=== PATIENT | female | born 1955 | race Caucasian/White ===

== ENCOUNTER → 2016-12-03 | Outpatient (CLI) | payer OTHER ==
[2016-12-03 13:21] LABS: MEAN CORPUSCULAR HEMOGLOBIN 30.4 pg (27.0-33.0); MEAN CORPUSCULAR HGB CONC 33.7 g/dl (32.0-36.5); MEAN CORPUSCULAR VOLUME 90.1 fl (80.0-96.0); RED CELL DISTRIBUTION WIDTH 13.1 % (11.5-14.5); WHITE BLOOD COUNT 5.4 K/mm3 (4.0-10.0)
[2016-12-03 13:33] LABS: ALBUMIN 3.7 GM/DL (3.2-5.2); ALBUMIN/GLOBULIN RATIO 1.19 (1.00-1.93); ALKALINE PHOSPHATASE 82 U/L (45-117); ALT/SGPT 41 U/L (12-78); ANION GAP 8 MEQ/L (8-16); AST/SGOT 26 U/L (15-37); BILIRUBIN,TOTAL 0.6 MG/DL (0.2-1.0); BLOOD UREA NITROGEN 14 MG/DL (7-18); CALCIUM LEVEL 8.4 MG/DL (8.8-10.2); CARBON DIOXIDE LEVEL 26 MEQ/L (21-32); CHLORIDE LEVEL 109 MEQ/L (98-107); CHOLESTEROL LEVEL 220 MG/DL (<200); CREATININE FOR GFR 0.73 MG/DL (0.55-1.02); FREE T4 0.91 NG/DL (0.76-1.46); GLOMERULAR FILTRATION RATE > 60.0 (>45); GLUCOSE, FASTING 95 MG/DL (80-110); POTASSIUM SERUM 4.5 MEQ/L (3.5-5.1); SODIUM LEVEL 143 MEQ/L (136-145); TOTAL PROTEIN 6.8 GM/DL (6.4-8.2); TRIGLYCERIDES LEVEL 113 MG/DL (<150)
== END ==
LOC: M WUC 08:38
PROVIDERS: ATTEND Family Medicine
DX: M85.80 Other specified disorders of bone density and structure, unspecified site (principal); E07.9 Disorder of thyroid, unspecified; E78.5 Hyperlipidemia, unspecified

== ENCOUNTER → 2017-04-23 | Outpatient (REF) | payer OTHER ==
[2017-04-23 13:08] LABS: BASO # 0.1 10^3/uL (0.0-0.2); BASO % 0.7 % (0.0-1.0); EOS # 0.2 10^3/uL (0.0-0.50); EOS % 2.2 % (0.0-3.0); HEMATOCRIT 42.6 % (36.0-47.0); IMMATURE GRANULOCYTE % 0.3 % (0-0); LYMPH # 2.8 10^3/uL (1.5-4.5); LYMPH % 39.2 % (24.0-44.0); MEAN CORPUSCULAR HEMOGLOBIN 29.3 pg (27.0-33.0); MEAN CORPUSCULAR HGB CONC 32.9 g/dl (32.0-36.5); MEAN CORPUSCULAR VOLUME 89.1 fl (80.0-96.0); MONO # 0.5 10^3/uL (0.0-0.8); MONO % 6.5 % (0.0-5.0); NEUTROPHILS # 3.7 10^3/uL (1.8-7.7); NEUTROPHILS % 51.1 % (36.0-66.0); PLATELET COUNT, AUTOMATED 313 10^3/uL (150-450); RED BLOOD COUNT 4.78 10^6/uL (4.00-5.40); RED CELL DISTRIBUTION WIDTH 13.1 % (11.5-14.5); WHITE BLOOD COUNT 7.2 10^3/uL (4.0-10.0)
[2017-04-23 13:24] LABS: VITAMIN B12 LEVEL 559 PG/ML
[2017-04-23 13:25] LABS: FOLATE 10.2 NG/ML
[2017-04-23 13:29] LABS: ALBUMIN 3.8 GM/DL (3.2-5.2); ALBUMIN/GLOBULIN RATIO 1.27 (1.00-1.93); ALKALINE PHOSPHATASE 89 U/L (45-117); ALT/SGPT 40 U/L (12-78); ANION GAP 6 MEQ/L (8-16); AST/SGOT 28 U/L (7-37); BILIRUBIN,TOTAL 0.4 MG/DL (0.2-1.0); BLOOD UREA NITROGEN 15 MG/DL (7-18); CALCIUM LEVEL 8.5 MG/DL (8.8-10.2); CARBON DIOXIDE LEVEL 26 MEQ/L (21-32); CHLORIDE LEVEL 110 MEQ/L (98-107); CREATININE FOR GFR 0.73 MG/DL (0.55-1.02); GLOMERULAR FILTRATION RATE > 60.0 (>45); GLUCOSE, FASTING 90 MG/DL (80-110); POTASSIUM SERUM 4.3 MEQ/L (3.5-5.1); RHEUMATOID FACTOR QUANT < 10.0 IU/ML (0-15.0); SODIUM LEVEL 142 MEQ/L (136-145); THYROID STIMULATING HORMONE 0.737 uIU/ML (0.358-3.740); TOTAL PROTEIN 6.8 GM/DL (6.4-8.2)
[2017-04-23 14:21] LABS: ERYTHROCYTE SEDIMENTATION RATE 6 mm/hr (0-30)
[2017-04-25 00:07] LABS: ANTI DOUBLE STRAND-DNA AB <1 IU/mL (0-9); ANTINUCLEAR ANTIBODIES DIRECT Negative (Negative); RNP ANTIBODIES <0.2 AI (0.0-0.9); SJOGREN'S ANTI SS-A <0.2 AI (0.0-0.9); SJOGREN'S ANTI SS-B <0.2 AI (0.0-0.9); SMITH ANTIBODIES <0.2 AI (0.0-0.9)
== END ==
LOC: M LABNEURO 11:28
DX: M32.9 Systemic lupus erythematosus, unspecified (principal); D35.2 Benign neoplasm of pituitary gland
CPT/HCPCS: 82746

== ENCOUNTER → 2017-04-30 | Outpatient (CLI) | payer OTHER ==
[2017-04-30 13:38] LABS: BASO # 0.1 10^3/uL (0.0-0.2); BASO % 0.4 % (0.0-1.0); EOS # 0.1 10^3/uL (0.0-0.50); EOS % 0.8 % (0.0-3.0); HEMATOCRIT 43.3 % (36.0-47.0); HEMOGLOBIN 14.3 g/dl (12.0-16.0); IMMATURE GRANULOCYTE # 0.1 10^3/uL (0-0); IMMATURE GRANULOCYTE % 0.4 % (0-0); LYMPH # 1.4 10^3/uL (1.5-4.5); LYMPH % 10.4 % (24.0-44.0); MEAN CORPUSCULAR HEMOGLOBIN 29.7 pg (27.0-33.0); MONO # 1.1 10^3/uL (0.0-0.8); MONO % 7.8 % (0.0-5.0); NEUTROPHILS # 10.8 10^3/uL (1.8-7.7); NEUTROPHILS % 80.2 % (36.0-66.0); PLATELET COUNT, AUTOMATED 319 10^3/uL (150-450); RED BLOOD COUNT 4.81 10^6/uL (4.00-5.40); RED CELL DISTRIBUTION WIDTH 13.1 % (11.5-14.5); WHITE BLOOD COUNT 13.5 10^3/uL (4.0-10.0)
[2017-04-30 14:52] LABS: ALBUMIN 3.7 GM/DL (3.2-5.2); ALBUMIN/GLOBULIN RATIO 1.12 (1.00-1.93); ALKALINE PHOSPHATASE 91 U/L (45-117); ALT/SGPT 39 U/L (12-78); ANION GAP 5 MEQ/L (8-16); AST/SGOT 19 U/L (7-37); BILIRUBIN,TOTAL 0.4 MG/DL (0.2-1.0); BLOOD UREA NITROGEN 16 MG/DL (7-18); CALCIUM LEVEL 8.8 MG/DL (8.8-10.2); CARBON DIOXIDE LEVEL 29 MEQ/L (21-32); CHLORIDE LEVEL 109 MEQ/L (98-107); CREATININE FOR GFR 0.73 MG/DL (0.55-1.02); GLOMERULAR FILTRATION RATE > 60.0 (>45); GLUCOSE, FASTING 94 MG/DL (70-100); POTASSIUM SERUM 4.3 MEQ/L (3.5-5.1); SODIUM LEVEL 143 MEQ/L (136-145)
== END ==
LOC: M WUC 10:46
DX: R19.7 Diarrhea, unspecified (principal)
CPT/HCPCS: 80053

== ENCOUNTER → 2017-05-01 | Outpatient (REF) | payer OTHER | LOC: M LAB REF 12:35 | DX: R19.7 Diarrhea, unspecified (principal) ==

== ENCOUNTER 2017-06-05 12:13 | Day surgery (SDC) | payer OTHER ==
[2017-06-05] MEDS: NS 1,000 ML IV (12:30)
[2017-06-05] MEDS ORDERED: fentaNYL 100 MCG/2 ML INJECTION (J3010) As Ordered (13:23)
[2017-06-05] MEDS ORDERED: LIDOCAINE 2% INJ 100 MG/5 ML SDV (FOR ANES.) As Ordered (13:55)
[2017-06-05] MEDS ORDERED: PROPOFOL 200 MG/20 ML VIAL As Ordered (13:55)
== END 2017-06-05 14:29 | disposition home or self-care (01) ==
LOC: M SDC 12:13
DX: R10.13 Epigastric pain (principal); R11.0 Nausea; G47.30 Sleep apnea, unspecified; F41.9 Anxiety disorder, unspecified; M79.7 Fibromyalgia; Z79.899 Other long term (current) drug therapy; K21.9 Gastro-esophageal reflux disease without esophagitis
CPT/HCPCS: 43239

== ENCOUNTER → 2017-08-21 | Outpatient (CLI) | payer OTHER ==
[2017-08-21 13:27] LABS: BASO % 0.6 % (0.0-1.0); EOS # 0.2 10^3/uL (0.0-0.50); EOS % 2.4 % (0.0-3.0); HEMATOCRIT 43.5 % (36.0-47.0); HEMOGLOBIN 14.4 g/dl (12.0-15.5); IMMATURE GRANULOCYTE % 0.2 % (0-3.0); LYMPH # 3.4 10^3/uL (1.5-4.5); LYMPH % 51.2 % (24.0-44.0); MEAN CORPUSCULAR HEMOGLOBIN 29.6 pg (27.0-33.0); MEAN CORPUSCULAR HGB CONC 33.1 g/dl (32.0-36.5); MEAN CORPUSCULAR VOLUME 89.5 fl (80.0-96.0); MONO # 0.5 10^3/uL (0.0-0.8); MONO % 6.9 % (0.0-5.0); NEUTROPHILS # 2.5 10^3/uL (1.8-7.7); NEUTROPHILS % 38.7 % (36.0-66.0); PLATELET COUNT, AUTOMATED 314 10^3/uL (150-450); RED BLOOD COUNT 4.86 10^6/uL (4.00-5.40); RED CELL DISTRIBUTION WIDTH 12.8 % (11.5-14.5); WHITE BLOOD COUNT 6.5 10^3/uL (4.0-10.0)
[2017-08-21 13:49] LABS: ALBUMIN 3.6 GM/DL (3.2-5.2); ALBUMIN/GLOBULIN RATIO 1.06 (1.00-1.93); ALKALINE PHOSPHATASE 87 U/L (45-117); ALT/SGPT 39 U/L (12-78); ANION GAP 6 MEQ/L (8-16); AST/SGOT 22 U/L (7-37); BILIRUBIN,TOTAL 0.5 MG/DL (0.2-1.0); BLOOD UREA NITROGEN 12 MG/DL (7-18); CALCIUM LEVEL 9.1 MG/DL (8.8-10.2); CARBON DIOXIDE LEVEL 27 MEQ/L (21-32); CHLORIDE LEVEL 110 MEQ/L (98-107); CREATININE FOR GFR 0.76 MG/DL (0.55-1.30); GLOMERULAR FILTRATION RATE > 60.0 (>45); GLUCOSE, FASTING 92 MG/DL (70-100); POTASSIUM SERUM 4.2 MEQ/L (3.5-5.1); SODIUM LEVEL 143 MEQ/L (136-145)
[2017-08-23 00:06] LABS: Lyme Disease IgG/IgM Antibodie <0.91 ISR (0.00-0.90); Lyme Disease IgM Ab Quantitati <0.80 index (0.00-0.79)
== END ==
LOC: M LAB 12:47
DX: R51 Headache (principal)
CPT/HCPCS: 80053

== ENCOUNTER 2017-09-21 08:06 | Day surgery (SDC) | payer OTHER ==
[2017-09-21] MEDS: NS 1,000 ML IV (08:58)
[2017-09-21] MEDS ORDERED: LIDOCAINE 2% INJ 100 MG/5 ML SDV (FOR ANES.) As Ordered (09:33)
[2017-09-21] MEDS ORDERED: PROPOFOL 200 MG/20 ML VIAL As Ordered ×2 (09:33→09:52)
== END 2017-09-21 10:41 | disposition home or self-care (01) ==
LOC: M OPP 08:06
DX: Z12.11 Encounter for screening for malignant neoplasm of colon (principal); D12.2 Benign neoplasm of ascending colon; D12.0 Benign neoplasm of cecum; Z86.010 Personal history of colon polyps; E78.00 Pure hypercholesterolemia, unspecified; K21.9 Gastro-esophageal reflux disease without esophagitis; M54.2 Cervicalgia; M79.7 Fibromyalgia; M35.9 Systemic involvement of connective tissue, unspecified; F32.9 Major depressive disorder, single episode, unspecified; F41.9 Anxiety disorder, unspecified; M16.9 Osteoarthritis of hip, unspecified; Z79.899 Other long term (current) drug therapy; Z88.8 Allergy status to other drugs, medicaments and biological substances; Z91.89 Other specified personal risk factors, not elsewhere classified; Z90.710 Acquired absence of both cervix and uterus; Z80.3 Family history of malignant neoplasm of breast; Z80.0 Family history of malignant neoplasm of digestive organs; Z80.7 Family history of other malignant neoplasms of lymphoid, hematopoietic and related tissues
CPT/HCPCS: 45385

== ENCOUNTER → 2017-11-02 | Outpatient (CLI) | payer OTHER ==
[2017-11-02 09:47] LABS: BASO # 0.1 10^3/uL (0.0-0.2); BASO % 0.8 % (0.0-1.0); EOS # 0.2 10^3/uL (0.0-0.50); EOS % 3.3 % (0.0-3.0); HEMATOCRIT 43.9 % (36.0-47.0); HEMOGLOBIN 14.4 g/dl (12.0-15.5); IMMATURE GRANULOCYTE % 0.3 % (0-3.0); LYMPH # 2.7 10^3/uL (1.5-4.5); LYMPH % 44.2 % (24.0-44.0); MEAN CORPUSCULAR HEMOGLOBIN 30.1 pg (27.0-33.0); MEAN CORPUSCULAR HGB CONC 32.8 g/dl (32.0-36.5); MEAN CORPUSCULAR VOLUME 91.6 fl (80.0-96.0); MONO # 0.4 10^3/uL (0.0-0.8); MONO % 6.8 % (0.0-5.0); NEUTROPHILS # 2.7 10^3/uL (1.8-7.7); NEUTROPHILS % 44.6 % (36.0-66.0); PLATELET COUNT, AUTOMATED 288 10^3/uL (150-450); RED BLOOD COUNT 4.79 10^6/uL (4.00-5.40); RED CELL DISTRIBUTION WIDTH 12.8 % (11.5-14.5); WHITE BLOOD COUNT 6.2 10^3/uL (4.0-10.0)
[2017-11-02 10:21] LABS: ALBUMIN 3.6 GM/DL (3.2-5.2); ALBUMIN/GLOBULIN RATIO 1.13 (1.00-1.93); ALKALINE PHOSPHATASE 83 U/L (45-117); ALT/SGPT 31 U/L (12-78); ANION GAP 7 MEQ/L (8-16); AST/SGOT 18 U/L (7-37); BILIRUBIN,TOTAL 0.4 MG/DL (0.2-1.0); BLOOD UREA NITROGEN 17 MG/DL (7-18); CALCIUM LEVEL 8.5 MG/DL (8.8-10.2); CARBON DIOXIDE LEVEL 26 MEQ/L (21-32); CHLORIDE LEVEL 112 MEQ/L (98-107); CHOLESTEROL LEVEL 258 MG/DL (<200); CHOLESTEROL RISK RATIO 4.095 (<5); CREATININE FOR GFR 0.82 MG/DL (0.55-1.30); GLOMERULAR FILTRATION RATE > 60.0 (>45); GLUCOSE, FASTING 96 MG/DL (70-100); HDL CHOLESTEROL 63 MG/DL (>40); LDL CHOLESTEROL 154.6 MG/DL (<100); NON-HDL-C 195 MG/DL; POTASSIUM SERUM 4.4 MEQ/L (3.5-5.1); SODIUM LEVEL 145 MEQ/L (136-145); TOTAL PROTEIN 6.8 GM/DL (6.4-8.2); TRIGLYCERIDES LEVEL 202 MG/DL (<150)
== END ==
LOC: M LAB 09:19
DX: E78.5 Hyperlipidemia, unspecified (principal)
CPT/HCPCS: 84443

== ENCOUNTER → 2018-08-03 | Outpatient (RCR) | payer OTHER ==
[~2018-08-03] MED LIST: ALIG4CAP PO; FLUO40CA PO; LYRI75CA PO; RANI150T PO; REST0.05 OU; SING10TA32 PO; TOPI50TA9 PO; allergy shots
== END ==
LOC: M PT 11:55
PROVIDERS: ATTEND Otolaryngology
DX: M26.69 Other specified disorders of temporomandibular joint (principal)

== ENCOUNTER → 2018-08-07 | Outpatient (CLI) | payer OTHER ==
--- NOTE | 2018-08-09 12:14 | REP ---
MRI TEMPOROMANDIBULAR JOINTS, BILATERAL STUDY: HISTORY: Disorder of the TMJs. No comparison imaging. TECHNIQUE: Axial, coronal, and sagittal imaging planes are utilized. T1- and T2-weighted sequences are included. The study includes simulated cine imaging bilaterally in the sagittal projection. 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 There is a small quantity of joint fluid. There is marrow edema and subcortical cyst formation on both sides of the left temporomandibular joint. There is limited opening translation. Meniscus is not identified suggesting degeneration. On the right, there is some associated limitation of opening translation, a small subcortical cyst is seen on the temporal side of the joint. Mandibular condyles intact. The meniscus is intact and normal in position. No significant spurring is seen. IMPRESSION: Advanced osteoarthritis left TMJ with flattening and remodelling; and degeneration of the meniscus. Limited range of motion. Minimal degenerative changes are noted on the right. The right meniscus appears intact. Electronically Signed by Carlos Grant MD 08/09/2018 02:31 P
== END ==
LOC: M RAD 12:06
PROVIDERS: ATTEND Otolaryngology
DX: M26.69 Other specified disorders of temporomandibular joint (principal)

== ENCOUNTER → 2018-09-03 | Outpatient (RCR) | payer OTHER | LOC: M PT 08-10 11:59 | PROVIDERS: ATTEND Otolaryngology | DX: M26.69 Other specified disorders of temporomandibular joint (principal) ==

== ENCOUNTER → 2018-12-27 | Outpatient (CLI) | payer OTHER ==
[2018-12-27 09:21] LABS: BASO # 0.1 10^3/uL (0.0-0.2); BASO % 0.8 % (0.0-1.0); EOS # 0.3 10^3/uL (0.0-0.5); EOS % 4.5 % (0.0-3.0); HEMATOCRIT 42.8 % (36.0-47.0); HEMOGLOBIN 13.7 g/dl (12.0-15.5); LYMPH % 47.7 % (24.0-44.0); MEAN CORPUSCULAR HEMOGLOBIN 29.7 pg (27.0-33.0); MEAN CORPUSCULAR VOLUME 92.8 fl (80.0-96.0); MONO # 0.5 10^3/uL (0.0-0.8); MONO % 7.5 % (0.0-5.0); NEUTROPHILS # 2.4 10^3/uL (1.5-8.5); NEUTROPHILS % 39.2 % (36.0-66.0); PLATELET COUNT, AUTOMATED 290 10^3/uL (150-450); RED BLOOD COUNT 4.61 10^6/uL (4.00-5.40); WHITE BLOOD COUNT 6.2 10^3/uL (4.0-10.0)
[2018-12-27 09:56] LABS: ALBUMIN 3.5 GM/DL (3.2-5.2); ALT/SGPT 33 U/L (12-78); BILIRUBIN,TOTAL 0.3 MG/DL (0.2-1.0); BLOOD UREA NITROGEN 7 MG/DL (7-18); CALCIUM LEVEL 8.8 MG/DL (8.8-10.2); CARBON DIOXIDE LEVEL 29 MEQ/L (21-32); CHLORIDE LEVEL 111 MEQ/L (98-107); CHOLESTEROL LEVEL 232 MG/DL (<200); CHOLESTEROL RISK RATIO 3.803 (<5); CREATININE FOR GFR 0.79 MG/DL (0.55-1.30); FREE T3 2.6 PG/ML (2.2-4.0); FREE T4 0.84 NG/DL (0.76-1.46); GLOMERULAR FILTRATION RATE > 60.0 (>45); GLUCOSE, FASTING 93 MG/DL (70-100); HDL CHOLESTEROL 61 MG/DL (>40); LDL CHOLESTEROL 138 MG/DL (<100); NON-HDL-C 171 MG/DL; POTASSIUM SERUM 4.6 MEQ/L (3.5-5.1); SODIUM LEVEL 145 MEQ/L (136-145); TOTAL PROTEIN 6.5 GM/DL (6.4-8.2); TRIGLYCERIDES LEVEL 163 MG/DL (<150)
== END ==
LOC: M LAB 08:31
PROVIDERS: ATTEND Family Medicine
DX: E07.9 Disorder of thyroid, unspecified (principal); E78.5 Hyperlipidemia, unspecified

== ENCOUNTER → 2019-05-11 | Outpatient (CLI) | payer OTHER ==
[2019-05-11 12:37] LABS: BASO % 0.6 % (0.0-1.0); EOS # 0.2 10^3/uL (0.0-0.5); EOS % 2.8 % (0.0-3.0); HEMATOCRIT 42.8 % (36.0-47.0); LYMPH # 3.5 10^3/uL (1.5-5.0); LYMPH % 51.9 % (24.0-44.0); MEAN CORPUSCULAR HEMOGLOBIN 29.7 pg (27.0-33.0); MEAN CORPUSCULAR HGB CONC 32.7 g/dl (32.0-36.5); MEAN CORPUSCULAR VOLUME 90.7 fl (80.0-96.0); MONO # 0.5 10^3/uL (0.0-0.8); MONO % 7.7 % (0.0-5.0); NEUTROPHILS # 2.5 10^3/uL (1.5-8.5); NEUTROPHILS % 36.9 % (36.0-66.0); PLATELET COUNT, AUTOMATED 300 10^3/uL (150-450); RED BLOOD COUNT 4.72 10^6/uL (4.00-5.40); WHITE BLOOD COUNT 6.7 10^3/uL (4.0-10.0)
[2019-05-11 13:07] LABS: ALBUMIN 3.9 GM/DL (3.2-5.2); ALT/SGPT 29 U/L (12-78); BILIRUBIN,TOTAL 0.3 MG/DL (0.2-1.0); BLOOD UREA NITROGEN 23 MG/DL (7-18); CALCIUM LEVEL 8.6 MG/DL (8.8-10.2); CARBON DIOXIDE LEVEL 27 MEQ/L (21-32); CHLORIDE LEVEL 112 MEQ/L (98-107); CREATININE FOR GFR 0.77 MG/DL (0.55-1.30); GLOMERULAR FILTRATION RATE > 60.0 (>45); GLUCOSE, FASTING 77 MG/DL (70-100); POTASSIUM SERUM 4.3 MEQ/L (3.5-5.1); RHEUMATOID FACTOR QUANT < 10.0 IU/ML (<15.0); SODIUM LEVEL 142 MEQ/L (136-145)
[2019-05-11 13:15] LABS: TOTAL 25(OH) VITAMIN D 36.4 NG/ML (30.0-100.0); VITAMIN B12 LEVEL > 2000 PG/ML
[2019-05-11 13:17] LABS: FOLATE 9.9 NG/ML
[2019-05-11 14:15] LABS: ERYTHROCYTE SEDIMENTATION RATE 6 mm/hr (0-30)
[2019-05-13 00:06] LABS: ANTINUCLEAR ANTIBODIES DIRECT Negative (Negative); CYCLIC CITRULLINATED PEPTIDE 16 units (0-19)
== END ==
LOC: M LAB 11:40
PROVIDERS: ATTEND Psychiatry & Neurology Neurology
DX: M19.90 Unspecified osteoarthritis, unspecified site (principal); R51 Headache

== ENCOUNTER → 2019-05-27 | Outpatient (CLI) | payer OTHER ==
[2019-05-27 10:52] LABS: BLOOD UREA NITROGEN 24 MG/DL (7-18); CREATININE FOR GFR 0.94 MG/DL (0.55-1.30); GLOMERULAR FILTRATION RATE > 60.0 (>45)
== END ==
LOC: M LAB 08:32
PROVIDERS: ATTEND Neurological Surgery
DX: Z13.89 Encounter for screening for other disorder (principal); D32.9 Benign neoplasm of meninges, unspecified

== ENCOUNTER → 2019-10-24 | Outpatient (CLI) | payer SELFPAY ==
[~2019-10-24] MED LIST changes: +CITA20TA6 PO; +CVS1CAP2 PO; +OXYB5TAB10 PO; +PANT40TA29 PO
== END ==
LOC: M LABSMTC 12:56
PROVIDERS: ATTEND Pediatrics
DX: Z20.828 Contact with and (suspected) exposure to other viral communicable diseases (principal); Z11.59 Encounter for screening for other viral diseases

== ENCOUNTER → 2020-01-12 | Outpatient (CLI) | payer OTHER, SELFPAY | LOC: M LABSMTC 12:07 | PROVIDERS: ATTEND Anesthesiology | DX: Z01.812 Encounter for preprocedural laboratory examination (principal); Z20.828 Contact with and (suspected) exposure to other viral communicable diseases | CPT/HCPCS: C9803; U0003 ==

== ENCOUNTER 2020-01-17 13:55 | Day surgery (SDC) | payer OTHER ==
[~2020-01-17] VITALS: Ht 154.9 cm; Wt 73.5 kg
[~2020-01-17 13:55] MED LIST changes: +LIDOCAINE 2% 100MG/5ML SDV (FOR ANES.) As Ordered ONE; +NS 1,000 ML IV ONE; +fentaNYL 100 MCG/2 ML INJECTION (J3010) As Ordered ONE; +propofoL 200 MG/20 ML VIAL As Ordered ONE
--- NOTE | 2020-01-17 15:55 | ROOR ---
Patient Name: Anjana Sher Procedure Date: 01/17/2020 3:43 PM Date of : 1955 Age: 64 Room: [facility] Gender: Female Note Status: Finalized Procedure: Upper GI endoscopy Indications: Globus sensation, Heartburn, Suspected esophageal reflux (globus resolved on PPI) Providers: Harvey GARNER MD Referring MD: Jarrod Milan MD Requesting Provider: Medicines: Monitored Anesthesia Care Complications: No immediate complications. Procedure: Pre-Anesthesia Assessment: - The heart rate, respiratory rate, oxygen saturations, blood pressure, adequacy of pulmonary ventilation, and response to care were monitored throughout the procedure. The Endoscope was introduced through the mouth, and advanced to the second part of duodenum. The upper GI endoscopy was accomplished without difficulty. The patient tolerated the procedure well. Findings: The esophagus was normal. The stomach was normal. The examined duodenum was normal. Impression: - Normal esophagus. - Normal stomach. - Normal examined duodenum. - No specimens collected. Recommendation: - Continue present medications. Harvey Garner MD Harvey GARNER MD 01/17/2020 3:54:15 PM Electronically signed by Harvey GARNER MD Number of Addenda: 0 Note Initiated On: 01/17/2020 3:43 PM Estimated Blood Loss: Estimated blood loss: none.
[2020-01-17 16:23] VITALS: BP 155/84
== END 2020-01-17 16:30 | disposition home or self-care (01) ==
LOC: M OPP 13:55
PROVIDERS: ATTEND Internal Medicine Gastroenterology
DX: R13.12 Dysphagia, oropharyngeal phase (principal); R09.89 Other specified symptoms and signs involving the circulatory and respiratory systems; R12 Heartburn; G47.30 Sleep apnea, unspecified; Z79.899 Other long term (current) drug therapy; Z88.1 Allergy status to other antibiotic agents; Z88.5 Allergy status to narcotic agent; Z88.8 Allergy status to other drugs, medicaments and biological substances
CPT/HCPCS: 43235; J3010

== ENCOUNTER 2020-05-09 14:03 | Emergency (ER) | payer OTHER ==
[~2020-05-09] VITALS: Ht 154.9 cm; Wt 75.3 kg
[~2020-05-09 14:03] MED LIST changes: -TIZA4TAB4 PO
[2020-05-09] MEDS ORDERED: SING10TA32 PO (14:25)
[2020-05-09] MEDS ORDERED: TIZA4TAB4 PO (14:25)
--- OUTSIDE RECORDS SUMMARY | 2020-05-09 14:55 | CCD ---
Author Organization Unknown Address [address] [place] [address] Phone [phone] Care Team Providers Care Mobile Battery Technician Name Role Phone VALERIA SOLORZANO MD 3 [phone] Allergies Code Code System Name Reaction Severity Status Onset 450454 RxNorm Augmentin Diarrhea Mild to Moderate Active 2230 RxNorm Codeine Nausea Mild to Moderate Active Dristan Hives Moderate to Severe Active Medications Name Status Start Date Stop Date citalopram 20 mg tablet TAKE ONE TABLET BY MOUTH ONCE A DAY REPLACES FLUOXETINE Active Not available citalopram 40 mg tablet TAKE ONE TABLET BY MOUTH ONCE A DAY Active Not available estradiol 0.01% (0.1 mg/gram) vaginal cr eam USE ONE GM VAGINALLY THREE DAYS PER WEEK Active Not available fluoxetine 10 mg capsule Take 1 capsule every day by oral route. Completed 03/06/2020 fluoxetine 20 mg capsule TAKE ONE CAPSULE BY MOUTH ONCE A DAY REPLACES ESCITALOPRAM Completed 03/06/2020 ibuprofen 600 mg tablet Take 1 tablet every day by oral route. Active Not available Lyrica 25 mg capsule Take 1 capsule every day by oral route at bedtime. Completed 03/06/2020 montelukast 10 mg tablet TAKE ONE TABLET BY MOUTH EVERY DAY Active Not available naproxen 500 mg tablet TAKE ONE TABLET BY MOUTH TWICE A DAY NEEDED Completed 03/06/2020 oxybutynin chloride 5 mg tablet TAKE ONE TABLET BY MOUTH TWICE A DAY Active No t available pantoprazole 40 mg tablet,delayed releas e TAKE ONE TABLET BY MOUTH EVERY DAY Active Not available pregabalin 50 mg capsule TAKE ONE CAPSULE BY MOUTH TWICE A DAY MAXIMUM DAILY DOSE TWO CAPSULES Completed 03/06/2020 Prozac 40 mg capsule Take 1 capsule every day by oral route. Completed 02/11/2019 Restasis 0.05 % eye drops in a dropperet te INSTILL 1 DROP INTO AFFECTED EYE(S) BY OPHTHALMIC ROUTE EVERY 12 HOURS Active Not available rosuvastatin 10 mg tablet TAKE ONE TABLET BY MOUTH ONCE A DAY Active Not available tizanidine 4 mg tablet TAKE ONE TABLET BY MOUTH AT BEDTIME NEEDED Active Not available topiramate 50 mg tablet TAKE ONE TABLET BY MOUTH AT BEDTIME MAXIMUM DAILY DOSE 1 TABLET Active Not available Ventolin HFA 90 mcg/actuation aerosol in haler INHALE TWO PUFFS BY MOUTH EVERY 4 HOURS NEEDED Active Not available Vitamin D3 one by mouth once daily Active Not available Xiidra 5 % eye drops in a dropperette INSTILL 1 DROP INTO BOTH EYES BY OPHTHALMIC ROUTE 2 TIMES PER DAY APPROXIMATELY 12 HOURS APART Active Not available Zantac 150 mg tablet Take 1 tablet twice a day by oral route. Completed 06/28/2018 Zyrtec 10 mg tablet Take 1 tablet every day by oral route. Active Not available Problems None recorded. Procedures Date Name Performed by Throat Surgery Procedure Information not available Hernia Repair Notes: umbilical hernioa repair Information not available Bilateral Tubal Ligation Information not available Hysterectomy Information not avai lable 03/22/2019 MRI, Knee, W/o Contrast [facility] [address] [address] ( (Work Place) Notes: polyps Results Lab Results Date Name Specimen Result Interpretation Description Value Range Status Address 04/30/2020 [facility] Pdf Report NOS No observation recorded. [facility] Cov[facility]: [address] [facility], [place] 04/30/2020 COVID-19 RNA (SARS-CoV-2), QL, director of government sales-PCR, Respirat ory Specimen NOS Normal Sars-cov-2 negative negative Final [facility]: [address] [facility] [place] 2020 [facility] Pdf Report NOS No observation recorded. [facility]: [address] [facility], [place] 2020 COVID-19 RNA (SARS-CoV-2), QL, director of government sales-PCR, Respirat ory Specimen NOS Normal Sars-cov-2 negative negative Final [facility]: [address] [facility], [place] 03/12/2020 [facility] Pdf Report NOS No observation recorded. [facility]: [address] [facility], [place] 03/12/2020 COVID-19 RNA (SARS-CoV-2), QL, director of government sales-PCR, Respirat ory Specimen NOS Normal Sars-cov-2 negative negative Final [facility]: [address] [facility], [place] Past Encounters 05/04/2020 Cervical Radiculopathy; Displacement of Cervical Intervertebral Disc without Myelopathy; Degeneration of Cervical Intervertebral Disc; Cervical Spondylosis without Myelopathy; Myofascial Pain; Osteoarthritis of Knee; Chondromalacia of Patella Bharat Yee MD: [id number] [address], [place] [address], Ph. 04/30/2020 Pre-surgery Testing; Viral Screening Bharat Yee MD: [id number] [address], [place] [address], Ph. [phone] 04/12/2020 Cervical Radiculopathy; Displacement of Cervical Intervertebral Disc without Myelopathy; Degeneration of Cervical Intervertebral Disc; Cervical Spondylosis without Myelopathy; Myofascial Pain; Osteoarthritis of Knee; Chondromalacia of Patella Bharat Yee MD: [id number] [address], [place] [address], Ph. 2020 Pre-surgery Testing; Viral Screening Bharat Yee MD: [id number] [address], [place] [address], Ph. [phone] 03/16/2020 Cervical Radiculopathy; Displacement of Cervical Intervertebral Disc without Myelopathy; Degeneration of Cervical Intervertebral Disc; Cervical Spondylosis without Myelopathy; Myofascial Pain; Osteoarthritis of Knee; Chondromalacia of Patella Bharat Yee MD: [id number] [address], [place] [address], Ph. 03/12/2020 Pre-surgery Testing; Viral Screening Bharat Yee MD: [id number] [address], [place] [address], Ph. [phone] 03/06/2020 Cervical Radiculopathy; Displacement of Cervical Intervertebral Disc without Myelopathy; Degeneration of Cervical Intervertebral Disc; Cervical Spondylosis without Myelopathy; Myofascial Pain; Osteoarthritis of Knee; Chondromalacia of Patella Luz Rico NP: [id number] [facility] [address], [place] [address], Ph. 06/22/2019 Cervical Radiculopathy; Displacement of Cervical Intervertebral Disc without Myelopathy; Degeneration of Cervical Intervertebral Disc; Cervical Spondylosis without Myelopathy; Myofascial Pain; Osteoarthritis of Knee; Chondromalacia of Patella Luz Rico, CLINICAL CARE LEADER: [id number] [address], Ph. 06/08/2019 Osteoarthritis of Knee; Chondromalacia of Patella; Cervical Radiculopathy; Displacement of Cervical Intervertebral Disc without Myelopathy; Degeneration of Cervical Intervertebral Disc; Cervical Spondylosis without Myelopathy; Myofascial Pain Bharat Yee MD: [id number] [address], Ph. 05/25/2019 Osteoarthritis of Knee; Chondromalacia of Patella; Cervical Radiculopathy; Displacement of Cervical Intervertebral Disc without Myelopathy; Degeneration of Cervical Intervertebral Disc; Cervical Spondylosis without Myelopathy; Myofascial Pain Bharat Yee MD: [id number] [address], Ph. 05/02/2019 Cervical Radiculopathy; Displacement of Cervical Intervertebral Disc without Myelopathy; Degeneration of Cervical Intervertebral Disc; Cervical Spondylosis without Myelopathy; Myofascial Pain; Osteoarthritis of Knee; Chondromalacia of Patella Luz Rico, CLINICAL CARE LEADER: [id number] [address], Ph. 04/11/2019 Myofascial Pain; Cervical Radiculopathy; Displacement of Cervical Intervertebral Disc without Myelopathy; Degeneration of Cervical Intervertebral Disc; Cervical Spondylosis without Myelopathy; Osteoarthritis of Knee Bharat Yee MD: [id number] [address], Ph. 03/22/2019 Cervical Radiculopathy; Displacement of Cervical Intervertebral Disc without Myelopathy; Degeneration of Cervical Intervertebral Disc; Cervical Spondylosis without Myelopathy; Myofascial Pain; Osteoarthritis of Knee Luz Blackman Jacky, CLINICAL CARE LEADER: [id number] [address], Ph. 02/11/2019 Cervical Radiculopathy; Displacement of Cervical Intervertebral Disc without Myelopathy; Degeneration of Cervical Intervertebral Disc; Cervical Spondylosis without Myelopathy; Myofascial Pain Luz Albaezequielbright Roquepaululysses, CLINICAL CARE LEADER: [address] [address], [place] [address], Ph. 12/28/2018 Cervical Radiculopathy; Displacement of Cervical Intervertebral Disc without Myelopathy; Degeneration of Cervical Intervertebral Disc; Cervical Spondylosis without Myelopathy; Myofascial Pain Bharat Yee MD: [id number] [address], [place] [address], Ph. 12/14/2018 Cervical Radiculopathy; Displacement of Cervical Intervertebral Disc without Myelopathy; Degeneration of Cervical Intervertebral Disc; Cervical Spondylosis without Myelopathy; Myofascial Pain Luz Rico, CLINICAL CARE LEADER: [id number] [address], [place] [address], Ph. 10/12/2018 Cervical Radiculopathy; Displacement of Cervical Intervertebral Disc without Myelopathy; Degeneration of Cervical Intervertebral Disc; Cervical Spondylosis without Myelopathy Luz Rico, CLINICAL CARE LEADER: [id number] [address], [place] [address], Ph. 09/15/2018 Cervical Radiculopathy; Displacement of Cervical Intervertebral Disc without Myelopathy; Degeneration of Cervical Intervertebral Disc; Cervical Spondylosis without Myelopathy Bharat Yee MD: [id number] [facility] [address], [place] [address], Ph. 09/01/2018 Cervical Radiculopathy; Displacement of Cervical Intervertebral Disc without Myelopathy; Degeneration of Cervical Intervertebral Disc; Cervical Spondylosis without Myelopathy Bharat Yee MD: [id number] [facility] [address], [place] [address], Ph. 08/04/2018 Cervical Radiculopathy; Displacement of Cervical Intervertebral Disc without Myelopathy; Degeneration of Cervical Intervertebral Disc; Cervical Spondylosis without Myelopathy Bharat Yee MD: [id number] [facility], [place] [address], Ph. 06/28/2018 Cervical Radiculopathy; Displacement of Cervical Intervertebral Disc without Myelopathy; Degeneration of Cervical Intervertebral Disc; Cervical Spondylosis without Myelopathy Bharat Yee MD: [id number] [facility] [address], [place] [address], Ph. Social History Tobacco Smoking Status Never Smoker Vaccine List None recorded. Plan of Care Reminders Provider Appointments None recorded. Lab None recorded. Referral None recorded. Procedures None recorded. Surgeries None recorded. Imaging None recorded. Vitals 03/06/2020 10:15AM FOLLOW-UP Height Blood Pressure 5 ft 1 in 128/86 mm[Hg] 06/22/2019 09:15AM FOLLOW-UP Height Weight BMI Blood Pressure 5 ft 1 in 161 lbs 30.4 kg/m2 121/83 mm[Hg] 05/02/2019 03:00PM FOLLOW-UP Height Blood Pressure 5 ft 1 in 138/85 mm[Hg] 03/22/2019 10:30AM FOLLOW-UP Height Weight BMI Blood Pressure 5 ft 1 in 161 lbs 30.4 kg/m2 139/84 mm[Hg] 02/11/2019 09:30AM FOLLOW-UP Height Weight BMI Blood Pressure 5 ft 1 in 161 lbs 30.4 kg/m2 119/70 mm[Hg] 12/14/2018 09:00AM FOLLOW-UP Height Weight BMI Blood Pressure 5 ft 1 in 161 lbs 30.4 kg/m2 113/72 mm[Hg] 10/12/2018 11:30AM FOLLOW-UP Height Blood Pressure 5 ft 1 in 114/76 mm[Hg] 06/28/2018 03:00PM NEW PATIENT Height Weight BMI Blood Pressure 5 ft 1 in 161 lbs 30.4 kg/m2 129/84 mm[Hg]
--- OUTSIDE RECORDS SUMMARY | 2020-05-09 14:55 | CCD | Continuity of Care Document ---
Author Author Anjana LOTT PA-C Organization Unknown Address [address] [place] [address] Phone [phone] Care Team Providers Care Contracting Analyst Name Role Phone Clarita Yen AUTM [phone] Jarrod Milan MD AUTM [phone] Problems Active Problems Provider Date Allergic rhinitis due to pollen Lino Dick, Onset: 12/02/2010 Allergic rhinitis Lino Dick, DO Onset: 12/02/2010 Chronic sinusitis Lino Dick, DO Onset: 12/02/2010 Cough Lino Dick, DO Onset: 12/02/2010 Gastroesophageal reflux disease Lino Dick, DO Onset: 12/02/2010 Difficulty breathing Lino Dick, DO Onset: 12/16/2010 Allergic rhinitis Lino Dick, DO Onset: 12/16/2010 Allergic asthma without status asthmaticus Lino Dick , DO Onset: 01/07/2011 Conjunctival xerosis Kathie Mirza, P.A. Onset: 04/20/19 13 Chronic allergic conjunctivitis Stefania Wynn M.S., PA -C Onset: 08/16/2013 Malaise and fatigue Stefania Wynn M.S., PA-C Onset: Exacerbation of asthma Stefania Wynn M.S., PA-C Onset: 06/06/2014 Allergic rhinitis due to animals Lino Dick, Onset : 10/29/2016 Mild intermittent asthma Lino Dick, Onset: 2016 Social History Type Date Description Comments Sex Unknown Tobacco Use Reviewed: 05/03/20 Patient has never smoked Smoking Status Reviewed: 05/03/20 Patient has never smoked Allergies, Adverse Reactions, Alerts Active Allergies Reaction Severity Comments Date Augmentin Nausea and Vomiting Moderate 12/03/19 11 Codeine Nausea and Vomiting Moderate 12/03/19 11 Paula 12/05/2010 Cefuroxime Nausea and Vomiting 06/07/19 15 Medications Active Medications SIG Qnty Indications Ordering Provide r Date Mometasone Furoate 50mcg/Act Suspe nsion 2 sprays each nostril daily 17gm J30.1 Lino Dick, DO 05/03/2020 Saline Mist [place] 0.65% Solution use 2 sprays in each nostril 3-4 times a day 1bottle J30.1 Lino Dick, DO 12/23/2018 Ventolin HFA 108(90Base) mcg/Act A erosol inhale 2 puffs by mouth every 4 hours as needed 1units J45.20 Lino Dick, DO 02/07/2016 J45.901 Albuterol Sulfate (2 .5mg/3ML) 0.083% Nebulizer 1 unit via nebulizer every 4 hours as needed 150ml J45 .20 Lino Dick, DO 06/06/2014 J45.901 Cetirizine HCL 10mg Tablets 1qd - take one tablet by mouth every day 90tabs J30.1 Lino Dick, DO 09/27/2013 J30.89 Singulair 10mg Tablets 1 by mouth every day 90tabs J30.1 Lino Dick, DO 09/27/2013 J30.89 Restasis 0.05% Emulsion 1 drop in each eye bid 1units 372.53 Lino Dick, DO 04/20/2012 Crestor 10mg Tablets 1 po qhs Unknown Multivitamins Tablets 1 po q d Unknown Topiramate 50mg Tablets 2 shivani ly Unknown Oxybutynin Chloride 5mg Tablets Take One Tablet By Mouth Twice A Day Unknown 00 Pantoprazole Sodium 40mg Tablets D R Take One Tablet By Mouth Every Day Unknown Estradiol 0.1mg/GM Cream Use One GM Vaginally Three Days Per Week Unknown Citalopram Hydrobromide 40mg Table ts Take One Tablet By Mouth Once A Day Unknown 0 Immunizations CPT Code Status Date Vaccine Lot # U-Flu Given 01/16/2020 Influenza,Unspecified Vital Signs Date Vital Result Comment 05/03/2020 8:28am Respiratory Rate 15 /min Heart Rate 68 /min BP Systolic 122 mmHg left arm BP Diastolic 84 mmHg left arm Height 61 inches 5'1" Weight 168.00 lb Body Temperature 96.7 F O2 % BldC Oximetry 97 % BMI (Body Mass Index) 31.7 kg/m2 01/26/2020 10:25am Respiratory Rate 16 /min Heart Rate 70 /min BP Systolic 112 mmHg BP Diastolic 78 mmHg Height 61 inches 5'1" Weight 167.00 lb O2 % BldC Oximetry 98 % BMI (Body Mass Index) 31.6 kg/m2 Results Description No Information Available Procedures Date Code Description Status 05/03/2020 89369 Prick Testing Completed 05/03/2020 38060 Intradermals Completed 04/26/2020 15427 Multiple Injections-Admin. Compl eted 04/04/2020 09100 Multiple Injections-Admin. Compl eted 03/15/2020 49599 Multiple Injections-Admin. Compl eted Medical Devices Description No Information Available Encounters Description No Information Available Assessments Date Code Description Provider 05/03/2020 J30.1 Allergic rhinitis due to pollen Purnima Lott PA-C 05/03/2020 J30.1 Allergic rhinitis due to pollen Nurses [place] 05/03/2020 J30.89 Other allergic rhinitis Purnima Lott PA-C 05/03/2020 J30.1 Allergic rhinitis due to pollen Purnima Lott PA-C 05/03/2020 J30.81 Allergic rhinitis due to animal (cat) (dog) hair and dander Purnima Lott PA-C 05/03/2020 J30.89 Other allergic rhinitis [facility]es [place] 05/03/2020 J30.89 Other allergic rhinitis Purnima Lott PA-C 05/03/2020 J30.81 Allergic rhinitis due to animal (cat) (dog) hair and dander Nurses [place] 05/03/2020 J30.81 Allergic rhinitis due to animal (cat) (dog) hair and dander Purnima Lott PA-C 05/03/2020 H10.45 Other chronic allergic conjuncti vitis Purnima Lott PA-C 05/03/2020 J45.20 Mild intermittent asthma, uncomp licated Purnima Lott PA-C 04/26/2020 J30.1 Allergic rhinitis due to pollen Allergy Injections 04/26/2020 J30.1 Allergic rhinitis due to pollen Allergy Injections [place] 04/26/2020 J30.89 Other allergic rhinitis Allergy Injections 04/26/2020 J30.89 Other allergic rhinitis Allergy Injections [place] 04/26/2020 J30.81 Allergic rhinitis due to animal (cat) (dog) hair and dander Allergy Injections 04/26/2020 J30.81 Allergic rhinitis due to animal (cat) (dog) hair and dander Allergy Injections [place] 04/04/2020 J30.1 Allergic rhinitis due to pollen Allergy Injections 04/04/2020 J30.1 Allergic rhinitis due to pollen Allergy Injections [place] 04/04/2020 J30.89 Other allergic rhinitis Allergy Injections 04/04/2020 J30.89 Other allergic rhinitis Allergy Injections [place] 04/04/2020 J30.81 Allergic rhinitis due to animal (cat) (dog) hair and dander Allergy Injections 04/04/2020 J30.81 Allergic rhinitis due to animal (cat) (dog) hair and dander Allergy Injections [place] 03/15/2020 J30.1 Allergic rhinitis due to pollen Allergy Injections 03/15/2020 J30.1 Allergic rhinitis due to pollen Allergy Injections [place] 03/15/2020 J30.89 Other allergic rhinitis Allergy Injections 03/15/2020 J30.89 Other allergic rhinitis Allergy Injections [place] 03/15/2020 J30.81 Allergic rhinitis due to animal (cat) (dog) hair and dander Allergy Injections 03/15/2020 J30.81 Allergic rhinitis due to animal (cat) (dog) hair and dander Allergy Injections [place] 01/26/2020 J30.1 Allergic rhinitis due to pollen Purnima Lott PA-C 01/26/2020 J30.89 Other allergic rhinitis Kaylie, Purnima, PA-C 01/26/2020 J30.81 Allergic rhinitis due to animal (cat) (dog) hair and dander Purnima Lott PA-C 01/26/2020 H10.45 Other chronic allergic conjuncti vitis Purnima Lott PA-C 01/26/2020 J45.20 Mild intermittent asthma, uncomp licated Purnima Lott PA-C Plan of Treatment Future Appointment(s):* 05/09/2020 9:15 am - [facility] [place] [facility] [place] * 11/01/2020 9:15 am - Purnima Lott PA-C at [place] [facility] 05/03/2020 - Purnima Lott PA-C* J30.1 Allergic rhinitis due to pollen* New Medication:* Mometasone Furoate 50 mcg/Act - 2 sprays each nostril daily * Comments:* Continue meds as discussed. Use Zyrtec as needed. Continue allergy immunotherapy with extracts for the next full year. Continue on q3 week interval. To implement allergen avoidance as discussed. Advised increased use of saline. Discussed humidity precautions. Use Flonase for short bursts of time. Discussed proper technique of administration of corticosteroid nasal spray. * Follow up:* 6 mo. * J30.89 Other allergic rhinitis* Comments:* See above. * J30.81 Allergic rhinitis due to animal (cat) (dog) hair and dander* Comments: * To implement allergen avoidance measures within the home. * H10.45 Other chronic allergic conjunctivitis * J45.20 Mild intermittent asthma, uncomplicated* Comments:* Rescue inhaler is to be used as needed for shortness of breath coughing or wheezing, 2 inhalations every 4 hours as needed. Functional Status Description No Information Available Mental Status Description No Information Available Referrals Description No Information Available
--- OUTSIDE RECORDS SUMMARY | 2020-05-09 14:55 | CCD | Continuity of Care Document ---
Author Author Allergy Injections Anjana Vazquez Organization Unknown Address [address] [place] [address] Phone [phone] Care Team Providers Care Adventure Therapist Name Role Phone Clarita Yen AUTM [phone] Jarrod Milan MD AUTM [phone] Problems Active Problems Provider Date Allergic rhinitis due to pollen Lino Dick DO Onset: 12/02/2010 Allergic rhinitis Lino Dick, Onset: 12/02/2010 Chronic sinusitis Lino Dick, DO Onset: 12/02/2010 Cough Lino Dick, DO Onset: 12/02/2010 Gastroesophageal reflux disease Lino Dick, Onset: 12/02/2010 Difficulty breathing Lino Dick DO Onset: 12/16/2010 Allergic rhinitis Lino Dick, DO Onset: 12/16/2010 Allergic asthma without status asthmaticus Lino Dick , DO Onset: 01/07/2011 Conjunctival xerosis Kathie Mirza, P.A. Onset: 04/20/19 13 Chronic allergic conjunctivitis Stefania Wynn M.S., PA -C Onset: 08/16/2013 Malaise and fatigue Stefania Wynn M.S., PA-C Onset: Exacerbation of asthma Stefania Wynn M.S., PA-C Onset: 06/06/2014 Allergic rhinitis due to animals Lino Dick DO Onset : 10/29/2016 Mild intermittent asthma Lino Dick DO Onset: 2016 Social History Type Date Description Comments Sex Unknown Tobacco Use Reviewed: 01/26/20 Patient has never smoked Smoking Status Reviewed: 01/26/20 Patient has never smoked Allergies, Adverse Reactions, Alerts Active Allergies Reaction Severity Comments Date Augmentin Nausea and Vomiting Moderate 12/03/19 11 Codeine Nausea and Vomiting Moderate 12/03/19 11 Paula 12/05/2010 Cefuroxime Nausea and Vomiting 06/07/19 15 Medications Active Medications SIG Qnty Indications Ordering Provide r Date Saline Mist [place] 0.65% Solution use 2 sprays in each nostril 3-4 times a day 1bottle J30.1 Lino Dick, DO 12/23/2018 Fluticasone Propionate 50mcg/Act Suspension 2 sprays ea. nostril once daily 16gm J30.1 Lino Dick, DO 02/18/2018 Ventolin HFA 108(90Base) mcg/Act A erosol inhale [...] Tablet By Mouth Twice A Day Unknown 000 Citalopram Hydrobromide 20mg Table ts Take One Tablet By Mouth Every Day Unknown Pantoprazole Sodium 40mg Tablets D R Take One Tablet By Mouth Every Day Unknown Naproxen 500mg Tablets Take One Tablet By Mouth Twice A Day as Needed Unknown 000 Immunizations Description No Information Available Vital Signs Date Vital Result Comment 01/26/2020 10:25am Respiratory Rate 16 /min Heart Rate 70 /min BP Systolic 112 mmHg BP Diastolic 78 mmHg Height 61 inches 5'1" Weight 167.00 lb O2 % BldC Oximetry 98 % BMI (Body Mass Index) 31.6 kg/m2 06/23/2019 9:25am Respiratory Rate 15 /min Heart Rate 70 /min BP Systolic 124 mmHg BP Diastolic 78 mmHg Height 61 inches 5'1" Weight 165.12 lb O2 % BldC Oximetry 98 % BMI (Body Mass Index) 31.2 kg/m2 Results Description No Information Available Procedures Date Code Description Status 04/04/2020 91726 Multiple Injections-Admin. Compl eted 03/15/2020 91166 Multiple Injections-Admin. Compl eted Medical Devices Description No Information Available Encounters Description No Information Available Assessments Date Code Description Provider 04/04/2020 J30.1 Allergic rhinitis due to pollen Allergy Injections 04/04/2020 J30.1 Allergic rhinitis due to pollen Allergy Injections [place] 04/04/2020 J30.89 Other allergic rhinitis Allergy Injections 04/04/2020 J30.89 Other allergic rhinitis Allergy Injections [place] 04/04/2020 J30.81 Allergic rhinitis due to animal (cat) (dog) hair and dander Allergy Injections 04/04/2020 J30.81 Allergic rhinitis due to animal (cat) (dog) hair and dander Allergy Injections [place] 03/15/2020 J30.1 Allergic rhinitis due to pollen Allergy Injections 03/15/2020 J30.1 Allergic rhinitis due to pollen Allergy Injections [place] 03/15/2020 J30.89 Other allergic rhinitis Allergy Injections 03/15/2020 J30.89 Other allergic rhinitis Allergy Injections [place] 03/15/2020 J30.81 Allergic rhinitis due to animal (cat) (dog) hair and dander Allergy Injections 03/15/2020 J30.81 Allergic rhinitis due to animal (cat) (dog) hair and dander Allergy Injections [place] 01/26/2020 J30.1 Allergic rhinitis due to pollen Kaylie, Purnima, PA-C 01/26/2020 J30.89 Other allergic rhinitis Purnima Lott PA-C 01/26/2020 J30.81 Allergic rhinitis due to animal (cat) (dog) hair and dander Purnima Lott PA-C 01/26/2020 H10.45 Other chronic allergic conjuncti vitis Purnima Lott PA-C 01/26/2020 J45.20 Mild intermittent asthma, uncomp licated Purnima Lott PA-C Plan of Treatment Future Appointment(s):* 04/26/2020 10:00 am - [facility] [place] [facility] * 05/03/2020 9:30 am - Purnima Lott PA-C at [place] [facility] * 05/03/2020 8:15 am - [facility] [place] [facility] * 07/19/2020 2:00 pm - Purnima Lott PA-C at [place] [facility] 01/26/2020 - Purnima Lott PA-C* J30.1 Allergic rhinitis due to pollen* Comments:* Continue meds as discussed. Use Zyrtec [...]
--- OUTSIDE RECORDS SUMMARY | 2020-05-09 14:55 | CCD | Continuity of Care Document ---
Author Author Allergy Injections Anjana Vazquez Organization Unknown Address [address] [place] [address] Phone [phone] Care Team Providers Care Urinalysis Technician Name Role Phone Clarita Yen AUTM [phone] Jarrod Milan MD AUTM [phone] Problems Active Problems Provider Date Allergic rhinitis due to pollen Lino Dick, Onset: 12/02/2010 Allergic rhinitis Lino Dick, DO Onset: 12/02/2010 Chronic sinusitis Lino Dick, DO Onset: 12/02/2010 Cough Lino Dick, DO Onset: 12/02/2010 Gastroesophageal reflux disease Lino Dick, Onset: 12/02/2010 Difficulty breathing Lino Dick, Onset: 12/16/2010 Allergic rhinitis Lino Dick, DO [...] Indications Ordering Provide r Date Saline Mist [place] 0.65% Solution use 2 sprays in each [...] Information Available Procedures Date Code Description Status 04/26/2020 94853 Multiple Injections-Admin. Compl eted 04/04/2020 12909 Multiple Injections-Admin. Compl eted 03/15/2020 93135 Multiple Injections-Admin. Compl eted Medical Devices Description No Information Available Encounters Description No Information Available Assessments Date Code Description Provider 04/26/2020 J30.1 Allergic rhinitis due to pollen Allergy Injections 04/26/2020 J30.1 Allergic rhinitis due to pollen Allergy Injections [place] 04/26/2020 J30.89 Other allergic rhinitis Allergy Injections 04/26/2020 J30.89 Other allergic rhinitis Allergy Injections [place] 04/26/2020 J30.81 Allergic rhinitis due to animal (cat) (dog) hair and dander Allergy Injections 04/26/2020 J30.81 Allergic rhinitis due to animal (cat) (dog) hair and dander Allergy Injections [place] 04/04/2020 J30.1 Allergic rhinitis due to pollen Allergy Injections 04/04/2020 J30.1 Allergic rhinitis due to pollen Allergy Injections [place] 04/04/2020 J30.89 Other allergic rhinitis Allergy Injections 04/04/2020 J30.89 Other allergic rhinitis Allergy Injections [place] 04/04/2020 J30.81 Allergic rhinitis due to animal (cat) (dog) hair and dander Allergy Injections 04/04/2020 J30.81 Allergic rhinitis due to animal (cat) (dog) hair and dander Allergy Injections [place] 03/15/2020 J30.1 Allergic rhinitis due to pollen Allergy Injections 03/15/2020 J30.1 Allergic rhinitis due to pollen Allergy Injections [place] 03/15/2020 J30.89 Other allergic rhinitis Allergy Injections 03/15/2020 J30.89 Other allergic rhinitis Allergy Injections [place] 03/15/2020 J30.81 Allergic rhinitis due to animal (cat) (dog) hair and dander Allergy Injections 03/15/2020 J30.81 Allergic rhinitis due to animal (cat) (dog) hair and dander Allergy Injections [place] 01/26/2020 J30.1 Allergic rhinitis due to pollen Purnima Lott PA-C 01/26/2020 J30.89 Other allergic rhinitis Purnima Lott PA-C 01/26/2020 J30.81 Allergic rhinitis due to animal (cat) (dog) hair and dander Purnima Lott PA-C 01/26/2020 H10.45 Other chronic allergic conjuncti vitis Purnima Lott PA-C 01/26/2020 J45.20 Mild intermittent asthma, uncomp licated Purnima Lott PA-C Plan of Treatment Future Appointment(s):* 05/03/2020 9:30 am - Purnima Lott PA-C at [facility] * 05/03/2020 8:15 am - Nurses [place] at [facility] * 07/19/2020 2:00 pm - Purnima Lott PA-C at [place] [facility] 01/26/2020 - Purnima Lott PA-C* J30.1 [...]
--- OUTSIDE RECORDS SUMMARY | 2020-05-09 14:55 | CCD ---
Author Organization Unknown Address [address] [place] [address] Phone [phone] Care Team Providers Care Factory Worker Name Role Phone VALERIA SOLORZANO MD 3 [phone] Allergies Code Code System Name Reaction Severity Status Onset 273982 RxNorm Augmentin Diarrhea Mild to Moderate Active 4680 RxNorm Codeine Nausea Mild to Moderate Active Dristan Hives Moderate to Severe Active Medications Name Status Start Date Stop Date citalopram 20 mg tablet TAKE ONE TABLET BY MOUTH ONCE A DAY REPLACES FLUOXETINE Active Not available citalopram 40 mg tablet TAKE ONE TABLET BY MOUTH EVERY DAY Active Not available estradiol 0.01% (0.1 [...] avai lable 03/22/2019 MRI, Knee, W/o Contrast [facility] [address] [id number] (Work Place) Notes: polyps Results Lab Results Date Name Specimen Result Interpretation Description Value Range Status Address 03/12/2020 [facility] Pdf Report NOS No observation recorded. [facility]: [address] [facility] 03/12/2020 COVID-19 RNA (SARS-CoV-2), QL, flying teacher-PCR, Respirat ory Specimen NOS Normal Sars-cov-2 negative negative Final [facility]: [address] [facility] [place] Past Encounters 2020 Pre-surgery Testing; Viral Screening Bharat Yee MD: [id number] [address], Ph. [phone] 03/16/2020 Cervical Radiculopathy; Displacement of Cervical Intervertebral Disc without Myelopathy; Degeneration of Cervical Intervertebral Disc; Cervical Spondylosis without Myelopathy; Myofascial Pain; Osteoarthritis of Knee; Chondromalacia of Patella Bharat Yee MD: [id number] [address], Ph. 03/12/2020 Pre-surgery Testing; Viral Screening Bharat Yee MD: [id number] [address], Ph. [phone] 03/06/2020 Cervical Radiculopathy; Displacement of Cervical Intervertebral Disc without Myelopathy; Degeneration of Cervical Intervertebral Disc; Cervical Spondylosis without Myelopathy; Myofascial Pain; Osteoarthritis of Knee; Chondromalacia of Patella Luz Rico, CRACKER AND COOKIE MACHINE OPERATOR: [id number] [address], Ph. 06/22/2019 Cervical Radiculopathy; Displacement of Cervical Intervertebral Disc without Myelopathy; Degeneration of Cervical Intervertebral Disc; Cervical Spondylosis without Myelopathy; Myofascial Pain; Osteoarthritis of Knee; Chondromalacia of Patella Luz Rico, CRACKER AND COOKIE MACHINE OPERATOR: [id number] [address], Ph. 06/08/2019 Osteoarthritis of Knee; Chondromalacia of Patella; Cervical Radiculopathy; Displacement of Cervical Intervertebral Disc without Myelopathy; Degeneration of Cervical Intervertebral Disc; Cervical Spondylosis without Myelopathy; Myofascial Pain Bharat Yee MD: [id number] [address], Ph. 05/25/2019 Osteoarthritis of Knee; Chondromalacia of Patella; Cervical Radiculopathy; Displacement of Cervical Intervertebral Disc without Myelopathy; Degeneration of Cervical Intervertebral Disc; Cervical Spondylosis without Myelopathy; Myofascial Pain Bharat Yee MD: [id number] [address], Ph. 05/02/2019 Cervical Radiculopathy; Displacement of Cervical Intervertebral Disc without Myelopathy; Degeneration of Cervical Intervertebral Disc; Cervical Spondylosis without Myelopathy; Myofascial Pain; Osteoarthritis of Knee; Chondromalacia of Patella Luz Rico, CRACKER AND COOKIE MACHINE OPERATOR: [id number] [address], [place] [address], Ph. 04/11/2019 Myofascial Pain; Cervical Radiculopathy; Displacement of Cervical Intervertebral Disc without Myelopathy; Degeneration of Cervical Intervertebral Disc; Cervical Spondylosis without Myelopathy; Osteoarthritis of Knee Bharat Yee MD: [id number] [address], [facility] [place] [address], Ph. 03/22/2019 Cervical Radiculopathy; Displacement of Cervical Intervertebral Disc without Myelopathy; Degeneration of Cervical Intervertebral Disc; Cervical Spondylosis without Myelopathy; Myofascial Pain; Osteoarthritis of Knee Luz Rico, CR[employer]ER AND COOKIE MACHINE OPERATOR: [id number] [address], [facility] [place] [address], Ph. 02/11/2019 Cervical Radiculopathy; Displacement of Cervical Intervertebral Disc without Myelopathy; Degeneration of Cervical Intervertebral Disc; Cervical Spondylosis without Myelopathy; Myofascial Pain Luz Rico CRACKER AND COOKIE MACHINE OPERATOR: [id number] [address], [facility] [place] [address], Ph. 12/28/2018 Cervical Radiculopathy; Displacement of Cervical Intervertebral Disc without Myelopathy; Degeneration of Cervical Intervertebral Disc; Cervical Spondylosis without Myelopathy; Myofascial Pain Bharat Yee MD: [id number] [address], [facility] [place] [address], Ph. 12/14/2018 Cervical Radiculopathy; Displacement of Cervical Intervertebral Disc without Myelopathy; Degeneration of Cervical Intervertebral Disc; Cervical Spondylosis without Myelopathy; Myofascial Pain Luz Rico CRACKER AND COOKIE MACHINE OPERATOR: [id number] [place] [address], Ph. 10/12/2018 Cervical Radiculopathy; Displacement of Cervical Intervertebral Disc without Myelopathy; Degeneration of Cervical Intervertebral Disc; Cervical Spondylosis without Myelopathy Luz Rico CRACKER AND COOKIE MACHINE OPERATOR: [address] [address], [facility] [place] [address], Ph. 09/15/2018 Cervical Radiculopathy; Displacement of Cervical Intervertebral Disc without Myelopathy; Degeneration of Cervical Intervertebral Disc; Cervical Spondylosis without Myelopathy Bharat Yee MD: [id number] [address], [place] [address], Ph. 09/01/2018 Cervical Radiculopathy; Displacement of Cervical Intervertebral Disc without Myelopathy; Degeneration of Cervical Intervertebral Disc; Cervical Spondylosis without Myelopathy Bharat Yee MD: [id number] [address], [place] [address], Ph. 08/04/2018 Cervical Radiculopathy; Displacement of Cervical Intervertebral Disc without Myelopathy; Degeneration of Cervical Intervertebral Disc; Cervical Spondylosis without Myelopathy Bharat Yee MD: [id number] [address], [place] [address], Ph. 06/28/2018 Cervical Radiculopathy; Displacement of Cervical Intervertebral Disc without Myelopathy; Degeneration of Cervical Intervertebral Disc; Cervical Spondylosis without Myelopathy Bharat Yee MD: [id number] [address], Ph. Social History Tobacco Smoking Status Never [...]
--- OUTSIDE RECORDS SUMMARY | 2020-05-09 14:55 | CCD | Continuity of Care Document ---
Author Author Anjana Clancy Organization Unknown Address [address] [place] [address] Phone Unavailable Care Team Providers Care Second Time Worker Name Role Phone Clarita Yen AUTM [phone] Jarrod Milan MD AUTM [phone] Problems Active Problems Provider Date Allergic rhinitis due to pollen Lino Dick, Onset: 12/02/2010 Allergic rhinitis Lino Dick, DO Onset: 12/02/2010 Chronic sinusitis Lino Dick, DO Onset: 12/02/2010 Cough Lino Dick, Onset: 12/02/2010 Gastroesophageal reflux disease Lino Dick, DO Onset: 12/02/2010 Difficulty breathing Lino Dick DO Onset: 12/16/2010 Allergic rhinitis Lino Dick, DO Onset: 12/16/2010 Allergic asthma without status asthmaticus Lino Dick , DO Onset: 01/07/2011 Conjunctival xerosis Kathie Mirza, P.A. Onset: 04/20/19 13 Chronic allergic conjunctivitis Stefania Wynn M.S., PA -C Onset: 08/16/2013 Malaise and fatigue Stefania Wynn M.S., PA-C Onset: Exacerbation of asthma Stefania Wynn M.S., ANKIT Onset: 06/06/2014 Allergic rhinitis due to animals [...] J30.1 Lino Dick, DO 05/03/2020 Saline Mist [place] 0.65% Solution use 2 sprays in each [...] Tablet By Mouth Twice A Day Unknown Pantoprazole Sodium 40mg Tablets D [...] Available Procedures Date Code Description Status 05/03/2020 14589 Prick Testing Completed 05/03/2020 63059 Intradermals Completed 04/26/2020 98657 Multiple Injections-Admin. Compl eted 04/04/2020 46345 Multiple Injections-Admin. Compl eted 03/15/2020 39661 Multiple Injections-Admin. Compl eted Medical Devices Description No Information Available Encounters Description No Information Available Assessments Date Code Description Provider 05/03/2020 J30.1 Allergic rhinitis due to pollen Purnima Lott PA-C 05/03/2020 J30.1 Allergic rhinitis due to pollen Nurs[facility] [place] 05/03/2020 J30.89 Other allergic rhinitis Purnima Lott PA-C 05/03/2020 J30.1 Allergic rhinitis due to pollen Purnima Lott PA-C 05/03/2020 J30.81 Allergic rhinitis due to animal (cat) (dog) hair and dander Purnima Lott PA-C 05/03/2020 J30.89 Other allergic rhinitis Nurses [place] 05/03/2020 J30.89 Other allergic rhinitis Purnima Lott PA-C 05/03/2020 J30.81 Allergic rhinitis due to animal (cat) (dog) hair and dander Nurses [place] 05/03/2020 J30.81 Allergic rhinitis due to animal (cat) (dog) hair and dander Purnima Lott PA-C 05/03/2020 H10.45 Other chronic allergic conjuncti vitis Purnima Lott PA-C 05/03/2020 J45.20 Mild intermittent asthma, uncomp licated Purnmia Lott PA-C 04/26/2020 J30.1 Allergic rhinitis due to pollen Allergy Injections 04/26/2020 J30.1 Allergic rhinitis due to pollen Allergy Injections [place] 04/26/2020 J30.89 Other allergic rhinitis Allergy Injections 04/26/2020 J30.89 Other allergic rhinitis Allergy Injections [place] 04/26/2020 J30.81 Allergic rhinitis due to animal (cat) (dog) hair and dander Allergy Injections 04/26/2020 J30.81 Allergic rhinitis due to animal (cat) (dog) hair and dander Allergy Injections [place] 04/04/2020 J30.1 Allergic rhinitis due to pollen Allergy Injections 04/04/2020 J30.1 Allergic rhinitis due to pollen Allergy Injections [place] 04/04/2020 J30.89 Other allergic rhinitis Allergy Injections 04/04/2020 J30.89 Other allergic rhinitis Allergy Injections [place] 04/04/2020 J30.81 Allergic rhinitis due to animal (cat) (dog) hair and dander Allergy Injections 04/04/2020 J30.81 Allergic rhinitis due to animal (cat) (dog) hair and dander Allergy Injections [place] 03/15/2020 J30.1 Allergic rhinitis due to pollen Allergy Injections 03/15/2020 J30.1 Allergic rhinitis due to pollen Allergy Injections [place] 03/15/2020 J30.89 Other allergic rhinitis Allergy Injections 03/15/2020 J30.89 Other allergic rhinitis Allergy Injections [place] 03/15/2020 J30.81 Allergic rhinitis due to animal (cat) (dog) hair and dander Allergy Injections 03/15/2020 J30.81 Allergic rhinitis due to animal (cat) (dog) hair and dander Allergy Injections [place] 01/26/2020 J30.1 Allergic rhinitis due to pollen Purnima Lott PA-C 01/26/2020 J30.89 Other allergic rhinitis Purnima Lott PA-C 01/26/2020 J30.81 Allergic rhinitis due to animal (cat) (dog) hair and dander Purnima Lott PA-C 01/26/2020 H10.45 Other chronic allergic conjuncti vitis Purnima Lott PA-C 01/26/2020 J45.20 Mild intermittent asthma, uncomp licated Purnima Lott PA-C Plan of Treatment Future Appointment(s):* 11/01/2020 9:15 am - Purnima Lott PA-C at [facility] 05/03/2020 - Purnima Lott PA-C* J30.1 Allergic [...]
--- OUTSIDE RECORDS SUMMARY | 2020-05-09 14:55 | CCD ---
Author Organization Unknown Address [address] [place] [address] Phone [phone] Care Team Providers Care Director Of Workforce Development Name Role Phone VALERIA SOLORZANO MD 3 [phone] Allergies Code Code System Name Reaction Severity Status Onset 905366 RxNorm Augmentin Diarrhea Mild to Moderate Active 4010 RxNorm Codeine Nausea Mild to Moderate Active [...] avai lable 03/22/2019 MRI, Knee, W/o Contrast [facility] [address] [place] [phone] (Work Place) Notes: polyps Results Lab Results Date Name Specimen Result Interpretation Description Value Range Status Address 2020 [facility] Pdf Report NOS No observation recorded. 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 2020 Pre-surgery Testing; Viral Screening Bharat Yee MD: [address] [address], [place] [address], Ph. [phone] 03/16/2020 Cervical Radiculopathy; Displacement of Cervical Intervertebral Disc without Myelopathy; Degeneration of Cervical Intervertebral Disc; Cervical Spondylosis without Myelopathy; Myofascial Pain; Osteoarthritis of Knee; Chondromalacia of Patella Bharat Yee MD: [address] [address], [place] [address], Ph. 03/12/2020 Pre-surgery Testing; Viral Screening Bharat Yee MD: [address] [address], [place] [address], Ph. [phone] 03/06/2020 Cervical Radiculopathy; Displacement of Cervical Intervertebral Disc without Myelopathy; Degeneration of Cervical Intervertebral Disc; Cervical Spondylosis without Myelopathy; Myofascial Pain; Osteoarthritis of Knee; Chondromalacia of Patella Luz Rico, SLOT MACHINE MECHANIC: [address] [address], [facility] [address], Ph. 06/22/2019 Cervical Radiculopathy; Displacement of Cervical Intervertebral Disc without Myelopathy; Degeneration of Cervical Intervertebral Disc; Cervical Spondylosis without Myelopathy; Myofascial Pain; Osteoarthritis of Knee; Chondromalacia of Patella Luz Rico, SLOT MACHINE MECHANIC: [address] [address], [facility] [address], Ph. 06/08/2019 Osteoarthritis of Knee; Chondromalacia of Patella; Cervical Radiculopathy; Displacement of Cervical Intervertebral Disc without Myelopathy; Degeneration of Cervical Intervertebral Disc; Cervical Spondylosis without Myelopathy; Myofascial Pain Bharat Yee MD: [address] [address], [place] [address], Ph. 05/25/2019 Osteoarthritis of Knee; Chondromalacia of Patella; Cervical Radiculopathy; Displacement of Cervical Intervertebral Disc without Myelopathy; Degeneration of Cervical Intervertebral Disc; Cervical Spondylosis without Myelopathy; Myofascial Pain Bharat Yee MD: [address] [address], [place] [address], Ph. 05/02/2019 Cervical Radiculopathy; Displacement of Cervical Intervertebral Disc without Myelopathy; Degeneration of Cervical Intervertebral Disc; Cervical Spondylosis without Myelopathy; Myofascial Pain; Osteoarthritis of Knee; Chondromalacia of Patella Luz Rico, SLOT MACHINE MECHANIC: [address] [address], [place] [address], Ph. 04/11/2019 Myofascial Pain; Cervical Radiculopathy; Displacement of Cervical Intervertebral Disc without Myelopathy; Degeneration of Cervical Intervertebral Disc; Cervical Spondylosis without Myelopathy; Osteoarthritis of Knee Bharat Yee MD: [address] [address], [place] [address], Ph. 03/22/2019 Cervical Radiculopathy; Displacement of Cervical Intervertebral Disc without Myelopathy; Degeneration of Cervical Intervertebral Disc; Cervical Spondylosis without Myelopathy; Myofascial Pain; Osteoarthritis of Knee Luz Rico, SLOT MACHINE MECHANIC: [address] [address], Ph. 02/11/2019 Cervical Radiculopathy; Displacement of Cervical Intervertebral Disc without Myelopathy; Degeneration of Cervical Intervertebral Disc; Cervical Spondylosis without Myelopathy; Myofascial Pain Luz Hiral Rico, SLOT MACHINE MECHANIC: [address] [address], [facility] [address], Ph. 12/28/2018 Cervical Radiculopathy; Displacement of Cervical Intervertebral Disc without Myelopathy; Degeneration of Cervical Intervertebral Disc; Cervical Spondylosis without Myelopathy; Myofascial Pain Bharat Yee MD: [address] [address], [place] [address], Ph. 12/14/2018 Cervical Radiculopathy; Displacement of Cervical Intervertebral Disc without Myelopathy; Degeneration of Cervical Intervertebral Disc; Cervical Spondylosis without Myelopathy; Myofascial Pain Luz Manongsong Jumalon, SLOT MACHINE MECHANIC: [address] [address], Ph. 10/12/2018 Cervical Radiculopathy; Displacement of Cervical Intervertebral Disc without Myelopathy; Degeneration of Cervical Intervertebral Disc; Cervical Spondylosis without Myelopathy Luz Rico, SLOT MACHINE MECHANIC: [address] [address], Ph. 09/15/2018 Cervical Radiculopathy; Displacement of Cervical Intervertebral Disc without Myelopathy; Degeneration of Cervical Intervertebral Disc; Cervical Spondylosis without Myelopathy Bharat Yee MD: [address] [address], Ph. 09/01/2018 Cervical Radiculopathy; Displacement of Cervical Intervertebral Disc without Myelopathy; Degeneration of Cervical Intervertebral Disc; Cervical Spondylosis without Myelopathy Bharat Yee MD: [address] [address], Ph. 08/04/2018 Cervical Radiculopathy; Displacement of Cervical Intervertebral Disc without Myelopathy; Degeneration of Cervical Intervertebral Disc; Cervical Spondylosis without Myelopathy Bharat Yee MD: [address] [address], Ph. 06/28/2018 Cervical Radiculopathy; Displacement of Cervical Intervertebral Disc without Myelopathy; Degeneration of Cervical Intervertebral Disc; Cervical Spondylosis without Myelopathy Bharat Yee MD: [address] [address], Ph. Social History Tobacco Smoking Status Never [...]
--- OUTSIDE RECORDS SUMMARY | 2020-05-09 14:55 | CCD ---
Author Organization Unknown Address [address] [place] [address] Phone [phone] Care Team Providers Care Director Medical Economics Name Role Phone VALERIA SOLORZANO MD 3 [phone] Allergies Code Code System Name Reaction Severity Status Onset 112774 RxNorm Augmentin Diarrhea Mild to Moderate Active 4770 RxNorm Codeine Nausea Mild to Moderate Active [...] avai lable 03/22/2019 MRI, Knee, W/o Contrast [facility] [address] [address] (Work Place) Notes: polyps Results Lab Results Date Name Specimen Result Interpretation Description Value Range Status Address 2020 [facility] Pdf Report NOS No observation recorded. 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 [facility]: [address] [facility] [place] 03/12/2020 COVID-19 RNA (SARS-CoV-2), QL, intermediate school teacher-PCR, Respirat ory Specimen NOS Normal Sars-cov-2 negative negative Final [facility] Cov[facility]: [address] [facility] [place] Past Encounters 04/30/2020 Pre-surgery Testing; Viral Screening Bharat Yee MD: [address] [facility], [address], [place] [address], Ph. [phone] 04/12/2020 Cervical Radiculopathy; Displacement of Cervical Intervertebral Disc without Myelopathy; Degeneration of Cervical Intervertebral Disc; Cervical Spondylosis without Myelopathy; Myofascial Pain; Osteoarthritis of Knee; Chondromalacia of Patella Bharat Yee MD: [address] [facility], [place] [address], Ph. 2020 Pre-surgery Testing; Viral Screening Bharat Yee MD: [address] [address], [facility] [place] [address], Ph. [phone] 03/16/2020 Cervical Radiculopathy; Displacement of Cervical Intervertebral Disc without Myelopathy; Degeneration of Cervical Intervertebral Disc; Cervical Spondylosis without Myelopathy; Myofascial Pain; Osteoarthritis of Knee; Chondromalacia of Patella Bharat Yee MD: [address] [address], [facility] [place] [address], Ph. 03/12/2020 Pre-surgery Testing; Viral Screening Bharat Yee MD: [address] [address], [facility] [place] [address], Ph. [phone] 03/06/2020 Cervical Radiculopathy; Displacement of Cervical Intervertebral Disc without Myelopathy; Degeneration of Cervical Intervertebral Disc; Cervical Spondylosis without Myelopathy; Myofascial Pain; Osteoarthritis of Knee; Chondromalacia of Patella Luz Rico, PROFESSOR OF PHILOSOPHY: [address] [address], [facility] [place] [address], Ph. 06/22/2019 Cervical Radiculopathy; Displacement of Cervical Intervertebral Disc without Myelopathy; Degeneration of Cervical Intervertebral Disc; Cervical Spondylosis without Myelopathy; Myofascial Pain; Osteoarthritis of Knee; Chondromalacia of Patella Luz Blackman Luxulysses, PROFESSOR OF PHILOSOPHY: [address] [address], [facility] [place] [address], Ph. 06/08/2019 Osteoarthritis of Knee; Chondromalacia of Patella; Cervical Radiculopathy; Displacement of Cervical Intervertebral Disc without Myelopathy; Degeneration of Cervical Intervertebral Disc; Cervical Spondylosis without Myelopathy; Myofascial Pain Bharat Yee MD: [address] [address], [facility] [place] [address], Ph. 05/25/2019 Osteoarthritis of Knee; Chondromalacia of Patella; Cervical Radiculopathy; Displacement of Cervical Intervertebral Disc without Myelopathy; Degeneration of Cervical Intervertebral Disc; Cervical Spondylosis without Myelopathy; Myofascial Pain Bharat Yee MD: [address] [address], [place] [address], Ph. 05/02/2019 Cervical Radiculopathy; Displacement of Cervical Intervertebral Disc without Myelopathy; Degeneration of Cervical Intervertebral Disc; Cervical Spondylosis without Myelopathy; Myofascial Pain; Osteoarthritis of Knee; Chondromalacia of Patella Luz Rico, PROFESSOR OF PHILOSOPHY: [address] [address], Ph. 04/11/2019 Myofascial Pain; Cervical Radiculopathy; Displacement of Cervical Intervertebral Disc without Myelopathy; Degeneration of Cervical Intervertebral Disc; Cervical Spondylosis without Myelopathy; Osteoarthritis of Knee Bharat Yee MD: [address] [address], [facility] [place] [address], Ph. 03/22/2019 Cervical Radiculopathy; Displacement of Cervical Intervertebral Disc without Myelopathy; Degeneration of Cervical Intervertebral Disc; Cervical Spondylosis without Myelopathy; Myofascial Pain; Osteoarthritis of Knee Luz Rico, PROFESSOR OF PHILOSOPHY: [address] [address], Ph. 02/11/2019 Cervical Radiculopathy; Displacement of Cervical Intervertebral Disc without Myelopathy; Degeneration of Cervical Intervertebral Disc; Cervical Spondylosis without Myelopathy; Myofascial Pain Luz Rico, PROFESSOR OF PHILOSOPHY: [address] [address], Ph. 12/28/2018 Cervical Radiculopathy; Displacement of Cervical Intervertebral Disc without Myelopathy; Degeneration of Cervical Intervertebral Disc; Cervical Spondylosis without Myelopathy; Myofascial Pain Bharat Yee MD: [address] [address], [place] [address], Ph. 12/14/2018 Cervical Radiculopathy; Displacement of Cervical Intervertebral Disc without Myelopathy; Degeneration of Cervical Intervertebral Disc; Cervical Spondylosis without Myelopathy; Myofascial Pain Luz Rico, PROFESSOR OF PHILOSOPHY: [address] [address], Ph. 10/12/2018 Cervical Radiculopathy; Displacement of Cervical Intervertebral Disc without Myelopathy; Degeneration of Cervical Intervertebral Disc; Cervical Spondylosis without Myelopathy Luz Rico, PROFESSOR OF PHILOSOPHY: [address] [address], Ph. 09/15/2018 Cervical Radiculopathy; Displacement of Cervical Intervertebral Disc without Myelopathy; Degeneration of Cervical Intervertebral Disc; Cervical Spondylosis without Myelopathy Bharat Yee MD: [address] [address], Ph. 09/01/2018 Cervical Radiculopathy; Displacement of Cervical Intervertebral Disc without Myelopathy; Degeneration of Cervical Intervertebral Disc; Cervical Spondylosis without Myelopathy Bharat Yee MD: [address] [address], Ph. 08/04/2018 Cervical Radiculopathy; Displacement of Cervical Intervertebral Disc without Myelopathy; Degeneration of Cervical Intervertebral Disc; Cervical Spondylosis without Myelopathy Bharat Yee MD: [address] [address], Ph. 06/28/2018 Cervical Radiculopathy; Displacement of Cervical Intervertebral Disc without Myelopathy; Degeneration of Cervical Intervertebral Disc; Cervical Spondylosis without Myelopathy Bharat Yee MD: [address] [address], Ph. Social History Tobacco Smoking Status Never [...]
--- OUTSIDE RECORDS SUMMARY | 2020-05-09 14:55 | CCD ---
Author Organization Unknown Address [address] [place] [address] Phone [phone] Care Team Providers Care Barrel Lapper Name Role Phone VALERIA SOLORZANO MD 3 [phone] Allergies Code Code System Name Reaction Severity Status Onset 219351 RxNorm Augmentin Diarrhea Mild to Moderate Active 0130 RxNorm Codeine Nausea Mild to Moderate Active Dristan Hives Moderate to Severe Active Medications Name Status Start Date Stop Date citalopram 20 mg tablet TAKE ONE TABLET BY MOUTH ONCE A DAY REPLACES FLUOXETINE Active Not available estradiol 0.01% (0.1 mg/gram) [...] avai lable 03/22/2019 MRI, Knee, W/o Contrast [facility] [address] [address] (Work Place) Notes: polyps Results Lab Results Date Name Specimen Result Interpretation Description Value Range Status Address 03/12/2020 [facility] Pdf Report NOS No observation recorded. [facility] Covid: [address] [facility] 03/12/2020 COVID-19 RNA (SARS-CoV-2), QL, machine candle molder-PCR, Respirat ory Specimen NOS Normal Sars-cov-2 negative negative Final [facility] Covid: [address] [facility] Past Encounters 03/16/2020 Cervical Radiculopathy; Displacement of Cervical Intervertebral Disc without Myelopathy; Degeneration of Cervical Intervertebral Disc; Cervical Spondylosis without Myelopathy; Myofascial Pain; Osteoarthritis of Knee; Chondromalacia of Patella Bharat Yee MD: [address] [address], [facility] [place] [address], Ph. 03/12/2020 Pre-surgery Testing; Viral Screening Bharat Yee MD: [address] [address], [facility] [place] [address], Ph. [phone] 03/06/2020 Cervical Radiculopathy; Displacement of Cervical Intervertebral Disc without Myelopathy; Degeneration of Cervical Intervertebral Disc; Cervical Spondylosis without Myelopathy; Myofascial Pain; Osteoarthritis of Knee; Chondromalacia of Patella Luz Rico MATHEMATICS TEACHER: [address] [address], Ph. 06/22/2019 Cervical Radiculopathy; Displacement of Cervical Intervertebral Disc without Myelopathy; Degeneration of Cervical Intervertebral Disc; Cervical Spondylosis without Myelopathy; Myofascial Pain; Osteoarthritis of Knee; Chondromalacia of Patella Luz Rico, MATHEMATICS TEACHER: [address] [address], Ph. 06/08/2019 Osteoarthritis of Knee; Chondromalacia of Patella; Cervical Radiculopathy; Displacement of Cervical Intervertebral Disc without Myelopathy; Degeneration of Cervical Intervertebral Disc; Cervical Spondylosis without Myelopathy; Myofascial Pain Bharat Yee MD: [address] [address], Ph. 05/25/2019 Osteoarthritis of Knee; Chondromalacia of Patella; Cervical Radiculopathy; Displacement of Cervical Intervertebral Disc without Myelopathy; Degeneration of Cervical Intervertebral Disc; Cervical Spondylosis without Myelopathy; Myofascial Pain Bharat Yee MD: [address] [address], Ph. 05/02/2019 Cervical Radiculopathy; Displacement of Cervical Intervertebral Disc without Myelopathy; Degeneration of Cervical Intervertebral Disc; Cervical Spondylosis without Myelopathy; Myofascial Pain; Osteoarthritis of Knee; Chondromalacia of Patella Luz Blackman Myadorothy, MATHEMATICS TEACHER: [address] [address], Ph. 04/11/2019 Myofascial Pain; Cervical Radiculopathy; Displacement of Cervical Intervertebral Disc without Myelopathy; Degeneration of Cervical Intervertebral Disc; Cervical Spondylosis without Myelopathy; Osteoarthritis of Knee Bharat Yee MD: [address] [address], [place] [address], Ph. 03/22/2019 Cervical Radiculopathy; Displacement of Cervical Intervertebral Disc without Myelopathy; Degeneration of Cervical Intervertebral Disc; Cervical Spondylosis without Myelopathy; Myofascial Pain; Osteoarthritis of Knee Luz Rico, MATHEMATICS TEACHER: [address] [address], Ph. 02/11/2019 Cervical Radiculopathy; Displacement of Cervical Intervertebral Disc without Myelopathy; Degeneration of Cervical Intervertebral Disc; Cervical Spondylosis without Myelopathy; Myofascial Pain Luz Rico, MATHEMATICS TEACHER: [address] [address], Ph. 12/28/2018 Cervical Radiculopathy; Displacement of Cervical Intervertebral Disc without Myelopathy; Degeneration of Cervical Intervertebral Disc; Cervical Spondylosis without Myelopathy; Myofascial Pain Bharat Yee MD: [address] [address], Ph. 12/14/2018 Cervical Radiculopathy; Displacement of Cervical Intervertebral Disc without Myelopathy; Degeneration of Cervical Intervertebral Disc; Cervical Spondylosis without Myelopathy; Myofascial Pain Luz Rico, MATHEMATICS TEACHER: [address] [address], Ph. 10/12/2018 Cervical Radiculopathy; Displacement of Cervical Intervertebral Disc without Myelopathy; Degeneration of Cervical Intervertebral Disc; Cervical Spondylosis without Myelopathy Luz Rico, MATHEMATICS TEACHER: [address] [address], Ph. 09/15/2018 Cervical Radiculopathy; Displacement of Cervical Intervertebral Disc without Myelopathy; Degeneration of Cervical Intervertebral Disc; Cervical Spondylosis without Myelopathy Bharat Yee MD: [address] [address], Ph. 09/01/2018 Cervical Radiculopathy; Displacement of Cervical Intervertebral Disc without Myelopathy; Degeneration of Cervical Intervertebral Disc; Cervical Spondylosis without Myelopathy Bharat Yee MD: [address] [facility] [address], [place] [address], Ph. 08/04/2018 Cervical Radiculopathy; Displacement of Cervical Intervertebral Disc without Myelopathy; Degeneration of Cervical Intervertebral Disc; Cervical Spondylosis without Myelopathy Bharat Yee MD: [address] [facility] [address], [facility] [place] [address], Ph. 06/28/2018 Cervical Radiculopathy; Displacement of Cervical Intervertebral Disc without Myelopathy; Degeneration of Cervical Intervertebral Disc; Cervical Spondylosis without Myelopathy Bharat Yee MD: 50640 [facility] [address], [facility] [place] [address], Ph. Social History Tobacco Smoking Status Never [...]
--- OUTSIDE RECORDS SUMMARY | 2020-05-09 14:56 | CCD ---
Author Organization Unknown Address [address] [place] [address] Phone [phone] Care Team Providers Care Retirement Actuary Name Role Phone VALERIA SOLORZANO MD 3 [phone] Allergies Code Code System Name Reaction Severity Status Onset 989345 RxNorm Augmentin Diarrhea Mild to Moderate Active 9240 RxNorm Codeine Nausea Mild to Moderate Active [...] Active Not available tizanidine 4 mg tablet Take 1 tablet as needed by oral route at bedtime. Active Not available topiramate 50 mg tablet [...] avai lable 03/22/2019 MRI, Knee, W/o Contrast [facility] [address] [address] (Work Place) Notes: polyps Results Lab Results None recorded. Past Encounters 03/12/2020 Pre-surgery Testing; Viral Screening Bharat Yee MD: [id number] [address], [facility] [place] [address], Ph. [phone] 03/06/2020 Cervical Radiculopathy; Displacement of Cervical Intervertebral Disc without Myelopathy; Degeneration of Cervical Intervertebral Disc; Cervical Spondylosis without Myelopathy; Myofascial Pain; Osteoarthritis of Knee; Chondromalacia of Patella Luz Rico DIRECTOR OF HOME CARE HOSPICE: [id number] [address], Ph. 06/22/2019 Cervical Radiculopathy; Displacement of Cervical Intervertebral Disc without Myelopathy; Degeneration of Cervical Intervertebral Disc; Cervical Spondylosis without Myelopathy; Myofascial Pain; Osteoarthritis of Knee; Chondromalacia of Patella Luz Rico DIRECTOR OF HOME CARE HOSPICE: [id number] [address], [facility] [place] [address], Ph. 06/08/2019 Osteoarthritis of Knee; Chondromalacia of Patella; Cervical Radiculopathy; Displacement of Cervical Intervertebral Disc without Myelopathy; Degeneration of Cervical Intervertebral Disc; Cervical Spondylosis without Myelopathy; Myofascial Pain Bharat Yee MD: [id number] [address], [place] [address], Ph. 05/25/2019 Osteoarthritis of Knee; Chondromalacia of Patella; Cervical Radiculopathy; Displacement of Cervical Intervertebral Disc without Myelopathy; Degeneration of Cervical Intervertebral Disc; Cervical Spondylosis without Myelopathy; Myofascial Pain Bharat Yee MD: [id number] [address], [facility] [place] [address], Ph. 05/02/2019 Cervical Radiculopathy; Displacement of Cervical Intervertebral Disc without Myelopathy; Degeneration of Cervical Intervertebral Disc; Cervical Spondylosis without Myelopathy; Myofascial Pain; Osteoarthritis of Knee; Chondromalacia of Patella Luz Rico, DIRECTOR OF HOME CARE HOSPICE: [address] [address], Ph. 04/11/2019 Myofascial Pain; Cervical Radiculopathy; Displacement of Cervical Intervertebral Disc without Myelopathy; Degeneration of Cervical Intervertebral Disc; Cervical Spondylosis without Myelopathy; Osteoarthritis of Knee Bharat Yee MD: [id number] [address], Ph. 03/22/2019 Cervical Radiculopathy; Displacement of Cervical Intervertebral Disc without Myelopathy; Degeneration of Cervical Intervertebral Disc; Cervical Spondylosis without Myelopathy; Myofascial Pain; Osteoarthritis of Knee Luz Rico, DIRECTOR OF HOME CARE HOSPICE: [id number] [address], [facility] [place] [address], Ph. 02/11/2019 Cervical Radiculopathy; Displacement of Cervical Intervertebral Disc without Myelopathy; Degeneration of Cervical Intervertebral Disc; Cervical Spondylosis without Myelopathy; Myofascial Pain Luz Rico DIRECTOR OF HOME CARE HOSPICE: [address] [address], [facility] [place] [address], Ph. 12/28/2018 Cervical Radiculopathy; Displacement of Cervical Intervertebral Disc without Myelopathy; Degeneration of Cervical Intervertebral Disc; Cervical Spondylosis without Myelopathy; Myofascial Pain Bharat Yee MD: [id number] [facility], [place] [address], Ph. 12/14/2018 Cervical Radiculopathy; Displacement of Cervical Intervertebral Disc without Myelopathy; Degeneration of Cervical Intervertebral Disc; Cervical Spondylosis without Myelopathy; Myofascial Pain Luz Rico, DIRECTOR OF HOME CARE HOSPICE: [address] [facility] [address], [place] [address], Ph. 10/12/2018 Cervical Radiculopathy; Displacement of Cervical Intervertebral Disc without Myelopathy; Degeneration of Cervical Intervertebral Disc; Cervical Spondylosis without Myelopathy Luz Rico, DIRECTOR OF HOME CARE HOSPICE: [address] [facility] [address], [facility] [place] [address], Ph. 09/15/2018 Cervical Radiculopathy; Displacement of Cervical Intervertebral Disc without Myelopathy; Degeneration of Cervical Intervertebral Disc; Cervical Spondylosis without Myelopathy Bharat Yee MD: [id number] [facility] [address], [facility] [place] [address], Ph. 09/01/2018 Cervical Radiculopathy; Displacement of Cervical Intervertebral Disc without Myelopathy; Degeneration of Cervical Intervertebral Disc; Cervical Spondylosis without Myelopathy Bharat Yee MD: [id number] [facility] [address], [facility] [place] [address], Ph. 08/04/2018 Cervical Radiculopathy; Displacement of Cervical Intervertebral Disc without Myelopathy; Degeneration of Cervical Intervertebral Disc; Cervical Spondylosis without Myelopathy Bharat Yee MD: [id number] [facility] [address], [facility] [place] [address], Ph. 06/28/2018 Cervical Radiculopathy; Displacement of Cervical Intervertebral Disc without Myelopathy; Degeneration of Cervical Intervertebral Disc; Cervical Spondylosis without Myelopathy Bharat Yee MD: [id number] [facility] [address], [facility] [place] [address], Ph. Social History Tobacco Smoking Status Never [...]
--- OUTSIDE RECORDS SUMMARY | 2020-05-09 14:56 | CCD ---
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 Past Encounters 03/06/2020 Cervical Radiculopathy; Displacement of Cervical Intervertebral Disc without Myelopathy; Degeneration of Cervical Intervertebral Disc; Cervical Spondylosis without Myelopathy; Myofascial Pain; Osteoarthritis of Knee; Chondromalacia of Patella Luz Rico STAMPING MACHINE OPERATOR: [address] [address], Ph. 06/22/2019 Cervical Radiculopathy; Displacement of Cervical Intervertebral Disc without Myelopathy; Degeneration of Cervical Intervertebral Disc; Cervical Spondylosis without Myelopathy; Myofascial Pain; Osteoarthritis of Knee; Chondromalacia of Patella Luz Rico STAMPING MACHINE OPERATOR: [address] [address], [facility] [place] [address], Ph. 06/08/2019 Osteoarthritis of Knee; Chondromalacia of Patella; Cervical Radiculopathy; Displacement of Cervical Intervertebral Disc without Myelopathy; Degeneration of Cervical Intervertebral Disc; Cervical Spondylosis without Myelopathy; Myofascial Pain Bharat Yee MD: [address] [address], [facility] [place] [address], Ph. 05/25/2019 Osteoarthritis of Knee; Chondromalacia of Patella; Cervical Radiculopathy; Displacement of Cervical Intervertebral Disc without Myelopathy; Degeneration of Cervical Intervertebral Disc; Cervical Spondylosis without Myelopathy; Myofascial Pain Bharat Yee MD: [address] [address], [place] [address], Ph. 05/02/2019 Cervical Radiculopathy; Displacement of Cervical Intervertebral Disc without Myelopathy; Degeneration of Cervical Intervertebral Disc; Cervical Spondylosis without Myelopathy; Myofascial Pain; Osteoarthritis of Knee; Chondromalacia of Patella Luz Daocameron Jacky, STAMPING MACHINE OPERATOR: [address] [address], [facility] [place] [address], Ph. 04/11/2019 Myofascial Pain; Cervical Radiculopathy; Displacement of Cervical Intervertebral Disc without Myelopathy; Degeneration of Cervical Intervertebral Disc; Cervical Spondylosis without Myelopathy; Osteoarthritis of Knee Bharat Yee MD: [address] [address], [facility] [place] [address], Ph. 03/22/2019 Cervical Radiculopathy; Displacement of Cervical Intervertebral Disc without Myelopathy; Degeneration of Cervical Intervertebral Disc; Cervical Spondylosis without Myelopathy; Myofascial Pain; Osteoarthritis of Knee Luz Rico, STAMPING MACHINE OPERATOR: [address] [address], [facility] [place] [address], Ph. 02/11/2019 Cervical Radiculopathy; Displacement of Cervical Intervertebral Disc without Myelopathy; Degeneration of Cervical Intervertebral Disc; Cervical Spondylosis without Myelopathy; Myofascial Pain Luz Manezequielzoeycameron Jacky, STAMPING MACHINE OPERATOR: [address] [address], [facility] [place] [address], Ph. 12/28/2018 Cervical Radiculopathy; Displacement of Cervical Intervertebral Disc without Myelopathy; Degeneration of Cervical Intervertebral Disc; Cervical Spondylosis without Myelopathy; Myofascial Pain Bharat Yee MD: [address] [address], [place] [address], Ph. 12/14/2018 Cervical Radiculopathy; Displacement of Cervical Intervertebral Disc without Myelopathy; Degeneration of Cervical Intervertebral Disc; Cervical Spondylosis without Myelopathy; Myofascial Pain Luz Rico, STAMPING MACHINE OPERATOR: [address] [address], Ph. 10/12/2018 Cervical Radiculopathy; Displacement of Cervical Intervertebral Disc without Myelopathy; Degeneration of Cervical Intervertebral Disc; Cervical Spondylosis without Myelopathy Luz Rico, STAMPING MACHINE OPERATOR: [address] [address], Ph. 09/15/2018 Cervical Radiculopathy; Displacement of Cervical Intervertebral Disc without Myelopathy; Degeneration of Cervical Intervertebral Disc; Cervical Spondylosis without Myelopathy Bharat Yee MD: [address] [address], Ph. 09/01/2018 Cervical Radiculopathy; Displacement of Cervical Intervertebral Disc without Myelopathy; Degeneration of Cervical Intervertebral Disc; Cervical Spondylosis without Myelopathy Bharat Yee MD: [address] [address], Ph. 08/04/2018 Cervical Radiculopathy; Displacement of Cervical Intervertebral Disc without Myelopathy; Degeneration of Cervical Intervertebral Disc; Cervical Spondylosis without Myelopathy Bharat Yee MD: [address] [address], Ph. 06/28/2018 Cervical Radiculopathy; Displacement of Cervical Intervertebral Disc without Myelopathy; Degeneration of Cervical Intervertebral Disc; Cervical Spondylosis without Myelopathy Bharat Yee MD: [address] [address], Ph. Social History Tobacco Smoking Status Never [...]
--- OUTSIDE RECORDS SUMMARY | 2020-05-09 14:57 | CCD ---
Author Author [facility] Organization [facility] Address Unknown Phone Unavailable Care Team Providers Care Subsurface Augmentee Elint Operator Name Role Phone Jumalon, M Luz ENGLISH DRAWER Unavailable Unavailable Jumalon, M Luz ENGLISH DRAWER Unavailable Unavailable Jumalon, M Luz ENGLISH DRAWER Unavailable Unavailable Jumalon, M Luz ENGLISH DRAWER Unavailable Unavailable Jumalon, M Luz ENGLISH DRAWER Unavailable Unavailable Jumalon, M Luz ENGLISH DRAWER Unavailable Unavailable Jumalon, M Luz ENGLISH DRAWER Unavailable Unavailable Jumalon, M Luz ENGLISH DRAWER Unavailable Unavailable Jumalon, M Luz ENGLISH DRAWER Unavailable Unavailable Jumalon, M Luz ENGLISH DRAWER Unavailable Unavailable Jumalon, M Luz ENGLISH DRAWER Unavailable Unavailable Jumalon, M Luz ENGLISH DRAWER Unavailable Unavailable Jumalon, M Luz ENGLISH DRAWER Unavailable Unavailable Jumalon, M Luz ENGLISH DRAWER Unavailable Unavailable Jumalon, M Luz ENGLISH DRAWER Unavailable Unavailable Jumalon, M Luz ENGLISH DRAWER Unavailable Unavailable Jumalon, M Luz ENGLISH DRAWER Unavailable Unavailable Jumalon, M Luz ENGLISH DRAWER Unavailable Unavailable Jumalon, M Luz ENGLISH DRAWER Unavailable Unavailable Jumalon, M Luz ENGLISH DRAWER Unavailable Unavailable Jumalon, M Luz ENGLISH DRAWER Unavailable Unavailable Jumalon, M Luz ENGLISH DRAWER Unavailable Unavailable Jumalon, M Luz ENGLISH DRAWER Unavailable Unavailable Jumalon, M Luz ENGLISH DRAWER Unavailable Unavailable Jumalon, M Luz ENGLISH DRAWER Unavailable Unavailable Jumalon, M Luz ENGLISH DRAWER Unavailable Unavailable Jumalon, M Luz ENGLISH DRAWER Unavailable Unavailable Jumalon, M Luz ENGLISH DRAWER Unavailable Unavailable PAWEL MAURER MD Unavailable Unavailable PAWEL MAURER MD Unavailable Unavailable PAWEL MAURER MD Unavailable Unavailable PAWEL MAURER MD Unavailable Unavailable PAWEL MAURER MD Unavailable Unavailable PAWEL MAURER MD Unavailable Unavailable PAWEL MAURER MD Unavailable Unavailable PAWEL MAURER MD Unavailable Unavailable PAWEL MAURER MD Unavailable Unavailable Yen, L Clarita RPA Unavailable Unavailable Yen, L Clarita RPA Unavailable Unavailable Yen, L Clarita RPA Unavailable Unavailable Yen, L Clarita RPA Unavailable Unavailable Yen, L Clarita RPA Unavailable Unavailable Yen, L Clarita RPA Unavailable Unavailable Yen, L Clarita RPA Unavailable Unavailable Yen, L Clarita RPA Unavailable Unavailable Yen, L Clarita RPA Unavailable Unavailable Yen, L Clarita RPA Unavailable Unavailable Yen, L Clarita RPA Unavailable Unavailable Yen, L Clarita RPA Unavailable Unavailable Yen, L Clarita RPA Unavailable Unavailable Yen, L Clarita RPA Unavailable Unavailable Yen, L Clarita RPA Unavailable Unavailable Yen, L Clarita RPA Unavailable Unavailable Yen, L Clarita RPA Unavailable Unavailable Yen, L Clarita RPA Unavailable Unavailable Yen, L Clarita RPA Unavailable Unavailable Yen, L Clarita RPA Unavailable Unavailable Yen, L Clarita RPA Unavailable Unavailable Yen, L Clarita RPA Unavailable Unavailable Yen, L Clarita RPA Unavailable Unavailable Yen, L Clarita RPA Unavailable Unavailable Yen, L Clarita RPA Unavailable Unavailable Yen, L Clarita RPA Unavailable Unavailable Yen, L Clarita RPA Unavailable Unavailable Yen, L Clarita RPA Unavailable Unavailable Yen, L Clarita RPA Unavailable Unavailable Yen, L Clarita RPA Unavailable Unavailable Yen, L Clarita RPA Unavailable Unavailable Yen, L Clarita RPA Unavailable Unavailable TOSHIA ARREDONDO MD Unavailable Unavailable TOSHIA ARREDONDO MD Unavailable Unavailable TOSHIA ARREDONDO MD Unavailable Unavailable TOSHIA ARREDONDO MD Unavailable Unavailable TOSHIA ARREDONDO MD Unavailable Unavailable TOSHIA ARREDONDO MD Unavailable Unavailable TOSHIA ARREDONDO MD Unavailable Unavailable ARREDONDO, POPE AGUSTIN MD Unavailable Unavailable ARREDONDO, POPE AGUSTIN MD Unavailable Unavailable ARREDONDO, POPE AGUSTIN MD Unavailable Unavailable ARREDONDO, POPE AGUSTIN MD Unavailable Unavailable ARREDONDO, POPE AGUSTIN MD Unavailable Unavailable ARREDONDO, POPE AGUSTIN MD Unavailable Unavailable ARREDONDO, POPE AGUSTIN MD Unavailable Unavailable ARREDONDO, POPE AGUSTIN MD Unavailable Unavailable ARREDONDO, POPE AGUSTIN MD Unavailable Unavailable ARREDONDO, POPE AGUSTIN MD Unavailable Unavailable ARREDONDO, POPE AGUSTIN MD Unavailable Unavailable ARREDONDO, POPE AGUSTIN MD Unavailable Unavailable ARREDONDO, POPE AGUSTIN MD Unavailable Unavailable ARREDONDO, POPE AGUSTIN MD Unavailable Unavailable ARREDONDO, POPE AGUSTIN MD Unavailable Unavailable ARREDONDO, POPE AGUSTIN MD Unavailable Unavailable ARREDONDO, POPE AGUSTIN MD Unavailable Unavailable ARREDONDO, POPE AGUSTIN MD Unavailable Unavailable ARREDONDO, POPE AGUSTIN MD Unavailable Unavailable ARREDONDO, POPE AGUSTIN MD Unavailable Unavailable ARREDONDO, POPE AGUSTIN MD Unavailable Unavailable ARREDONDO, POPE AGUSTIN MD Unavailable Unavailable ARREDONDO, POPE AGUSTIN MD Unavailable Unavailable ARREDONDO, POPE AGUSTIN MD Unavailable Unavailable ARREDONDO, POPE AGUSTIN MD Unavailable Unavailable ARREDONDO, POPE AGUSTIN MD Unavailable Unavailable ARREDONDO, POPE AGUSTIN MD Unavailable Unavailable ARREDONDO, POPE AGUSTIN MD Unavailable Unavailable ARREDONDO, POPE AGUSTIN MD Unavailable Unavailable ARREDONDO, POPE AGUSTIN MD Unavailable Unavailable ARREDONDO, POPE AGUSTIN MD Unavailable Unavailable ARREDONDO, POPE AGUSTIN MD Unavailable Unavailable ARREDONDO, POPE AGUSTIN MD Unavailable Unavailable ARREDONDO, POPE AGUSTIN MD Unavailable Unavailable ARREDONDO, POPE AGUSTIN MD Unavailable Unavailable ARREDONDO, POPE AGUSTIN MD Unavailable Unavailable ARREDONDO, POPE AGUSTIN MD Unavailable Unavailable ARREDONDO, POPE AGUSTIN MD Unavailable Unavailable Jumalon, M Luz ENGLISH DRAWER Unavailable Unavailable Jumalon, M Luz ENGLISH DRAWER Unavailable Unavailable Jumalon, M Luz ENGLISH DRAWER Unavailable Unavailable Jumalon, M Luz ENGLISH DRAWER Unavailable Unavailable Jumalon, M Luz ENGLISH DRAWER Unavailable Unavailable Jumalon, M Luz ENGLISH DRAWER Unavailable Unavailable Jumalon, M Luz ENGLISH DRAWER Unavailable Unavailable Jumalon, M Luz ENGLISH DRAWER Unavailable Unavailable Jumalon, M Luz ENGLISH DRAWER Unavailable Unavailable Jumalon, M Luz ENGLISH DRAWER Unavailable Unavailable Jumalon, M Luz ENGLISH DRAWER Unavailable Unavailable Jumalon, M Luz ENGLISH DRAWER Unavailable Unavailable Jumalon, M Luz ENGLISH DRAWER Unavailable Unavailable Jumalon, M Luz ENGLISH DRAWER Unavailable Unavailable Jumalon, M Luz ENGLISH DRAWER Unavailable Unavailable Jumalon, M Luz ENGLISH DRAWER Unavailable Unavailable Jumalon, M Luz ENGLISH DRAWER Unavailable Unavailable Jumalon, M Luz ENGLISH DRAWER Unavailable Unavailable Jumalon, M Luz ENGLISH DRAWER Unavailable Unavailable Jumalon, M Luz ENGLISH DRAWER Unavailable Unavailable Jumalon, M Luz ENGLISH DRAWER Unavailable Unavailable Jumalon, M Luz ENGLISH DRAWER Unavailable Unavailable Jumalon, M Luz ENGLISH DRAWER Unavailable Unavailable Jumalon, M Luz ENGLISH DRAWER Unavailable Unavailable Jumalon, M Luz ENGLISH DRAWER Unavailable Unavailable Jumalon, M Luz ENGLISH DRAWER Unavailable Unavailable Jumalon, M Luz ENGLISH DRAWER Unavailable Unavailable Tracey SCHMID MD Unavailable Unavailable Tracey SCHMID MD Unavailable Unavailable Tracey SCHMID MD Unavailable Unavailable Tracey SCHMID MD Unavailable Unavailable Tracey SCHMID MD Unavailable Unavailable Tracey SCHMID MD Unavailable Unavailable Tracey SCHMID MD Unavailable Unavailable Tracey SCHMID MD Unavailable Unavailable Tracey SCHMID MD Unavailable Unavailable Tracey SCHMID MD Unavailable Unavailable Tracey SCHMID MD Unavailable Unavailable Tracey SCHMID MD Unavailable Unavailable Tracey SCHMID MD Unavailable Unavailable Tracey SCHMID MD Unavailable Unavailable Tracey SCHMID MD Unavailable Unavailable Tracey SCHMID MD Unavailable Unavailable Tracey SCHMID MD Unavailable Unavailable Tracey SCHMID MD Unavailable Unavailable Tracey SCHMID MD Unavailable Unavailable Tracey SCHMID MD Unavailable Unavailable Tracey SCHMID MD Unavailable Unavailable Tracey SCHMID MD Unavailable Unavailable Tracey SCHMID MD Unavailable Unavailable Tracey SCHMID MD Unavailable Unavailable Tracey SCHMID MD Unavailable Unavailable Tracey SCHMID MD Unavailable Unavailable Tracey SCHMID MD Unavailable Unavailable Tracey SCHMID MD Unavailable Unavailable Tracey SCHMID MD Unavailable Unavailable Tracey SCHMID MD Unavailable Unavailable Tracey SCHMID MD Unavailable Unavailable Tracey SCHMID MD Unavailable Unavailable Tracey SCHMID MD Unavailable Unavailable Tracey SCHMID MD Unavailable Unavailable Tracey SCHMID MD Unavailable Unavailable Tracey SCHMID MD Unavailable Unavailable Tracey SCHMID MD Unavailable Unavailable Tracey SCHMID MD Unavailable Unavailable Tracey SCHMID MD Unavailable Unavailable Tracey SCHMID MD Unavailable Unavailable Tracey SCHMID MD Unavailable Unavailable Tracey SCHMID MD Unavailable Unavailable Tracey SCHMID MD Unavailable Unavailable Tracey SCHMID MD Unavailable Unavailable Tracey SCHMID MD Unavailable Unavailable Tracey SCHMID MD Unavailable Unavailable Tracey SCHMID MD Unavailable Unavailable Tracey SCHMID MD Unavailable Unavailable Tracey SCHMID MD Unavailable Unavailable Tracey SCHMID MD Unavailable Unavailable Tracey SCHMID MD Unavailable Unavailable Tracey SCHMID MD Unavailable Unavailable Tracey SCHMID MD Unavailable Unavailable Tracey SCHMID MD Unavailable Unavailable Tracey SCHMID MD Unavailable Unavailable Tracey SCHMID MD Unavailable Unavailable Tracey SCHMID MD Unavailable Unavailable Tracey SCHMID MD Unavailable Unavailable Tracey SCHMID MD Unavailable Unavailable Tracey SCHMID MD Unavailable Unavailable Tracey SCHMID MD Unavailable Unavailable Tracey SCHMID MD Unavailable Unavailable Tracey SCHMID MD Unavailable Unavailable Tracey SCHMID MD Unavailable Unavailable BINU S JOHANNY SANCHEZ Unavailable Unavailable BINU S JOHANNY SANCHEZ Unavailable Unavailable BINU S JOHANNY SANCHEZ Unavailable Unavailable Tracey SCHMID MD Unavailable Unavailable Tracey SCHMID MD Unavailable Unavailable Tracey SCHMID MD Unavailable Unavailable Tracey SCHMID MD Unavailable Unavailable Tracey SCHMID MD Unavailable Unavailable Tracey SCHMID MD Unavailable Unavailable Tracey SCHMID MD Unavailable Unavailable Tracey SCHMID MD Unavailable Unavailable Tracey SCHMID MD Unavailable Unavailable Tracey SCHMID MD Unavailable Unavailable Tracey SCHMID MD Unavailable Unavailable Tracey SCHMID MD Unavailable Unavailable Tracey SCHMID MD Unavailable Unavailable Tracey SCHMID MD Unavailable Unavailable Tracey SCHMID MD Unavailable Unavailable Tracey SCHMID MD Unavailable Unavailable MEI, DAI MD Unavailable Unavailable MEI, DAI MD Unavailable Unavailable MEI, DAI MD Unavailable Unavailable MEI, DAI MD Unavailable Unavailable MEI, DAI MD Unavailable Unavailable MEI, DAI MD Unavailable Unavailable MEI, DAI MD Unavailable Unavailable MEI, DAI MD Unavailable Unavailable MEI, DAI MD Unavailable Unavailable MEI, DAI MD Unavailable Unavailable MEI, DAI MD Unavailable Unavailable MEI, DAI MD Unavailable Unavailable MEI, DAI MD Unavailable Unavailable MEI, DAI MD Unavailable Unavailable MEI, DAI MD Unavailable Unavailable MEI, DAI MD Unavailable Unavailable MEI, DAI MD Unavailable Unavailable MEI, DAI MD Unavailable Unavailable MEI, DAI MD Unavailable Unavailable MEI, DAI MD Unavailable Unavailable MEI, DAI MD Unavailable Unavailable MEI, DAI MD Unavailable Unavailable MEI, DAI MD Unavailable Unavailable MEI, DAI MD Unavailable Unavailable MEI, DAI MD Unavailable Unavailable MEI, DAI MD Unavailable Unavailable MEI, DAI MD Unavailable Unavailable MEI, DAI MD Unavailable Unavailable MEI, DAI MD Unavailable Unavailable MEI, DAI MD Unavailable Unavailable MEI, DAI MD Unavailable Unavailable MEI, DAI MD Unavailable Unavailable MEI, DAI MD Unavailable Unavailable MEI, DAI MD Unavailable Unavailable MEI, DAI MD Unavailable Unavailable MEI, DAI MD Unavailable Unavailable MEI, DAI MD Unavailable Unavailable MEI, DAI MD Unavailable Unavailable MEI, DAI MD Unavailable Unavailable MEI, DAI MD Unavailable Unavailable MEI, DAI MD Unavailable Unavailable MEI, DAI MD Unavailable Unavailable BROWN, HANDY LISA COLLEGE INSTRUCTOR Unavailable Unavailable BROWN, HANDY LISA COLLEGE INSTRUCTOR Unavailable Unavailable BROWN, HANDY LISA COLLEGE INSTRUCTOR Unavailable Unavailable BROWN, HANDY LISA COLLEGE INSTRUCTOR Unavailable Unavailable BROWN, HANDY LISA COLLEGE INSTRUCTOR Unavailable Unavailable BROWN, HANDY LISA COLLEGE INSTRUCTOR Unavailable Unavailable BROWN, HANDY LISA COLLEGE INSTRUCTOR Unavailable Unavailable BROWN, HANDY LISA COLLEGE INSTRUCTOR Unavailable Unavailable BROWN, HANDY LISA COLLEGE INSTRUCTOR Unavailable Unavailable BROWN, HANDY LISA COLLEGE INSTRUCTOR Unavailable Unavailable BROWN, HANDY LISA COLLEGE INSTRUCTOR Unavailable Unavailable BROWN, HANDY LISA COLLEGE INSTRUCTOR Unavailable Unavailable BROWN, HANDY LISA COLLEGE INSTRUCTOR Unavailable Unavailable BROWN, HANDY LISA COLLEGE INSTRUCTOR Unavailable Unavailable BROWN, HANDY LISA COLLEGE INSTRUCTOR Unavailable Unavailable BROWN, HANDY LISA COLLEGE INSTRUCTOR Unavailable Unavailable BROWN, HANDY LISA COLLEGE INSTRUCTOR Unavailable Unavailable BROWN, HANDY LISA COLLEGE INSTRUCTOR Unavailable Unavailable BROWN, HANDY LISA COLLEGE INSTRUCTOR Unavailable Unavailable BROWN, HANDY LISA COLLEGE INSTRUCTOR Unavailable Unavailable BROWN, HANDY LISA COLLEGE INSTRUCTOR Unavailable Unavailable BROWN, HANDY LISA COLLEGE INSTRUCTOR Unavailable Unavailable BROWN, HANDY LISA COLLEGE INSTRUCTOR Unavailable Unavailable BROWN, HANDY LISA COLLEGE INSTRUCTOR Unavailable Unavailable BROWN, HANDY LISA COLLEGE INSTRUCTOR Unavailable Unavailable BROWN, HANDY LISA COLLEGE INSTRUCTOR Unavailable Unavailable BROWN, HANDY LISA COLLEGE INSTRUCTOR Unavailable Unavailable BROWN, HANDY LISA COLLEGE INSTRUCTOR Unavailable Unavailable BROWN, HANDY LISA COLLEGE INSTRUCTOR Unavailable Unavailable BROWN, HANDY LISA COLLEGE INSTRUCTOR Unavailable Unavailable BROWN, HANDY LISA COLLEGE INSTRUCTOR Unavailable Unavailable BROWN, HANDY LISA COLLEGE INSTRUCTOR Unavailable Unavailable BROWN, HANDY LISA COLLEGE INSTRUCTOR Unavailable Unavailable BROWN, HANDY LISA COLLEGE INSTRUCTOR Unavailable Unavailable BROWN, HANDY LISA COLLEGE INSTRUCTOR Unavailable Unavailable BROWN, HANDY LISA COLLEGE INSTRUCTOR Unavailable Unavailable BROWN, HANDY LISA COLLEGE INSTRUCTOR Unavailable Unavailable BROWN, HANDY LISA COLLEGE INSTRUCTOR Unavailable Unavailable BROWN, HANDY [place] COLLEGE INSTRUCTOR Unavailable Unavailable MULARELLA, MAVERICK DO Unavailable Unavailable MULARELLA, MAVERICK DO Unavailable Unavailable MULARELLA, MAVERICK DO Unavailable Unavailable MULARELLA, MAVERICK DO Unavailable Unavailable MULARELLA, MAVERICK DO Unavailable Unavailable MULARELLA, MAVERICK DO Unavailable Unavailable AliEmeka MD Unavailable Unavailable Ali, Emeka SANCHEZ Unavailable Unavailable Ali, Emeka SANCHEZ Unavailable Unavailable Ali, Emeka SANCHEZ Unavailable Unavailable Ali, Emeka SANCHEZ Unavailable Unavailable Ali, Emeka SANCHEZ Unavailable Unavailable Ali, Emeka SANCHEZ Unavailable Unavailable Ali, Emeka SANCHEZ Unavailable Unavailable Ali, Emeka SANCHEZ Unavailable Unavailable Ali, Emeka SANCHEZ Unavailable Unavailable Ali, Emeka SANCHEZ Unavailable Unavailable Ali, Emeka SANCHEZ Unavailable Unavailable Ali, Emeka MD Unavailable Unavailable Ali, Emeka SANCHEZ Unavailable Unavailable Ali, Emeka SANCHEZ Unavailable Unavailable Ali, Emeka SANCHEZ Unavailable Unavailable Ali, Emeka SANCHEZ Unavailable Unavailable Ali, Emeka SANCHEZ Unavailable Unavailable Ali, Emeka SANCHEZ Unavailable Unavailable Ali, Emeka SANCHEZ Unavailable Unavailable Ali, Emeka SANCHEZ Unavailable Unavailable Ali, Emeka SANCHEZ Unavailable Unavailable Ali, Emeka SANCHEZ Unavailable Unavailable Ali, Emeka SANCHEZ Unavailable Unavailable Ali, Emeka SANCHEZ Unavailable Unavailable Ali, Emeka SANCHEZ Unavailable Unavailable Ali, Emeka SANCHEZ Unavailable Unavailable Ali, Emeka SANCHEZ Unavailable Unavailable Ali, Emeka SANCHEZ Unavailable Unavailable Ali, Emeka SANCHEZ Unavailable Unavailable Ali, Emeka SANCHEZ Unavailable Unavailable Ali, Emeka SANCHEZ Unavailable Unavailable Ali, Emeka SANCHEZ Unavailable Unavailable Ali, Emeka SANCHEZ Unavailable Unavailable Ali, Emeka SANCHEZ Unavailable Unavailable Ali, Emeka SANCHEZ Unavailable Unavailable AliEmeka MD Unavailable Unavailable AliEmeka MD Unavailable Unavailable AliEmeka MD Unavailable Unavailable AliEmeka MD Unavailable Unavailable AliEmeka MD Unavailable Unavailable Ali, Emeka SANCHEZ Unavailable Unavailable Ali, Emeka SANCHEZ Unavailable Unavailable AliEmeka MD Unavailable Unavailable AliEmeka MD Unavailable Unavailable AliEmeka MD Unavailable Unavailable AliEmeka MD Unavailable Unavailable Emeka Pathak MD Unavailable Unavailable Emeka Pathak MD Unavailable Unavailable Tracey Yee MD Unavailable Unavailable Tracey Yee MD Unavailable Unavailable Tracey Yee MD Unavailable Unavailable Tracey Yee MD Unavailable Unavailable Tracey Yee MD Unavailable Unavailable Tracey Yee MD Unavailable Unavailable Tracey Yee MD Unavailable Unavailable Tracey Yee MD Unavailable Unavailable Bolla, Tracey Nicholson MD Unavailable Unavailable Bolla, Tracey Nicholson MD Unavailable Unavailable Bolla, Tracey Nicholson MD Unavailable Unavailable Bolla, Tracey Nicholson MD Unavailable Unavailable Bolla, Tracey Nicholson MD Unavailable Unavailable Bolla, Tracey Nicholson MD Unavailable Unavailable Bolla, Tracey Nicholson MD Unavailable Unavailable Bolla, Tracey Nicholson MD Unavailable Unavailable Bolla, Tracey Nicholson MD Unavailable Unavailable Bolla, Tracey Nicholson MD Unavailable Unavailable Bolla, Tracey Nicholson MD Unavailable Unavailable Bolla, Tracey Nicholson MD Unavailable Unavailable Bolla, Tracey Nicholson MD Unavailable Unavailable Bolla, Tracey Nicholson MD Unavailable Unavailable Bolla, S Bharat SANCHEZ Unavailable Unavailable Bolla, Tracey Nicholson MD Unavailable Unavailable Bolla, Tracey Nicholson MD Unavailable Unavailable Bolla, Tracey Nicholson MD Unavailable Unavailable Bolla, Tracey Nicholson MD Unavailable Unavailable Bolla, Tracey Nicholson MD Unavailable Unavailable Bolla, Tracey Nicholson MD Unavailable Unavailable Bolla, rTacey Nicholson MD Unavailable Unavailable Bolla, Tracey Nicholson MD Unavailable Unavailable Bolla, Tracey Nicholson MD Unavailable Unavailable Bolla, Tracey Nicholson MD Unavailable Unavailable Bolla, Tracey Nicholson MD Unavailable Unavailable Bolla, Tracey Nicholson MD Unavailable Unavailable Bolla, Tracey Nicholson MD Unavailable Unavailable Bolla, Tracey Nicholson MD Unavailable Unavailable Bolla, Tracey Nicholson MD Unavailable Unavailable Bolla, Tracey Nicholson MD Unavailable Unavailable Bolla, Tracey Nicholson MD Unavailable Unavailable Bolla, Tracey Nicholson MD Unavailable Unavailable Bolla, Tracey Nicholson MD Unavailable Unavailable Bolla, Tracey Nicholson MD Unavailable Unavailable Bolla, Tracey Nicholson MD Unavailable Unavailable Bolla, Tracey Nicholson MD Unavailable Unavailable Bolla, Tracey Nicholson MD Unavailable Unavailable Bolla, Tracey Nicholson MD Unavailable Unavailable Bolla, Tracey Nicholson MD Unavailable Unavailable RADHA COLEMAN MD Unavailable Unavailable RADHA COLEMAN MD Unavailable Unavailable RADHA COLEMAN MD Unavailable Unavailable RADHA COLEMAN MD Unavailable Unavailable Re-disclosure Warning The records that you are about to access may contain information from federally-assisted alcohol or drug abuse programs. If such information is present, then the following federally mandated warning applies: This information has been disclosed to you from records protected by federal confidentiality rules (42 CFR part 2). The federal rules prohibit you from making any further disclosure of this information unless further disclosure is expressly permitted by the written consent of the person to whom it pertains or as otherwise permitted by 42 CFR part 2. A general authorization for the release of medical or other information is NOT sufficient for this purpose. The Federal rules restrict any use of the information to criminally investigate or prosecute any alcohol or drug abuse patient.The records that you are about to access may contain highly sensitive health information, the redisclosure of which is protected by Article 27-F of the [facility] Public Health law. If you continue you may have access to information: Regarding HIV / AIDS; Provided by facilities licensed or operated by the [facility] Office of Mental Health; or Provided by the [facility] Office for People With Developmental Disabilities. If such information is present, then the following [facility] mandated warning applies: This information has been disclosed to you from confidential records which are protected by state law. State law prohibits you from making any further disclosure of this information without the specific written consent of the person to whom it pertains, or as otherwise permitted by law. Any unauthorized further disclosure in violation of state law may result in a fine or mcc sentence or both. A general authorization for the release of medical or other information is NOT sufficient authorization for further disc losure. Family History Family Member Name Family Member Gender Family Member Status Date o f Status Description Data Source(s) Unknown Unknown [facility] sister #1; Dx age age 38 Unknown [facility] sister Unknown Female Problem [facility] ([facility]) Unknown Male Problem [facility] ([facility] Unknown Male Problem [facility] ([facility]) Unknown Male Problem [facility] ([facility]) Encounters Encounter Providers Location Date Indications Data Source(s ) Outpatient Attender: AGUSTIN ARREDONDO MD 08/16/2020 12:00:00 AM [facility] Outpatient Attender: JOHANNY SCHMID MD 05/23/2020 12:00:[address] [facility] Outpatient Attender: JOHANNY SCHMID MD 05/16/2020 12:00:[address] [facility] Outpatient Referrer: RADHA COLEMAN MD 05/16/2020 12:0 0:[address] [facility] Bharat Yee MD: [id number], [place] [address], Ph. Attender: Bharat Yee MD [place] [facility] 05/04/2020 12:00:00 AM EST [facility]AYLE[facility] ([facility]) Bharat Yee MD: [id number], [address], [place] [address], Ph. [phone] Attender: Bharat Yee MD [place] [facility] 04/30/2020 12:00:00 AM EST [facility]AYLEEN ([facility]) Bharat Yee MD: [id number], [place] [address], Ph. [phone] Attender: Bharat Yee MD [place] [facility] 04/30/2020 12:00:00 AM EST [facility]AYLEEN ([facility]) Bharat Yee MD: [id number], [place] [address], Ph. Attender: Bharat SQUIRES - [facility] 04/12/2020 12:00:00 AM EST [facility]AYLEEN ([facility]) Bharat Yee MD: [id number], [place] [address], Ph. Attender: Bharat Yee MD [place] - [facility] 04/12/2020 12:00:00 AM EST [facility]LEEN ([facility]) Bharat Yee MD: [id number], [place] [address], Ph. Attender: Bharat Yee MD [place] - [facility] 04/12/2020 12:00:00 AM EST [facility]AYLEEN ([facility]) Bharat Yee MD: [id number], [place] [address], Ph. [phone] Attender: Bharat Yee MD [place] [facility] 2020 12:00:00 AM EST [facility]LEEN (Pain [facility]) Bharat Yee MD: [address], [address], [place] [address], Ph. [phone] Attender: Bharat Yee MD [place] - [facility] 2020 12:00:00 AM EST KAYLEEN ([facility]) Bharat Yee MD: [address], [place] [address], Ph. [phone] Attender: Bharat Yee MD [place] - [facility] 2020 12:00:00 AM EST KAYLEEN ([facility]) Bharat Yee MD: [address], [place] [address], Ph. [phone] Attender: Bharat Yee MD [place] - [facility] 2020 12:00:00 AM EST KAYLEEN ([facility]) Bharat Yee MD: [address], [place] [address], Ph. Attender: Bharat Yee MD [place] - [facility] 03/16/2020 12:00:00 AM EST KAYLEEN ([facility]) Bharat Yee MD: [address], [place] [address], Ph. Attender: Bharat Yee MD [place] - [facility] 03/16/2020 12:00:00 AM EST KAYLEEN ([facility]) Bharat Yee MD: [address], [address], [place], [place] [address], Ph. Attender: Bharat SQUIRES - [facility] 03/16/2020 12:00:00 AM EST KAYLEEN ([facility]) Bharat Yee MD: [address], [place] [address], Ph. Attender: Bharat SQUIRES - [facility] 03/16/2020 12:00:00 AM EST KAYLEEN ([facility]) Bharat Yee MD: [address], [place] [address], Ph. Attender: Bharat SQUIRES - [facility] 03/16/2020 12:00:00 AM EST KAYLEEN ([facility]) Outpatient Attender: LISA DENNISON COLLEGE INSTRUCTOR ED-IMAG 2019 01:06:00 PM EST - 03/15/2020 01:07:00 PM EST SCREENING [facility] SCREENING Patient discharged. Bharat Yee MD: [address], [place] [address], Ph. [phone] Attender: Bharat SQUIRES - [facility] 03/12/2020 12:00:00 AM EST KAYLEEN ([facility]) Bharat Yee MD: [address], [address] [place], [place] [address], Ph. [phone] Attender: Bharat SQUIRES - [facility] 03/12/2020 12:00:00 AM EST KAYLEEN ([facility]) Bharat Yee MD: [address], [place] [address], Ph. [phone] Attender: Bharat SQUIRES - [facility] 03/12/2020 12:00:00 AM EST KAYLEEN ([facility]) Bharat Yee MD: [address], [place] [address], Ph. [phone] Attender: Bharat Yee MD [place] - [facility] 03/12/2020 12:00:00 AM EST KAYLEEN ([facility]) Bharat Yee MD: [address], [place] [address], Ph. [phone] Attender: Bharat Yee MD [place] - [facility] 03/12/2020 12:00:00 AM EST KAYLEEN ([facility]) Bharat Yee MD: [address], [place] [address], Ph. [phone] Attender: Bharat Yee MD [place] - [facility] 03/12/2020 12:00:00 AM EST KAYLEEN ([facility]) Luz Rico, COLLEGE INSTRUCTOR: [address], [place] [address], Ph. Attender: Luz Rico [facility] - [facility] 03/06/2020 12:00:00 AM EST ATHE NA ([facility]) Luz Rico, COLLEGE INSTRUCTOR: [address], [place] [address], Ph. Attender: Luz Rico [facility] - [facility] 03/06/2020 12:00:00 AM EST ATHE NA ([facility]) Luz Rico, COLLEGE INSTRUCTOR: [address], [place] [address], Ph. Attender: Luz Rico [facility] - [facility] 03/06/2020 12:00:00 AM EST ATHE NA ([facility]) Luz Rico, COLLEGE INSTRUCTOR: [address], [place] [address], Ph. Attender: Luz Rico [facility] 03/06/2020 12:00:00 AM EST ATHE NA ([facility]) Luz Rico, COLLEGE INSTRUCTOR: [address], [place] [address], Ph. Attender: Luz Rico [facility] 03/06/2020 12:00:00 AM EST ATHE NA ([facility]) Luz Rico, COLLEGE INSTRUCTOR: [address], [place] [address], Ph. Attender: Lzu Rico [facility] 03/06/2020 12:00:00 AM EST ATHE NA ([facility]) Luz Rico, COLLEGE INSTRUCTOR: [address], [place] [address], Ph. Attender: Luz Rico [facility] 03/06/2020 12:00:00 AM EST ATHE NA ([facility]) Outpatient Attender: LISA DENNISON NP [facility] 02/04 11:22:00 AM EST - 02/21/2020 11:23:00 AM EST [facility] Patient discharged. Outpatient Attender: Emeka Pathak MD [facility] 12/27/2019 02:30:00 PM EDT [facility] ([facility], ) Outpatient Attender: LISA DENNISON NP [facility]ORT[facility]PSGNO[facility] 11/04 10:58:00 AM EDT - 11/22/2019 10:59:00 AM EDT [facility] Patient discharged. Outpatient Attender: AGUSTIN ARREDONDO MD 08/11/2019 12:00:00 AM EDT [facility] Outpatient Attender: AGUSTIN ARREDONDO MD [address] [place] [address] 08/09/2019 12:00:00 A M EDT [facility] Luz Rico, COLLEGE INSTRUCTOR: [address], [place] [address], Ph. Attender: Luz Rico [facility] - [facility] 06/22/2019 12:00:00 AM EDT ATHE NA ([facility]) Luz Rico, COLLEGE INSTRUCTOR: [address], [place] [address], Ph. Attender: Luz Rico [facility] - [facility] 06/22/2019 12:00:00 AM EDT ATHE NA ([facility]) Luz Rico, COLLEGE INSTRUCTOR: [address], [place] [address], Ph. Attender: Luz Rico [facility] - [facility] 06/22/2019 12:00:00 AM EDT ATHE NA ([facility]) Luz Rico, COLLEGE INSTRUCTOR: [address], [place] [address], Ph. Attender: Luz Rico [facility] - [facility] 06/22/2019 12:00:00 AM EDT ATHE NA ([facility]) Luz Rico, COLLEGE INSTRUCTOR: [address], [place] [address], Ph. Attender: Luzsonali Rico ENGLISH DRAWER [place] - [facility] 06/22/2019 12:00:00 AM EDT ATHE NA ([facility]) Luz Rico, COLLEGE INSTRUCTOR: [address], [place] [address], Ph. Attender: Luz Rico [facility] - [facility] 06/22/2019 12:00:00 AM EDT ATHE NA ([facility]) Luz Rico, COLLEGE INSTRUCTOR: [address], [address], [place] [address], Ph. Attender: Luz Rico [facility] - [facility] 06/22/2019 12:00:00 AM EDT ATHE NA ([facility]) Luz Rico, COLLEGE INSTRUCTOR: [address], [place] [address], Ph. Attender: Luz Rico [facility] - [facility] 06/22/2019 12:00:00 AM EDT ATHE NA ([facility]) Bharat Yee MD: [address], [place] [address], Ph. Attender: Bharat SQUIRES - [facility] 06/08/2019 12:00:00 AM EST KAYLEEN ([facility]) Bharat Yee MD: [address], [address], [place] [address], Ph. Attender: Bharat SQUIRES - [facility] 06/08/2019 12:00:00 AM EST KAYLEEN ([facility]) Bharat Yee MD: [address], [address], [place] [address], Ph. Attender: Bharat SQUIRES - [facility] 06/08/2019 12:00:00 AM EST KAYLEEN ([facility]) Bharat Yee MD: [address], [address], [place] [address], Ph. Attender: Bharat SQUIRES - [facility] 06/08/2019 12:00:00 AM EST KAYLEEN ([facility]) Bharat Yee MD: [address]79 [address], [address], [place] [address], Ph. Attender: Bharat SQUIRES - [facility] 06/08/2019 12:00:00 AM EST KAYLEEN ([facility]) Bharat Yee MD: [address], [place] [address], Ph. Attender: Bharat SQUIRES - [facility] 06/08/2019 12:00:00 AM EST KAYLEEN ([facility]) Bharat Yee MD: [address]98 [address], [address], [place] [address], Ph. Attender: Bharat SQUIRES - [facility] 06/08/2019 12:00:00 AM EST KAYLEEN ([facility]) Bharat Yee MD: [address], [address], [place] [address], Ph. Attender: Bharat SQUIRES - [facility] 06/08/2019 12:00:00 AM EST KAYLEEN ([facility]) Bharat Yee MD: [address], [address], [place] [address], Ph. Attender: Bharat SQUIRES - [facility] 06/08/2019 12:00:00 AM EST KAYLEEN ([facility]) Outpatient Attender: JOHANNY SCHMID MD [id number] 06/01 12:00:00 AM EST - 06/01/2019 02:44:32 PM EST Benign neoplasm of meninges, unspecified [facility] Benign neoplasm of meninges, unspecified Outpatient Referrer: RADHA COLEMAN MD 0 12:00:00 AM EST Benign neoplasm of meninges, unspecified [facility] Benign neoplasm of meninges, unspecified Bharat Yee MD: [address]45 [address], [address], [place] [address], Ph. Attender: Bharat Yee MD [place] - [facility] 05/25/2019 12:00:00 AM EST KAYLEEN ([facility]) Bharat Yee MD: [address], [address], [place] [address], Ph. Attender: Bharat SQUIRES - [facility] 05/25/2019 12:00:00 AM EST KAYLEEN ([facility]) Bharat Yee MD: [address]71 [address], [address], [place] [address], Ph. Attender: Bharat Yee MD [place] - [facility] 05/25/2019 12:00:00 AM EST KAYLEEN ([facility]) Bharat Yee MD: [address], [place] [address], Ph. Attender: Bharat Yee MD [place] - [facility] 05/25/2019 12:00:00 AM EST KAYLEEN ([facility]) Bharat Yee MD: [address]696 [address], [address], [place] [address], Ph. Attender: Bharat Yee MD [place] - [facility] 05/25/2019 12:00:00 AM EST KAYLEEN ([facility]) Bharat Yee MD: [address], [place] [address], Ph. Attender: Bharat SQUIRES - [facility] 05/25/2019 12:00:00 AM EST KAYLEEN ([facility]) Bharat Yee MD: [address]77 [address], [address], [place] [address], Ph. Attender: Bharat SQUIRES - [facility] 05/25/2019 12:00:00 AM EST KAYLEEN ([facility]) Bharat Yee MD: [address], [place] [address], Ph. Attender: Bharat SQUIRES - [facility] 05/25/2019 12:00:00 AM EST KAYLEEN ([facility]) Bharat Yee MD: [address]68 [address], [place] [address], Ph. Attender: Bharat SQUIRES - [facility] 05/25/2019 12:00:00 AM EST KAYLEEN ([facility]) Bharat Yee MD: [address], [place] [address], Ph. Attender: Bharat Yee MD [place] - [facility] 05/25/2019 12:00:00 AM EST KAYLEEN ([facility]) Preadmit Attender: [facility] 05/06/2019 12:00 :00 AM EST [facility], COLLEGE INSTRUCTOR: [address], [address], [place] [address], Ph. Attender: Luz Rico [facility] - [facility] 05/02/2019 12:00:00 AM EST ATHE NA ([facility]) Luz Rico, COLLEGE INSTRUCTOR: [address], [address], [place] [address], Ph. Attender: Luz Rico [facility] - [facility] 05/02/2019 12:00:00 AM EST ATHE NA ([facility]) Luz Rico, COLLEGE INSTRUCTOR: [address], [place] [address], Ph. Attender: Luz Rico [facility] - [facility] 05/02/2019 12:00:00 AM EST ATHE NA ([facility]) Luz Rico, COLLEGE INSTRUCTOR: [address]34 [address], [address], [place] [address], Ph. Attender: Luz Rico [facility] - [facility] 05/02/2019 12:00:00 AM EST ATHE NA ([facility]) Luz Rico, COLLEGE INSTRUCTOR: [address], [address], [place] [address], Ph. Attender: Luz Rico [facility] - [facility] 05/02/2019 12:00:00 AM EST ATHE NA ([facility]) Luz Rico, COLLEGE INSTRUCTOR: [address], [place] [address], Ph. Attender: Luz Myapaululysses [facility] - [facility] 05/02/2019 12:00:00 AM EST ATHE NA ([facility]) Luz Rico, COLLEGE INSTRUCTOR: [address], [place] [address], Ph. Attender: [facility] 05/02/2019 12:00:00 AM EST ATHE NA ([facility]) Luz Rico, COLLEGE INSTRUCTOR: [address], [place] [address], Ph. Attender: [facility] 05/02/2019 12:00:00 AM EST ATHE NA ([facility]) Luz Rico, COLLEGE INSTRUCTOR: [address], [place] [address], Ph. Attender: [facility] 05/02/2019 12:00:00 AM EST ATHE NA ([facility]) Luz Rico, COLLEGE INSTRUCTOR: [address], [place] [address], Ph. Attender: [facility] 05/02/2019 12:00:00 AM EST ATHE NA ([facility]) Luz Rico, COLLEGE INSTRUCTOR: [address]92 [address], [place] [address], Ph. Attender: Lu[facility] 05/02/2019 12:00:00 AM EST ATHE NA ([facility]) Outpatient Referrer: Luz Rico ENGLISH DRAWER 04/13/2019 08:45:0 0 AM EST [facility] Radiology Imaging Bharat Yee MD: [address]1157 [address], [place] [address], Ph. Attender: Bharat Yee MD [place] - [facility] 04/11/2019 12:00:00 AM EST KAYLEEN ([facility]) Bharat Yee MD: [address]87 [address], [address], [place] [address], Ph. Attender: Bharat Yee MD [place] - [facility] 04/11/2019 12:00:00 AM EST KAYLEEN ([facility]) Bharat Yee MD: [address]263 [address], [place] [address], Ph. Attender: Bharat Yee MD [place] - [facility] 04/11/2019 12:00:00 AM EST KAYLEEN ([facility]) Bharat Yee MD: [address]57 [address], [place] [address], Ph. Attender: Bharat Yee MD [place] - [facility] 04/11/2019 12:00:00 AM EST KAYLEEN ([facility]) Bharat Yee MD: [address]3629 [address], [place] [address], Ph. Attender: Bharat Yee MD [place] - [facility] 04/11/2019 12:00:00 AM EST KAYLEEN ([facility]) Bharat Yee MD: [address]90 [address], [place] [address], Ph. Attender: Bharat Yee MD [place] - [facility] 04/11/2019 12:00:00 AM EST KAYLEEN ([facility]) Bharat Yee MD: 48309 [address], [place] [address], Ph. Attender: Bharat Yee MD [place] - [facility] 04/11/2019 12:00:00 AM EST KAYLEEN ([facility]) Bharat Yee MD: [address], [address], [place] [address], Ph. Attender: Bharat Yee MD [place] - [facility] 04/11/2019 12:00:00 AM EST KAYLEEN ([facility]) Bharat Yee MD: [address]2688 [address], [place] [address], Ph. Attender: Bharat Yee MD [place] - [facility] 04/11/2019 12:00:00 AM EST KAYLEEN ([facility]) Bharat Yee MD: [address]60 [address], [address], [place] [address], Ph. Attender: Bharat Yee MD [place] - [facility] 04/11/2019 12:00:00 AM EST KAYLEEN ([facility]) Bharat Yee MD: 25906 [address], [place] [address], Ph. Attender: Bharat Yee MD [place] - [facility] 04/11/2019 12:00:00 AM EST KAYLEEN ([facility]) Bharat Yee MD: 37292 [address], [place] [address], Ph. Attender: Bharat Yee MD [place] - [facility] 04/11/2019 12:00:00 AM EST KAYLEEN ([facility]) Outpatient Attender: LISA DENNISON NPReferrer: Clarita bernardo RPA 04/04/2019 01:00:00 PM EST - 04/04/2019 01:00:00 PM EST [facility] Outpatient Referrer: Luz Rico ENGLISH DRAWER 04/01/2019 12:20:0 0 PM EST [facility] Radiology Imaging Outpatient Referrer: Luz Rico ENGLISH DRAWER 03/31/2019 04:10:0 0 PM EST [facility]iology Imaging Luz Rico, COLLEGE INSTRUCTOR: [address], [place] [address], Ph. Attender: Luz Rico [facility] 03/22/2019 12:00:00 AM EST ATHE NA ([facility]) Luz Rico, COLLEGE INSTRUCTOR: [address]87 [address], [place] [address], Ph. Attender: Luz Rico [facility] 03/22/2019 12:00:00 AM EST ATHE NA ([facility]) Luz Rico, COLLEGE INSTRUCTOR: [address], [place] [address], Ph. Attender: Luz Rico [facility] 03/22/2019 12:00:00 AM EST ATHE NA ([facility]) Luz Rico, COLLEGE INSTRUCTOR: [address], [address], [place] [address], Ph. Attender: Luz Rico [facility] 03/22/2019 12:00:00 AM EST ATHE NA ([facility]) Luz Rico, COLLEGE INSTRUCTOR: [address]607 [address], [place] [address], Ph. Attender: Luz Rico [facility] 03/22/2019 12:00:00 AM EST ATHE NA ([facility]) Luz Rico, COLLEGE INSTRUCTOR: [address]271 [address], [place] [address], Ph. Attender: uLz Rico [facility] 03/22/2019 12:00:00 AM EST ATHE NA ([facility]) Luz Rico, COLLEGE INSTRUCTOR: [address]80 [address], [place] [address], Ph. Attender: Luz Rico [facility] - [facility] 03/22/2019 12:00:00 AM EST ATHE NA ([facility]) Luz Rico, COLLEGE INSTRUCTOR: [address]295 [address], [place] [address], Ph. Attender: Luz Rico [facility] - [facility] 03/22/2019 12:00:00 AM EST ATHE NA ([facility]) Luz Rico, COLLEGE INSTRUCTOR: [address], [place] [address], Ph. Attender: Luz Rico [facility] - [facility] 03/22/2019 12:00:00 AM EST ATHE NA ([facility]) Luz Rico, COLLEGE INSTRUCTOR: [address]49 [address], [place] [address], Ph. Attender: Luz Rico [facility] - [facility] 03/22/2019 12:00:00 AM EST ATHE NA ([facility]) Luz Rico, COLLEGE INSTRUCTOR: [address]64 [address], [place] [address], Ph. Attender: Luz Rico [facility] 03/22/2019 12:00:00 AM EST ATHE NA ([facility]) Luz Rico, COLLEGE INSTRUCTOR: [address]15 [address], [place] [address], Ph. Attender: Luz Rico [facility] 03/22/2019 12:00:00 AM EST ATHE NA ([facility]) Luz Rico, COLLEGE INSTRUCTOR: 74339 [address], [facility] [place] [address], Ph. Attender: Luz Rcio [facility] 03/22/2019 12:00:00 AM EST ATHE NA ([facility]) Emergency Attender: MAVERICK Montoya: Joanna Yen [facility]ER 12/18/2013 10:42:00 AM EDT - 12/18/2013 01:41:00 PM [facility] Emergency Attender: BENNY Goff: Clarita Yen [facility] 09/05/2013 09:51:00 AM EDT - 09/05/2013 11:35:00 AM [facility] Immunizations Vaccine Date Status Description Data Source(s) This CVX code allows reporting of a vacc ination when formulation is unknown (for example, when recording a Influenza vaccination when noted on a vaccination card) 01/16/2020 08:30:00 AM EDT completed MEDEN T ([facility]) Medications Medication Brand Name Start Date Product Form Dose Route Admi nistrative Instructions Pharmacy Instructions Status Indications Reaction Description Data Source(s) Mometasone Furoate Mometasone Furoate 05/03/2020 12:00:00 AM EST active MEDENT ([facility]) 50 mcg/actuation 05/03/2020 12:00:00 AM EST spray,non-aeroso l 17 SPRAY TWO SPRAYS IN EACH NOSTRIL EVERY DAY SPRAY TWO SPRAYS IN EACH NOSTRIL EVERY DAY SOLD: 05/06/2020 [facility] Citalopram 40 MG Oral Tablet CITALOPRAM HYDROBROMIDE 03/28/2020 12:00:00 AM EST tablet 30 TAKE ONE TABLET BY MOUTH EVERY D AY TAKE ONE TABLET BY MOUTH EVERY DAY SOLD: 03/31/2020 [facility] tizanidine 4 MG Oral Tablet TIZANIDINE HCL 03/06/2020 12:00:00 AM EST tablet 30 TAKE ONE TABLET BY MOUTH AT BEDTIME NEEDED TAKE ONE TABLET BY MOUTH AT BEDTIME NEEDED SOLD: 03/09/2020 [facility] Oxybutynin chloride 5 MG Oral Tablet OXYBUTYNIN CHLORIDE 12:00:00 AM EDT tablet 60 TAKE ONE TABLET BY MOUTH TWI CE A DAY TAKE ONE TABLET BY MOUTH TWICE A DAY SOLD: 03/26/2020 [facility] Oxybutynin chloride 5 MG Oral Tablet OXYBUTYNIN CHLORIDE 12:00:00 AM EDT tablet 60 TAKE ONE TABLET BY MOUTH TWI CE A DAY TAKE ONE TABLET BY MOUTH TWICE A DAY SOLD: 11/23/2019 [facility] 0.01 % (0.1 mg/gram) 11/22/2019 12:00:00 AM EDT cream 42 USE ONE GM VAGINALLY THREE DAYS PER WEEK USE ONE GM VAGINALLY THREE DAYS PER WEEK SOLD: 11/23/2019 [facility] 20 mg 11/22/2019 12:00:00 AM EDT tablet 30 TAKE ONE TABLET BY MOUTH EVERY DAY TAKE ONE TABLET BY MOUTH EVERY DAY SOLD: 11/23/2019 [facility] 0.01 % (0.1 mg/gram) 11/22/2019 12:00:00 AM EDT cream 42 USE ONE GM VAGINALLY THREE DAYS PER WEEK USE ONE GM VAGINALLY THREE DAYS PER WEEK SOLD: 02/26/2020 [facility] 20 mg 11/22/2019 12:00:00 AM EDT tablet 30 TAKE ONE TABLET BY MOUTH EVERY DAY TAKE ONE TABLET BY MOUTH EVERY DAY SOLD: 12/26/2019 [facility] 90 mcg/actuation 06/24/2019 12:00:00 AM EDT HFA aerosol inha ler 18 INHALE TWO PUFFS BY MOUTH EVERY 4 HOURS NEEDED INHALE TWO PUFFS BY MOUTH EVERY 4 HOURS NEEDED SOLD: 07/18/2019 Alfred [facility]riaza gadobutrol (GADAVIST) contrast injection 3.5 mL [id number] 06/01/2019 01:00:00 PM EST 0.05 mL/kg Intravenous completed 3.5 mL (rounded from 3.675 mL = 0.05 mL/kg 73.5 kg), Intravenous, 1 TIME IMAGING, Thu06/01/19 at 1300, For 1 dose
Do not mix or administer in the same IV line with other medications.
[facility] Medication administered onsite Fluoxetine 20 MG Oral Capsule fluoxetine 20 mg capsule TAKE ONE CAPSULE BY MOUTH ONCE A DAY REPLACES ESCITALOPRAM fluoxetine 20 mg capsule TAKE ONE CAPSUL E BY MOUTH ONCE A DAY REPLACES ESCITALOPRAM completed fluoxetine 20 MG Oral Capsule KAYLEEN ([facility]) Fluoxetine 20 MG Oral Capsule fluoxetine 20 mg capsule TAKE ONE CAPSULE BY MOUTH ONCE A DAY REPLACES ESCITALOPRAM fluoxetine 20 mg capsule TAKE ONE CAPSUL E BY MOUTH ONCE A DAY REPLACES ESCITALOPRAM completed fluoxetine 20 MG Oral Capsule KAYLEEN ([facility]) Naproxen 500 MG Oral Tablet naproxen 500 mg tablet TAKE ONE TABLET BY MOUTH TWICE A DAY NEEDED naproxen 500 mg tablet TAKE ONE TABLET B Y MOUTH TWICE A DAY NEEDED completed naproxen 500 MG Oral Tablet KAYLEEN ([facility]) pregabalin 25 MG Oral Capsule [Lyrica] L yrica 25 mg capsule Take 1 capsule every day by oral route at bedtime. Lyrica 25 mg capsule Take 1 capsule ever y day by oral route at bedtime. 1 capsule(s) completed pregabalin 25 MG Oral Capsule [Lyrica] KAYLEEN ([facility]) Fluoxetine 10 MG Oral Capsule fluoxetine 10 mg capsule Take 1 capsule every day by oral route. fluoxetine 10 mg capsule Take 1 capsule every day by o ral route. 1 capsule(s) completed fluoxeti ne 10 MG Oral Capsule KAYLEEN ([facility]) pregabalin 50 MG Oral Capsule pregabalin 50 mg capsule TAKE ONE CAPSULE BY MOUTH TWICE A DAY MAXIMUM DAILY DOSE TWO CAPSULES pregabalin 50 mg capsule TAKE ONE CAPSULE BY MOUTH TWICE A DAY MAXIMUM DAILY DOSE TWO CAPSULES completed pregabalin 50 MG Oral Capsule AT [facility] ([facility]) pregabalin 25 MG Oral Capsule [Lyrica] L yrica 25 mg capsule Take 1 capsule every day by oral route at bedtime. Lyrica 25 mg capsule Take 1 capsule ever y day by oral route at bedtime. 1 capsule(s) completed pregabalin 25 MG Oral Capsule [Lyrica] KAYLEEN ([facility]) pregabalin 50 MG Oral Capsule pregabalin 50 mg capsule TAKE ONE CAPSULE BY MOUTH TWICE A DAY MAXIMUM DAILY DOSE TWO CAPSULES pregabalin 50 mg capsule TAKE ONE CAPSULE BY MOUTH TWICE A DAY MAXIMUM DAILY DOSE TWO CAPSULES completed pregabalin 50 MG Oral Capsule AT [facility] ([facility]) Naproxen 500 MG Oral Tablet naproxen 500 mg tablet TAKE ONE TABLET BY MOUTH TWICE A DAY NEEDED naproxen 500 mg tablet TAKE ONE TABLET B Y MOUTH TWICE A DAY NEEDED completed naproxen 500 MG Oral Tablet KAYLEEN ([facility]) pregabalin 25 MG Oral Capsule [Lyrica] L yrica 25 mg capsule Take 1 capsule every day by oral route at bedtime. Lyrica 25 mg capsule Take 1 capsule ever y day by oral route at bedtime. 1 capsule(s) completed pregabalin 25 MG Oral Capsule [Lyrica] KAYLEEN ([facility]) Naproxen 500 MG Oral Tablet naproxen 500 mg tablet TAKE ONE TABLET BY MOUTH TWICE A DAY NEEDED naproxen 500 mg tablet TAKE ONE TABLET B Y MOUTH TWICE A DAY NEEDED completed naproxen 500 MG Oral Tablet KAYLEEN ([facility]) pregabalin 50 MG Oral Capsule pregabalin 50 mg capsule TAKE ONE CAPSULE BY MOUTH TWICE A DAY MAXIMUM DAILY DOSE TWO CAPSULES pregabalin 50 mg capsule TAKE ONE CAPSULE BY MOUTH TWICE A DAY MAXIMUM DAILY DOSE TWO CAPSULES completed pregabalin 50 MG Oral Capsule AT [facility] ([facility]) Naproxen 500 MG Oral Tablet naproxen 500 mg tablet TAKE ONE TABLET BY MOUTH TWICE A DAY NEEDED naproxen 500 mg tablet TAKE ONE TABLET B Y MOUTH TWICE A DAY NEEDED completed naproxen 500 MG Oral Tablet KAYLEEN ([facility]) Fluoxetine 10 MG Oral Capsule fluoxetine 10 mg capsule Take 1 capsule every day by oral route. fluoxetine 10 mg capsule Take 1 capsule every day by o ral route. 1 capsule(s) completed fluoxeti ne 10 MG Oral Capsule KAYLEEN ([facility]) Fluoxetine 20 MG Oral Capsule fluoxetine 20 mg capsule TAKE ONE CAPSULE BY MOUTH ONCE A DAY REPLACES ESCITALOPRAM fluoxetine 20 mg capsule TAKE ONE CAPSUL E BY MOUTH ONCE A DAY REPLACES ESCITALOPRAM completed fluoxetine 20 MG Oral Capsule KAYLEEN ([facility]) Naproxen 500 MG Oral Tablet naproxen 500 mg tablet TAKE ONE TABLET BY MOUTH TWICE A DAY NEEDED naproxen 500 mg tablet TAKE ONE TABLET B Y MOUTH TWICE A DAY NEEDED completed naproxen 500 MG Oral Tablet [place] ([facility]) pregabalin 50 MG Oral Capsule pregabalin 50 mg capsule TAKE ONE CAPSULE BY MOUTH TWICE A DAY MAXIMUM DAILY DOSE TWO CAPSULES pregabalin 50 mg capsule TAKE ONE CAPSULE BY MOUTH TWICE A DAY MAXIMUM DAILY DOSE TWO CAPSULES completed pregabalin 50 MG Oral Capsule AT [facility] ([facility]) pregabalin 50 MG Oral Capsule pregabalin 50 mg capsule TAKE ONE CAPSULE BY MOUTH TWICE A DAY MAXIMUM DAILY DOSE TWO CAPSULES pregabalin 50 mg capsule TAKE ONE CAPSULE BY MOUTH TWICE A DAY MAXIMUM DAILY DOSE TWO CAPSULES completed pregabalin 50 MG Oral Capsule AT [facility] ([facility]) pregabalin 25 MG Oral Capsule [Lyrica] L yrica 25 mg capsule Take 1 capsule every day by oral route at bedtime. Lyrica 25 mg capsule Take 1 capsule ever y day by oral route at bedtime. 1 capsule(s) completed pregabalin 25 MG Oral Capsule [Lyrica] KAYLEEN ([facility]) Fluoxetine 10 MG Oral Capsule fluoxetine 10 mg capsule Take 1 capsule every day by oral route. fluoxetine 10 mg capsule Take 1 capsule every day by o ral route. 1 capsule(s) completed fluoxeti ne 10 MG Oral Capsule KAYLEEN ([facility]) Fluoxetine 20 MG Oral Capsule fluoxetine 20 mg capsule TAKE ONE CAPSULE BY MOUTH ONCE A DAY REPLACES ESCITALOPRAM fluoxetine 20 mg capsule TAKE ONE CAPSUL E BY MOUTH ONCE A DAY REPLACES ESCITALOPRAM completed fluoxetine 20 MG Oral Capsule KAYLEEN ([facility]) Fluoxetine 20 MG Oral Capsule fluoxetine 20 mg capsule TAKE ONE CAPSULE BY MOUTH ONCE A DAY REPLACES ESCITALOPRAM fluoxetine 20 mg capsule TAKE ONE CAPSUL E BY MOUTH ONCE A DAY REPLACES ESCITALOPRAM completed fluoxetine 20 MG Oral Capsule KAYLEEN ([facility]) pregabalin 25 MG Oral Capsule [Lyrica] L yrica 25 mg capsule Take 1 capsule every day by oral route at bedtime. Lyrica 25 mg capsule Take 1 capsule ever y day by oral route at bedtime. 1 capsule(s) completed pregabalin 25 MG Oral Capsule [Lyrica] KAYLEEN ([facility]) Naproxen 500 MG Oral Tablet naproxen 500 mg tablet TAKE ONE TABLET BY MOUTH TWICE A DAY NEEDED naproxen 500 mg tablet TAKE ONE TABLET B Y MOUTH TWICE A DAY NEEDED completed naproxen 500 MG Oral Tablet KAYLEEN ([facility]) Fluoxetine 20 MG Oral Capsule fluoxetine 20 mg capsule TAKE ONE CAPSULE BY MOUTH ONCE A DAY REPLACES ESCITALOPRAM fluoxetine 20 mg capsule TAKE ONE CAPSUL E BY MOUTH ONCE A DAY REPLACES ESCITALOPRAM completed fluoxetine 20 MG Oral Capsule KAYLEEN ([facility]) Naproxen 500 MG Oral Tablet naproxen 500 mg tablet TAKE ONE TABLET BY MOUTH TWICE A DAY NEEDED naproxen 500 mg tablet TAKE ONE TABLET B Y MOUTH TWICE A DAY NEEDED completed naproxen 500 MG Oral Tablet KAYLEEN ([facility]) Fluoxetine 10 MG Oral Capsule fluoxetine 10 mg capsule Take 1 capsule every day by oral route. fluoxetine 10 mg capsule Take 1 capsule every day by o ral route. 1 capsule(s) completed fluoxeti ne 10 MG Oral Capsule KAYLEEN ([facility]) Fluoxetine 20 MG Oral Capsule fluoxetine 20 mg capsule TAKE ONE CAPSULE BY MOUTH ONCE A DAY REPLACES ESCITALOPRAM fluoxetine 20 mg capsule TAKE ONE CAPSUL E BY MOUTH ONCE A DAY REPLACES ESCITALOPRAM completed fluoxetine 20 MG Oral Capsule KAYLEEN ([facility]) Fluoxetine 10 MG Oral Capsule fluoxetine 10 mg capsule Take 1 capsule every day by oral route. fluoxetine 10 mg capsule Take 1 capsule every day by o ral route. 1 capsule(s) completed fluoxeti ne 10 MG Oral Capsule KAYLEEN ([facility]) Fluoxetine 10 MG Oral Capsule fluoxetine 10 mg capsule Take 1 capsule every day by oral route. fluoxetine 10 mg capsule Take 1 capsule every day by o ral route. 1 capsule(s) completed fluoxeti ne 10 MG Oral Capsule KAYLEEN ([facility]) pregabalin 50 MG Oral Capsule pregabalin 50 mg capsule TAKE ONE CAPSULE BY MOUTH TWICE A DAY MAXIMUM DAILY DOSE TWO CAPSULES pregabalin 50 mg capsule TAKE ONE CAPSULE BY MOUTH TWICE A DAY MAXIMUM DAILY DOSE TWO CAPSULES completed pregabalin 50 MG Oral Capsule AT [facility] ([facility]) pregabalin 25 MG Oral Capsule [Lyrica] L yrica 25 mg capsule Take 1 capsule every day by oral route at bedtime. Lyrica 25 mg capsule Take 1 capsule ever y day by oral route at bedtime. 1 capsule(s) completed pregabalin 25 MG Oral Capsule [Lyrica] KAYLEEN ([facility]) pregabalin 25 MG Oral Capsule [Lyrica] L yrica 25 mg capsule Take 1 capsule every day by oral route at bedtime. Lyrica 25 mg capsule Take 1 capsule ever y day by oral route at bedtime. 1 capsule(s) completed pregabalin 25 MG Oral Capsule [Lyrica] KAYLEEN ([facility]) Fluoxetine 10 MG Oral Capsule fluoxetine 10 mg capsule Take 1 capsule every day by oral route. fluoxetine 10 mg capsule Take 1 capsule every day by o ral route. 1 capsule(s) completed fluoxeti ne 10 MG Oral Capsule KAYLEEN ([facility]) pregabalin 50 MG Oral Capsule pregabalin 50 mg capsule TAKE ONE CAPSULE BY MOUTH TWICE A DAY MAXIMUM DAILY DOSE TWO CAPSULES pregabalin 50 mg capsule TAKE ONE CAPSULE BY MOUTH TWICE A DAY MAXIMUM DAILY DOSE TWO CAPSULES completed pregabalin 50 MG Oral Capsule AT [facility] ([facility]) Insurance Providers Payer name Policy type / Coverage type Policy ID Covered green party ID Covered green party's relationship to roberts Policy Roberts Plan Information UMR [facility] [id number] SP [id number] UMR U [id number] Self [id number] 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 Commercial [id number] Self [id number] R [facility] [id number] SP [id number] Umr Commercial [id number] Self [id number] Umr Commercial [id number] Self [id number] UMR [facility] [id number] SP [id number] POM[facility] [id number] SP [id number] POMCO [id number] SP [id number] [employer] (HMO) [id number] Se lf [id number] [employer] [id number] Self [id number] [employer] [facility] Commercial [id number] Self [id number] Excell[employer] BC//BS Medigap Part B [id number] Family Dependent [id number] G[employer] Commercial [id number] Self [id number] [employer] Commercial [id number] Self [id number] [employer] BC//BS Medigap Part B [id number] Family Dependent [id number] [employer] Commercial [id number] Self [id number] [employer] Commercial [id number] Self [id number] [employer] BC//BS Medigap Part B [id number] Family Dependent [id number] Ghi Commercial [id number] Self [id number] POMCO U [id number] Self [id number] [employer] PPO O [id number] S [id number] [employer] - [employer] Commercial [id number] Self [id number] [employer] BC//BS Medigap Part B [id number] Family Dependent [id number] Ghi Commercial [id number] Self [id number] [employer] Ppo Commercial Self Excell[employer] BC//BS Medigap Part B Family Dependent Ghi Commercial Self POMCO O [id number] S [id number] Ghi/[employer] Commercial Self BC/BS Of [place] Medigap Part B Family Dep endent [employer] Medigap Part B Self POMCO [id number] 18 [id number] POMCO -O/P [id number] 18 [id number] POM[facility] -CLINIC [id number] 18 [id number] GHI COMM CONTR [id number] S [id number] POMCO [id number] SP [id number] POMCO O [id number] S [id number] [employer] [id number] SP [id number] Problems, Conditions, and Diagnoses Code Display Name Description Problem Type Effective Dates Data Source(s) N94.10 Unspecified dyspareunia UNSPECIFIED DYSPAREUNIA Diagno sis 02/21/2020 11:22:00 AM [facility] N32.81 Overactive bladder OVERACTIVE BLADDER Diagnosis 11:22:00 AM [facility] Z12.39 Encounter for other screening for malign ant neoplasm of breast ENCOUNTER FOR OTH SCREENING FOR MALIGNANT NEOPLASM OF BREAST Diagnosis 11:22:00 AM [facility] Z01.419 Encounter for gynecological examination (general) (routine) without abnormal findings ENCNTR FOR FOOD TESTER EXAM (GENERAL) (ROUTINE) W/O ABN FINDIN GS Diagnosis 02/21/2020 11:22:00 AM [facility] Z80.0 Family history of malignant neoplasm of digestive organs FAMILY HISTORY OF MALIGNANT NEOPLASM OF Diagnosis 05/06/2019 01:40:00 PM EST [facility] Z80.3 Family history of malignant neoplasm of breast FAMILY HISTORY OF MALIGNANT NEOPLASM OF Diagnosis 05/06/2019 01:40:00 PM EST [facility] Z12.31 Encounter for screening mammogram for ma lignant neoplasm of breast ENCNTR SCREEN MAMMOGRAM FOR MALIGNANT NEOPLASM OF BREAST Diagnosis 01:00:00 PM [facility] Surgeries/Procedures Procedure Description Date Indications Data Source(s) Intradermals 05/03/2020 12:00:00 AM EST M [facility] ([facility]) Prick Testing 05/03/2020 12:00:00 AM EST MED[facility] ([facility]) Multiple Injections-Admin. 04/26/2020 12:00:00 AM EST [facility] ([facility]) Multiple Injections-Admin. 04/04/2020 12:00:00 AM EST [facility] ([facility]) Multiple Injections-Admin. 03/15/2020 12:00:00 AM EST [facility] ([facility]) PERIODIC PREVENTIVE MED EST PATIENT 40-64YRS PREV VISIT EST AGE 40-64 02/21/2020 12:00:00 AM [facility] OFFICE OUTPATIENT VISIT 10 MINUTES OFFICE/OUTPATIENT VISIT E ST 11/22/2019 12:00:[address] [facility] Allergy Mixed Antigens 07/07/2019 12:00:00 AM EDT MEDENT ([facility]) MRI BRAIN BRAIN STEM W/O &W/CONTRAST MATERIAL MR BRAI N WITH AND WITHOUT CONTRAST [id number] Routine 06/01/2019 1:43 PM EST Meningioma Pituitary tumor 06/01/2019 06:43:00 PM EST Pituitary tumorMening [facility] Pituitary tumor Meningioma MRI, knee, w/o contrast 03/22/2019 12:00:00 AM EST KAYLEEN ([facility]) Results ID Date Data Source [id number] 04/30/2020 12:00:00 AM EST KAYLEEN ([facility]) Name Value Range Interpretation Code Description Data Meghna rce(s) Supporting Document(s) SARS-CoV-2 (COVID-19) RNA [Presence] in Respiratory specimen by MILLY with probe detection negative negative normal Sars-cov-2 KAYLEEN ([facility]) ID Date Data Source [id number] 04/30/2020 12:00:00 AM EST [facility] ([facility]) Name Value Range Interpretation Code Description Data Meghan rce(s) Supporting Document(s) ID Date Data Source [id number] 04/30/2020 12:00:00 AM EST [facility] Name Value Range Interpretation Code Description Data Meghan rce(s) Supporting Document(s) SARS-CoV-2 NEGATIVE [facility] This lab was ordered by [facility]-C[facility] and reported by [employer]. ID Date Data Source [id number] 2020 12:00:00 AM EST KAYLEEN ([facility]) Name Value Range Interpretation Code Description Data Meghan rce(s) Supporting Document(s) SARS-CoV-2 (COVID-19) RNA [Presence] in Respiratory specimen by MILLY with probe detection negative negative normal Sars-cov-2 KAYLEEN ([facility]) ID Date Data Source [id number] 2020 12:00:00 AM EST [facility]EN ([facility]) Name Value Range Interpretation Code Description Data Meghan rce(s) Supporting Document(s) ID Date Data Source [id number] 2020 12:00:00 AM EST K[facility]LEEN ([facility]) Name Value Range Interpretation Code Description Data Meghan rce(s) Supporting Document(s) SARS-CoV-2 (COVID-19) RNA [Presence] in Respiratory specimen by MILLY with probe detection negative negative normal Sars-cov-2 KAYLEEN ([facility]) ID Date Data Source [id number] 2020 12:00:00 AM EST K[facility]LEEN ([facility]) Name Value Range Interpretation Code Description Data Meghan rce(s) Supporting Document(s) ID Date Data Source [id number] 2020 12:00:00 AM EST [facility] Name Value Range Interpretation Code Description Data Meghan rce(s) Supporting Document(s) SARS-CoV-2 NEGATIVE [facility] This lab was ordered by [facility] and reported by [employer]. ID Date Data Source [id number] 2020 12:00:00 AM EST KAYLEEN ([facility]) Name Value Range Interpretation Code Description Data Meghan rce(s) Supporting Document(s) SARS-CoV-2 (COVID-19) RNA [Presence] in Respiratory specimen by MILLY with probe detection negative negative normal Sars-cov-2 KAYLEEN ([facility]) ID Date Data Source [id number] 2020 12:00:00 AM EST K[facility]LEEN ([facility]) Name Value Range Interpretation Code Description Data Meghan rce(s) Supporting Document(s) ID Date Data Source [id number] 03/17/2020 12:00:00 PM EST [facility] Imaging Services Department Imaging Report [address], [place] [address] Name: JULIET SHER : 1955 Age/Sex: 64F Ordering Provider: BYRON Amezcua [facility] Rec #: [id number] Date of Service: 03/15/20 Report Number: [id number] cc: Jarrod Milan MD; BYRON Amezcua Send Report To: [id number] MAMMOSCR/Screening Digtl Nicolas w Brant CAD Reason for Exam: SCREENING Patient States Last CBE: 03-15-20 Is this a follow up exam: Follow up to: Patient's Tess Model Lifetime risk of developing breast cancer: 11.7% Examina tion is compared to 01/06/18, 04/28/16 and 04/25/15. Tomosynthesis was performed in addition to standard mammogram views. There is a family history of breast cancer in patient's sister. There is right nipple inversion for over a year according to the history. This patient's breasts consist of scattered fibroglandular densities. Distribution of breast parenchyma is considered similar to prior studies. I seeno definite dominant mass or suspicious cluster of microcalcifications or definite area of architectural distortion or change in the skin line. There is nipple inversion on the right and the nipple line is flattened on the left and as stated above these findings have been seen on prior studies. IMPRESSION: No significant interval change in the appearance of the breasts from prior studies. Yearly follow-up recommended. This mammogram was performed digitally and interpreted with the aid of [employer], an FDA- approved, computer-aided detection system. OVERALL FINAL ASSESSMENT OF BREAST COMPOSITION: BIRADS CLASSIFICATION: B DESCRIPTION: There are scattered areas of fibroglandular density. OVERALL FINAL ASSESSMENT OF FINDINGS: BIRADS CLASSIFICATION: 2 DESCRIPTION: BENIGN. REPORT SIGNATURE ON FILE 03/20/20 1026 Reported By: Archana Leach MD <Electronically signed by Archana Leach MD>03/20/20 1026 Dictation Date/Time: 03/16/20 1804 Transcribed Date/Time: 03/17/20 1200 Proposal Review Analyst: [email or web address] Name Value Range Interpretation Code Description Data Meghan rce(s) Supporting Document(s) ID Date Data Source [id number] 03/12/2020 12:00:00 AM EST KAYLEEN ([facility]) Name Value Range Interpretation Code Description Data Meghan rce(s) Supporting Document(s) SARS-CoV-2 (COVID-19) RNA [Presence] in Respiratory specimen by MILLY with probe detection negative negative normal Sars-cov-2 KAYLEEN ([facility]) ID Date Data Source [id number] 03/12/2020 12:00:00 AM EST [facility] ([facility]) Name Value Range Interpretation Code Description Data Meghan rce(s) Supporting Document(s) ID Date Data Source [id number] 03/12/2020 12:00:00 AM EST KAYLEEN ([facility]) Name Value Range Interpretation Code Description Data Meghan rce(s) Supporting Document(s) SARS-CoV-2 (COVID-19) RNA [Presence] in Respiratory specimen by MILLY with probe detection negative negative normal Sars-cov-2 KAYLEEN ([facility]) ID Date Data Source [id number] 03/12/2020 12:00:00 AM EST [facility] ([facility] [facility]) Name Value Range Interpretation Code Description Data Meghan rce(s) Supporting Document(s) ID Date Data Source [id number] 03/12/2020 12:00:00 AM EST KAYLEEN ([facility]) Name Value Range Interpretation Code Description Data Meghan rce(s) Supporting Document(s) SARS-CoV-2 (COVID-19) RNA [Presence] in Respiratory specimen by MILLY with probe detection negative negative normal Sars-cov-2 KAYLEEN ([facility]) ID Date Data Source [id number] 03/12/2020 12:00:00 AM EST KAYLEEN ([facility]) Name Value Range Interpretation Code Description Data Meghan rce(s) Supporting Document(s) ID Date Data Source [id number] 03/12/2020 12:00:00 AM EST KAYLEEN ([facility]) Name Value Range Interpretation Code Description Data Meghan rce(s) Supporting Document(s) SARS-CoV-2 (COVID-19) RNA [Presence] in Respiratory specimen by MILLY with probe detection negative negative normal Sars-cov-2 KAYLEEN ([facility]) ID Date Data Source [id number] 03/12/2020 12:00:00 AM EST KAYLEEN ([facility]) Name Value Range Interpretation Code Description Data Meghan rce(s) Supporting Document(s) ID Date Data Source [id number] 03/12/2020 12:00:00 AM EST KAYLEEN ([facility]) Name Value Range Interpretation Code Description Data Meghan rce(s) Supporting Document(s) SARS-CoV-2 (COVID-19) RNA [Presence] in Respiratory specimen by MILLY with probe detection negative negative normal Sars-cov-2 KAYLEEN ([facility]) ID Date Data Source [id number] 03/12/2020 12:00:00 AM EST KAYLEEN ([facility]) Name Value Range Interpretation Code Description Data Meghan rce(s) Supporting Document(s) ID Date Data Source [id number] 03/12/2020 12:00:00 AM EST [facility] Name Value Range Interpretation Code Description Data Meghan rce(s) Supporting Document(s) SARS-CoV-2 [facility] This lab was ordered by [facility]-COVID19 and reported by [employer]. ID Date Data Source [id number] 01/12/2020 12:30:00 PM EDT [facility] Name Value Range Interpretation Code Description Data Meghan rce(s) Supporting Document(s) SARS coronavirus 2 RNA [facility] This lab was ordered by [facility] and reported by [facility]. ID Date Data Source [id number] 10/24/2019 12:00:00 AM EDT [facility] Name Value Range Interpretation Code Description Data Meghan rce(s) Supporting Document(s) 2019-nCoV RNA XXX MILLY+probe-Imp [facility] This lab was ordered by [facility] and reported by [employer] ID Date Data Source [id number] 08/09/2019 03:23:17 PM EDT [facility] Name Value Range Interpretation Code Description Data Meghan rce(s) Supporting Document(s) Progress Note [facility] FIGEOh5mWhRQYqUq24/EMInlFKLtc4YoXNjlIBr8EUozIIRcN9VmTUU4wM7xPWJ8HBeVQsVsHzVwCJP5 lbm [file] FHnhdgm2HKA9OxOdpZpQ8sbqpCoCONWxUH0A+O/seat nailer [file] AgICAgICAgICAgICAgICAgICAgICAgICAgICAgICAg ICAgICAgICAgICAgICAgICAgICAgICAgICAgICAgICAgICAgICAgICAgICAgICAgICAgICANCiAgICAg ICAgICAgICAgICAgICAgICAgICAgICAgICAgICAgICAgICAgICAgICAgICAgICAgICAgICAgICAgICAg ICAgICAgICAgICAgICAgICAgICAgICAgICAgICAgIC AgICANCiAgICAgICAgICAgICAgICAgICAgICAgICAgICAgICAgICAgICAgICAgICAgICAgICAgICAgIC AgICAgICAgICAgICAgICAgICAgICAgICAgICAgICAgICAgICAgICAgICAgICANCiAgICAgICAgICAgIC AgICAgICAgICAgICAgICAgICAgICAgICAgICAgICAg ICAgICAgICAgICAgICAgICAgICAgICAgICAgICAgICAgICAgICAgICAgICAgICAgICAgICAgICANCiAg ICAgICAgICAgICAgICAgICAgICAgICAgICAgICAgICAgICAgICAgICAgICAgICAgICAgICAgICAgICAg ICAgICAgICAgICAgICAgICAgICAgICAgICAgICAgIC AgICAgICANCiAgICAgICAgICAgICAgICAgICAgICAgICAgICAgICAgICAgICAgICAgICAgICAgICAgIC AgICAgICAgICAgICAgICAgICAgICAgICAgICAgICAgICAgICAgICAgICAgICAgICANCiAgICAgICAgIC AgICAgICAgICAgICAgICAgICAgICAgICAgICAgICAg ICAgICAgICAgICAgICAgICAgICAgICAgICAgICAgICAgICAgICAgICAgICAgICAgICAgICAgICAgICAN CiAgICAgICAgICAgICAgICAgICAgICAgICAgICAgICAgICAgICAgICAgICAgICAgICAgICAgICAgICAg ICAgICAgICAgICAgICAgICAgICAgICAgICAgICAgIC AgICAgICAgICANCiAgICAgICAgICAgICAgICAgICAgICAgICAgICAgICAgICAgICAgICAgICAgICAgIC AgICAgICAgICAgICAgICAgICAgICAgICAgICAgICAgICAgICAgICAgICAgICAgICAgICANCiAgICAgIC AgICAgICAgICAgICAgICAgICAgICAgICAgICAgICAg ICAgICAgICAgICAgICAgICAgICAgICAgICAgICAgICAgICAgICAgICAgICAgICAgICAgICAgICAgICAg ICANCjw/gMDmA9gblHTbscH8Y2scBk9LTu2GII0hm7NnXEUuHVrbgzMyPbjEUiIhTUDcYizVQyr8VLai QT5IcKIkI9DvU7VnJJuuNS5WKOVdGYFooXDyUPUjZV GvStW9VRKgWDhkOD4OwCUwEWywEEGbKFMhKrHrPPNgOAEwDKLmWRKnMJNVGZ9VOnEpZ7RsuC91CHJWTz 4+MYwidqJyWjyIIdC7VZHco5KfNPn2DH9GYOGxAjzzd8AqNefxLBHCCQgmII5RRCF2CHW5GPQjBs6CMW WtO085rtAfBL6TYv0MSlRgOI9jci8SLuhmWIFbIogF Pvw4XZicFW3GwTIlFTjPrt3lxsHzujDJe2QtqaNooEZBQUEeAnQQkXjpKIcneT7eCO4YFUZ2RDDaNN1k KODmJPUxSeOdCEXTSH9FXFWpHCTybRUtGIUqBGQBAT3ZDDkyRVT6PMJtqeWmmBBhOPcaMX9EWGDpdfHk MjggMCBSDQo+If0ZDA1jf6HkCOczULMsQH1rgh5SKD iHArMnO0M4wRWoC3O4EZydVk7HPFVwORVbOvVcZIELYIsmCJ7CZO2zbiV5ZI6SnDCvEKIkTBYjhLUbNX g3T55omIOfNFfoKO5VDVN+Sonny+Xp7MJCYzPFOxRXDhBrDuTGBUBrAkI2MoC2WEw5KzM8VwSF85oLbrgi EuGXfqER5XVY7wGRBsEUKQMC4OaOUcdQ1lndExWORn AOXMUxVyD60inNYpQIKpJKU0MMUoVc4BXDHzO6TfsoWdbFyykqFhWAFmDISURT4VHPhktiHbcGBhcXks TY28gRwoGC0FLs8JPcZmEG6noy1DnQNvXq9DIOCxRT1BCZZhCZIhIIUoKWD5LKRzNnOjRUkjDQTcXSLf DLY5PDNpOZAvEZ3QBcHaHNZvRxh8JuBoVUJnDFWoer 1OAXHaHAYdKOK6DjHiUBOyQYLjSNgdCEViJILaOJN3YEXfUHGdEN6FYlLcLVOmDGYvEtgnLQQcVYYwrs 9IWFJhWDYyCYO2YqEwFHLlISOwCWlnUYWvLNI0HrHxWAXkBNPpUD2FXqQiRKKsOXk7DhGvTFTxZIVhdj 1RXNEmYPTcXRNxPUObMZVmUUVtAIlkDWLrHVBhXyA4 TYGzNRGlGI7MNuJmGZCrZIWxHeYfDLVoVCGpfs4DCLMdORTuNDE4WPOwUHNpKXByUVyaDJLjRJKxZgGh EFHdOQEsOZ8TYpUuKHSsHCR3OseyLSBaNPZxve1DIJCcNWImRdpiVPPmDCPtNYClIJsxRKBlJXWqUrcz CTNiHFKzQP6WIfWwXMJtLSH2NDPuBYQsINArbj3HNE MoEMSdSDU6BGGnCCHyIRPbGUjiDJCrJGO6RAFtDUBbMYNzFV0WQfRySUVjScA8MrKoSQJcMFHvsm9DDT RwWNBzXnXeRNKiUIKfCDRzWRquUUWoTOC4Gou5VPIqLRHyUB4XHwCeZNKhXfO8KhGoDILnMPKdip8EBY UjSQOxYwE9FIOfWATuKCYnRNhpBUFrYPS9LWXeLQRa SEQkFG1KFqKoAOHkAmw7MZGvFRGoZSFard1QVINaRLLoBND1EsQoHGRiOLAcJBkeLIEyJSZ1PeX3ETDv ZBQzVZ1NRcOlAIBdDsw1KAPnJLEmNKKhpb0ZKLDpVEGbBQghHFJkTLThBLTxBXm5qwIqjJFsLTu9WP5J K0ZixjEeCaEZCp1El422MFVcYPClGl7LE6lpAy7hVR YnJCIADl5UNLy1INN4RSklXWnmKEA2RcmkLaT3XQSxIwq5JBGnKcKoSAA+YGxeJAx0ORB8V7WdNIsgFZ M8MoXhFxHgCZZfCqMgXFX7Ge2oCMBMIc1+HDiosRZhrDgqQDLHUxMhPEm6ZQvdUIFSPb6Q ID Date Data Source [id number] 06/06/2019 09:54:00 PM [facility] Name Value Range Interpretation Code Description Data Meghan rce(s) Supporting Document(s) Progress Note [facility] OTALIg9dTdEAVrSw39/JGAltXTPeq8NgFAijIEp7LDraSMRlF5UtUMY9gJ6eTSK6FUmGXbUjEeCzUmUj lbm SfHqaBZeJdDDZlYipSFkEnZLvnKrhivBTeYB7XpAQ5XHWxY13rGESnMXFhZ6ZrTYN4EEG+Jl0RCWVfeQ FcEM5WVkrU2NlTh+LCFU3VmQ/QwAIBF/WPNi5gGDGhW1dqG7FnPdpTEQAWHVHMypXOWGX+9yHFpqSqpb 7fugf0WbMTfx2990K6cspsXGist4Jer6DszyA/1Z9+ RADHA/Yg00L9ChEywQrITluKEZHF8U6BfD+Z+35nsGdo6b+SOIERvFv0oRjdRiSVThgc4tVQlW2h229agW [file] wjB0FqDBokAqlVn8FPM4GSWnbR4aX697yli8xGe+Tomás/+cTcQE2a0tvdlEuyZhNkPlF4InHH+TM48Tfb r5VvzNOwiQCYf/JSS0aLu3XMdJqq13O6cT/1MOXUUrQLh1PbTNSZ4TRtjcYVczEJaSWjkHGFfPThON2t p6EKmLfyF9jJEesNdJtFzeoASyPzOW9ICnCT81LjPV W1Ea/FpN1893GoDVL0PhhyV4McZv77CqH0Hvb0YJsBwSiIDlxLBcF/V9mHwtrhctwlyoIjjRB1Ofo7NE UtEcfn30Jq7kxpIFDsw0fXbO/FBg+a3EOsFSrxXCK7eiG/CAB9vJq/wEHym62XmKxg+bBic/JJh+AZIL uBNi67IVrXXz49WYqDIh08HFTAAwREEbEgNPLl4XXG U/VwVOrz7JNuNHfo2SHdRYay4FWmTRK5Gvsl0thltJG2aj4Gp+5QKE2zH/+NICOLAS+KohvMXAsT5RZvQVO4 GbpjU/mqPnGuABikLIJ1yRn/cFA9rA6/lgUrIpa58vkBN5NPmto1khADWEGzfX9dogcVrdPR/1bTe4uo 23PDF3gS2+MMmPOIy3/Ka4KSyfeQO/2MAM+TU/2MAM +TU/2MAM+TU/2MDU/2GJt7KDmC5Onip8BXzPRlwPqPSoqhoBaedMqJlSDgnyxRYLEe0tdusnBnxKNDd7 JBucCbBlChucCbBlChucCbBlChucOsCNXG/GaWeEvPFFs1fB2XEVyRmugTIvCP4YFcdIhGETA3weca/6 2+As1jVibwMC8E3weGGEbLQ+AZLnLftgbImNW2GPPz CnnJNjMBuhiBOFctBeRWdqNnDASJ55N6NoHb+hLOKoiGxvecQ2U/j4XzN2+FsWHdLaXDP8zoEinS5HHZ 7mu2NqIPx4GUWte7FcRScbOOn4XClmQBMcV1P4wAXmXHUwYJ3SHSKkRH4YLGSfnqVpGjYaLVRIIaOfSQ VuNiTod5UxJ6CzYHPcWVRNHPqyVXXqC96bWUjmRz12 SIudYGCvJcAfTWw4Vf5HCaByKPMcR18jjAOgwDUoRxMeABYNBwVhFLXuS8HghHExIWrjT3CaQ9TqBR1q hJRyYJ5jiYUrV5BwR3NkhlpkTAMGEiWlVQZoTOtxRWPtSjHmSLjrDYK+Yh6BDNR+Kn5KSY0wb2HuNIn4 UOLtt7FqNMbsXEa0Q8NsgOUeraOhUvoucTSIWWVfHB CgZ4uxfiz0aBBzVJR5Yf1DMnVxz6JcPUTgORtTes7krX/bOBL+dlW9U49QjADeQBOoVWPnEOh+XJK2iX yIk8JiJZhKmNKouNe7K//+BCQ3XVvnB0hmjr3w+oTiRO2PXnjkriuvKNV//cE1gmZAizS/8bwc19ZCjF /+g9x1C/zr452Vr1Iw13A+05aX+fiaR27O1tf9Y24W [file] BfU3TZM8bHEwJa9KXuE6NnKNLgEnZS4EJRl= ID Date Data Source [id number] 06/01/2019 06:06:02 PM [facility] MR BRAIN WITH AND WITHOUT CONTRAST [id number] FINAL RESULTInterpreted by:Fred Saenz [facility] WITH [facility] WITHOUT CONTRAST [id number] INDICATION: 64 years Female. meningioma & pituitary adenoma.COMPARISON: MRI brain 01/19/2019TECHNIQUE: Multiple customized pulse sequences without and with contrast performed according to standard protocol. Intravenous contrast dosage 3.5 cc Gadavist according to standard protocol was administered and documented in the Epic system. FINDINGS: Ventricles and basilar cisterns are within normal limits. There are no intra-axial masses or fluid collections.There is right subfrontal extra-axial enhancing mass measuring 6 mm AP by 4 mm transverse by 3 mm craniocaudal, which may be compatible with meningioma, approximately unchanged size from prior study.There is no midline shift. No hemorrhage is present. There is no acute infarct. There are a few nonspecific scattered small foci of FLAIR/T2 prolongation of the cerebral white matter which may be compatible with mild/moderate chronic ischemic microvascular changes. At the superior midline pituitary gland, there is redemonstration of exophytic mass measuring demonstrating low-grade T1/T2 hyperintensity, measuring 4.5 mm AP by 5 mm transverse by 3 approximately unchanged size from prior study 4 mm craniocaudal.IMPRESSION: 1. There is right subfrontal extra-axial enhancing mass measuring 6 mm AP by 4 mm transverse by 3 mm craniocaudal, which may be compatible with meningioma, approximately unchanged size from prior study.2. At the superior midline pituitary gland, there is redemonstration of exophytic mass measuring 4.5 mm AP by 5 mm transverse by 4 mm craniocaudal, approximately unchanged size from prior study. Finding may be compatible with exophytic pituitary adenoma, possibly cystic although craniopharyngioma or exophytic Rathke's cleft cyst not completely excluded.This document has been electronically signed by Fred Saenz MD on 06/01/2019 6:03 PM Name Value Range Interpretation Code Description Data Meghan rce(s) Supporting Document(s) ID Date Data Source [id number] 05/06/2019 06:44:00 PM EST [facility] DEIDRA [facility] [address] [place] [id number] NEW PATIENT CONSULTATIONNAME: JULIET SHER JPHYSICIAN: ELIZABETH CORDOBAATE OF SERVICE:DATE OF : [birth year]ACCOUNT #: [id number]: JULIET SHERDate: May 06, 2019DOB: [birth year]Physician: Claudia CordobaSRayneAge: 64Note Title: [facility] [place], [place] [address]Znwdayppsd for Referral:The patient is referred by her primary care provider Patricia Dennison forevaluation due to family history of breast, prostate and colon cancer.Pertinent History :Pt is a 63-year-old female with no personal history of cancer who is referredfor further evaluation of family history of breast, colon, prostate cancer.Her detailed family history is provided under family history.None of the affected family members have undergone germline genetic testing.Unaffected sister did undergo genetic testing and was negative for clinicallysignificant mutation.The patient had menarche at age 11. She had her first child at age 16. She hasnever had a breast biopsy. Postmenopausal at age 63. Took estrogen replacementtherapy for 5 years.Past Medical History:AnxietyAsthmaDepressionNasal allergiesPneumoniaPast Surgical History:Hernia surgeryHysterectomyTubal ligationGynecological History:Ms. SHER has had 4 pregnancies and 4 births.She is post-menopausal at age 48.Hormone use consists of post menopause hormones for 4 years. HAD TOXEMIA OFPREGNANCY.Hormone use consists of post menopause hormones for 4 years.Ms. SHER is post-menopausal at age 48.Ms. SHER has had 4 pregnancies and 4 births.HAD TOXEMIA OF .Breast Fed:Allergies:This patient has no documented allergies.Current Medications:Ibuprofen 1 Tablet (of 600 mg) Oral daily PRN (Start Date - unknown)Lexapro 1 Tablet (of 10 mg) Oral daily (Start Date - unknown)Lyrica 1 Tablet (of 50 mg) Capsule Oral b.i.d. (Start Date - unknown)Topamax 1 Tablet (of 25 mg) Oral b.i.d. (Start Date - unknown)cycloSPORINE 1 drop(s) (of 0.05 %) Emulsion Ophthalmic (Start Date - unknown)Social History:Ms. SHER is . Ms. SHER has never smoked. She is an active drinker.Ms. SHER reports the following support systems: lives with spouse, significantother, family, or friends. Her diet consists of regular meals. She indicatesher activity level as: daily activities. Drinks al occ.Family History:Ms. SHER's mother is alive: colon cancer at age 50. Ms. SHER's father is alive:prostate cancer at age 67. Sister 1 diagnosed with breast cancer at age 40, at age 42. Sister 2, alive, diagnosed with colon cancer at age 61currently being treated. Brother 1 diagnosed with prostate cancer at age 59,alive. Sister Chelo with no history of malignancy underwent testing and wasnegative for clinically significant mutation. Maternal grandmother with breastcancer at age 45 and stoma/pancreatic cancer at age 72, .Paternalgrandfather with gastric cancer at age 67. Paternal aunt with breast cancer atage 80.Vital Signs:Most recent vitals are not available for this patient.Breast Exam: deferredMy Risk Results:not doneImaging:not doneImpression:#1 family history of breast, prostate and colon cancerPlan:#1 family history of breast, prostate and colon xwxibo-24-hldd-old female withmultiple family members with early breast cancer less than age 45. Father andbrother with prostate cancer. Is concerning for the possibility of a BRCA1/2mutation.However as some of the affected family members are alive I felt that the bestoption would be to test one of the affected family members either her brotherwith prostate cancer at age 59 for BRCA1/2 or mother for colon cancer genetictesting.If these family members are unrevealing were unable to get tested then it maybe reasonable to test the patient.The patient stated that her unaffected sister had already been tested and wasnegative for any significant mutation. I did explain to her the pitfalls oftesting and unaffected family member. However patient felt that at this timeshe did not want to proceed with genetic testing. I encouraged her again totalk to her affected family members and see if they would get tested and ifthey had a positive test for a genetic mutation then she could contact me forfurther testing.Electronically signed by: Dai NevarezvaCC:Lisa Dennison Name Value Range Interpretation Code Description Data Meghan rce(s) Supporting Document(s) ID Date Data Source [id number] 04/13/2019 12:00:00 AM EST [facility] Luz Pelayo Patient Name: JULIET [id number] Date of : 1955[address] Date of Exam: 04/13/2019TAVIA Vazquez [id number]#: Fax: [phone] EXAM: MRI KNEE LEFT WITHOUT CONTRASTCLINICAL INFORMATION: Bilateral knee pain for several years with notrauma.3T multiplanar MRI imaging of the left knee was obtained using varioussequences.I do not see evidence of a meniscal tear. The cruciate and collateralligaments are intact. The extensor mechanism is intact. There is moderatechondromalacia of the patellar facet mainly inferiorly and medially withmild subchondral marrow edema in the inferior aspect of the medial patellarfacet. Medial and lateral patellar retinacula are intact. There ismoderate chondromalacia in the femoral notch with mild subchondral marrowedema at that location. There is moderate diffuse chondromalacia in themedial joint compartment with mild diffuse chondromalacia in the lateraljoint compartment. No other abnormal bone marrow signal is seen. There isrelatively a normal amount of joint fluid. There is a very small thinBaker's cyst medially. This extends for a craniocaudal length of about 2.5cm and has a maximum thickness of about 6 mm.IMPRESSION:No evidence of meniscal tear. Cruciate and collateral ligaments intact.Scattered chondromalacia most significantly of the inferior aspect of themedial patellar facet and in the femoral notch anteriorly with mildsubchondral marrow edema at those locations. Very small Reece's cyst.Accredited by the [employer] in [place].Jayesh Berry, MDDLUCRETIA/jmcTgalilea you for referring JULIET SHER to our office. Electronically Signed - JAYESH BERRY MD 04/13/19 20:15 Name Value Range Interpretation Code Description Data Meghan rce(s) Supporting Document(s) ID Date Data Source [id number] 04/13/2019 12:00:00 AM [facility] [employer] Patient Name: JULIET [id number] Date of : 1955[address] Date of Exam: 04/13/2019TAVIA Vazquez [id number]#: Fax: [phone] EXAM: MRI KNEE RIGHT WITHOUT CONTRASTCLINICAL INFORMATION: Bilateral knee pain for several years with notrauma.3T multiplanar MRI imaging of the right knee was obtained using varioussequences.There is a complex tear of the body and posterior horn of the medialmeniscus. There appears to be a small oblique tear of the anterior horn ofthe lateral meniscus. The cruciate and collateral ligaments are intact.Extensor mechanism is intact. Medial and lateral patellar retinacula areintact. There is moderate diffuse chondromalacia of the patella, mostsignificantly along the lateral patellar facet inferiorly with focal mildsubchondral marrow edema at that location. There is mild diffusechondromalacia in the medial joint compartment with a more moderate degreeof chondromalacia along the anterior aspect of the medial femoral condylewith mild subchondral marrow edema at that location. There is mild diffusechondromalacia in the lateral joint compartment. No other bone marrowsignal abnormality is seen. There is mild spurring of the femoralcondyles. There is a mild joint effusion. There is a thin Reece's cyst inthe medial popliteal fossa with a maximum craniocaudal extent of 4.5 cm andmaximum thickness of about 8 mm.IMPRESSION:Complex tear posterior body and posterior horn of the medial meniscus.There appears to be a small oblique tear of the anterior horn of thelateral meniscus. The cruciate and collateral ligam ents are intact. Thereare areas of chondromalacia as discussed in detail above, mostsignificantly in the inferior aspect of the lateral patellar facet andanterior medial femoral condyle with mild associated subchondral marrowedema. Mild joint effusion with thin Reece's cyst as discussed above.Accredited by the [employer] in .Jayesh Dykes Jamal, MDDSG/jmcThank you for referring JULIET SHER to our office. Electronically Signed - JAYESH BERRY MD 04/13/19 20:15 Name Value Range Interpretation Code Description Data Meghan rce(s) Supporting Document(s) ID Date Data Source [id number] 04/05/2019 10:47:00 AM EST [facility] DATE OF EXAMINATION: 04/04/2019 13:03 ES T MAMMO SCREEN BILAT WITH CAD HISTORY: Screening Your patient meets NCCN testing criteria and is already in her high- riskprogram. Her new risk score for this year is 20%. Comparison is made to prior study dated 01/06/2018. 2-D bilateral digital mammogram in the CC and MLO planes were performed withsupplemental 3-D tomosynthesis of both breasts. The images were analyzed through the latest version of the [employer] computer aideddiagnosis system. The patient states that her last clinical breast examination was 2017. Craniocaudal and oblique lateral views of the breasts were obtained. Thebreasts are composed of normal glandular tissue. There is no dominant mass,suspicious clustered calcification, or architectural distortion. IMPRESSION: No mammographic evidence of malignancy. BiRAD 1 - Negative, Routine Yearly Mammographic Follow-up Recommended. Furthermore, in patients with dense glandular tissue, supplemental imagingmodalities should be considered. 10-15% of cancers are not identified by mammography. This usually occurs whenthe mass is of the same radiographic density as the surrounding breast tissue,emphasizing the importance of breast self examination (BSE) and physicalexamination. A normal mammogram should not delay biopsy if a suspicious mass orabnormal findings are present upon physical examination. Electronically signed in [id number] by: Lawson Gomes M.D. 04/05/2019 10:41 EST Name Value Range Interpretation Code Description Data Meghan rce(s) Supporting Document(s) Procedure Social History Code Duration Value Status Description Data Source(s ) Smoking 05/03/2020 12:00:00 AM EST Patient has never smoked co mpleted Patient has never smoked [facility] ([facility]) Alcohol intake 06/01/2019 12:00:00 AM EST Current drinker of al cohol (finding) completed Current drinker of alcohol (finding) [facility] Smoking 06/01/2019 12:00:00 AM EST Never smoker completed Never s [facility] Vital Signs ID Date Data Source UNK Name Value Range Interpretation Code Description Data Source(s) Body mass index (BMI) [Ratio] 31.7 kg/m2 31.7 k g/m2 [facility] ([facility]) Oxygen saturation in Arterial blood by Pulse oximetry 97 % 97 % [facility] ([facility]) Body temperature 96.7 [degF] 96.7 [degF] [facility] ([facility]) Body weight 168.00 [lb_av] 168.00 [lb_av] MEDEN T ([facility]) Body height 61 [in_i] 61 [in_i] [facility] 5'1" Diastolic blood pressure 84 mm[Hg] 84 mm[Hg] [facility] ([facility]) left arm Systolic blood pressure 122 mm[Hg] 122 mm[Hg] M EDENT ([facility]) left arm Heart rate 68 /min 68 /min [facility] Respiratory rate 15 /min 15 /min [facility] ( [facility]) Systolic blood pressure 128 mm[Hg] 128 mm[Hg] A THENA ([facility]) Body height 61 [in_i] 61 [in_i] KAYLEEN ([facility]) Diastolic blood pressure 86 mm[Hg] 86 mm[Hg] KAYLEEN ([facility]) Systolic blood pressure 128 mm[Hg] 128 mm[Hg] A THENA ([facility]) Body height 61 [in_i] 61 [in_i] KAYLEEN ([facility]) Diastolic blood pressure 86 mm[Hg] 86 mm[Hg] KAYLEEN ([facility]) Systolic blood pressure 128 mm[Hg] 128 mm[Hg] A THENA ([facility]) Body height 61 [in_i] 61 [in_i] KAYLEEN ([facility]) Diastolic blood pressure 86 mm[Hg] 86 mm[Hg] [facility]LEEN ([facility]) Systolic blood pressure 128 mm[Hg] 128 mm[Hg] A THENA ([facility]) Body height 61 [in_i] 61 [in_i] KAYLEEN ([facility]) Diastolic blood pressure 86 mm[Hg] 86 mm[Hg] KAYLEEN ([facility]) Systolic blood pressure 128 mm[Hg] 128 mm[Hg] A THENA ([facility]) Body height 61 [in_i] 61 [in_i] KAYLEEN ([facility]) Diastolic blood pressure 86 mm[Hg] 86 mm[Hg] KAYLEEN ([facility]) Systolic blood pressure 128 mm[Hg] 128 mm[Hg] A THENA ([facility]) Body height 61 [in_i] 61 [in_i] KAYLEEN ([facility]) Diastolic blood pressure 86 mm[Hg] 86 mm[Hg] KAYLEEN ([facility]) Systolic blood pressure 128 mm[Hg] 128 mm[Hg] A THENA ([facility]) Body height 61 [in_i] 61 [in_i] KAYLEEN ([facility]) Diastolic blood pressure 86 mm[Hg] 86 mm[Hg] K[facility]EN ([facility]) Body mass index (BMI) [Ratio] 31.6 kg/m2 31.6 k g/m2 MEDENT ([facility]) Oxygen saturation in Arterial blood by Pulse oximetry 98 % 98 % MEDENT ([facility]) Body weight 167.00 [lb_av] 167.00 [lb_av] MEDEN T ([facility]) Body height 61 [in_i] 61 [in_i] [facility] ([facility] 5'1" Diastolic blood pressure 78 mm[Hg] 78 mm[Hg] MEDENT ([facility]) Systolic blood pressure 112 mm[Hg] 112 mm[Hg] M EDENT ([facility]) Heart rate 70 /min 70 /min MED[facility] ([facility] Respiratory rate 16 /min 16 /min MEDENT ( [facility]) Body weight 74.390 kg 74.390 kg MEDENT ([facility]) Body mass index (BMI) [Ratio] 31.0 kg/m2 31.0 k g/m2 MEDENT ([facility]) Body weight 164.00 [lb_av] 164.00 [lb_av] MEDEN T ([facility]) Body height 61 [in_i] 61 [in_i] MEDENT ([facility]) 5'1" Diastolic blood pressure 68 mm[Hg] 68 mm[Hg] MEDENT ([facility]) Systolic blood pressure 117 mm[Hg] 117 mm[Hg] M EDENT ([facility]) Body mass index (BMI) [Ratio] 31.2 kg/m2 31.2 k g/m2 MEDENT ([facility]) Oxygen saturation in Arterial blood by Pulse oximetry 98 % 98 % MEDENT ([facility]) Body weight 165.12 [lb_av] 165.12 [lb_av] MEDEN T ([facility]) Body height 61 [in_i] 61 [in_i] MEDENT ([facility] 5'1" Diastolic blood pressure 78 mm[Hg] 78 mm[Hg] MEDENT ([facility]) Systolic blood pressure 124 mm[Hg] 124 mm[Hg] M EDENT ([facility]) Heart rate 70 /min 70 /min MEDENT ([facility] Respiratory rate 15 /min 15 /min MEDENT ( [facility]) Body weight 161 [lb_av] 161 [lb_av] KAYLEEN ([facility]) Systolic blood pressure 121 mm[Hg] 121 mm[Hg] A THENA ([facility]) Body mass index (BMI) [Ratio] 30.4 kg/m2 30.4 k g/m2 KAYLEEN ([facility]) Body height 61 [in_i] 61 [in_i] KAYLEEN ([facility]) Diastolic blood pressure 83 mm[Hg] 83 mm[Hg] KAYLEEN ([facility]) Body weight 161 [lb_av] 161 [lb_av] KAYLEEN ([facility]) Systolic blood pressure 121 mm[Hg] 121 mm[Hg] A THENA ([facility]) Body mass index (BMI) [Ratio] 30.4 kg/m2 30.4 k g/m2 KAYLEEN ([facility]) Body height 61 [in_i] 61 [in_i] KAYLEEN ([facility]) Diastolic blood pressure 83 mm[Hg] 83 mm[Hg] KAYLEEN ([facility]) Body weight 161 [lb_av] 161 [lb_av] KAYLEEN ([facility]) Systolic blood pressure 121 mm[Hg] 121 mm[Hg] A THENA ([facility]) Body mass index (BMI) [Ratio] 30.4 kg/m2 30.4 k g/m2 KAYLEEN ([facility]) Body height 61 [in_i] 61 [in_i] KAYLEEN ([facility]) Diastolic blood pressure 83 mm[Hg] 83 mm[Hg] KAYLEEN ([facility]) Body weight 161 [lb_av] 161 [lb_av] KAYLEEN ([facility]) Systolic blood pressure 121 mm[Hg] 121 mm[Hg] A THENA ([facility]) Body mass index (BMI) [Ratio] 30.4 kg/m2 30.4 k g/m2 KAYLEEN ([facility]) Body height 61 [in_i] 61 [in_i] KAYLEEN ([facility]) Diastolic blood pressure 83 mm[Hg] 83 mm[Hg] KAYLEEN ([facility]) Body weight 161 [lb_av] 161 [lb_av] KAYLEEN ([facility]) Systolic blood pressure 121 mm[Hg] 121 mm[Hg] A THENA ([facility]) Body mass index (BMI) [Ratio] 30.4 kg/m2 30.4 k g/m2 KAYLEEN ([facility]) Body height 61 [in_i] 61 [in_i] KAYLEEN ([facility]) Diastolic blood pressure 83 mm[Hg] 83 mm[Hg] KAYLEEN ([facility]) Body weight 161 [lb_av] 161 [lb_av] KAYLEEN ([facility]) Systolic blood pressure 121 mm[Hg] 121 mm[Hg] A THENA ([facility]) Systolic blood pressure 121 mm[Hg] 121 mm[Hg] A THENA ([facility]) Body mass index (BMI) [Ratio] 30.4 kg/m2 30.4 k g/m2 KAYLEEN ([facility]) Body height 61 [in_i] 61 [in_i] KAYLEEN ([facility]) Diastolic blood pressure 83 mm[Hg] 83 mm[Hg] KAYLEEN ([facility]) Body weight 161 [lb_av] 161 [lb_av] KAYLEEN ([facility]) Systolic blood pressure 121 mm[Hg] 121 mm[Hg] A THENA ([facility]) Body mass index (BMI) [Ratio] 30.4 kg/m2 30.4 k g/m2 KAYLEEN ([facility]) Body height 61 [in_i] 61 [in_i] KAYLEEN ([facility]) Diastolic blood pressure 83 mm[Hg] 83 mm[Hg] KAYLEEN ([facility]) Body mass index (BMI) [Ratio] 30.4 kg/m2 30.4 k g/m2 KAYLEEN ([facility]) Body height 61 [in_i] 61 [in_i] KAYLEEN ([facility]) Diastolic blood pressure 83 mm[Hg] 83 mm[Hg] KAYLEEN ([facility]) Body weight 161 [lb_av] 161 [lb_av] KAYLEEN ([facility]) Systolic blood pressure 138 mm[Hg] 138 mm[Hg] A THENA ([facility]) Body height 61 [in_i] 61 [in_i] KAYLEEN ([facility]) Diastolic blood pressure 85 mm[Hg] 85 mm[Hg] KAYLEEN ([facility]) Systolic blood pressure 138 mm[Hg] 138 mm[Hg] A THENA ([facility]) Body height 61 [in_i] 61 [in_i] KAYLEEN ([facility]) Diastolic blood pressure 85 mm[Hg] 85 mm[Hg] KAYLEEN ([facility]) Systolic blood pressure 138 mm[Hg] 138 mm[Hg] A THENA ([facility]) Body height 61 [in_i] 61 [in_i] KAYLEEN ([facility]) Diastolic blood pressure 85 mm[Hg] 85 mm[Hg] KAYLEEN ([facility]) Systolic blood pressure 138 mm[Hg] 138 mm[Hg] A THENA ([facility]) Body height 61 [in_i] 61 [in_i] KAYLEEN ([facility]) Diastolic blood pressure 85 mm[Hg] 85 mm[Hg] KAYLEEN ([facility]) Systolic blood pressure 138 mm[Hg] 138 mm[Hg] A THENA ([facility]) Body height 61 [in_i] 61 [in_i] KAYLEEN ([facility]) Diastolic blood pressure 85 mm[Hg] 85 mm[Hg] KAYLEEN ([facility]) Systolic blood pressure 138 mm[Hg] 138 mm[Hg] A THENA ([facility]) Body height 61 [in_i] 61 [in_i] KAYLEEN ([facility]) Diastolic blood pressure 85 mm[Hg] 85 mm[Hg] KAYLEEN ([facility]) Systolic blood pressure 138 mm[Hg] 138 mm[Hg] A THENA ([facility]) Body height 61 [in_i] 61 [in_i] KAYLEEN ([facility]) Diastolic blood pressure 85 mm[Hg] 85 mm[Hg] KAYLEEN ([facility]) Systolic blood pressure 138 mm[Hg] 138 mm[Hg] A THENA ([facility]) Body height 61 [in_i] 61 [in_i] KAYLEEN ([facility]) Diastolic blood pressure 85 mm[Hg] 85 mm[Hg] KAYLEEN ([facility]) Systolic blood pressure 138 mm[Hg] 138 mm[Hg] A THENA ([facility]) Body height 61 [in_i] 61 [in_i] KAYLEEN ([facility]) Diastolic blood pressure 85 mm[Hg] 85 mm[Hg] KAYLEEN ([facility]) Systolic blood pressure 138 mm[Hg] 138 mm[Hg] A THENA ([facility]) Body height 61 [in_i] 61 [in_i] KAYLEEN ([facility]) Diastolic blood pressure 85 mm[Hg] 85 mm[Hg] KAYLEEN ([facility]) Systolic blood pressure 138 mm[Hg] 138 mm[Hg] A THENA ([facility]) Body height 61 [in_i] 61 [in_i] KAYLEEN ([facility]) Diastolic blood pressure 85 mm[Hg] 85 mm[Hg] KAYLEEN ([facility]) Body weight 161 [lb_av] 161 [lb_av] KAYLEEN ([facility]) Systolic blood pressure 139 mm[Hg] 139 mm[Hg] A THENA ([facility]) Body mass index (BMI) [Ratio] 30.4 kg/m2 30.4 k g/m2 KAYLEEN ([facility]) Body height 61 [in_i] 61 [in_i] KAYLEEN ([facility]) Diastolic blood pressure 84 mm[Hg] 84 mm[Hg] KAYLEEN ([facility]) Body weight 161 [lb_av] 161 [lb_av] KAYLEEN ([facility]) Systolic blood pressure 139 mm[Hg] 139 mm[Hg] A THENA ([facility]) Body mass index (BMI) [Ratio] 30.4 kg/m2 30.4 k g/m2 KAYLEEN ([facility]) Body height 61 [in_i] 61 [in_i] KAYLEEN ([facility]) Diastolic blood pressure 84 mm[Hg] 84 mm[Hg] KAYLEEN ([facility]) Body weight 161 [lb_av] 161 [lb_av] KAYLEEN ([facility]) Systolic blood pressure 139 mm[Hg] 139 mm[Hg] A THENA ([facility]) Body mass index (BMI) [Ratio] 30.4 kg/m2 30.4 k g/m2 KAYLEEN ([facility]) Body height 61 [in_i] 61 [in_i] KAYLEEN ([facility]) Diastolic blood pressure 84 mm[Hg] 84 mm[Hg] KAYLEEN ([facility]) Body weight 161 [lb_av] 161 [lb_av] KAYLEEN ([facility]) Systolic blood pressure 139 mm[Hg] 139 mm[Hg] A THENA ([facility]) Body mass index (BMI) [Ratio] 30.4 kg/m2 30.4 k g/m2 KAYLEEN ([facility]) Body height 61 [in_i] 61 [in_i] KAYLEEN ([facility]) Diastolic blood pressure 84 mm[Hg] 84 mm[Hg] KAYLEEN ([facility]) Body weight 161 [lb_av] 161 [lb_av] KAYLEEN ([facility]) Systolic blood pressure 139 mm[Hg] 139 mm[Hg] A THENA ([facility]) Body mass index (BMI) [Ratio] 30.4 kg/m2 30.4 k g/m2 KAYLEEN ([facility]) Body height 61 [in_i] 61 [in_i] KAYLEEN ([facility]) Diastolic blood pressure 84 mm[Hg] 84 mm[Hg] KAYLEEN ([facility]) Body weight 161 [lb_av] 161 [lb_av] KAYLEEN ([facility]) Systolic blood pressure 139 mm[Hg] 139 mm[Hg] A THENA ([facility]) Body mass index (BMI) [Ratio] 30.4 kg/m2 30.4 k g/m2 KAYLEEN ([facility]) Body height 61 [in_i] 61 [in_i] KAYLEEN ([facility]) Diastolic blood pressure 84 mm[Hg] 84 mm[Hg] KAYLEEN ([facility]) Body weight 161 [lb_av] 161 [lb_av] KAYLEEN ([facility]) Systolic blood pressure 139 mm[Hg] 139 mm[Hg] A THENA ([facility]) Body mass index (BMI) [Ratio] 30.4 kg/m2 30.4 k g/m2 KAYLEEN ([facility]) Body height 61 [in_i] 61 [in_i] KAYLEEN ([facility]) Diastolic blood pressure 84 mm[Hg] 84 mm[Hg] KAYLEEN ([facility]) Body weight 161 [lb_av] 161 [lb_av] KAYLEEN ([facility]) Systolic blood pressure 139 mm[Hg] 139 mm[Hg] A THENA ([facility]) Body mass index (BMI) [Ratio] 30.4 kg/m2 30.4 k g/m2 KAYLEEN ([facility]) Body height 61 [in_i] 61 [in_i] KAYLEEN ([facility]) Diastolic blood pressure 84 mm[Hg] 84 mm[Hg] KAYLEEN ([facility]) Body weight 161 [lb_av] 161 [lb_av] KAYLEEN ([facility]) Systolic blood pressure 139 mm[Hg] 139 mm[Hg] A THENA ([facility]) Body mass index (BMI) [Ratio] 30.4 kg/m2 30.4 k g/m2 KAYLEEN ([facility]) Body height 61 [in_i] 61 [in_i] KAYLEEN ([facility]) Diastolic blood pressure 84 mm[Hg] 84 mm[Hg] KAYLEEN ([facility]) Body weight 161 [lb_av] 161 [lb_av] KAYLEEN ([facility]) Systolic blood pressure 139 mm[Hg] 139 mm[Hg] A THENA ([facility]) Body mass index (BMI) [Ratio] 30.4 kg/m2 30.4 k g/m2 KAYLEEN ([facility]) Body height 61 [in_i] 61 [in_i] KAYLEEN ([facility]) Diastolic blood pressure 84 mm[Hg] 84 mm[Hg] KAYLEEN ([facility]) Body weight 161 [lb_av] 161 [lb_av] KAYLEEN ([facility]) Systolic blood pressure 139 mm[Hg] 139 mm[Hg] A THENA ([facility]) Body mass index (BMI) [Ratio] 30.4 kg/m2 30.4 k g/m2 KAYLEEN ([facility]) Body height 61 [in_i] 61 [in_i] KAYLEEN ([facility]) Diastolic blood pressure 84 mm[Hg] 84 mm[Hg] KAYLEEN ([facility]) Body weight 161 [lb_av] 161 [lb_av] KAYLEEN ([facility]) Systolic blood pressure 139 mm[Hg] 139 mm[Hg] A THENA ([facility]) Body mass index (BMI) [Ratio] 30.4 kg/m2 30.4 k g/m2 KAYLEEN ([facility]) Body height 61 [in_i] 61 [in_i] KAYLEEN ([facility]) Diastolic blood pressure 84 mm[Hg] 84 mm[Hg] KAYLEEN ([facility]) Body weight 161 [lb_av] 161 [lb_av] KAYLEEN ([facility]) Systolic blood pressure 139 mm[Hg] 139 mm[Hg] A THENA ([facility]) Body mass index (BMI) [Ratio] 30.4 kg/m2 30.4 k g/m2 KAYLEEN ([facility]) Body height 61 [in_i] 61 [in_i] KAYLEEN ([facility]) Diastolic blood pressure 84 mm[Hg] 84 mm[Hg] KAYLEEN ([facility]) ID Date Data Source [id number] 06/06/2019 09:54:00 PM [facility] Name Value Range Interpretation Code Description Data Source(s) WEIGHT RECORDED 162 lb 162 lb [facility] Body height Measured 65 in 65 in [facility] Patient Treatment Plan of Care Planned Activity Planned Date Details Description Data Source (s) pregabalin 50 MG Oral Capsule KAYLEEN ([facility]) Naproxen 500 MG Oral Tablet KAYLEEN ([facility]) pregabalin 25 MG Oral Capsule [Lyrica] KAYLEEN ([facility]) Fluoxetine 20 MG Oral Capsule KAYLEEN ([facility]) Fluoxetine 10 MG Oral Capsule KAYLEEN ([facility]) pregabalin 50 MG Oral Capsule KAYLEEN ([facility]) Naproxen 500 MG Oral Tablet KAYLEEN ([facility]) pregabalin 25 MG Oral Capsule [Lyrica] KAYLEEN ([facility]) Fluoxetine 20 MG Oral Capsule KAYLEEN ([facility]) Fluoxetine 10 MG Oral Capsule KAYLEEN ([facility]) pregabalin 50 MG Oral Capsule KAYLEEN ([facility]) Naproxen 500 MG Oral Tablet KAYLEEN ([facility]) pregabalin 25 MG Oral Capsule [Lyrica] KAYLEEN ([facility]) Fluoxetine 20 MG Oral Capsule KAYLEEN ([facility]) Fluoxetine 10 MG Oral Capsule KAYLEEN ([facility]) pregabalin 50 MG Oral Capsule KAYLEEN ([facility]) Naproxen 500 MG Oral Tablet KAYLEEN ([facility]) pregabalin 25 MG Oral Capsule [Lyrica] AKYLEEN ([facility]) Fluoxetine 20 MG Oral Capsule KAYLEEN ([facility]) Fluoxetine 10 MG Oral Capsule KAYLEEN ([facility]) pregabalin 50 MG Oral Capsule KAYLEEN ([facility]) Naproxen 500 MG Oral Tablet KAYLEEN ([facility]) pregabalin 25 MG Oral Capsule [Lyrica] KAYLEEN ([facility]) Fluoxetine 20 MG Oral Capsule KAYLEEN ([facility]) Fluoxetine 10 MG Oral Capsule KAYLEEN ([facility]) pregabalin 50 MG Oral Capsule KAYLEEN ([facility]) Naproxen 500 MG Oral Tablet KAYLEEN ([facility]) pregabalin 25 MG Oral Capsule [Lyrica] KAYLEEN ([facility]) Fluoxetine 20 MG Oral Capsule KAYLEEN ([facility]) Fluoxetine 10 MG Oral Capsule KAYLEEN ([facility]) pregabalin 50 MG Oral Capsule KAYLEEN ([facility]) Naproxen 500 MG Oral Tablet KAYLEEN ([facility]) pregabalin 25 MG Oral Capsule [Lyrica] KAYLEEN ([facility]) Fluoxetine 20 MG Oral Capsule KAYLEEN ([facility]) Fluoxetine 10 MG Oral Capsule KAYLEEN ([facility])
--- NOTE | 2020-05-09 15:15 | REP ---
INDICATION: Syncope/near-syncope. COMPARISON: Comparison chest x-ray June 28, 2014. TECHNIQUE: Portable upright AP chest radiograph. FINDINGS: The lungs are well inflated and free of infiltrate. Pleural angles are sharp. Heart size is normal. Pulmonary vasculature is not increased. Monitoring electrodes are seen. IMPRESSION: No active disease. <Electronically signed by Darnell Grant > 05/09/20 [id number]
[2020-05-09 15:26] LABS: BASO # 0.1 10^3/uL (0.0-0.2); BASO % 0.5 % (0.0-1.0); EOS # 0.1 10^3/uL (0.0-0.5); EOS % 1.2 % (0.0-3.0); HEMATOCRIT 43.6 % (36.0-47.0); HEMOGLOBIN 14.1 g/dl (12.0-15.5); LYMPH # 3.4 10^3/uL (1.5-5.0); LYMPH % 36.1 % (24.0-44.0); MEAN CORPUSCULAR HEMOGLOBIN 29.3 pg (27.0-33.0); MEAN CORPUSCULAR HGB CONC 32.3 g/dl (32.0-36.5); MEAN CORPUSCULAR VOLUME 90.5 fl (80.0-96.0); MONO # 0.6 10^3/uL (0.0-0.8); MONO % 6.7 % (0.0-5.0); NEUTROPHILS # 5.2 10^3/uL (1.5-8.5); NEUTROPHILS % 55.1 % (36.0-66.0); PLATELET COUNT, AUTOMATED 320 10^3/uL (150-450); RED BLOOD COUNT 4.82 10^6/uL (4.00-5.40); WHITE BLOOD COUNT 9.4 10^3/uL (4.0-10.0)
[2020-05-09 15:36] LABS: INR 0.87
[2020-05-09 15:37] LABS: PARTIAL THROMBOPLASTIN TIME 27.8 SECONDS (24.2-38.5)
--- NOTE | 2020-05-09 15:44 | REP ---
INDICATION: Syncope COMPARISON: None. TECHNIQUE: Axial noncontrast images from the skull base to the thoracic inlet with coronal reformations. This CT examination was performed using the following dose reduction techniques: Automated exposure control, adjustment of mA and/or kv according to the patient's size, and use of iterative reconstruction technique. FINDINGS: Age-related atrophy and microvascular ischemic changes are appreciated. The ventricles and sulci are symmetric. Berry-white differentiation is maintained. There is no evidence for acute intracranial hemorrhage, mass/mass effect, pathology or infarction. No extra-axial fluid collection. Calvarium is intact. Paranasal sinuses and mastoid air cells are clear. IMPRESSION: Age related atrophy and microvascular ischemic changes. No acute intracranial hemorrhage, infarction, or mass/mass effect. <Electronically signed by Charbel Kelsey > 05/09/20 [id number]
[2020-05-09 16:05] LABS: BLOOD UREA NITROGEN 19 MG/DL (7-18); CALCIUM LEVEL 9.1 MG/DL (8.8-10.2); CARBON DIOXIDE LEVEL 24 MEQ/L (21-32); CHLORIDE LEVEL 108 MEQ/L (98-107); CK-MB VALUE MASS 1.6 NG/ML (<3.6); CPK CREATINE PHOSPHOKINASE 90 U/L (26-192); CREATININE FOR GFR 0.91 MG/DL (0.55-1.30); ETHYL ALCOHOL (ETHANOL) < 0.003 % (0.000-0.010); FREE T4 0.94 NG/DL (0.76-1.46); GLOMERULAR FILTRATION RATE > 60.0 (>45); GLUCOSE, FASTING 93 MG/DL (70-100); MAGNESIUM LEVEL 2.1 MG/DL (1.8-2.4); MB/CK RELATIVE INDEX 1.78 (< OR =4); SODIUM LEVEL 141 MEQ/L (136-145); TROPONIN I < 0.02 NG/ML (< 0.10)
[2020-05-09 19:56] VITALS: BP 131/62
--- NOTE | 2020-05-10 07:39 | ECGEPIP ---
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
== END 2020-05-09 19:57 | disposition home or self-care (01) ==
LOC: M ED 14:03
DX: R55 Syncope and collapse (principal); F33.9 Major depressive disorder, recurrent, unspecified; F41.9 Anxiety disorder, unspecified; E78.5 Hyperlipidemia, unspecified; G47.33 Obstructive sleep apnea (adult) (pediatric); M79.7 Fibromyalgia; Z79.899 Other long term (current) drug therapy; Z88.0 Allergy status to penicillin; Z88.5 Allergy status to narcotic agent; Z88.8 Allergy status to other drugs, medicaments and biological substances

== ENCOUNTER → 2020-05-09 | Outpatient (CLI) | payer OTHER ==
[~2020-05-09] MED LIST changes: -LIDOCAINE 2% 100MG/5ML SDV (FOR ANES.) As Ordered ONE; -NS 1,000 ML IV ONE; +TIZA4TAB4 PO; -fentaNYL 100 MCG/2 ML INJECTION (J3010) As Ordered ONE; -propofoL 200 MG/20 ML VIAL As Ordered ONE
[2020-05-09 11:02] LABS: BLOOD UREA NITROGEN 19 MG/DL (7-18); CREATININE FOR GFR 0.88 MG/DL (0.55-1.30); GLOMERULAR FILTRATION RATE > 60.0 (>45)
== END ==
LOC: M LAB 09:45
PROVIDERS: ATTEND Neurological Surgery
DX: D32.9 Benign neoplasm of meninges, unspecified (principal); Z13.89 Encounter for screening for other disorder

== ENCOUNTER → 2020-05-15 | Outpatient (CLI) | payer OTHER ==
[~2020-05-15] MED LIST changes: +PROHANCE 279.3MG/ML 15ML VIAL As Ordered ONE; +TIZA4TAB4 PO
--- NOTE | 2020-05-15 10:22 | REPVR ---
PROCEDURE INFORMATION: Exam: MR Head Without and With Contrast Exam date and time: 05/15/2020 10:10 AM Age: 65 years old Clinical indication: Other: Meningioma TECHNIQUE: Imaging protocol: MR of the head without and with intravenous contrast. Contrast material: PROHANCE; Contrast volume: 7.5 ml; Contrast route: INTRAVENOUS (IV); COMPARISON: CT Head without contrast 05/09/2020 3:30 PM FINDINGS: Brain: There is no extra-axial collection or intra-axial mass. Mild diffuse volume loss is within the range of normal for patient age. There are scattered foci of T2/FLAIR white matter hyperintensity, nonspecific but typically small-vessel ischemia in this age group. There is no diffusion restriction. Cerebral ventricles: Normal. No ventriculomegaly. Pituitary gland and sella: There is a focal nonenhancing 4 x 5 mm nodule along the superior margin of the pituitary gland. Bones/joints: Unremarkable. Paranasal sinuses: Normal as visualized. No acute sinusitis. Mastoid air cells: Normal as visualized. No mastoid effusion. Orbital cavity: Unremarkable. Soft tissues: Unremarkable. IMPRESSION: 1. Chronic changes. 2. 4 x 5 mm nonenhancing nodule abutting the superior margin of the pituitary gland, potentially a pituitary adenoma. Electronically signed by: So Cobb On 05/15/2020 10:22:30 AM
== END ==
LOC: M RAD 08:47
PROVIDERS: ATTEND Physician Assistant
DX: E23.6 Other disorders of pituitary gland (principal); D32.9 Benign neoplasm of meninges, unspecified; D49.7 Neoplasm of unspecified behavior of endocrine glands and other parts of nervous system
CPT/HCPCS: 70553; A9576

== ENCOUNTER → 2020-05-23 | Outpatient (CLI) | payer OTHER ==
[~2020-05-23] MED LIST changes: -PROHANCE 279.3MG/ML 15ML VIAL As Ordered ONE
--- NOTE | 2020-05-24 14:36 | SLEEPCENT ---
NOCTURNAL POLYSOMNOGRAPHY DATE: 05/23/2020 ORDERED BY: GELACIO Kaufman Nocturnal polysomnography was performed for evaluation of sleep physiology in this patient with a history of nonrestorative sleep, excessive somnolence, and snoring who has a prior history of sleep apnea. 8 hours and 49 minutes of data were reviewed. There were 396 minutes of sleep identified. Sleep latency was prolonged at 52.5 minutes. REM latency was mildly prolonged at 103 minutes. Sleep architecture was fair with some minor fragmentation. There were three REM cycles noted. Overall sleep efficiency was good at 75.9% and REM time was increased. The electrocardiogram showed a sinus rhythm with an average heart rate of 60 beats per minute; rate range 48 to 88. EEG showed normal waveforms for wake and sleep stages. No focal events were identified. There were 52 respiratory events identified of 10 seconds in duration or greater for an apnea-hypopnea index of 7.9. The events were primarily obstructive and not stage related nor related to specific body postures. Arousals from respiratory events occurred seven times per hour and oxygen desaturations were seen into the mid 80s. Remaining measures of sleep physiology were reasonably normal. IMPRESSION: Obstructive sleep apnea syndrome (G47.33), apnea-hypopnea index 7.9. RECOMMENDATION: The patient should be encouraged to [facility] for [facility]. In the interim, alcohol and sedative avoidance should be practiced and caution exercised during the operation of motor vehicles.
== END ==
LOC: M SLEEP 20:00
PROVIDERS: ATTEND Nurse Practitioner Family
DX: G47.33 Obstructive sleep apnea (adult) (pediatric) (principal)

== ENCOUNTER → 2020-10-09 | Outpatient (CLI) | payer MEDICARE, OTHER ==
[2020-10-09 11:31] LABS: HEMATOCRIT 42.5 % (36.0-47.0); HEMOGLOBIN 13.7 g/dl (12.0-15.5); MEAN CORPUSCULAR HEMOGLOBIN 29.9 pg (27.0-33.0); MEAN CORPUSCULAR HGB CONC 32.2 g/dl (32.0-36.5); MEAN CORPUSCULAR VOLUME 92.8 fl (80.0-96.0); PLATELET COUNT, AUTOMATED 279 10^3/uL (150-450); RED BLOOD COUNT 4.58 10^6/uL (4.00-5.40); WHITE BLOOD COUNT 5.8 10^3/uL (4.0-10.0)
[2020-10-09 12:07] LABS: ALBUMIN 3.7 GM/DL (3.2-5.2); ALT/SGPT 38 U/L (12-78); BILIRUBIN,TOTAL 0.4 MG/DL (0.2-1.0); BLOOD UREA NITROGEN 15 MG/DL (7-18); CALCIUM LEVEL 8.5 MG/DL (8.8-10.2); CARBON DIOXIDE LEVEL 26 MEQ/L (21-32); CHLORIDE LEVEL 111 MEQ/L (98-107); CHOLESTEROL LEVEL 210 MG/DL (<200); CHOLESTEROL RISK RATIO 4.285 (<5); CREATININE FOR GFR 0.77 MG/DL (0.55-1.30); GLOMERULAR FILTRATION RATE > 60.0 (>45); GLUCOSE, FASTING 95 MG/DL (70-100); HDL CHOLESTEROL 49 MG/DL (>40); LDL CHOLESTEROL 142 MG/DL (<100); NON-HDL-C 161 MG/DL; POTASSIUM SERUM 4.1 MEQ/L (3.5-5.1); SODIUM LEVEL 141 MEQ/L (136-145); THYROID STIMULATING HORMONE 0.615 uIU/ML (0.358-3.740); TOTAL PROTEIN 6.6 GM/DL (6.4-8.2); TRIGLYCERIDES LEVEL 95 MG/DL (<150)
== END ==
LOC: M LAB 10:43
PROVIDERS: ATTEND Family Medicine
DX: Z79.899 Other long term (current) drug therapy (principal)

== ENCOUNTER → 2021-02-11 | Outpatient (CLI) | payer MEDICARE, OTHER ==
[~2021-02-11] MED LIST changes: +BUPR300T92 PO; +CETI-36 PO; +CRES10TA PO; +FLUO20CA22 PO; +IBUP1TAB6 PO; +REST0.05 OD; +ROPI0.5T3 PO
== END ==
LOC: M LABSMTC 09:17
PROVIDERS: ATTEND Anesthesiology
DX: Z01.818 Encounter for other preprocedural examination (principal); Z11.52 Encounter for screening for COVID-19

== ENCOUNTER 2021-02-15 07:32 | Day surgery (SDC) | payer MEDICARE, OTHER ==
[~2021-02-15] VITALS: Ht 154.9 cm; Wt 74.4 kg
[~2021-02-15 07:32] MED LIST changes: +NS 1,000 ML IV ONE
--- OUTSIDE RECORDS SUMMARY | 2021-02-15 07:36 | CCD | Continuity of Care Document ---
Author Author Anjana LONGORIA N.P. Organization Unknown Address [address] [place] [address] Phone [phone] Problems Active Problems Provider Date Other specified disorders of temporomandibular joint David Hollis MD Onset: 08/25/2018 Screening for malignant neoplasm of colon Harvey Wilder MD Onset: 08/25/2018 Family history of malignant neoplasm of gastrointestinal tra ct Harvey Wilder MD Onset: 08/25/2018 History of polyp of colon Harvey Wilder MD Onset: 019 Benign neoplasm of ascending colon Harvey Wilder MD Onset : 08/25/2018 Benign neoplasm of colon Harvey Wilder MD Onset: 08/26/19 19 Family history of breast cancer BERNY Max Onset: 08/25/2018 Constipation BERNY Max Onset: 08/25 Heartburn BERNY Max Onset: 08/25 Epigastric pain Harvey Wilder MD Onset: 08/25/2018 Nausea Harvey Wilder MD Onset: 08/25/2018 Indigestion Harvey Wilder MD Onset: 08/25/2018 Clostridial enteric disease Harvey Wilder MD Onset: 08/25 Hemorrhage of rectum and anus Harvey Wilder MD Onset: Gastrointestinal infection Harvey Wilder MD Onset: 2018 Other hemorrhoids Harvey Wilder MD Onset: 08/25/2018 Hemorrhage of large intestine with diverticular diseas e of large intestine Harvey Wilder MD Onset: 08/25/2018 Digestive symptom Harvey Wilder MD Onset: 08/25/2018 Benign neoplasm of colon Harvey Wilder MD Onset: 08/26/19 19 Internal hemorrhoids without complication Harvey Wilder MD Onset: 08/25/2018 Heartburn Harvey Wilder MD Onset: 08/25/2018 Nausea Harvey Wilder MD Onset: 08/25/2018 Gastroesophageal reflux disease Harvey Wilder MD Onset: 0 08/25/2018 Disorder of gastrointestinal tract Harvey Wilder MD Onset : 08/25/2018 Dysphagia Harvey Wilder MD Onset: 08/25/2018 Social History Type Date Description Comments Sex Unknown ETOH Use 3 A Month Tobacco Use Start: Unknown Non Smoker Recreational Drug Use Denies Drug Use Smoking Status Reviewed: 02/08/21 Non Smoker Allergies and adverse reactions Active Allergies Criticality Reaction | Severity Comments Date Codeine Unable to assess criticality 12/08/2012 Paula Unable to assess criticality 12/08/2012 Augmentin Unable to assess criticality 08/03/2014 Medications Active Medications SIG Qnty Indications Ordering Provide r Date Suprep Bowel Prep Kit 17.5-3.13-1.6GM/177ML Solution take per doctor's bowel prep instructions. 354ml Z12.1 1 Harvey Wilder MD 10/24/2020 Magnesium Citrate 1.745GM/30ML Yamilka ution take one 10 ounce bottle prior to procedure for additional bowel prep per instructions. 296ml Z12.11 Harvey Wilder MD 10/24/2020 CPAP Device 5cm lcw Alize Longoria, N.P. 06/28/[address] take 1 tablet by mouth every day 90tabs K21.9 Harvey Wilder MD 11/09/2019 Singulair 10mg Tablets 1 by mouth every day Unknown Azelastine HCL 0.1% Solution 2 sprays each nostril twice a day prn Unknown 00 Restasis 0.05% Emulsion Unknown Ibuprofen 600mg Tablets 1 tablet every 8 hours as needed for pain Unknown 000 Topiramate 50mg Tablets [address] Unknown Tizanidine HCL 4mg Capsules 1/2- 1 tabs three times a day prn Unknown Vitamin D Tablets 1 by mo uth every day Unknown Vitamin C 500mg Tablets 1 by mouth every day Unknown Rosuvastatin Calcium 10mg Tablets Daily Unknown Fluoxetine HCL 20mg Capsules Take One Capsule By Mouth Once A Day Unknown 00/0 Medications Administered in Office Medication SIG Qnty Indications Ordering Provider Date Covid-19 vaccine, Unspecified Inj ection Unknown 06/20/2020 Covid-19 vaccine, Unspecified Inj ection Unknown 05/20/2020 Immunizations Description No Information Available Vital Signs Date Vital Result Comment 02/08/2021 3:31pm BP Systolic 104 mmHg BP Diastolic 70 mmHg Heart Rate 65 /min O2 % BldC Oximetry 97 % Respiratory Rate 18 /min Height 61 inches 5'1" Weight 169.00 lb BMI (Body Mass Index) 31.9 kg/m2 [place] Body Weight 105 lb Weight 76.658 kg BSA (Body Surface Area) 1.76 m2 10/24/2020 3:45pm BP Systolic 122 mmHg BP Diastolic 74 mmHg Height 61 inches 5'1" Weight 167.00 lb BMI (Body Mass Index) 31.6 kg/m2 [place] Body Weight 105 lb Weight 75.751 kg BSA (Body Surface Area) 1.75 m2 Results Description No Information Available Procedures Date Code Description Status 08/24/2020 49666 Office/Outpatient Established Lo w MDM 20-29 Min Completed Medical Devices Description No Information Available Encounters Type Date Location Provider Dx Diagnosis Office Visit 08/24/2020 10:15a [facility] Jennifer Longoria, N.P. G47.33 Obstructive sleep apnea (adult) (pediatr ic) Z71.2 Person consulting for explan ation of exam or test findings Assessments Date Code Description Provider 02/08/2021 G47.33 Obstructive sleep apnea (adult) (pediatric) Alize Longoria, N.P. 10/24/2020 Z12.11 Encounter for screening for sera gnant neoplasm of colon Brittany BruceELSA padgett-C 10/24/2020 Z86.010 Personal history of colonic poly ps Brittany Calderon ELSA Bess-C 10/24/2020 Z80.0 Family history of malignant neop lasm of digestive organs Brittany BruceELSA padgett-C 08/24/2020 G47.33 Obstructive sleep apnea (adult) (pediatric) Alize Longoria, N.P. 08/24/2020 Z71.2 Person consulting fo r explanation of examination or test findings Alize Longoria NThong Plan of Treatment Future Appointment(s):* 02/10/2022 2:15 pm - Alize Longoria N.P. at [facility] * 02/15/2021 8:15 am - Harvey Wilder MD at [facility] 02/08/2021 - Alize Longoria N.P.* G47.33 Obstructive sleep apnea (adult) (pediatric) * * New Orders:* CPAP/BIPAP Supply, Ordered: 02/08/21 * Comments:* 1. No changes were made to the CPAP pressure at today's visit. 2. The patient is aware to call with any problems related to CPAP use, snoring through the mask or return of daytime sleepiness. 3. Per the patient's request, a CPAP supply order has been sent to the [facility]. * Follow up:* 1. Follow up in one year to reassess CPAP compliance or sooner should problems develop. Functional Status Description No Information Available Mental Status Description No Information Available Referrals Description No Information Available
--- OUTSIDE RECORDS SUMMARY | 2021-02-15 07:36 | CCD | Continuity of Care Document ---
Author Author Anjana RIVERA Organization Unknown Address [address] [place] [address] Phone [phone] Care Team Providers Care Audit Consultant Name Role Phone Jarrod Milan M.D. AUTM [phone] Problems Active Problems Provider Date Periodic limb movement disorder Emeka Pathak M.D. Onset: 1 Restless legs Emeka Pathak M.D. Onset: 01/14/2017 Obstructive sleep apnea syndrome Emeka Pathak M.D. Onset: 01/14/2017 Disorders of initiating and maintaining sleep Dariana Parker Onset: 01/14/2017 Migraine without aura, not refractory Emeka Pathak M.D. On set: 01/14/2017 Chronic tension-type headache Emeka Pathak M.D. Onset: 02/2017 Neck pain Emeka Pathak M.D. Onset: 01/14/2017 Spondylolysis of cervical spine Emeka Pathak M.D. Onset: 1 Low back pain Emeka Pathak M.D. Onset: 01/14/2017 Spondylolysis Emeka Pathak M.D. Onset: 01/14/2017 Benign neoplasm of cerebral meninges Emeka Pathak M.D. Ons et: 03/03/2017 Benign neoplasm of pituitary gland and craniopharyngeal duct Emeka Pathak M.D. Onset: 03/03/2017 Social History Type Date Description Comments Sex Unknown Tobacco Use Start: Unknown Patient has never smoked Allergies and adverse reactions Active Allergies Criticality Reaction | Severity Comments Date Penicillin Unable to assess criticality 01/14/2017 Codeine Unable to assess criticality 01/14/2017 Medications Active Medications SIG Qnty Indications Ordering Provide r Date Ropinirole HCL 0.5mg Tablets half a tab po qhs for 1 week, then 1 po qhs. 90tabs Emeka Ali, M.D. 12/25/2020 Topiramate 50mg Tablets take one tablet by mouth at bedtime maximum daily dose = 1 90tabs Emeka grant M.D. 03/03/2017 Immunizations Description No Information Available Vital Signs Date Vital Result Comment 01/14/2017 9:39am BP Systolic 125 mmHg BP Diastolic 80 mmHg Heart Rate 70 /min Respiratory Rate 16 /min Height 61 inches 5'1" Weight 165.00 lb BMI (Body Mass Index) 31.2 kg/m2 [place] Body Weight 105 lb Results Description No Information Available Procedures Date Code Description Status 01/04/2021 42760 MRI Spine Cervical W/O Contrast Completed 01/04/2021 65158 MRI Spine Cervical W/O Contrast Completed 12/25/2020 57768 Office/Outpatient Established Mo d MDM 30-39 Min Completed Medical Devices Description No Information Available Encounters Type Date Location Provider Dx Diagnosis Office Visit 12/25/2020 11:00a Main office - [facility] Dariana Parker D35.2 Benign neoplasm of pituitary gland D32.0 Benign neoplasm of cerebral meninges G43.009 Migraine w/o aura, not intra ctable, w/o status migrainosus G44.229 Chronic tension-type headach e, not intractable M43.02 Spondylolysis, cervical justyna on M54.2 Cervicalgia G25.81 Restless legs syndrome G47.61 Periodic limb movement disor [place] Assessments Date Code Description Provider 01/04/2021 M54.2 Cervicalgia Shon Horton 01/04/2021 M54.2 Cervicalgia MRI 01/04/2021 M43.02 Spondylolysis, cervical region A marlon Montalvo M.D. 01/04/2021 M43.02 Spondylolysis, cervical region M RI 12/25/2020 D35.2 Benign neoplasm of pituitary gla nd Emeka Pathak M.D. 12/25/2020 D32.0 Benign neoplasm of cerebral meni nges Emeka Pathak M.D. 12/25/2020 G43.009 Migraine without aura, not intra ctable, without status migra Emeka Pathak M.D. 12/25/2020 G44.229 Chronic tension-type headache, n ot intractable Emeka Pathak M.D. 12/25/2020 M43.02 Spondylolysis, cervical region M jennifer Pathak M.D. 12/25/2020 M54.2 Cervicalgia Emeka Pathak M.D. 12/25/2020 G25.81 Restless legs syndrome Emeka Huston i, M.D. 12/25/2020 G47.61 Periodic limb movement disorder Emeka Pathak M.D. Plan of Treatment Future Appointment(s):* 03/13/2021 12:30 pm - Emeka Pathak M.D. at Main office - [facility] Functional Status Description No Information Available Mental Status Description No Information Available Referrals Refer to Dr Reason for Referral Status Appt Date Emeka Pathak M.D. Created [facility] [address] [place] [address] [phone]
--- OUTSIDE RECORDS SUMMARY | 2021-02-15 07:36 | CCD | Continuity of Care Document ---
Author Author Allergy Injections Anjana Vazquez Organization Unknown Address [address] [place] [address] Phone [phone] Care Team Providers Care Home Hospice Aide Name Role Phone Clarita Yen AUTM [phone] Jarrod Milan MD AUTM [phone] Problems Active Problems Provider Date Allergic rhinitis due to pollen Lino Dikc, Onset: 12/02/2010 Allergic rhinitis Lino Dick, DO Onset: 12/02/2010 Chronic sinusitis Lino Dick, DO Onset: 12/02/2010 Cough Lino Dick, DO Onset: 12/02/2010 Gastroesophageal reflux disease Lino Dick, DO Onset: 12/02/2010 Difficulty breathing Lino Dick, Onset: 12/16/2010 Allergic rhinitis Lino Dick, DO Onset: 12/16/2010 Allergic asthma without status asthmaticus Lino Dick , DO Onset: 01/07/2011 Conjunctival xerosis Kathie Mirza, P.A. Onset: 04/20/19 13 Chronic allergic conjunctivitis Stefania Wynn M.S., PA -C Onset: 08/16/2013 Malaise and fatigue Stefania Wynn M.S., PA-C Onset: Acute asthma Stefania Wynn M.S., PA-C Onset: Allergic rhinitis due to animals Lino Dick DO Onset : 10/29/2016 Mild intermittent asthma Lino Dick DO Onset: 2016 Social History Type Date Description Comments Sex Unknown Tobacco Use Reviewed: 11/01/20 Patient has never smoked Smoking Status Reviewed: 11/01/20 Patient has never smoked Allergies and adverse reactions Active Allergies Criticality Reaction | Severity Comments Date Augmentin Unable to assess criticality Nausea and Vomiting | Mod erate 12/02/2010 Codeine Unable to assess criticality Nausea and Vomiting | Mod erate 12/02/2010 Paula Unable to assess criticality 12/05/2010 Cefuroxime Unable to assess criticality Nausea and Vomiting 06/06/2014 Medications Active Medications SIG Qnty Indications Ordering Provide r Date Montelukast Sodium 10mg Tablets Take One Tablet By Mouth Every Day 90tabs J30.1 Lino Dick, DO 02/01/2021 J30.89 Mometasone Furoate 50mcg/Act Suspe nsion 2 sprays each nostril daily 17gm J30.1 Lino Dick, DO 05/03/2020 Saline Mist [place] 0.65% Solution use 2 sprays in each [...] GM Vaginally Three Days Per Week Unknown Bupropion Hydrochloride ER (XL) 150mg Tablets ER 24HR Take One Tablet By Mouth Every Morning Un known Clindamycin Phosphate 1% Solution Apply To Right Post Auricular Area Sparingly Once Daily U nknown Tizanidine HCL 4mg Tablets Take One Tablet By Mouth AT Bedtime as Needed Unknown Medications Administered in Office Medication SIG Qnty Indications Ordering Provider Date Covid-19 vaccine, Unspecified Inj ection Unknown 06/20/2020 Covid-19 vaccine, Unspecified Inj ection Unknown 05/23/2020 Immunizations CPT Code Status Date Vaccine Lot # [id number] Given 01/16/2020 Influenza,Unspecified Vital Signs Date Vital Result Comment 11/01/2020 9:27am Respiratory Rate 15 /min Heart Rate 69 /min BP Systolic 134 mmHg left arm BP Diastolic 80 mmHg left arm Height 61 inches 5'1" Weight 167.00 lb Body Temperature 97.8 F O2 % BldC Oximetry 98 % BMI (Body Mass Index) 31.6 kg/m2 05/03/2020 8:28am Respiratory Rate 15 /min Heart Rate 68 /min BP Systolic 122 mmHg left arm BP Diastolic 84 mmHg left arm Height 61 inches 5'1" Weight 168.00 lb Body Temperature 96.7 F O2 % BldC Oximetry 97 % BMI (Body Mass Index) 31.7 kg/m2 Results Description No Information Available Procedures Date Code Description Status 02/07/2021 74517 Multiple Injections-Admin. Compl eted 01/17/2021 90610 Multiple Injections-Admin. Compl eted 01/17/2021 17590 Multiple Injections-Admin. Compl eted 12/20/2020 [id number] Multiple Injections-Admin. Compl eted 11/29/2020 98112 Multiple Injections-Admin. Compl eted 11/29/2020 [id number] Multiple Injections-Admin. Compl eted 11/08/2020 [id number] Multiple Injections-Admin. Compl eted 11/01/2020 00269 Office Visit - Level 4 Completed 09/27/2020 67761 Multiple Injections-Admin. Compl eted 09/06/2020 97621 Multiple Injections-Admin. Compl eted 08/09/2020 48929 Multiple Injections-Admin. Compl eted 08/09/2020 [id number] Multiple Injections-Admin. Compl eted Medical Devices Description No Information Available Encounters Description No Information Available Assessments Date Code Description Provider 02/07/2021 J30.1 Allergic rhinitis due to pollen All[facility] Injections 02/07/2021 J30.1 Allergic rhinitis due to pollen [facility] [place] 02/07/2021 J30.81 Allergic rhinitis due to animal (cat) (dog) hair and dander Allergy Injections 02/07/2021 J30.81 Allergic rhinitis due to animal (cat) (dog) hair and dander [facility] [place] 02/07/2021 J30.89 Other allergic rhinitis Allergy Injections 02/07/2021 J30.89 Other allergic rhinitis [facility] [place] 02/07/2021 H10.45 Other chronic allergic conjuncti vitis Allergy Injections 02/07/2021 H10.45 Other chronic allergic conjuncti vitis [facility] [place] 01/17/2021 J30.1 Allergic rhinitis due to pollen Allergy Injections 01/17/2021 J30.1 Allergic rhinitis due to pollen [facility] [place] 01/17/2021 J30.89 Other allergic rhinitis Allergy Injections 01/17/2021 J30.89 Other allergic rhinitis [facility] [place] 01/17/2021 J30.81 Allergic rhinitis due to animal (cat) (dog) hair and dander Allergy Injections 01/17/2021 J30.81 Allergic rhinitis due to animal (cat) (dog) hair and dander [facility] [place] 12/20/2020 J30.1 Allergic rhinitis due to pollen Allergy Injections 12/20/2020 J30.1 Allergic rhinitis due to pollen [facility] Injections [place] 12/20/2020 J30.89 Other allergic rhinitis Allergy Injections 12/20/2020 J30.89 Other allergic rhinitis [facility] Injections [place] 12/20/2020 J30.81 Allergic rhinitis due to animal (cat) (dog) hair and dander Allergy Injections 12/20/2020 J30.81 Allergic rhinitis due to animal (cat) (dog) hair and dander [facility] Injections [place] 11/29/2020 J30.1 Allergic rhinitis due to pollen Allergy Injections 11/29/2020 J30.1 Allergic rhinitis due to pollen [facility] Injections [place] 11/29/2020 J30.89 Other allergic rhinitis Allergy Injections 11/29/2020 J30.89 Other allergic rhinitis [facility] Injections [place] 11/29/2020 J30.81 Allergic rhinitis due to animal (cat) (dog) hair and dander Allergy Injections 11/29/2020 J30.81 Allergic rhinitis due to animal (cat) (dog) hair and dander All[facility] Injections [place] 11/08/2020 J30.1 Allergic rhinitis due to pollen Allergy Injections 11/08/2020 J30.1 Allergic rhinitis due to pollen [facility] Injections [place] 11/08/2020 J30.89 Other allergic rhinitis Allergy Injections 11/08/2020 J30.89 Other allergic rhinitis [facility] Injections [place] 11/08/2020 J30.81 Allergic rhinitis due to animal (cat) (dog) hair and dander Allergy Injections 11/08/2020 J30.81 Allergic rhinitis due to animal (cat) (dog) hair and dander [facility] [place] 11/08/2020 H10.45 Other chronic allergic conjuncti vitis Allergy Injections 11/08/2020 H10.45 Other chronic allergic conjuncti vitis [facility] [place] 11/01/2020 J30.1 Allergic rhinitis due to pollen Purnima Lott, PA-C 11/01/2020 J30.89 Other allergic rhinitis Kaylie Purnima, PA-C 11/01/2020 J30.81 Allergic rhinitis due to animal (cat) (dog) hair and dander KayliePurnima, PA-C 11/01/2020 H10.45 Other chronic allergic conjuncti vitis Kaylie Purnima, PA-C 11/01/2020 J45.20 Mild intermittent asthma, uncomp licated Purnima Lott, PA-C 09/27/2020 J30.1 Allergic rhinitis due to pollen Allergy Injections 09/27/2020 J30.1 Allergic rhinitis due to pollen [facility] Injections [place] 09/27/2020 J30.81 Allergic rhinitis due to animal (cat) (dog) hair and dander Allergy Injections 09/27/2020 J30.81 Allergic rhinitis due to animal (cat) (dog) hair and dander Allergy Injections [place] 09/27/2020 J30.89 Other allergic rhinitis Allergy Injections 09/27/2020 J30.89 Other allergic rhinitis Allergy Injections [place] 09/27/2020 H10.45 Other chronic allergic conjuncti vitis Allergy Injections 09/27/2020 H10.45 Other chronic allergic conjuncti vitis Allergy Injections [place] 09/06/2020 J30.1 Allergic rhinitis due to pollen Allergy Injections 09/06/2020 J30.1 Allergic rhinitis due to pollen Allergy Injections [place] 09/06/2020 J30.89 Other allergic rhinitis Allergy Injections 09/06/2020 J30.89 Other allergic rhinitis Allergy Injections [place] 09/06/2020 J30.81 Allergic rhinitis due to animal (cat) (dog) hair and dander Allergy Injections 09/06/2020 J30.81 Allergic rhinitis due to animal (cat) (dog) hair and dander Allergy Injections [place] 08/09/2020 J30.1 Allergic rhinitis due to pollen Allergy Injections 08/09/2020 J30.1 Allergic rhinitis due to pollen Allergy Injections [place] 08/09/2020 J30.89 Other allergic rhinitis Allergy Injections 08/09/2020 J30.89 Other allergic rhinitis Allergy Injections [place] 08/09/2020 J30.81 Allergic rhinitis due to animal (cat) (dog) hair and dander Allergy Injections 08/09/2020 J30.81 Allergic rhinitis due to animal (cat) (dog) hair and dander Allergy Injections [place] Plan of Treatment Future Appointment(s):* 03/21/2021 10:30 am - [facility] [place] [facility] * 02/26/2021 10:30 am - [facility] [place] [facility] * 04/25/2021 11:00 am - Purnima Lott PA-C at [facility] 11/01/2020 - Purnima Lott PA-C* J30.1 Allergic rhinitis due to pollen* Comments:* Continue meds as discussed. Use Zyrtec as needed. Continue allergy immunotherapy with extracts for the next full year. Continue on q3 week interval. To implement allergen avoidance as discussed. Advised increased use of saline. * Follow up:* 6 mo. * J30.89 [...]
--- OUTSIDE RECORDS SUMMARY | 2021-02-15 07:36 | CCD | Continuity of Care Document ---
Author Author Allergy Injections Anjana Vazquez Organization Unknown Address [address] [place] [address] Phone [phone] Care Team Providers Care Ultrasound Tester Name Role Phone Clarita Yen AUTM [phone] Jarrod Milan MD AUTM [phone] Problems Active Problems Provider Date Allergic rhinitis [...] : 10/29/2016 Mild intermittent asthma Lino Dick, DO Onset: 2016 Social History Type Date [...] J30.1 Lino Dick, DO 05/03/2020 Saline Mist [place] 0.65% Solution use 2 sprays in each [...] By Mouth Twice A Day Unknown 000 Pantoprazole Sodium 40mg Tablets D R Take [...] Information Available Procedures Date Code Description Status 01/17/2021 05757 Multiple Injections-Admin. Compl eted 01/17/2021 56427 Multiple Injections-Admin. Compl eted 12/20/2020 78083 Multiple Injections-Admin. Compl eted 11/29/2020 87451 Multiple Injections-Admin. Compl eted 11/29/2020 56997 Multiple Injections-Admin. Compl eted 11/08/2020 37039 Multiple Injections-Admin. Compl eted 11/01/2020 48590 Office Visit - Level 4 Completed 09/27/2020 66456 Multiple Injections-Admin. Compl eted 09/06/2020 84921 Multiple Injections-Admin. Compl eted 08/09/2020 74797 Multiple Injections-Admin. Compl eted 08/09/2020 21087 Multiple Injections-Admin. Compl eted 07/19/2020 85593 Multiple Injections-Admin. Compl eted Medical Devices Description No Information Available Encounters Description No Information Available Assessments Date Code Description Provider 01/17/2021 J30.1 Allergic rhinitis due to pollen All[facility] Injections 01/17/2021 J30.1 Allergic rhinitis due to pollen All[facility] Injections [place] 01/17/2021 J30.89 Other allergic rhinitis All[facility] Injections 01/17/2021 J30.89 Other allergic rhinitis Allergy Injections [place] 01/17/2021 J30.81 Allergic rhinitis due to animal (cat) (dog) hair and dander Allergy Injections 01/17/2021 J30.81 Allergic rhinitis due to animal (cat) (dog) hair and dander Allergy Injections [place] 12/20/2020 J30.1 Allergic rhinitis due to pollen Allergy Injections 12/20/2020 J30.1 Allergic rhinitis due to pollen Allergy Injections [place] 12/20/2020 J30.89 Other allergic rhinitis All[facility] Injections 12/20/2020 J30.89 Other allergic rhinitis Allergy Injections [place] 12/20/2020 J30.81 Allergic rhinitis due to animal (cat) (dog) hair and dander Allergy Injections 12/20/2020 J30.81 Allergic rhinitis due to animal (cat) (dog) hair and dander Allergy Injections [place] 11/29/2020 J30.1 Allergic rhinitis due to pollen Allergy Injections 11/29/2020 J30.1 Allergic rhinitis due to pollen Allergy Injections [place] 11/29/2020 J30.89 Other allergic rhinitis Allergy Injections 11/29/2020 J30.89 Other allergic rhinitis Allergy Injections [place] 11/29/2020 J30.81 Allergic rhinitis due to animal (cat) (dog) hair and dander Allergy Injections 11/29/2020 J30.81 Allergic rhinitis due to animal (cat) (dog) hair and dander Allergy Injections [place] 11/08/2020 J30.1 Allergic rhinitis due to pollen Allergy Injections 11/08/2020 J30.1 Allergic rhinitis due to pollen Allergy Injections [place] 11/08/2020 J30.89 Other allergic rhinitis All[facility] Injections 11/08/2020 J30.89 Other allergic rhinitis Allergy Injections [place] 11/08/2020 J30.81 Allergic rhinitis due to animal (cat) (dog) hair and dander Allergy Injections 11/08/2020 J30.81 Allergic rhinitis due to animal (cat) (dog) hair and dander Allergy Injections [place] 11/08/2020 H10.45 Other chronic allergic conjuncti vitis All[facility] Injections 11/08/2020 H10.45 Other chronic allergic conjuncti vitis Allergy Injections [place] 11/01/2020 J30.1 Allergic rhinitis due to pollen Purnima Lott, PA-C 11/01/2020 J30.89 Other allergic rhinitis KayliePurnima mckenzie, PA-C 11/01/2020 J30.81 Allergic rhinitis due to animal (cat) (dog) hair and dander KayliePurnima PA-C 11/01/2020 H10.45 Other chronic allergic conjuncti vitis Kaylie Purnima PA-C 11/01/2020 J45.20 Mild intermittent asthma, uncomp licated [facility] Purnima, PA-C 09/27/2020 J30.1 Allergic rhinitis due to pollen All[facility] Injections 09/27/2020 J30.1 Allergic rhinitis due to pollen Allergy Injections [place] 09/27/2020 J30.81 Allergic rhinitis due to animal (cat) (dog) hair and dander Allergy Injections 09/27/2020 J30.81 Allergic rhinitis due to animal (cat) (dog) hair and dander Allergy Injections [place] 09/27/2020 J30.89 Other allergic rhinitis Allergy Injections 09/27/2020 J30.89 Other allergic rhinitis Allergy Injections [place] 09/27/2020 H10.45 Other chronic allergic conjuncti vitis All[facility] Injections 09/27/2020 H10.45 Other chronic allergic conjuncti vitis Allergy Injections [place] 09/06/2020 J30.1 Allergic rhinitis due to pollen Allergy Injections 09/06/2020 J30.1 Allergic rhinitis due to pollen Allergy Injections [place] 09/06/2020 J30.89 Other allergic rhinitis Allergy Injections 09/06/2020 J30.89 Other allergic rhinitis Allergy Injections [place] 09/06/2020 J30.81 Allergic rhinitis due to animal (cat) (dog) hair and dander Allergy Injections 09/06/2020 J30.81 Allergic rhinitis due to animal (cat) (dog) hair and dander Allergy Injections [place] 08/09/2020 J30.1 Allergic rhinitis due to pollen Allergy Injections 08/09/2020 J30.1 Allergic rhinitis due to pollen Allergy Injections [place] 08/09/2020 J30.89 Other allergic rhinitis Allergy Injections 08/09/2020 J30.89 Other allergic rhinitis Allergy Injections [place] 08/09/2020 J30.81 Allergic rhinitis due to animal (cat) (dog) hair and dander Allergy Injections 08/09/2020 J30.81 Allergic rhinitis due to animal (cat) (dog) hair and dander Allergy Injections [place] 07/19/2020 J30.1 Allergic rhinitis due to pollen Allergy Injections [place] 07/19/2020 J30.89 Other allergic rhinitis Allergy Injections [place] 07/19/2020 J30.81 Allergic rhinitis due to animal (cat) (dog) hair and dander Allergy Injections [place] Plan of Treatment Future Appointment(s):* 03/21/2021 10:30 am - [facility] [place] at [facility] * 02/26/2021 10:30 am - [facility] [place] [facility] * 02/07/2021 10:30 am - [facility] [place] [facility] * 04/25/2021 11:00 am - Purnima Lott PA-C at [place] [facility] 11/01/2020 - Purnima Lott PA-C* J30.1 [...]
--- OUTSIDE RECORDS SUMMARY | 2021-02-15 07:36 | CCD | Continuity of Care Document ---
Author Author Anjana PATHAK M.D. Organization Unknown Address [address] [place] [id number] Phone [phone] Care Team Providers Care Lift Electrician Name Role Phone Jarrod Milan M.D. AUTM [phone] Problems Active Problems Provider Date Periodic limb [...] of cervical spine Emeka Pathak M.D. Onset: Low back pain Emeka Pathak M.D. Onset: 01/14/2017 Spondylolysis Emeka Pathak M.D. Onset: 01/14/2017 Benign neoplasm of cerebral meninges Emeka Pathak M.D. Ons et: 03/03/2017 Benign neoplasm of pituitary gland and craniopharyngeal duct Emeka Pathak M.D. Onset: 03/03/2017 Social History Type Date Description Comments Sex Unknown Tobacco Use Start: Unknown Patient has never smoked Allergies, Adverse Reactions, Alerts Active Allergies Criticality Reaction | Severity Comments Date Penicillin Unable to assess criticality 01/14/2017 Codeine Unable to assess criticality 01/14/2017 Medications Active Medications SIG Qnty Indications Ordering Provide r Date Ropinirole HCL 0.5mg Tablets half a tab po qhs for 1 week, then 1 po qhs. 90tabs Emeka Pathak M.D. 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 at Main office - [place] Functional Status Description No Information Available Mental Status Description No Information Available Referrals Description No Information Available
--- OUTSIDE RECORDS SUMMARY | 2021-02-15 07:36 | CCD | Continuity of Care Document ---
Author Author [facility] Address [address] [place] [address] Phone Care Team Providers Care Metal Fabricating Shop Helper Name Role Phone RASHADYumiko PCP Chief Complaint and Reason for Visit Reason for Visit COUGH,NAUSEA Health Concerns Health Concerns may be documented in an alternate section. Allergies, Adverse Reactions, Alerts Allergen Type Severity Reaction Last Updated Verified Status MDX - Oxymetazoline Allergy Unknown December 18, 2013 Y es Active MDX - Codeine Allergy Un known December 18, 2013 Y es Active G.AMOXIC2 Allergy Unknown December 18, 2013 No Active Social History Assigned Sex Female Problems No problem information available. Medications No medication information available. Immunizations No Immunization Information Available Medical Equipment No Medical Equipment Information available Procedures No procedure information available. Relevant Diagnostic Tests and/or Laboratory Data No known relevant diagnostic tests and/or laboratory data. Vital Signs No vital signs result information available. Insurance Providers Guarantor JULIET JORDAN Address [address] [facility] [address] Contact Info. Home Phone: Payer Policy Id Coverage Id Subscriber's Name Subscriber Id Effective Date Expiration Date MEDICARE - [place] [id number] JULIET JORDAN [employer] [id number] JULIET JORDAN [facility] [id number] JULIET JORDAN Encounters Encounter Location(s) Ar rival/Admit Date Discharge/Depart Date Provider(s) Discharged [facility] December 11, 2020 9:00am December 21, 2020 8:09am EBENEZER SÁNCHEZ Discharged [facility] December 03, 2020 9:00am December 03, 2020 10:00am EBENEZER SÁNCHEZ Departed [facility] November 22, 2020 4:44am November 22, 2020 8:43am EBENEZER SÁNCHEZ Functional Status No Functional Status information available Mental Status No Mental Status Information Available Assessments No Assessments Information Available Goals Goals may be documented in an alternate section.
--- OUTSIDE RECORDS SUMMARY | 2021-02-15 07:36 | CCD | Continuity of Care Document ---
Author Author Allergy Injections Anjana Vazquez Organization Unknown Address [address] [place] [address] Phone [phone] Care Team Providers Care Roll Cutting Operator Name Role Phone Clarita Yen AUTM [phone] Jarrod Milan MD AUTM [phone] Problems Active Problems Provider Date Allergic rhinitis [...] Status Reviewed: 11/01/20 Patient has never smoked Allergies, Adverse Reactions, [...] J30.1 Lino Dick, DO 05/03/2020 Saline Mist [place] 0.65% Solution use 2 sprays in each [...] Information Available Procedures Date Code Description Status 12/20/2020 07482 Multiple Injections-Admin. Compl eted 11/29/2020 74565 Multiple Injections-Admin. Compl eted 11/29/2020 76072 Multiple Injections-Admin. Compl eted 11/08/2020 67713 Multiple Injections-Admin. Compl eted 11/01/2020 59072 Office Visit - Level 4 Completed 09/27/2020 27550 Multiple Injections-Admin. Compl eted 09/06/2020 60970 Multiple Injections-Admin. Compl eted 08/09/2020 82096 Multiple Injections-Admin. Compl eted 08/09/2020 88363 Multiple Injections-Admin. Compl eted 07/19/2020 04427 Multiple Injections-Admin. Compl eted 06/27/2020 84001 Allergy Mixed Antigens Completed 06/21/2020 29123 Multiple Injections-Admin. Compl eted Medical Devices Description No Information Available Encounters Description No Information Available Assessments Date Code Description Provider 12/20/2020 J30.1 Allergic rhinitis due to pollen All[facility] Injections 12/20/2020 J30.1 Allergic rhinitis due to pollen Allergy Injections [place] 12/20/2020 J30.89 Other allergic rhinitis Allergy Injections 12/20/2020 J30.89 Other allergic rhinitis Allergy Injections [place] 12/20/2020 J30.81 Allergic rhinitis due to animal (cat) (dog) hair and dander Allergy Injections 12/20/2020 J30.81 Allergic rhinitis due to animal (cat) (dog) hair and dander Allergy Injections [place] 11/29/2020 J30.1 Allergic rhinitis due to pollen Allergy Injections 11/29/2020 J30.1 Allergic rhinitis due to pollen Allergy Injections [place] 11/29/2020 J30.89 Other allergic rhinitis All[facility] Injections 11/29/2020 J30.89 Other allergic rhinitis Allergy Injections [place] 11/29/2020 J30.81 Allergic rhinitis due to animal (cat) (dog) hair and dander Allergy Injections 11/29/2020 J30.81 Allergic rhinitis due to animal (cat) (dog) hair and dander Allergy Injections [place] 11/08/2020 J30.1 Allergic rhinitis due to pollen All[facility] Injections 11/08/2020 J30.1 Allergic rhinitis due to pollen Allergy Injections [place] 11/08/2020 J30.89 Other allergic rhinitis All[facility] Injections 11/08/2020 J30.89 Other allergic rhinitis Allergy Injections [place] 11/08/2020 J30.81 Allergic rhinitis due to animal (cat) (dog) hair and dander All[facility] In[facility] 11/08/2020 J30.81 Allergic rhinitis due to animal (cat) (dog) hair and dander Allergy Injections [place] 11/08/2020 H10.45 Other chronic allergic conjuncti vitis All[facility] Injections 11/08/2020 H10.45 Other chronic allergic conjuncti vitis Allergy Injections [place] 11/01/2020 J30.1 Allergic rhinitis due to pollen Kaylie PurnimaGLORYC 11/01/2020 J30.89 Other allergic rhinitis [facility] Purnima, IGLBERT-C 11/01/2020 J30.81 Allergic rhinitis due to animal (cat) (dog) hair and dander Kaylie PurnimaGILBERT-C 11/01/2020 H10.45 Other chronic [facility]itis [facility] 11/01/2020 J45.20 Mild intermittent asthma, uncomp licated Kaylie Purnima, GILBERT-C 09/27/2020 J30.1 Allergic rhinitis due to pollen All[facility] Injections 09/27/2020 J30.1 Allergic rhinitis due to pollen Allergy Injections [place] 09/27/2020 J30.81 Allergic rhinitis due to animal (cat) (dog) hair and dander Allergy Injections 09/27/2020 J30.81 Allergic rhinitis due to animal (cat) (dog) hair and dander Allergy Injections [place] 09/27/2020 J30.89 Other allergic rhinitis All[facility] Injections 09/27/2020 J30.89 Other allergic rhinitis Allergy Injections [place] 09/27/2020 H10.45 Other chronic allergic conjuncti vitis [facility] Injections 09/27/2020 H10.45 Other chronic allergic conjuncti vitis Allergy Injections [place] 09/06/2020 J30.1 Allergic rhinitis due to pollen Allergy Injections 09/06/2020 J30.1 Allergic rhinitis due to pollen Allergy Injections [place] 09/06/2020 J30.89 Other allergic rhinitis All[facility] Injections 09/06/2020 J30.89 Other allergic rhinitis Allergy Injections [place] 09/06/2020 J30.81 Allergic rhinitis due to animal (cat) (dog) hair and dander All[facility] Injections 09/06/2020 J30.81 Allergic rhinitis due to animal (cat) (dog) hair and dander Allergy Injections [place] 08/09/2020 J30.1 Allergic rhinitis due to pollen All[facility] Injections 08/09/2020 J30.1 Allergic rhinitis due to pollen Allergy Injections [place] 08/09/2020 J30.89 Other allergic rhinitis All[facility] Injections 08/09/2020 J30.89 Other allergic rhinitis Allergy Injections [place] 08/09/2020 J30.81 Allergic rhinitis due to animal (cat) (dog) hair and dander Allergy Injections 08/09/2020 J30.81 Allergic rhinitis due to animal (cat) (dog) hair and dander Allergy Injections [place] 07/19/2020 J30.1 Allergic rhinitis due to pollen Allergy Injections [place] 07/19/2020 J30.89 Other allergic rhinitis Allergy Injections [place] 07/19/2020 J30.81 Allergic rhinitis due to animal (cat) (dog) hair and dander Allergy Injections [place] 06/27/2020 J30.1 Allergic rhinitis due to pollen Allergy Injections 06/27/2020 J30.89 Other allergic rhinitis [facility] 06/27/2020 J30.81 Allergic rhinitis due to animal (cat) (dog) hair and dander Allergy Injections 06/21/2020 J30.1 Allergic rhinitis due to pollen All[facility] Injections 06/21/2020 J30.1 Allergic rhinitis due to pollen Allergy Injections [place] 06/21/2020 J30.89 Other allergic rhinitis All[facility] Injections 06/21/2020 J30.89 Other allergic rhinitis Allergy Injections [place] 06/21/2020 J30.81 Allergic rhinitis due to animal (cat) (dog) hair and dander Allergy Injections 06/21/2020 J30.81 Allergic rhinitis due to animal (cat) (dog) hair and dander Allergy Injections [place] Plan of Treatment Future Appointment(s):* 01/17/2021 10:30 am - Allergy Injections [place] at [facility] * 04/25/2021 11:00 am - Purnima Lott PA-C at [place] [facility] 11/01/2020 - Purnima Lott PA-C* J30.1 [...]
--- OUTSIDE RECORDS SUMMARY | 2021-02-15 07:36 | CCD | Continuity of Care Document ---
Author Author Allergy Injections Anjana Vazquez Organization Unknown Address [address] [place] [address] Phone [phone] Care Team Providers Care Link Trainer Operator Name Role Phone Clarita Yen AUTM [phone] Jarrod Milan MD AUTM [phone] Problems Active Problems Provider Date Allergic rhinitis due to pollen Lino Dick, Onset: 12/02/2010 Allergic rhinitis Lino Dick, DO Onset: 12/02/2010 Chronic sinusitis Lino Dick, DO Onset: 12/02/2010 Cough Lino Dick, DO Onset: 12/02/2010 Gastroesophageal reflux disease Lino Dick, DO Onset: 12/02/2010 Difficulty breathing Lino Dick, Onset: 12/16/2010 Allergic rhinitis Lino Dick, DO Onset: 12/16/2010 Allergic asthma without status asthmaticus Lino Dikc , DO Onset: 01/07/2011 Conjunctival xerosis Kathie [...] J30.1 Lino Dick, DO 05/03/2020 Saline Mist [place] 0.65% Solution use 2 sprays in each [...] Available Procedures Date Code Description Status 01/17/2021 34450 Multiple Injections-Admin. Compl eted 01/17/2021 70166 Multiple Injections-Admin. Compl eted 12/20/2020 21410 Multiple Injections-Admin. Compl eted 11/29/2020 54456 Multiple Injections-Admin. Compl eted 11/29/2020 41227 Multiple Injections-Admin. Compl eted 11/08/2020 99629 Multiple Injections-Admin. Compl eted 11/01/2020 22038 Office Visit - Level 4 Completed 09/27/2020 09382 Multiple Injections-Admin. Compl eted 09/06/2020 58599 Multiple Injections-Admin. Compl eted 08/09/2020 84051 Multiple Injections-Admin. Compl eted 08/09/2020 51695 Multiple Injections-Admin. Compl eted 07/19/2020 19219 Multiple Injections-Admin. Compl eted Medical Devices Description No Information Available Encounters Description No Information Available Assessments Date Code Description Provider 01/17/2021 J30.1 Allergic rhinitis due to pollen All[facility] In[facility] 01/17/2021 J30.1 Allergic rhinitis due to pollen Allergy Injections [place] 01/17/2021 J30.89 Other allergic rhinitis All[facility] In[facility] 01/17/2021 J30.89 Other allergic rhinitis Allergy Injections [place] 01/17/2021 J30.81 Allergic rhinitis due to animal (cat) (dog) hair and dander Allergy Injections 01/17/2021 J30.81 Allergic rhinitis due to animal (cat) (dog) hair and dander Allergy Injections [place] 12/20/2020 J30.1 Allergic rhinitis due to pollen Allergy Injections 12/20/2020 J30.1 Allergic rhinitis due to pollen Allergy Injections [place] 12/20/2020 J30.89 Other allergic rhinitis Allergy Injections 12/20/2020 J30.89 Other allergic rhinitis Allergy Injections [place] 12/20/2020 J30.81 Allergic rhinitis due to animal (cat) (dog) hair and dander Allergy Injections 12/20/2020 J30.81 Allergic rhinitis due to animal (cat) (dog) hair and dander Allergy Injections [place] 11/29/2020 J30.1 Allergic rhinitis due to pollen Allergy Injections 11/29/2020 J30.1 Allergic rhinitis due to pollen Allergy Injections [place] 11/29/2020 J30.89 Other allergic rhinitis All[facility] Injections 11/29/2020 J30.89 Other allergic rhinitis Allergy Injections [place] 11/29/2020 J30.81 Allergic rhinitis due to animal (cat) (dog) hair and dander Allergy Injections 11/29/2020 J30.81 Allergic rhinitis due to animal (cat) (dog) hair and dander Allergy Injections [place] 11/08/2020 J30.1 Allergic rhinitis due to pollen Allergy Injections 11/08/2020 J30.1 Allergic rhinitis due to pollen Allergy Injections [place] 11/08/2020 J30.89 Other allergic rhinitis All[facility] Injections 11/08/2020 J30.89 Other allergic rhinitis Allergy Injections [place] 11/08/2020 J30.81 Allergic rhinitis due to animal (cat) (dog) hair and dander Allergy Injections 11/08/2020 J30.81 Allergic rhinitis due to animal (cat) (dog) hair and dander Allergy Injections [place] 11/08/2020 H10.45 Other chronic allergic conjuncti vitis [facility] 11/08/2020 H10.45 Other chronic allergic conjuncti vitis Allergy Injections [place] 11/01/2020 J30.1 Allergic rhinitis due to pollen Purnima Lott, PA-C 11/01/2020 J30.89 Other allergic rhinitis KayliePurnima mckenzie, PA-C 11/01/2020 J30.81 Allergic rhinitis due to animal (cat) (dog) hair and dander KayliePurnima PA-C 11/01/2020 H10.45 Other chronic allergic conjuncti vitis Kaylie Purnima PA-C 11/01/2020 J45.20 Mild intermittent asthma, uncomp licated [facility] Purnima, PA-C 09/27/2020 J30.1 Allergic rhinitis due to pollen All[facility] Injections 09/27/2020 J30.1 Allergic rhinitis due to pollen Allergy Injections [place] 09/27/2020 J30.81 Allergic rhinitis due to animal (cat) (dog) hair and dander Allergy Injections 09/27/2020 J30.81 Allergic rhinitis due to animal (cat) (dog) hair and dander Allergy Injections [place] 09/27/2020 J30.89 Other allergic rhinitis All[facility] Injections 09/27/2020 J30.89 Other allergic rhinitis Allergy Injections [place] 09/27/2020 H10.45 Other chronic allergic conjuncti vitis All[facility] In[facility] 09/27/2020 H10.45 Other chronic allergic conjuncti vitis Allergy Injections [place] 09/06/2020 J30.1 Allergic rhinitis due to pollen All[facility] Injections 09/06/2020 J30.1 Allergic rhinitis due to pollen Allergy Injections [place] 09/06/2020 J30.89 Other allergic rhinitis All[facility] Injections 09/06/2020 J30.89 Other allergic rhinitis Allergy Injections [place] 09/06/2020 J30.81 Allergic rhinitis due to animal (cat) (dog) hair and dander Allergy Injections 09/06/2020 J30.81 Allergic rhinitis due to animal (cat) (dog) hair and dander Allergy Injections [place] 08/09/2020 J30.1 Allergic rhinitis due to pollen All[facility] Injections 08/09/2020 J30.1 Allergic rhinitis due to pollen Allergy Injections [place] 08/09/2020 J30.89 Other allergic rhinitis All[facility] Injections 08/09/2020 J30.89 Other allergic rhinitis Allergy Injections [place] 08/09/2020 J30.81 Allergic rhinitis due to animal (cat) (dog) hair and dander Allergy Injections 08/09/2020 J30.81 Allergic rhinitis due to animal (cat) (dog) hair and dander Allergy Injections [place] 07/19/2020 J30.1 Allergic rhinitis due to pollen Allergy Injections [place] 07/19/2020 J30.89 Other allergic rhinitis Allergy Injections [place] 07/19/2020 J30.81 Allergic rhinitis due to animal (cat) (dog) hair and dander Allergy Injections [place] Plan of Treatment Future Appointment(s):* 03/21/2021 10:30 am - [facility] [place] at [place] [facility] * 02/26/2021 10:30 am - [facility] Injections [place] at [facility] * 02/07/2021 10:30 am - All[facility] Injections [place] at [place] [facility] * 04/25/2021 11:00 am - Purnima Lott PA-C at [place] [facility] 11/01/2020 - Purnima Lott PA-C* J30.1 [...]
--- OUTSIDE RECORDS SUMMARY | 2021-02-15 07:36 | CCD | Continuity of Care Document ---
Author Author Allergy Injections Anjana Vazquez Organization Unknown Address [address] [place] [address] Phone [phone] Care Team Providers Care Sprinkler Inspector Name Role Phone Clarita Yen AUTM [phone] Jarrod Milan MD AUTM [phone] Problems Active Problems Provider Date Allergic rhinitis [...] J30.1 Lino Dick, DO 05/03/2020 Saline Mist [place] 0.65% Solution use 2 sprays in each [...] Available Procedures Date Code Description Status 01/17/2021 54786 Multiple Injections-Admin. Compl eted 01/17/2021 42583 Multiple Injections-Admin. Compl eted 12/20/2020 92602 Multiple Injections-Admin. Compl eted 11/29/2020 25803 Multiple Injections-Admin. Compl eted 11/29/2020 58943 Multiple Injections-Admin. Compl eted 11/08/2020 90390 Multiple Injections-Admin. Compl eted 11/01/2020 64209 Office Visit - Level 4 Completed 09/27/2020 64142 Multiple Injections-Admin. Compl eted 09/06/2020 77552 Multiple Injections-Admin. Compl eted 08/09/2020 71813 Multiple Injections-Admin. Compl eted 08/09/2020 23880 Multiple Injections-Admin. Compl eted 07/19/2020 91784 Multiple Injections-Admin. Compl eted Medical Devices Description No Information Available Encounters Description No Information Available Assessments Date Code Description Provider 01/17/2021 J30.1 Allergic rhinitis due to pollen [facility] In[facility] 01/17/2021 J30.1 Allergic rhinitis due to pollen [facility] [place] 01/17/2021 J30.89 Other allergic rhinitis Allergy Injections 01/17/2021 J30.89 Other allergic rhinitis All[facility] Injections [place] 01/17/2021 J30.81 Allergic rhinitis due to animal (cat) (dog) hair and dander Allergy Injections 01/17/2021 J30.81 Allergic rhinitis due to animal (cat) (dog) hair and dander Allergy Injections [place] 12/20/2020 J30.1 Allergic rhinitis due to pollen Allergy Injections 12/20/2020 J30.1 Allergic rhinitis due to pollen Allergy Injections [place] 12/20/2020 J30.89 Other allergic rhinitis Allergy Injections 12/20/2020 J30.89 Other allergic rhinitis Allergy Injections [place] 12/20/2020 J30.81 Allergic rhinitis due to animal (cat) (dog) hair and dander Allergy Injections 12/20/2020 J30.81 Allergic rhinitis due to animal (cat) (dog) hair and dander Allergy Injections [place] 11/29/2020 J30.1 Allergic rhinitis due to pollen Allergy Injections 11/29/2020 J30.1 Allergic rhinitis due to pollen Allergy Injections [place] 11/29/2020 J30.89 Other allergic rhinitis Allergy Injections 11/29/2020 J30.89 Other allergic rhinitis Allergy Injections [place] 11/29/2020 J30.81 Allergic rhinitis due to animal (cat) (dog) hair and dander Allergy Injections 11/29/2020 J30.81 Allergic rhinitis due to animal (cat) (dog) hair and dander Allergy Injections [place] 11/08/2020 J30.1 Allergic rhinitis due to pollen Allergy Injections 11/08/2020 J30.1 Allergic rhinitis due to pollen All[facility] Injections [place] 11/08/2020 J30.89 Other allergic rhinitis Allergy Injections 11/08/2020 J30.89 Other allergic rhinitis Allergy Injections [place] 11/08/2020 J30.81 Allergic rhinitis due to animal (cat) (dog) hair and dander Allergy Injections 11/08/2020 J30.81 Allergic rhinitis due to animal (cat) (dog) hair and dander All[facility] Injections [place] 11/08/2020 H10.45 Other chronic allergic conjuncti vitis Allergy Injections 11/08/2020 H10.45 Other chronic allergic conjuncti vitis All[facility] Injections [place] 11/01/2020 J30.1 Allergic rhinitis due to pollen Purnima Lott, PA-C 11/01/2020 J30.89 Other allergic rhinitis KayliePurnima mckenzie, PA-C 11/01/2020 J30.81 Allergic rhinitis due to animal (cat) (dog) hair and dander KayliePurnima PA-C 11/01/2020 H10.45 Other chronic allergic conjuncti vitis Kaylie Purnima PA-C 11/01/2020 J45.20 Mild intermittent asthma, uncomp licated [facility] Purnima, PA-C 09/27/2020 J30.1 Allergic rhinitis due to pollen Allergy Injections 09/27/2020 J30.1 Allergic rhinitis due to pollen Allergy Injections [place] 09/27/2020 J30.81 Allergic rhinitis due to animal (cat) (dog) hair and dander Allergy Injections 09/27/2020 J30.81 Allergic rhinitis due to animal (cat) (dog) hair and dander Allergy Injections [place] 09/27/2020 J30.89 Other allergic rhinitis Allergy Injections 09/27/2020 J30.89 Other allergic rhinitis Allergy Injections [place] 09/27/2020 H10.45 Other chronic allergic conjuncti vitis Allergy Injections 09/27/2020 H10.45 Other chronic allergic conjuncti vitis Allergy Injections [place] 09/06/2020 J30.1 Allergic rhinitis due to pollen Allergy Injections 09/06/2020 J30.1 Allergic rhinitis due to pollen Allergy Injections [place] 09/06/2020 J30.89 Other allergic rhinitis Allergy Injections 09/06/2020 J30.89 Other allergic rhinitis Allergy Injections [place] 09/06/2020 J30.81 Allergic rhinitis due to animal (cat) (dog) hair and dander Allergy Injections 09/06/2020 J30.81 Allergic rhinitis due to animal (cat) (dog) hair and dander Allergy Injections [place] 08/09/2020 J30.1 Allergic rhinitis due to pollen Allergy Injections 08/09/2020 J30.1 Allergic rhinitis due to pollen Allergy Injections [place] 08/09/2020 J30.89 Other allergic rhinitis Allergy Injections 08/09/2020 J30.89 Other allergic rhinitis Allergy Injections [place] 08/09/2020 J30.81 Allergic rhinitis due to animal (cat) (dog) hair and dander Allergy Injections 08/09/2020 J30.81 Allergic rhinitis due to animal (cat) (dog) hair and dander Allergy Injections [place] 07/19/2020 J30.1 Allergic rhinitis due to pollen Allergy Injections [place] 07/19/2020 J30.89 Other allergic rhinitis Allergy Injections [place] 07/19/2020 J30.81 Allergic rhinitis due to animal (cat) (dog) hair and dander Allergy Injections [place] Plan of Treatment Future Appointment(s):* 03/21/2021 10:30 am - [facility] [place] [facility] [place] [facility] * 02/26/2021 10:30 am - [facility] [place] [facility] [place] [facility] * 02/07/2021 10:30 am - [facility] [place] [facility] [place] [facility] * 04/25/2021 11:00 am - Purnima Lott PA-C at [place] [facility] 11/01/2020 - Purnima Lott PA-C* J30.1 [...]
--- OUTSIDE RECORDS SUMMARY | 2021-02-15 07:36 | CCD | Continuity of Care Document ---
Author Author Allergy Injections Anjana Vazquez Organization Unknown Address [address] [place] [address] Phone [phone] Care Team Providers Care Podiatric Technician Name Role Phone Clarita Yen AUTM [phone] Jarrod Milan MD AUTM [phone] Problems Active Problems Provider Date Allergic rhinitis [...] J30.1 Lino Dick, DO 05/03/2020 Saline Mist [place] 0.65% Solution use 2 sprays in each [...] Available Procedures Date Code Description Status 01/17/2021 09086 Multiple Injections-Admin. Compl eted 01/17/2021 97715 Multiple Injections-Admin. Compl eted 12/20/2020 08881 Multiple Injections-Admin. Compl eted 11/29/2020 45265 Multiple Injections-Admin. Compl eted 11/29/2020 94659 Multiple Injections-Admin. Compl eted 11/08/2020 85122 Multiple Injections-Admin. Compl eted 11/01/2020 61533 Office Visit - Level 4 Completed 09/27/2020 85611 Multiple Injections-Admin. Compl eted 09/06/2020 60417 Multiple Injections-Admin. Compl eted 08/09/2020 89857 Multiple Injections-Admin. Compl eted 08/09/2020 27572 Multiple Injections-Admin. Compl eted 07/19/2020 96739 Multiple Injections-Admin. Compl eted Medical Devices Description No Information Available Encounters Description No Information Available Assessments Date Code Description Provider 01/17/2021 J30.1 Allergic rhinitis due to pollen All[facility] Injections 01/17/2021 J30.1 Allergic rhinitis due to pollen Allergy Injections [place] 01/17/2021 J30.89 Other allergic rhinitis Allergy Injections 01/17/2021 J30.89 Other allergic rhinitis Allergy Injections [place] 01/17/2021 J30.81 Allergic rhinitis due to animal (cat) (dog) hair and dander Allergy Injections 01/17/2021 J30.81 Allergic rhinitis due to animal (cat) (dog) hair and dander Allergy Injections [place] 12/20/2020 J30.1 Allergic rhinitis due to pollen Allergy Injections 12/20/2020 J30.1 Allergic rhinitis due to pollen Allergy Injections [place] 12/20/2020 J30.89 Other allergic rhinitis Allergy Injections 12/20/2020 J30.89 Other allergic rhinitis Allergy Injections [place] 12/20/2020 J30.81 Allergic rhinitis due to animal (cat) (dog) hair and dander Allergy Injections 12/20/2020 J30.81 Allergic rhinitis due to animal (cat) (dog) hair and dander Allergy Injections [place] 11/29/2020 J30.1 Allergic rhinitis due to pollen Allergy Injections 11/29/2020 J30.1 Allergic rhinitis due to pollen Allergy Injections [place] 11/29/2020 J30.89 Other allergic rhinitis Allergy Injections 11/29/2020 J30.89 Other allergic rhinitis Allergy Injections [place] 11/29/2020 J30.81 Allergic rhinitis due to animal (cat) (dog) hair and dander Allergy Injections 11/29/2020 J30.81 Allergic rhinitis due to animal (cat) (dog) hair and dander Allergy Injections [place] 11/08/2020 J30.1 Allergic rhinitis due to pollen Allergy Injections 11/08/2020 J30.1 Allergic rhinitis due to pollen Allergy Injections [place] 11/08/2020 J30.89 Other allergic rhinitis All[facility] Injections 11/08/2020 J30.89 Other allergic rhinitis Allergy Injections [place] 11/08/2020 J30.81 Allergic rhinitis due to animal (cat) (dog) hair and dander Allergy Injections 11/08/2020 J30.81 Allergic rhinitis due to animal (cat) (dog) hair and dander Allergy Injections [place] 11/08/2020 H10.45 Other chronic allergic conjuncti vitis Allergy Injections 11/08/2020 H10.45 Other chronic allergic conjuncti vitis Allergy Injections [place] 11/01/2020 J30.1 Allergic rhinitis due to pollen Purnima Lott, PA-C 11/01/2020 J30.89 Other allergic rhinitis KayliePurnima mckenzie, PA-C 11/01/2020 J30.81 Allergic rhinitis due to animal (cat) (dog) hair and dander KayliePurnima PA-C 11/01/2020 H10.45 Other chronic allergic conjuncti vitis Kaylie Purnima PA-C 11/01/2020 J45.20 Mild intermittent asthma, uncomp licated [facility] Purnima, PA-C 09/27/2020 J30.1 Allergic rhinitis due to pollen Allergy Injections 09/27/2020 J30.1 Allergic rhinitis due to pollen Allergy Injections [place] 09/27/2020 J30.81 Allergic rhinitis due to animal (cat) (dog) hair and dander Allergy Injections 09/27/2020 J30.81 Allergic rhinitis due to animal (cat) (dog) hair and dander Allergy Injections [place] 09/27/2020 J30.89 Other allergic rhinitis Allergy Injections 09/27/2020 J30.89 Other allergic rhinitis Allergy Injections [place] 09/27/2020 H10.45 Other chronic allergic conjuncti vitis Allergy Injections 09/27/2020 H10.45 Other chronic allergic conjuncti vitis Allergy Injections [place] 09/06/2020 J30.1 Allergic rhinitis due to pollen Allergy Injections 09/06/2020 J30.1 Allergic rhinitis due to pollen Allergy Injections [place] 09/06/2020 J30.89 Other allergic rhinitis Allergy Injections 09/06/2020 J30.89 Other allergic rhinitis Allergy Injections [place] 09/06/2020 J30.81 Allergic rhinitis due to animal (cat) (dog) hair and dander Allergy Injections 09/06/2020 J30.81 Allergic rhinitis due to animal (cat) (dog) hair and dander Allergy Injections [place] 08/09/2020 J30.1 Allergic rhinitis due to pollen Allergy Injections 08/09/2020 J30.1 Allergic rhinitis due to pollen Allergy Injections [place] 08/09/2020 J30.89 Other allergic rhinitis Allergy Injections 08/09/2020 J30.89 Other allergic rhinitis Allergy Injections [place] 08/09/2020 J30.81 Allergic rhinitis due to animal (cat) (dog) hair and dander Allergy Injections 08/09/2020 J30.81 Allergic rhinitis due to animal (cat) (dog) hair and dander Allergy Injections [place] 07/19/2020 J30.1 Allergic rhinitis due to pollen Allergy Injections [place] 07/19/2020 J30.89 Other allergic rhinitis Allergy Injections [place] 07/19/2020 J30.81 Allergic rhinitis due to animal (cat) (dog) hair and dander Allergy Injections [place] Plan of Treatment Future Appointment(s):* 03/21/2021 10:30 am - [facility] [place] [facility] [place] [facility] * 02/26/2021 10:30 am - [facility] [place] [facility] [place] [facility] * 02/07/2021 10:30 am - [facility] [place] [facility] [place] [facility] * 04/25/2021 11:00 am - Purnima Lott PA-C at [place] [facility] 11/01/2020 - Purnima Lott PA-C* J30.1 [...]
--- OUTSIDE RECORDS SUMMARY | 2021-02-15 07:36 | CCD | Continuity of Care Document ---
Author Author Anjana RIVERA Organization Unknown Address [address] [place] [address] Phone [phone] Care Team Providers Care Control Room Tender Name Role Phone Jarrod Milan M.D. AUTM [phone] Problems Active Problems Provider Date Periodic limb [...] for 1 week, then 1 po qhs. 90taevelio Pathak M.D. 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 at Main office - [place] Functional Status Description No Information Available Mental Status Description No Information Available Referrals Description No Information Available
--- OUTSIDE RECORDS SUMMARY | 2021-02-15 07:37 | CCD ---
Author Author [facility] Organization [facility] Address Unknown Phone Unavailable Care Team Providers Care Jewel Staker Name Role Phone MULARELLA, MAVERICK DO Unavailable Unavailable MULARELLA, MAVERICK DO Unavailable Unavailable MULARELLA, MAVERICK DO Unavailable Unavailable MULARELLA, MAVERICK DO Unavailable Unavailable MULARELLA, MAVERICK DO Unavailable Unavailable MULARELLA, MAVERICK DO Unavailable Unavailable Jumalon, M Luz MAINTENANCE CLERK Unavailable Unavailable Jumalon, M Luz MAINTENANCE CLERK Unavailable Unavailable Jumalon, M Luz MAINTENANCE CLERK Unavailable Unavailable Jumalon, M Luz MAINTENANCE CLERK Unavailable Unavailable Jumalon, M Luz MAINTENANCE CLERK Unavailable Unavailable Jumalon, M Luz MAINTENANCE CLERK Unavailable Unavailable Jumalon, M Luz MAINTENANCE CLERK Unavailable Unavailable Jumalon, M Luz MAINTENANCE CLERK Unavailable Unavailable Jumalon, M Luz MAINTENANCE CLERK Unavailable Unavailable Jumalon, M Luz MAINTENANCE CLERK Unavailable Unavailable Jumalon, M Luz MAINTENANCE CLERK Unavailable Unavailable Jumalon, M Luz MAINTENANCE CLERK Unavailable Unavailable Jumalon, M Luz MAINTENANCE CLERK Unavailable Unavailable Jumalon, M Luz MAINTENANCE CLERK Unavailable Unavailable Jumalon, M Luz MAINTENANCE CLERK Unavailable Unavailable Jumalon, M Luz MAINTENANCE CLERK Unavailable Unavailable Jumalon, M Luz MAINTENANCE CLERK Unavailable Unavailable Jumalon, M Luz MAINTENANCE CLERK Unavailable Unavailable Jumalon, M Luz MAINTENANCE CLERK Unavailable Unavailable Jumalon, M Luz MAINTENANCE CLERK Unavailable Unavailable Jumalon, M Luz MAINTENANCE CLERK Unavailable Unavailable Jumalon, M Ulz MAINTENANCE CLERK Unavailable Unavailable Jumalon, M Luz MAINTENANCE CLERK Unavailable Unavailable Jumalon, M Luz MAINTENANCE CLERK Unavailable Unavailable Jumalon, M Luz MAINTENANCE CLERK Unavailable Unavailable Jumalon, M Luz MAINTENANCE CLERK Unavailable Unavailable Jumalon, M Luz MAINTENANCE CLERK Unavailable Unavailable Jumalon, M Luz MAINTENANCE CLERK Unavailable Unavailable Jumalon, M Luz MAINTENANCE CLERK Unavailable Unavailable Jumalon, M Luz MAINTENANCE CLERK Unavailable Unavailable GONZALO, AAKASH EBENEZER PA Unavailable Unavailable GONZALO, AAKASH EBENEZER PA Unavailable Unavailable GONZALO, AAKASH EBENEZER PA Unavailable Unavailable GONZALO, AAKASH EBENEZER PA Unavailable Unavailable GONZALO, AAKASH EBENEZER PA Unavailable Unavailable GONZALO, AAKASH EBENEZER PA Unavailable Unavailable GONZALO, AAKASH EBENEZER PA Unavailable Unavailable GONZALO, AAKASH EBENEZER PA Unavailable Unavailable GONZALO, AAKASH EBENEZER PA Unavailable Unavailable GONZALO, AAKASH EBENEZER PA Unavailable Unavailable GONZALO, AAKASH EBENEZER PA Unavailable Unavailable GONZALO, AAKASH EBENEZER PA Unavailable Unavailable GONZALO, AAKASH EBENEZER PA Unavailable Unavailable GONZALO, AAKASH EBENEZER PA Unavailable Unavailable GONZALO, AAKASH EBENEZER PA Unavailable Unavailable GONZALO, AAKASH EBENEZER PA Unavailable Unavailable GONZALO, AAKASH EBENEZER PA Unavailable Unavailable GONZALO, AAKASH EBENEZER PA Unavailable Unavailable GONZAOL, AAKASH EBENEZER PA Unavailable Unavailable GONZALO, AAKASH EBENEZER PA Unavailable Unavailable GONZALO, AAKASH EBENEZER PA Unavailable Unavailable GONZALO, AAKASH EBENEZER PA Unavailable Unavailable Tracey SCHMID MD Unavailable Unavailable Tracey SCHMID MD Unavailable Unavailable Tracey SCHMID MD Unavailable Unavailable Tracey SCHMID MD Unavailable Unavailable Tracey SCHMID MD Unavailable Unavailable Tracey SCMHID MD Unavailable Unavailable Tracey SCMHID MD Unavailable Unavailable Tracey SCHMID MD Unavailable Unavailable Tracey SCHMID MD Unavailable Unavailable Tracey SCHMID MD Unavailable Unavailable Tracey SCHMID MD Unavailable Unavailable Tracey SCHMID MD Unavailable Unavailable Tracey SCHMID MD Unavailable Unavailable CHIN, S JOHANNY SANCHEZ Unavailable Unavailable CHIN, S JOHANNY SANCHEZ Unavailable Unavailable CHIN, S JOHANNY SANCHEZ Unavailable Unavailable CHIN, S JOHANNY SANCHEZ Unavailable Unavailable CHIN, S JOHANNY SANCHEZ Unavailable Unavailable CHIN, S JOHANNY SANCHEZ Unavailable Unavailable CHIN, S JOHANNY SANCHEZ Unavailable Unavailable CHIN, S JOHANNY SANCHEZ Unavailable Unavailable CHIN, S JOHANNY SANCHEZ Unavailable Unavailable CHIN, S JOHANNY SANCHEZ Unavailable Unavailable CHIN, S JOHANNY SANCHEZ Unavailable Unavailable CHIN, S JOHANNY SANCHEZ Unavailable Unavailable CHIN, S JOHANNY SANCHEZ Unavailable Unavailable CHIN, S JOHANNY SANCHEZ Unavailable Unavailable CHIN, S JOHANNY SANCHEZ Unavailable Unavailable CHIN, S JOHANNY SANCHEZ Unavailable Unavailable CHIN, S JOHANNY SANCHEZ Unavailable Unavailable CHIN, S JOHANNY SANCHEZ Unavailable Unavailable CHIN, S JOHANNY SANCHEZ Unavailable Unavailable CHIN, S JOHANNY SANCHEZ Unavailable Unavailable CHIN, S JOHANNY SANCHEZ Unavailable Unavailable CHIN, S JOHANNY SANCHEZ Unavailable Unavailable CHIN, S JOHANNY SANCHEZ Unavailable Unavailable CHIN, S JOHANNY SANCHEZ Unavailable Unavailable CHIN, S JOHANNY SANCHEZ Unavailable Unavailable CHIN, S JOHANNY SANCHEZ Unavailable Unavailable CHIN, S JOHANNY SANCHEZ Unavailable Unavailable CHIN, S JOHANNY SANCHEZ Unavailable Unavailable CHIN, S JOHANNY SANCHEZ Unavailable Unavailable CHIN, S JOHANNY SANCHEZ Unavailable Unavailable BINU, S JOHANNY SANCHEZ Unavailable Unavailable BINU, S JOHANNY SANCHEZ Unavailable Unavailable CHIN, S JOHANNY SANCHEZ Unavailable Unavailable BINU S JOHANNY SANCHEZ Unavailable Unavailable CHIN, S JOHANNY SANCHEZ Unavailable Unavailable CHIN, S JOHANNY SANCHEZ Unavailable Unavailable BINU, S JOHANNY SANCHEZ Unavailable Unavailable CHIN, S JOHANNY SANCHEZ Unavailable Unavailable CHIN, S JOHANNY SANCHEZ Unavailable Unavailable BINU S [...] Unavailable BINU S JOHANNY SANCHEZ Unavailable Unavailable CHIN S JOHANNY SANCHEZ Unavailable Unavailable BINU S JOHANNY SANCHEZ Unavailable Unavailable BINU S JOHANNY SANCHEZ Unavailable Unavailable CHIN, S JOHANNY SANCHEZ Unavailable Unavailable BINU S [...] BINU S JOHANNY SANCHEZ Unavailable Unavailable BINU Tracey ORLANDO MD Unavailable Unavailable Tracey SCHMID MD Unavailable Unavailable Tracey SCHMID MD Unavailable Unavailable Bolla, Tracey Nicholson MD [...] Unavailable Bolla, Tracey Nicholson MD Unavailable Unavailable [place]le[place], Tracey Nicholson MD Unavailable Unavailable Bolla, Tracey Nicholson MD Unavailable Unavailable Bolla, Tracey Nicholson MD Unavailable Unavailable Bolla, Tracey Nicholson MD Unavailable Unavailable Bolla, Tracey Nicholson MD Unavailable Unavailable Bolla, Tracey Nicholson MD Unavailable Unavailable [place], Tracey Nicholson MD Unavailable Unavailable Bolla, Tracey iNcholson MD Unavailable Unavailable Bolla, Tracey Nicholson MD Unavailable Unavailable Bolla, Tracey Nicholson MD Unavailable Unavailable [place], Tracey Nicholson MD Unavailable Unavailable Bolla, Tracey Nicholson MD Unavailable Unavailable [place], Tracey Nicholson MD Unavailable Unavailable Bolla, Tracey Nicholson MD Unavailable Unavailable [place], Tracey Nicholson MD Unavailable Unavailable Bolla, Tracey Nicholson MD Unavailable Unavailable [place], Tracey Nicholson MD Unavailable Unavailable [place], Tracey Nicholson MD Unavailable Unavailable [place], Tracey Nicholson MD Unavailable Unavailable [place], Tracey Nicholson MD Unavailable Unavailable [place], Tracey Nicholson MD Unavailable Unavailable Bolla, Tracey Nicholson MD Unavailable Unavailable [place], Tracey Nicholson MD Unavailable Unavailable [place], Tracey Nicholson MD Unavailable Unavailable BolTracey ha MD Unavailable Unavailable Tracey Yee MD Unavailable Unavailable [place], Tracey Nicholson MD Unavailable Unavailable [place], Tracey Nicholson MD Unavailable Unavailable Bolla, Tracey Nicholson MD Unavailable Unavailable [place], Tracey Nicholson MD Unavailable Unavailable [place], Tracey Nicholson MD Unavailable Unavailable [place], Tracey Nicholson MD Unavailable Unavailable [place], Tracey Nicholson MD Unavailable Unavailable Bolla, Tracey Nicholson MD Unavailable Unavailable [place], Tracey Nicholson MD Unavailable Unavailable Bolla, Tracey Nicholson MD Unavailable Unavailable BolTracey ha MD Unavailable Unavailable ALEKSIEJUK, RADHA MD Unavailable Unavailable RADHA COLEMAN MD Unavailable Unavailable RADHA COLEMAN MD Unavailable Unavailable RADHA COLEMAN MD Unavailable Unavailable Ali, Emeka SANCHEZ Unavailable Unavailable Ali, Emeka SANCHEZ Unavailable Unavailable Ali, Emeka SANCHEZ Unavailable Unavailable Ali, Emeka SANCHEZ Unavailable Unavailable Ali, Emeka SANCHEZ Unavailable Unavailable Ali, Emeka SANCHEZ Unavailable Unavailable Ali, Emeka SANCHEZ Unavailable Unavailable Ali, Emeka SANCHEZ Unavailable Unavailable Ali, Emeka SANCHEZ Unavailable Unavailable Ali, Emeka SANCHEZ Unavailable Unavailable Ali, Emeka Unavailable Unavailable Ali, Emeka Unavailable Unavailable Ali, Emeka SANCHEZ Unavailable Unavailable Ali, Emeka SANCHEZ Unavailable Unavailable Ali, Emeka SANCHEZ Unavailable Unavailable Ali, Emeka SANCHEZ Unavailable Unavailable Ali, Eemka SANCHEZ Unavailable Unavailable Ali, Emeka SANCHEZ Unavailable Unavailable Ali, Emeka SANCHEZ Unavailable Unavailable Ali, Emeka Unavailable Unavailable Ali, Emeka SANCHEZ Unavailable Unavailable [...] Unavailable Unavailable Ali, Emeka SANCHEZ Unavailable Unavailable INFO NEEDED, INFO Unavailable Unavailable Lucas, Leilani MAINTENANCE CLERK Unavailable Unavailable Lucas, Leilani MAINTENANCE CLERK Unavailable Unavailable Lucas, Leilani MAINTENANCE CLERK Unavailable Unavailable Lucas, Leilani MAINTENANCE CLERK Unavailable Unavailable Lucas, Leilani MAINTENANCE CLERK Unavailable Unavailable Lucas, Leilani MAINTENANCE CLERK Unavailable Unavailable Lucas, Leilani MAINTENANCE CLERK Unavailable Unavailable Lucas, Leilani MAINTENANCE CLERK Unavailable Unavailable Lucas, Leilani MAINTENANCE CLERK Unavailable Unavailable Lucas, Leilani MAINTENANCE CLERK Unavailable Unavailable Lucas, Leilani MAINTENANCE CLERK Unavailable Unavailable Lucas, Leilani MAINTENANCE CLERK Unavailable Unavailable Lucas, Leilani MAINTENANCE CLERK Unavailable Unavailable Lucas, Leilani MAINTENANCE CLERK Unavailable Unavailable Lucas, Leilani MAINTENANCE CLERK Unavailable Unavailable Lucas, Leilani MAINTENANCE CLERK Unavailable Unavailable Lucas, Leilani MAINTENANCE CLERK Unavailable Unavailable Lucas, Leilani MAINTENANCE CLERK Unavailable Unavailable Lucas, Leilani MAINTENANCE CLERK Unavailable Unavailable Lucas, Leilani MAINTENANCE CLERK Unavailable Unavailable Lucas, Leilani MAINTENANCE CLERK Unavailable Unavailable Lucas, Leilani MAINTENANCE CLERK Unavailable Unavailable Lucas, Leilani MAINTENANCE CLERK Unavailable Unavailable Lucas, Leilani MAINTENANCE CLERK Unavailable Unavailable Lucas, Leilani MAINTENANCE CLERK Unavailable Unavailable Lucas, Leilani MAINTENANCE CLERK Unavailable Unavailable Lucas, Leilani MAINTENANCE CLERK Unavailable Unavailable Lucas, Leilani MAINTENANCE CLERK Unavailable Unavailable Lucas, Leilani MAINTENANCE CLERK Unavailable Unavailable Lucas, Leilani MAINTENANCE CLERK Unavailable Unavailable Lucas, Leilani MAINTENANCE CLERK Unavailable Unavailable Lucas, Leilani MAINTENANCE CLERK Unavailable Unavailable Lucas, Leilani MAINTENANCE CLERK Unavailable Unavailable Lucas, Leilani MAINTENANCE CLERK Unavailable Unavailable Lucas, Leilani MAINTENANCE CLERK Unavailable Unavailable Lucas, Leilani MAINTENANCE CLERK Unavailable Unavailable JANNY, CHANDANA DOMENIC MAINTENANCE CLERK-C Unavailable Unavailable JANNY, CHANDANA DOMENIC MAINTENANCE CLERK-C Unavailable Unavailable JANNY, CHANDANA DOMENIC MAINTENANCE CLERK-C Unavailable Unavailable JANNY, CHANDANA DOMENIC MAINTENANCE CLERK-C Unavailable Unavailable JANNY, CHANDANA DOMENIC MAINTENANCE CLERK-C Unavailable Unavailable JANNY, CHANDANA DOMENIC MAINTENANCE CLERK-C Unavailable Unavailable JANNY, CHANDANA DOMENIC MAINTENANCE CLERK-C Unavailable Unavailable JANNY, CHANDANA DOMENIC MAINTENANCE CLERK-C Unavailable Unavailable JANNY, CHANDANA DOMENIC MAINTENANCE CLERK-C Unavailable Unavailable JANNY, CHANDANA DOMENIC MAINTENANCE CLERK-C Unavailable Unavailable JANNY, CHANDANA DOMENIC MAINTENANCE CLERK-C Unavailable Unavailable JANNY, CHANDANA DOMENIC MAINTENANCE CLERK-C Unavailable Unavailable JANNY, CHANDANA DOMENIC MAINTENANCE CLERK-C Unavailable Unavailable JANNY, CHANDANA DOMENIC MAINTENANCE CLERK-C Unavailable Unavailable JANNY, CHANDANA DOMENIC MAINTENANCE CLERK-C Unavailable Unavailable JANNY, CHANDANA DOMENIC MAINTENANCE CLERK-C Unavailable Unavailable JANNY, CHANDANA DOMENIC MAINTENANCE CLERK-C Unavailable Unavailable TOSHIA ARREDONDO MD Unavailable Unavailable ARREDONDOTOSHIA GRIER MD Unavailable Unavailable TOSHIA ARREDONDO MD Unavailable Unavailable ARREDONDOTOSHIA GRIER MD Unavailable Unavailable ARREDONDOTOSHIA GRIER MD Unavailable Unavailable ARREDONDOTOSHIA GRIER MD Unavailable Unavailable TOSHIA ARREDONDO MD Unavailable Unavailable TOSHIA ARREDONDO MD Unavailable Unavailable TOSHIA ARREDONDO MD Unavailable Unavailable TOSHIA ARREDONDO MD Unavailable Unavailable TOSHIA ARREDONDO MD Unavailable Unavailable TOSHIA ARREDONDO MD Unavailable Unavailable TOSHIA ARREDONDO MD Unavailable Unavailable TOSHIA ARREDONDO MD Unavailable Unavailable ARREDONDOTOSHIA GRIER MD Unavailable Unavailable TOSHIA ARREDONDO MD Unavailable Unavailable ARREDONDOTOSHIA GRIER MD Unavailable Unavailable TOSHIA ARREDONDO MD Unavailable Unavailable TOSHIA ARREDONDO MD Unavailable Unavailable TOSHIA ARREDONDO MD Unavailable Unavailable TOSHIA ARREDONDO MD Unavailable Unavailable TOSHIA ARREDONDO MD Unavailable Unavailable TOSHIA ARREDONDO MD Unavailable Unavailable TOSHIA ARREDONDO MD Unavailable Unavailable TOSHIA ARREDONDO MD Unavailable Unavailable TOSHIA ARREDONDO MD Unavailable Unavailable TOSHIA ARREDONDO MD Unavailable Unavailable TOSHIA ARREDONDO MD Unavailable Unavailable ARREDONDOTOSHIA GRIER MD Unavailable Unavailable TOSHIA ARREDONDO MD Unavailable Unavailable ARREDONDOTOSHIA GRIER MD Unavailable Unavailable TOSHIA ARREDONDO MD Unavailable Unavailable TOSHIA ARREDONDO MD Unavailable Unavailable TOSHIA ARREDONDO MD Unavailable Unavailable TOSHIA ARREDONDO MD Unavailable Unavailable TOSHIA ARREDONDO MD Unavailable Unavailable TOSHIA ARREDONDO MD Unavailable Unavailable TOSHIA ARREDONDO MD Unavailable Unavailable TOSHIA ARREDONDO MD Unavailable Unavailable TOSHIA ARREDONDO MD Unavailable Unavailable TOSHIA ARREDONDO MD Unavailable Unavailable TOSHIA ARREDONDO MD Unavailable Unavailable ARREDONDOTOSHIA GRIER AGUSTINLILY SANCHEZ Unavailable Unavailable ARREDONDO, POPE AGUSTIN MD Unavailable Unavailable TOSHIA ARREDONDO MD Unavailable Unavailable ARREDONDO, TOSHIA VELEZ MD Unavailable Unavailable ARREDONDO, TOSHIA VELEZ MD Unavailable Unavailable Yen, L Clarita RPA [...] Unavailable Yen, L Clarita RPA Unavailable Unavailable PAWEL MAURER MD Unavailable Unavailable PAWEL MAURER MD Unavailable Unavailable PAWEL MAURER MD Unavailable Unavailable PAWEL MAURER MD Unavailable Unavailable PAWEL MAURER MD Unavailable Unavailable PAWEL MAURER MD Unavailable Unavailable PAWEL MAURER MD Unavailable Unavailable PAWEL MAURER MD Unavailable Unavailable PAWEL MAURER MD Unavailable Unavailable BROWN, HANDY CORRINE DIETITIAN TEACHING Unavailable Unavailable BROWN, HANDY CORRINE DIETITIAN TEACHING Unavailable Unavailable BROWN, HANDY CORRINE DIETITIAN TEACHING Unavailable Unavailable BROWN, HANDY CORRINE DIETITIAN TEACHING Unavailable Unavailable BROWN, HANDY CORRINE DIETITIAN TEACHING Unavailable Unavailable BROWN, HANDY CORRINE DIETITIAN TEACHING Unavailable Unavailable BROWN, HANDY CORRINE DIETITIAN TEACHING Unavailable Unavailable BROWN, HANDY CORRINE DIETITIAN TEACHING Unavailable Unavailable BROWN, HANDY CORRINE DIETITIAN TEACHING Unavailable Unavailable BROWN, HANDY CORRINE DIETITIAN TEACHING Unavailable Unavailable BROWN, HANDY CORRINE DIETITIAN TEACHING Unavailable Unavailable BROWN, HANDY CORRINE DIETITIAN TEACHING Unavailable Unavailable BROWN, HANDY CORRINE DIETITIAN TEACHING Unavailable Unavailable BROWN, HANDY CORRINE DIETITIAN TEACHING Unavailable Unavailable BROWN, HANDY CORRINE DIETITIAN TEACHING Unavailable Unavailable BROWN, HANDY CORRINE DIETITIAN TEACHING Unavailable Unavailable BROWN, HANDY CORRINE DIETITIAN TEACHING Unavailable Unavailable BROWN, HANDY CORRINE DIETITIAN TEACHING Unavailable Unavailable BROWN, HANDY CORRINE DIETITIAN TEACHING Unavailable Unavailable BROWN, HANDY CORRINE DIETITIAN TEACHING Unavailable Unavailable BROWN, HANDY CORRINE DIETITIAN TEACHING Unavailable Unavailable BROWN, HANDY CORRINE DIETITIAN TEACHING Unavailable Unavailable BROWN, HANDY CORRINE DIETITIAN TEACHING Unavailable Unavailable BROWN, HANDY CORRINE DIETITIAN TEACHING Unavailable Unavailable BROWN, HANDY CORRINE DIETITIAN TEACHING Unavailable Unavailable BROWN, HANDY CORRINE DIETITIAN TEACHING Unavailable Unavailable BROWN, HANDY CORRINE DIETITIAN TEACHING Unavailable Unavailable BROWN, HANDY CORRINE DIETITIAN TEACHING Unavailable Unavailable BROWN, HANDY CORRINE DIETITIAN TEACHING Unavailable Unavailable BROWN, HANDY CORRINE DIETITIAN TEACHING Unavailable Unavailable BROWN, HANDY CORRINE DIETITIAN TEACHING Unavailable Unavailable BROWN, HANDY CORRINE DIETITIAN TEACHING Unavailable Unavailable BROWN, HANDY CORRINE DIETITIAN TEACHING Unavailable Unavailable BROWN, HANDY CORRINE DIETITIAN TEACHING Unavailable Unavailable BROWN, HANDY CORRINE DIETITIAN TEACHING Unavailable Unavailable BROWN, HANDY CORRINE DIETITIAN TEACHING Unavailable Unavailable BROWN, HANDY CORRINE DIETITIAN TEACHING Unavailable Unavailable BROWN, HANDY CORRINE DIETITIAN TEACHING Unavailable Unavailable Hegard, Mery MAINTENANCE CLERK Unavailable Unavailable Hegard, Mery MAINTENANCE CLERK Unavailable Unavailable Hegard, Mery MAINTENANCE CLERK Unavailable Unavailable Hegard, Mery MAINTENANCE CLERK Unavailable Unavailable Hegard, Mery MAINTENANCE CLERK Unavailable Unavailable Hegard, Mery MAINTENANCE CLERK Unavailable Unavailable Hegard, Mery MAINTENANCE CLERK Unavailable Unavailable Hegard, Mery MAINTENANCE CLERK Unavailable Unavailable Hegard, Mery MAINTENANCE CLERK Unavailable Unavailable Hegard, Mery MAINTENANCE CLERK Unavailable Unavailable Hegard, Mery MAINTENANCE CLERK Unavailable Unavailable Hegard, Mery MAINTENANCE CLERK Unavailable Unavailable Hegard, Mery MAINTENANCE CLERK Unavailable Unavailable Hegard, Mery MAINTENANCE CLERK Unavailable Unavailable Hegard, Mery MAINTENANCE CLERK Unavailable Unavailable Hegard, Mery MAINTENANCE CLERK Unavailable Unavailable Hegard, Mery MAINTENANCE CLERK Unavailable Unavailable Re-disclosure Warning The records that [...] is protected by Article 27-F of the [facility] Public Health law. If you continue you may have access to information: Regarding HIV / AIDS; Provided by facilities licensed or operated by the [facility] Office of Mental Health; or Provided by the [facility] Office for People With Developmental Disabilities. If such information is present, then the following [facility] mandated warning applies: This information [...] law may result in a fine or [place] [facility] [place] sentence or both. A general authorization for the release of medical or other information is NOT sufficient authorization for further disc losure. Family History Family Member Name Family Member Gender Family Member Status Date o f Status Description Data Source(s) Unknown Unknown Problem [facility] ([facility], ) sister #1; Dx age age 38 Unknown Unknown Problem MEDENT ([facility]) sister Unknown Female Problem [facility] ([facility]) Unknown Male Problem [facility] ([facility]) Unknown Male Problem [facility] ([facility]) Unknown Male Problem [facility] ([facility]) Encounters Encounter Providers Location Date Indications Data Source(s ) Outpatient Attender: AGUSTIN ARREDONDO MD 09/12/2021 12:00:00 AM [facility] Outpatient Attender: Emeka Pathak MD Main office - [place] 12/25/2020 11:00:00 AM EDT [facility] ([facility], ) Outpatient Attender: EBENEZER HUNT 03:51:00 PM EDT - 12/21/2020 12:09:00 PM T [facility] Patient discharged. Outpatient Attender: EBENEZER QUICKttender: LANDON FORRESTER 11/30/2020 02:23:00 PM EDT - 12/03/2020 02:00:00 PM EDT [facility] Patient discharged. Emergency Attender: EBENEZER SÁNCHEZ PAReferrer: Clarita correia RPA 11/22/2020 09:21:00 AM EDT - 11/22/2020 12:43:00 PM EDT [facility] Patient discharged. Outpatient Attender: Mery Garcia [facility] Main Office 0 10/29/2020 11:30:00 AM EDT [facility] ([facility]) Outpatient Attender: Gardenia Fernandez [facility] Main Office 09/06/2020 01:30:00 PM EDT [facility] ([facility]) Outpatient Attender: AGUSTIN ARREDONDO MD [address] [place] [address] 09/06/2020 12:00:00 A M [facility] Outpatient Attender: DOMENIC ATKINSONP-C Ana/Telma/Vikas/Barrington serrano 08/24/2020 10:15:00 AM EDT [facility] ([facility] Outpatient Attender: AGUSTIN ARREDONDO MD 08/16/2020 12:00:00 AM [facility] Outpatient Attender: Mery Garcia [facility] Main Office 0 07/16/2020 11:30:00 AM EDT [facility] ([facility]) Outpatient Attender: Emeka Pathak MD Main office - [place] 06/26/2020 10:30:00 AM EDT MED[facility] ([facility] Luz Rico DIETITIAN TEACHING: [address], [address], [place] [address], Ph. Attender: Luz Rico [facility] - [facility] - Main Office 06/26/2020 12:00:00 AM EDT ATHE NA ([facility]) Outpatient Attender: DOMENIC SOLIMAN MAINTENANCE CLERK-C Ana/Telma/Vikas/R kiannandl 06/21/2020 03:15:00 PM EDT MARLENE ([facility]) Bharat Yee MD: [address], [place] [address], Ph. Attender: Bharat Yee MD [place] - [facility] 06/12/2020 12:00:00 AM EST KAYLEEN ([facility]) Bharat Yee MD: [address], [place] [address], Ph. Attender: Bharat Yee MD [place] - [facility] 06/12/2020 12:00:00 AM EST KAYLEEN ([facility]) Luzlupillo Rico, DIETITIAN TEACHING: [address], [place] [address], Ph. Attender: Luz Rico [facility] 05/30/2020 12:00:00 AM EST ATHE NA ([facility]) Luz Rico, DIETITIAN TEACHING: [address], [place] [address], Ph. Attender: Luz Rico [facility] 05/30/2020 12:00:00 AM EST ATHE NA ([facility]) Luz Rico, DIETITIAN TEACHING: [address], [place] [address], Ph. Attender: Luz Rico [facility] 05/30/2020 12:00:00 AM EST ATHE NA ([facility]) Outpatient Attender: [facility]/23/[facility] 12: 00:00 AM EST Benign neoplasm of meninges, unspecified [facility] Benign neoplasm of meninges, unspecified Outpatient Attender: DOMENIC Perez/Telma/Vikas/Barrington serrano 05/18/2020 09:15:00 AM EST MEDENT ([facility], ) Outpatient Attender: JOHANNY SCHMID MD 05/16/2020 12:00:00 AM EST [facility] Outpatient Referrer: RADHA COLEMAN MD 05/16/2020 12:0 0:00 AM EST [facility] Bharat Yee MD: [id number], [address] [place], [place] [phone], Ph. Attender: Bharat Yee MD [place] - [facility] 05/04/2020 12:00:00 AM EST KAYLEEN ([facility]) Bharat Yee MD: [address], [place] [address], Ph. Attender: Bharat Yee [place] - [facility] 05/04/2020 12:00:00 AM EST KAYLEEN ([facility]) Bharat Yee MD: [address], [place] [address], Ph. Attender: Bharat SQUIRES - [facility] 05/04/2020 12:00:00 AM EST KAYLEEN ([facility]) Bharat Yee MD: [address], [place] [address], Ph. Attender: Bharat Yee [place] - [facility] Office 05/04/2020 12:00:00 AM EST KAYLEEN ([facility]) Bharat Yee MD: [address], [place] [address], Ph. [phone] Attender: Bharat Yee [place] [facility] 04/30/2020 12:00:00 AM EST KAYLEEN ([facility]) Bharat Yee MD: [address], [place] [address], Ph. [phone] Attender: Bharat Yee [place] [facility] 04/30/2020 12:00:00 AM EST KAYLEEN ([facility]) Bharat Yee MD: [address], [address], [place] [address], Ph. [phone] Attender: Bharat Yee [place] [facility] 04/30/2020 12:00:00 AM EST KAYLEEN ([facility]) Bharat Yee MD: [address], [place] [address], Ph. [phone] Attender: Bharat Yee [place] - [facility] 04/30/2020 12:00:00 AM EST KAYLEEN ([facility]) Bharat Yee MD: [address], [address], [place] [address], Ph. [phone] Attender: Bharat Yee [place] [facility] 04/30/2020 12:00:00 AM EST KAYLEEN ([facility]) Bharat Yee MD: [address], [place] [address], Ph. Attender: Bharat Yee MD [place] - [facility] 04/12/2020 12:00:00 AM EST KAYLEEN ([facility]) Bharat Yee MD: [address], [place] [address], Ph. Attender: Bharat Yee [place] - [facility] 04/12/2020 12:00:00 AM EST KAYLEEN ([facility]) Bharat Yee MD: [address], [place] [address], Ph. Attender: Bharat Yee [place] [facility] 04/12/2020 12:00:00 AM EST KAYLEEN ([facility]) Bharat Yee MD: [address], [place] [address], Ph. Attender: Bharat SQUIRES - [facility] 04/12/2020 12:00:00 AM EST KAYLEEN ([facility]) Bharat Yee MD: [address], [place] [address], Ph. Attender: Bharat Yee [place] - [facility] 04/12/2020 12:00:00 AM EST KAYLEEN ([facility]) Bharat Yee MD: [address], [place] [address], Ph. Attender: Bharat SQUIRES - [facility] 04/12/2020 12:00:00 AM EST KAYLEEN ([facility]) Bharat Yee MD: [address], [place] [address], Ph. [phone] Attender: Bharat SQUIRES - [facility] 2020 12:00:00 AM EST KAYLEEN ([facility]) Bharat Yee MD: [address], [place] [address], Ph. [phone] Attender: Bharat SQUIRES - [facility] 2020 12:00:00 AM EST KAYLEEN ([facility]) Bharat Yee MD: [address], [address], [place] [address], Ph. [phone] Attender: Bharat Yee [place] - [facility] 2020 12:00:00 AM EST KAYLEEN ([facility]) Bharat Yee MD: [address], [address], [place] [address], Ph. [phone] Attender: Bharat Yee [place] - [facility] 2020 12:00:00 AM EST KAYLEEN ([facility]) Bharat Yee MD: [address], [address], [place] [address], Ph. [phone] Attender: Bharat [place]ee [place] - [facility] 2020 12:00:00 AM EST KAYLEEN ([facility]) Bharat Yee MD: [address], [address], [place] [address], Ph. [phone] Attender: Bharat [place]ee [place] - [facility] 2020 12:00:00 AM EST KAYLEEN ([facility]) Bharat Yee MD: [address], [place] [address], Ph. [phone] Attender: Bharat [place]ee [place] - [facility] 2020 12:00:00 AM EST KAYLEEN ([facility]) Bharat Yee MD: [address], [place] [address], Ph. Attender: Bharat Yee [place] - [facility] 03/16/2020 12:00:00 AM EST KAYLEEN ([facility]) Bharat Yee MD: [address], [address], [place] [address], Ph. Attender: Bharat Yee [place] - [facility] 03/16/2020 12:00:00 AM EST KAYLEEN ([facility]) Bharat Yee MD: [address], [address], [place] [address], Ph. Attender: Bharat Yee [place] - [facility] 03/16/2020 12:00:00 AM EST KAYLEEN ([facility]) Bharat Yee MD: [address], [address], [place] [address], Ph. Attender: Bharat Yee [place] - [facility] 03/16/2020 12:00:00 AM EST KAYLEEN ([facility]) Bharat Yee MD: [address], [address], [place] [address], Ph. Attender: Bharat Yee [place] - [facility] 03/16/2020 12:00:00 AM EST KAYLEEN ([facility]) Bharat Yee MD: [address], [place] [address], Ph. Attender: Bharat Yee [place] - [facility] 03/16/2020 12:00:00 AM EST KAYLEEN ([facility]) Bharat Yee MD: [address], [place] [address], Ph. Attender: Bharat [place]ee [place] - [facility] 03/16/2020 12:00:00 AM EST KAYLEEN ([facility]) Bharat Yee MD: [address], [address], [place] [address], Ph. Attender: Bharat Yee [place] - [facility] - [facility] Office 03/16/2020 12:00:00 AM EST KAYLEEN ([facility]) Outpatient Attender: CORRINE WILSON DIETITIAN TEACHING ED-IMAG 2019 01:06:00 PM EST - 03/15/2020 01:07:00 PM EST SCREENING [facility] SCREENING Patient discharged. Bharat Yee MD: [address], [place] [address], Ph. [phone] Attender: Bharat SQUIRES - [facility] - [facility] 03/12/2020 12:00:00 AM EST KAYLEEN ([facility]) Bharat Yee MD: [address], [place] [address], Ph. [phone] Attender: Bharat SQUIRES - [facility] - [facility] 03/12/2020 12:00:00 AM EST KAYLEEN ([facility]) Bharat Yee MD: [address], [place] [address], Ph. [phone] Attender: Bharat SQUIRES - [facility] - [facility] 03/12/2020 12:00:00 AM EST KAYLEEN ([facility]) Bharat Yee MD: [address], [place] [address], Ph. [phone] Attender: Bharat SQUIRES - [facility] 03/12/2020 12:00:00 AM EST KAYLEEN ([facility]) Bharat Yee MD: [address], [place] [address], Ph. [phone] Attender: Bharat SQUIRES - [facility] Office 03/12/2020 12:00:00 AM EST KAYLEEN ([facility]) Bharat Yee MD: [address], [address], [place] [address], Ph. [phone] Attender: Bharat Yee [place] - [facility] 03/12/2020 12:00:00 AM EST KAYLEEN ([facility]) Bharat Yee MD: [address], [place] [address], Ph. [phone] Attender: Bharat Yee [place] - [facility] 03/12/2020 12:00:00 AM EST KAYLEEN ([facility]) Bharat Yee MD: [address], [address], [place] [address], Ph. [phone] Attender: Bharat Yee [place] - [facility] 03/12/2020 12:00:00 AM EST KAYLEEN ([facility]) Bharat Yee MD: [address], [address], [place] [address], Ph. [phone] Attender: Bharat Yee [place] - [facility] 03/12/2020 12:00:00 AM EST KAYLEEN ([facility]) Luz Rico, DIETITIAN TEACHING: [address], [place] [address], Ph. Attender: Luz Rico [facility] - [facility] 03/06/2020 12:00:00 AM EST ATHE NA ([facility]) Luz Rico, DIETITIAN TEACHING: [address], [place] [address], Ph. Attender: Luz Rico [facility] - [facility] 03/06/2020 12:00:00 AM EST ATHE NA ([facility]) Luz Rico, DIETITIAN TEACHING: [address], [address], [place] [address], Ph. Attender: Luz Rico [facility] - [facility] 03/06/2020 12:00:00 AM EST ATHE NA ([facility]) Luz Rico, DIETITIAN TEACHING: [address], [address], [place] [address], Ph. Attender: Luz Rico [facility] - [facility] 03/06/2020 12:00:00 AM EST ATHE NA ([facility]) Luz Rico, DIETITIAN TEACHING: [address], [place] [address], Ph. Attender: Luz Rico [facility] - [facility] 03/06/2020 12:00:00 AM EST ATHE NA ([facility]) Luz Rico, DIETITIAN TEACHING: [address], [address], [place] [address], Ph. Attender: Luz Rico [facility] - [facility] 03/06/2020 12:00:00 AM EST ATHE NA ([facility]) Luz Rico, DIETITIAN TEACHING: [address], [address], [place] [address], Ph. Attender: Luz Rico [facility] - [facility] 03/06/2020 12:00:00 AM EST ATHE NA ([facility]) Luz Rico, DIETITIAN TEACHING: [address], [place] [address], Ph. Attender: Luz Wassermanulysses [facility] - [facility] 03/06/2020 12:00:00 AM EST ATHE NA ([facility]) Luz Rico, DIETITIAN TEACHING: [address], [address], [place] [address], Ph. Attender: Luz Rico [facility] - [facility] - Main Office 03/06/2020 12:00:00 AM EST ATHE NA ([facility]) Luz Rico, DIETITIAN TEACHING: [address], [address], [place] [address], Ph. Attender: Luz Rico [facility] - [facility] - Main Office 03/06/2020 12:00:00 AM EST ATHE NA ([facility]) Outpatient Attender: CORRINE WILSON NP CPSCAORT-CPSGNOBG 02/04 11:22:00 AM EST - 02/21/2020 11:23:00 AM EST [facility] Patient discharged. Outpatient Attender: Emeka Pathak MD Main office - [place] 12/27/2019 02:30:00 PM EDT [facility] ([facility]) Outpatient Attender: CORRINE WILSON NP CPSCAORT-CPSGNOBG 11/04 10:58:00 AM EDT - 11/22/2019 10:59:00 AM EDT [facility] Patient discharged. Outpatient Attender: CORRINE WILSON NPReferrer: Clarita bernardo [facility] 04/04/2019 01:00:00 PM EST - 04/04/2019 01:00:00 PM [facility] Emergency Attender: MAVERICK ULRICH DOReferrer: Joanna Yen [facility] EMERGENCY ROOM-ER 12/18/2013 10:42:00 AM EDT - 12/18/2013 01:41:00 PM [facility] Emergency Attender: BENNY MAURER MDReferrer: Clarita Yen [facility] EMERGENCY ROOM-ER 09/05/2013 09:51:00 AM EDT - 09/05/2013 11:35:00 AM [facility] Immunizations Vaccine Date Status Description Data Source(s) COVID-19 VACCINE Moderna 06/20/2020 12:00:00 AM EDT completed [facility] Vaccine Series Complete: YESThis Data wa s Submitted to [facility] Via [employer] COVID-19 VACCINE, MRNA-[id number], LNP-S (MODERNA)/PF 06/20/2020 1 2:00:00 AM EDT completed [facility] COVID-19 VACCINE, MRNA-1273, LNP-S (MODERNA)/PF 05/20/2020 1 2:00:00 AM EST completed [facility] COVID-19 VACCINE Moderna 05/19/2020 12:00:00 AM EST completed [facility] Vaccine Series Complete: NOThis Data was Submitted to [facility] [employer] This CVX code allows reporting of a vacc ination when formulation is unknown (for example, when recording a Influenza vaccination when noted on a vaccination card) 01/16/2020 08:30:00 AM EDT completed MEDEN T ([facility]) Medications Medication Brand Name Start Date Product Form Dose Route Admi nistrative Instructions Pharmacy Instructions Status Indications Reaction Description Data Source(s) montelukast 10 MG Oral Tablet Montelukast Sodium 02/01/2021 12:00:00 AM EDT active [facility] ([facility]) ropinirole 0.5 MG Oral Tablet Ropinirole HCL 12/25/2020 12:00:00 AM EDT active [facility] ([facility]) 24 HR Bupropion Hydrochloride 300 MG Extended Release Oral T ablet BUPROPION HCL 11/27/2020 12:00:00 AM EDT tablet extended release 24 hr 30 TAKE ONE TABLET BY MOUTH EVERY MORNING TAKE ONE TABLET BY MOUTH EVERY MORNING SOLD: 11/28/2020 [facility] 24 HR Bupropion Hydrochloride 300 MG Extended Release Oral T ablet BUPROPION HCL 11/27/2020 12:00:00 AM EDT tablet extended release 24 hr 30 TAKE ONE TABLET BY MOUTH EVERY MORNING TAKE ONE TABLET BY MOUTH EVERY MORNING SOLD: 01/10/2021 [facility] 250 mg 11/27/2020 12:00:00 AM EDT tablet 6 TAKE TWO TABLETS BY MOUTH AT ONCE ON THE FIRST DAY THEN TAKE ONE DAILY THEREAFTER TAKE TWO TABLETS BY MOUTH AT ONCE ON THE FIRST DAY THEN TAKE ONE DAILY THEREAFTER SOLD: 11/28/2020 [facility] Ondansetron 4 MG Disintegrating Oral Tablet ONDANSETRON 11/22/2020 12:00:00 AM EDT tablet,disintegrating 20 DISSOLVE O NE TABLET ON TONGUE EVERY 6 HOURS NEEDED DISSOLVE ONE TABLET ON TONGUE EVERY 6 HOURS NEEDED SOLD: 11/04 [facility] Meclizine Hydrochloride 25 MG Oral Tablet MECLIZINE HCL 11/22/2020 12:00:00 AM EDT tablet 24 TAKE ONE TABLET BY MOUTH SERA RY 6 HOURS NEEDED TAKE ONE TABLET BY MOUTH EVERY 6 HOURS NEEDED SOLD: 11/22/2020 [facility] 20 mg 11/22/2020 12:00:00 AM EDT tablet 8 TAKE TWO TABLETS BY MOUTH EVERY DAY DIRECTED TAKE TWO TABLETS BY MOUTH EVERY DAY DIRECTED SOLD: 11/22/2020 [facility] 50 mcg/actuation 11/01/2020 12:00:00 AM EDT spray,non-aeroso l 17 SPRAY TWO SPRAYS IN EACH NOSTRIL DAILY SPRAY TWO SPRAYS IN EACH NOSTRIL DAILY SOLD: 11/08/2020 [facility] SUPREP BOWEL PREP KIT 17.5-3.13-1.6 gram SODIUM, POTASSIUM,M AG SULFATES 10/25/2020 12:00:00 AM EDT recon soln 354 TAKE PER DOCTOR'S BOWEL PREP INSTRUCTIONS TAKE PER DOCTOR'S BOWEL PREP INSTRUCTIONS SOLD: 11/01/2020 [facility] MAGNESIUM CITRATE 10/25/2020 12:00:00 AM EDT solution 296 USE ONE 10 OUNCE BOTTLE PRIOR TO PROCEDURE FOR ADDITIONAL BOWEL PREP PER INSTRUCTIONS USE ONE 10 OUNCE BOTTLE PRIOR TO PROCEDURE FOR ADDITIONAL BOWEL PREP PER INSTRUCTIONS SOLD: 11/01/2020 [facility] Suprep Bowel Prep Kit Suprep Bowel Prep Kit 10/24/2020 12:00:00 AM EDT active [facility] ([facility], ) 24 HR Bupropion Hydrochloride 150 MG Extended Release Oral T ablet BUPROPION HCL 10/24/2020 12:00:00 AM EDT tablet extended release 24 hr 30 TAKE ONE TABLET BY MOUTH EVERY MORNING TAKE ONE TABLET BY MOUTH EVERY MORNING SOLD: 11/28/2020 [facility] magnesium citrate 58.2 MG/ML Oral Solution Magnesium Citrate 10/24/2020 12:00:00 AM EDT active MEDENT ([facility], ) 24 HR Bupropion Hydrochloride 150 MG Extended Release Oral T ablet BUPROPION HCL 10/24/2020 12:00:00 AM EDT tablet extended release 24 hr 30 TAKE ONE TABLET BY MOUTH EVERY MORNING TAKE ONE TABLET BY MOUTH EVERY MORNING SOLD: 10/24/2020 [facility] 0.05 % 09/12/2020 12:00:00 AM EDT dropperette 60 INSTILL 1 DROP IN EACH EYE TWO TIMES A DAY INSTILL 1 DROP IN EACH EYE TWO TIMES A DAY SOLD: 09/19/2020 [facility] 1 % 09/07/2020 12:00:00 AM EDT solution 60 APPLY TO RIGHT POST-AURICULAR AREA SPARINGLY ONCE DAILY APPLY TO RIGHT POST-AURICULAR AREA SPARI NGLY ONCE DAILY SOLD: 09/10/2020 [facility] 1 % 09/07/2020 12:00:00 AM EDT solution 60 APPLY TO RIGHT POST-AURICULAR AREA SPARINGLY ONCE DAILY APPLY TO RIGHT POST-AURICULAR AREA SPARI NGLY ONCE DAILY SOLD: 11/21/2020 [facility] Clindamycin 10 MG/ML Topical Solution Clindamycin Phosphate 09/06/2020 12:00:00 AM EDT active [facility] ([facility] pantoprazole 40 MG Delayed Release Oral Tablet PANTOPRAZOLE SODIUM 07/18/2020 12:00:00 AM EDT tablet,delayed release (DR/EC) 15 T WALE ONE TABLET BY MOUTH EVERY DAY TAKE ONE TABLET BY MOUTH EVERY DAY SOLD: 07/18/2020 [facility] CPAP 06/28/2020 12:00:00 AM EDT active MEDENT ([facility], ) Covid-19 vaccine, Unspecified 06/20/2020 12:00:00 AM EDT completed [facility] ([facility]) Medication administered onsite Covid-19 vaccine, Unspecified 06/20/2020 12:00:00 AM EDT completed [facility] ([facility], ) Medication administered onsite tizanidine 4 MG Oral Tablet TIZANIDINE HCL 05/30/2020 12:00:00 AM EST tablet 30 TAKE ONE TABLET BY MOUTH AT BEDTIME NEEDED TAKE ONE TABLET BY MOUTH AT BEDTIME NEEDED SOLD: 06/04/2020 [facility] tizanidine 4 MG Oral Tablet tiZANidine HCl 4 MG Oral T ablet (ZANAFLEX) tiZANidine HCl 4 MG Oral Tablet (ZANAFLEX) 05/30/2020 12:00:00 AM EST 4 mg Oral active Take 4 mg by mouth n ightly as needed [facility] Covid-19 vaccine, Unspecified 05/23/2020 12:00:00 AM EST completed [facility] ([facility]) Medication administered onsite Covid-19 vaccine, Unspecified 05/20/2020 12:00:00 AM EST completed [facility]ENT ([facility], ) Medication administered onsite doxycycline hyclate 100 MG Oral Capsule DOXYCYCLINE HYCLATE 05/14/2020 12:00:00 AM EST capsule 14 TAKE ONE CAPSULE BY MOUTH TW ICE A DAY FOR 7 DAYS TAKE ONE CAPSULE BY MOUTH TWICE A DAY FOR 7 DAYS SOLD: 05/15/2020 [facility] 20 mg 05/14/2020 12:00:00 AM EST tablet 10 TAKE ONE TABLET BY MOUTH TWICE A DAY FOR 5 DAYS TAKE ONE TABLET BY MOUTH TWICE A DAY FOR 5 DAYS SOLD: 2020 [facility] Mometasone Furoate Mometasone Furoate 05/03/2020 12:00:00 AM [...] EVERY DAY SOLD: 03/31/2020 [facility] Oxybutynin chloride 5 MG Oral Tablet Oxy butynin Chloride 5 MG Oral Tablet (DITROPAN) Oxybutynin Chloride 5 MG Oral Tablet (DITROPAN) 2019 12:00:00 AM EST 5 mg Oral active Take 5 mg by mout h Two Times Daily [facility] tizanidine 4 MG Oral Tablet TIZANIDINE HCL 03/06/2020 12:00:00 AM EST tablet 30 TAKE ONE TABLET BY MOUTH AT BEDTIME NEEDED TAKE ONE TABLET BY MOUTH AT BEDTIME NEEDED SOLD: 03/09/2020 [facility] Estradiol 0.1 MG/ML Vaginal Cream Estradiol 0.1 MG/GM Vaginal Cream (ESTRACE) Estradiol 0.1 MG/GM Vaginal Cream (ESTRACE) 02/24/2020 12:00:00 AM EST active USE ONE GM VAGINALLY THREE D AYS PER WEEK [facility] Oxybutynin chloride 5 MG Oral Tablet OXYBUTYNIN CHLORIDE 12:00:00 AM EDT tablet 60 TAKE ONE TABLET BY MOUTH TWI CE A DAY TAKE ONE TABLET BY MOUTH TWICE A DAY SOLD: 03/26/2020 [facility] 0.01 % (0.1 mg/gram) 11/22/2019 12:00:00 AM EDT cream 42 USE ONE GM VAGINALLY THREE DAYS PER WEEK USE ONE GM VAGINALLY THREE DAYS PER WEEK SOLD: 02/26/2020 [facility] 5 mg 11/22/2019 12:00:00 AM EDT tablet 60 TAKE ONE TABLET BY MOUTH TWICE A DAY TAKE ONE TABLET BY MOUTH TWICE A DAY SOLD: 08/12/2020 [facility] 20 mg 11/22/2019 12:00:00 AM EDT tablet 30 TAKE ONE TABLET BY MOUTH EVERY DAY TAKE ONE TABLET BY MOUTH EVERY DAY SOLD: 12/26/2019 [facility] pregabalin 75 MG Oral Capsule [Lyrica] LYRICA 75 MG ca psule LYRICA 75 MG capsule 01/22/2016 12:00:00 AM EDT aborted TAKE ONE CAPSULE BY MOUTH EVERY MORNING AND TAKE TWO CAPSULES EVERY EVENING DIRECTED MAXIMUM DAILY DOSE 3 [facility] pregabalin 25 MG Oral Capsule [Lyrica] L yrica 25 mg capsule Take 1 capsule every day by oral route at bedtime. Lyrica 25 mg capsule Take 1 capsule ever y day by oral route at bedtime. 1 capsule(s) completed pregabalin 25 MG Oral Capsule [Lyrica] KAYLEEN ([facility]) Prednisone 20 MG Oral Tablet prednisone 20 mg tablet TAKE ONE TABLET BY MOUTH TWICE A DAY FOR 5 DAYS prednisone 20 mg tablet TAKE ONE TABLET BY MOUTH TWICE A DAY FOR 5 DAYS completed prednis one 20 MG Oral Tablet KAYLEEN ([facility]) Naproxen 500 MG Oral Tablet naproxen 500 mg tablet TAKE ONE TABLET BY MOUTH TWICE A DAY NEEDED naproxen 500 mg tablet TAKE ONE TABLET B Y MOUTH TWICE A DAY NEEDED completed naproxen 500 MG Oral Tablet KAYLEEN ([facility]) Prednisone 20 MG Oral Tablet prednisone 20 mg tablet TAKE ONE TABLET BY MOUTH TWICE A DAY FOR 5 DAYS prednisone 20 mg tablet TAKE ONE TABLET BY MOUTH TWICE A DAY FOR 5 DAYS completed prednis one 20 MG Oral Tablet KAYLEEN ([facility]) Fluoxetine 10 MG Oral Capsule fluoxetine 10 mg capsule Take 1 capsule every day by oral route. fluoxetine 10 mg capsule Take 1 capsule every day by o ral route. 1 capsule(s) completed fluoxeti ne 10 MG Oral Capsule KAYLEEN ([facility]) pregabalin 50 MG Oral Capsule pregabalin 50 mg capsule TAKE ONE CAPSULE BY MOUTH TWICE A DAY MAXIMUM DAILY DOSE TWO CAPSULES pregabalin 50 mg capsule TAKE ONE CAPSULE BY MOUTH TWICE A DAY MAXIMUM DAILY DOSE TWO CAPSULES completed [facility]ab[facility] doxycycline hyclate 100 MG Oral Capsule doxycycline hyclate 100 mg capsule TAKE ONE CAPSULE BY MOUTH TWICE A DAY FOR 7 DAYS doxycycline hyclate 100 mg capsule TAKE ONE CAPSULE BY MOUTH TWICE A DAY FOR 7 DAYS completed doxycycline hyclate 100 MG Oral Capsule KAYLEEN ([facility]) pregabalin 25 MG Oral Capsule [Lyrica] L yrica 25 mg capsule Take 1 capsule every day by oral route at bedtime. Lyrica 25 mg capsule Take 1 capsule ever y day by oral route at bedtime. 1 capsule(s) completed pregabalin 25 MG Oral Capsule [Lyrica] KAYLEEN ([facility]) Naproxen 500 MG Oral Tablet naproxen 500 mg tablet TAKE ONE TABLET BY MOUTH TWICE A DAY NEEDED naproxen 500 mg tablet TAKE ONE TABLET B Y MOUTH TWICE A DAY NEEDED completed naproxen 500 MG Oral Tablet KAYLEEN ([facility]) Naproxen 500 MG Oral Tablet naproxen 500 mg tablet TAKE ONE TABLET BY MOUTH TWICE A DAY NEEDED naproxen 500 mg tablet TAKE ONE TABLET B Y MOUTH TWICE A DAY NEEDED completed naproxen 500 MG Oral Tablet KAYLEEN ([facility]) Fluoxetine 20 MG Oral Capsule fluoxetine 20 mg capsule TAKE ONE CAPSULE BY MOUTH ONCE A DAY REPLACES ESCITALOPRAM fluoxetine 20 mg capsule TAKE ONE CAPSUL E BY MOUTH ONCE A DAY REPLACES ESCITALOPRAM completed fluoxetine 20 MG Oral Capsule KAYLEEN ([facility]) pregabalin 25 MG Oral Capsule [Lyrica] L yrica 25 mg capsule Take 1 capsule every day by oral route at bedtime. Lyrica 25 mg capsule Take 1 capsule ever y day by oral route at bedtime. 1 capsule(s) completed pregabalin 25 MG Oral Capsule [Lyrica] [facility] ([facility]) Naproxen 500 MG Oral Tablet naproxen 500 mg tablet TAKE ONE TABLET BY MOUTH TWICE A DAY NEEDED naproxen 500 mg tablet TAKE ONE TABLET B Y MOUTH TWICE A DAY NEEDED completed naproxen 500 MG Oral Tablet [facility] ([facility]) pregabalin 50 MG Oral Capsule pregabalin 50 mg capsule TAKE ONE CAPSULE BY MOUTH TWICE A DAY MAXIMUM DAILY DOSE TWO CAPSULES pregabalin 50 mg capsule TAKE ONE CAPSULE BY MOUTH TWICE A DAY MAXIMUM DAILY DOSE TWO CAPSULES completed [facility] Flu[facility] 10 MG Oral Capsule fluoxetine 10 mg capsule Take 1 capsule every day by oral route. fluoxetine 10 mg capsule Take 1 capsule every day by o ral route. 1 capsule(s) completed fluoxeti ne 10 MG Oral Capsule K[facility] ([facility]) pregabalin 50 MG Oral Capsule pregabalin 50 mg capsule TAKE ONE CAPSULE BY MOUTH TWICE A DAY MAXIMUM DAILY DOSE TWO CAPSULES pregabalin 50 mg capsule TAKE ONE CAPSULE BY MOUTH TWICE A DAY MAXIMUM DAILY DOSE TWO CAPSULES completed pregabalin 50 MG Oral Capsule AT [facility] ([facility]) pregabalin 25 MG Oral Capsule [Lyrica] L yrica 25 mg capsule Take 1 capsule every day by oral route at bedtime. Lyrica 25 mg capsule Take 1 capsule ever y day by oral route at bedtime. 1 capsule(s) completed pregabalin 25 MG Oral Capsule [Lyrica] KAYLEEN ([facility]) Fluoxetine 10 MG Oral Capsule fluoxetine 10 mg capsule Take 1 capsule every day by oral route. fluoxetine 10 mg capsule Take 1 capsule every day by o ral route. 1 capsule(s) completed fluoxeti ne 10 MG Oral Capsule [facility] ([facility]) Fluoxetine 20 MG Oral Capsule fluoxetine 20 mg capsule TAKE ONE CAPSULE BY MOUTH ONCE A DAY REPLACES ESCITALOPRAM fluoxetine 20 mg capsule TAKE ONE CAPSUL E BY MOUTH ONCE A DAY REPLACES ESCITALOPRAM completed fluoxetine 20 MG Oral Capsule K[facility]LEEN ([facility]) Fluoxetine 10 MG Oral Capsule fluoxetine 10 mg capsule Take 1 capsule every day by oral route. fluoxetine 10 mg capsule Take 1 capsule every day by o ral route. 1 capsule(s) completed fluoxeti ne 10 MG Oral Capsule K[facility] ([facility]) pregabalin 25 MG Oral Capsule [Lyrica] L yrica 25 mg capsule Take 1 capsule every day by oral route at bedtime. Lyrica 25 mg capsule Take 1 capsule ever y day by oral route at bedtime. 1 capsule(s) completed pregabalin 25 MG Oral Capsule [Lyrica] KAYLEEN ([facility]) Fluoxetine 20 MG Oral Capsule fluoxetine 20 mg capsule TAKE ONE CAPSULE BY MOUTH ONCE A DAY REPLACES ESCITALOPRAM fluoxetine 20 mg capsule TAKE ONE CAPSUL E BY MOUTH ONCE A DAY REPLACES ESCITALOPRAM completed fluoxetine 20 MG Oral Capsule [facility] ([facility]) pregabalin 50 MG Oral Capsule pregabalin 50 mg capsule TAKE ONE CAPSULE BY MOUTH TWICE A DAY MAXIMUM DAILY DOSE TWO CAPSULES pregabalin 50 mg capsule TAKE ONE CAPSULE BY MOUTH TWICE A DAY MAXIMUM DAILY DOSE TWO CAPSULES completed pregabalin 50 MG Oral Capsule AT [facility] ([facility]) doxycycline hyclate 100 MG Oral Capsule doxycycline hyclate 100 mg capsule TAKE ONE CAPSULE BY MOUTH TWICE A DAY FOR 7 DAYS doxycycline hyclate 100 mg capsule TAKE ONE CAPSULE BY MOUTH TWICE A DAY FOR 7 DAYS completed doxycycline hyclate 100 MG Oral Capsule [facility] ([facility]) Fluoxetine 20 MG Oral Capsule fluoxetine 20 mg capsule TAKE ONE CAPSULE BY MOUTH ONCE A DAY REPLACES ESCITALOPRAM fluoxetine 20 mg capsule TAKE ONE CAPSUL E BY MOUTH ONCE A DAY REPLACES ESCITALOPRAM completed fluoxetine 20 MG Oral Capsule [facility] ([facility]) Fluoxetine 20 MG Oral Capsule fluoxetine 20 mg capsule TAKE ONE CAPSULE BY MOUTH ONCE A DAY REPLACES ESCITALOPRAM fluoxetine 20 mg capsule TAKE ONE CAPSUL E BY MOUTH ONCE A DAY REPLACES ESCITALOPRAM completed fluoxetine 20 MG Oral Capsule [facility] ([facility]) Naproxen 500 MG Oral Tablet naproxen 500 mg tablet TAKE ONE TABLET BY MOUTH TWICE A DAY NEEDED naproxen 500 mg tablet TAKE ONE TABLET B Y MOUTH TWICE A DAY NEEDED completed naproxen 500 MG Oral Tablet [facility] ([facility]) pregabalin 25 MG Oral Capsule [Lyrica] L yrica 25 mg capsule Take 1 capsule every day by oral route at bedtime. Lyrica 25 mg capsule Take 1 capsule ever y day by oral route at bedtime. 1 capsule(s) completed pregabalin 25 MG Oral Capsule [Lyrica] KAYLEEN ([facility]) pregabalin 50 MG Oral Capsule pregabalin 50 mg capsule TAKE ONE CAPSULE BY MOUTH TWICE A DAY MAXIMUM DAILY DOSE TWO CAPSULES pregabalin 50 mg capsule TAKE ONE CAPSULE BY MOUTH TWICE A DAY MAXIMUM DAILY DOSE TWO CAPSULES completed pregabalin 50 MG Oral Capsule AT [facility] ([facility]) pregabalin 50 MG Oral Capsule pregabalin 50 mg capsule TAKE ONE CAPSULE BY MOUTH TWICE A DAY MAXIMUM DAILY DOSE TWO CAPSULES pregabalin 50 mg capsule TAKE ONE CAPSULE BY MOUTH TWICE A DAY MAXIMUM DAILY DOSE TWO CAPSULES completed pregabalin 50 MG Oral Capsule AT [facility] ([facility]) Fluoxetine 20 MG Oral Capsule fluoxetine 20 mg capsule TAKE ONE CAPSULE BY MOUTH ONCE A DAY REPLACES ESCITALOPRAM fluoxetine 20 mg capsule TAKE ONE CAPSUL E BY MOUTH ONCE A DAY REPLACES ESCITALOPRAM completed fluoxetine 20 MG Oral Capsule [facility] ([facility]) Naproxen 500 MG Oral Tablet naproxen 500 mg tablet TAKE ONE TABLET BY MOUTH TWICE A DAY NEEDED naproxen 500 mg tablet TAKE ONE TABLET B Y MOUTH TWICE A DAY NEEDED completed naproxen 500 MG Oral Tablet KAYLEEN ([facility]) Fluoxetine 10 MG Oral Capsule fluoxetine 10 mg capsule Take 1 capsule every day by oral route. fluoxetine 10 mg capsule Take 1 capsule every day by o ral route. 1 capsule(s) completed fluoxeti ne 10 MG Oral Capsule KAYLEEN ([facility]) pregabalin 25 MG Oral Capsule [Lyrica] L yrica 25 mg capsule Take 1 capsule every day by oral route at bedtime. Lyrica 25 mg capsule Take 1 capsule ever y day by oral route at bedtime. 1 capsule(s) completed pregabalin 25 MG Oral Capsule [Lyrica] KAYLEEN ([facility]) Fluoxetine 10 MG Oral Capsule fluoxetine 10 mg capsule Take 1 capsule every day by oral route. fluoxetine 10 mg capsule Take 1 capsule every day by o ral route. 1 capsule(s) completed fluoxeti ne 10 MG Oral Capsule KAYLEEN ([facility]) Fluoxetine 20 MG Oral Capsule fluoxetine 20 mg capsule TAKE ONE CAPSULE BY MOUTH ONCE A DAY REPLACES ESCITALOPRAM fluoxetine 20 mg capsule TAKE ONE CAPSUL E BY MOUTH ONCE A DAY REPLACES ESCITALOPRAM completed fluoxetine 20 MG Oral Capsule [facility]LEEN ([facility]) pregabalin 25 MG Oral Capsule [Lyrica] L yrica 25 mg capsule Take 1 capsule every day by oral route at bedtime. Lyrica 25 mg capsule Take 1 capsule ever y day by oral route at bedtime. 1 capsule(s) completed pregabalin 25 MG Oral Capsule [Lyrica] KAYLEEN ([facility]) pregabalin 50 MG Oral Capsule pregabalin 50 mg capsule TAKE ONE CAPSULE BY MOUTH TWICE A DAY MAXIMUM DAILY DOSE TWO CAPSULES pregabalin 50 mg capsule TAKE ONE CAPSULE BY MOUTH TWICE A DAY MAXIMUM DAILY DOSE TWO CAPSULES completed pregabalin [facility] Fluoxetine 10 MG Oral Capsule fluoxetine 10 mg capsule Take 1 capsule every day by oral route. fluoxetine 10 mg capsule Take 1 capsule every day by o ral route. 1 capsule(s) completed fluoxeti ne 10 MG Oral Capsule KAYLEEN ([facility]) Fluoxetine 20 MG Oral Capsule fluoxetine 20 mg capsule TAKE ONE CAPSULE BY MOUTH ONCE A DAY REPLACES ESCITALOPRAM fluoxetine 20 mg capsule TAKE ONE CAPSUL E BY MOUTH ONCE A DAY REPLACES ESCITALOPRAM completed fluoxetine 20 MG Oral Capsule [facility] ([facility]) Fluoxetine 10 MG Oral Capsule fluoxetine 10 mg capsule Take 1 capsule every day by oral route. fluoxetine 10 mg capsule Take 1 capsule every day by o ral route. 1 capsule(s) completed fluoxeti ne 10 MG Oral Capsule KAYLEEN ([facility]) Fluoxetine 20 MG Oral Capsule fluoxetine 20 mg capsule TAKE ONE CAPSULE BY MOUTH ONCE A DAY REPLACES ESCITALOPRAM fluoxetine 20 mg capsule TAKE ONE CAPSUL E BY MOUTH ONCE A DAY REPLACES ESCITALOPRAM completed fluoxetine 20 MG Oral Capsule KAYLEEN ([facility]) pregabalin 50 MG Oral Capsule pregabalin 50 mg capsule TAKE ONE CAPSULE BY MOUTH TWICE A DAY MAXIMUM DAILY DOSE TWO CAPSULES pregabalin 50 mg capsule TAKE ONE CAPSULE BY MOUTH TWICE A DAY MAXIMUM DAILY DOSE TWO CAPSULES completed pregabalin 50 MG Oral Capsule AT [facility] ([facility]) Naproxen 500 MG Oral Tablet naproxen 500 mg tablet TAKE ONE TABLET BY MOUTH TWICE A DAY NEEDED naproxen 500 mg tablet TAKE ONE TABLET B Y MOUTH TWICE A DAY NEEDED completed naproxen 500 MG Oral Tablet KAYLEEN ([facility]) Naproxen 500 MG Oral Tablet naproxen 500 mg tablet TAKE ONE TABLET BY MOUTH TWICE A DAY NEEDED naproxen 500 mg tablet TAKE ONE TABLET B Y MOUTH TWICE A DAY NEEDED completed naproxen 500 MG Oral Tablet KAYLEEN ([facility]) pregabalin 25 MG Oral Capsule [Lyrica] L yrica 25 mg capsule Take 1 capsule every day by oral route at bedtime. Lyrica 25 mg capsule Take 1 capsule ever y day by oral route at bedtime. 1 capsule(s) completed pregabalin 25 MG Oral Capsule [Lyrica] KAYLEEN ([facility]) pregabalin 50 MG Oral Capsule pregabalin 50 mg capsule TAKE ONE CAPSULE BY MOUTH TWICE A DAY MAXIMUM DAILY DOSE TWO CAPSULES pregabalin 50 mg capsule TAKE ONE CAPSULE BY MOUTH TWICE A DAY MAXIMUM DAILY DOSE TWO CAPSULES completed pregabalin 50 MG Oral Capsule AT [facility] ([facility]) Naproxen 500 MG Oral Tablet naproxen 500 mg tablet TAKE ONE TABLET BY MOUTH TWICE A DAY NEEDED naproxen 500 mg tablet TAKE ONE TABLET B Y MOUTH TWICE A DAY NEEDED completed naproxen 500 MG Oral Tablet KAYLEEN ([facility]) Naproxen 500 MG Oral Tablet naproxen 500 mg tablet TAKE ONE TABLET BY MOUTH TWICE A DAY NEEDED naproxen 500 mg tablet TAKE ONE TABLET B Y MOUTH TWICE A DAY NEEDED completed naproxen 500 MG Oral Tablet KAYLEEN ([facility]) Fluoxetine 10 MG Oral Capsule fluoxetine 10 mg capsule Take 1 capsule every day by oral route. fluoxetine 10 mg capsule Take 1 capsule every day by o ral route. 1 capsule(s) completed fluoxeti ne 10 MG Oral Capsule KAYLEEN ([facility]) pregabalin 25 MG Oral Capsule [Lyrica] L yrica 25 mg capsule Take 1 capsule every day by oral route at bedtime. Lyrica 25 mg capsule Take 1 capsule ever y day by oral route at bedtime. 1 capsule(s) completed pregabalin 25 MG Oral Capsule [Lyrica] KAYLEEN ([facility]) Fluoxetine 20 MG Oral Capsule fluoxetine 20 mg capsule TAKE ONE CAPSULE BY MOUTH ONCE A DAY REPLACES ESCITALOPRAM fluoxetine 20 mg capsule TAKE ONE CAPSUL E BY MOUTH ONCE A DAY REPLACES ESCITALOPRAM completed fluoxetine 20 MG Oral Capsule KAYLEEN ([facility]) pregabalin 50 MG Oral Capsule pregabalin 50 mg capsule TAKE ONE CAPSULE BY MOUTH TWICE A DAY MAXIMUM DAILY DOSE TWO CAPSULES pregabalin 50 mg capsule TAKE ONE CAPSULE BY MOUTH TWICE A DAY MAXIMUM DAILY DOSE TWO CAPSULES completed pregabalin 50 MG Oral Capsule AT [facility] ([facility]) Fluoxetine 10 MG Oral Capsule fluoxetine 10 mg capsule Take 1 capsule every day by oral route. fluoxetine 10 mg capsule Take 1 capsule every day by o ral route. 1 capsule(s) completed fluoxeti ne 10 MG Oral Capsule KAYLEEN ([facility]) Insurance Providers Payer name Policy type / Coverage type Policy ID Covered libertarian ID Covered libertarian's relationship to roberts Policy Roberts Plan Information [employer] [id number] SP [id number] [facility] [id number] SP [id number] [facility] [id number] SP [id number] [employer] - P[employer] Commercial [id number] Self [employer] Commercial [id number] Self [id number] [employer] Commercial [id number] Self [id number] [employer] Commercial [id number] Self [id number] [employer] [id number] SP [id number] [facility] [id number] SP [id number] [employer] Commercial [id number] Self [id number] [facility] U [id number] Self [id number] [facility] U [id number] Self [id number] [facility] [id number] SP [id number] [facility] Commercial [id number] Self [id number] [facility] [employer] [id number] Self [id number] [facility] [id number] SP [id number] [facility] [id number] Self [id number] [facility] [employer] [id number] Self [id number] [facility] [id number] S [id number] SELF PAY ONLY [id number] SP [id number] MEDICARE [id number] SP [id number] [facility] [id number] S [id number] MEDICARE [id number] 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 [id number] R [id number] 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 [id number] MEDICARE [id number] 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 [id number] [facility] Health Maintenance Organization (HMO) [id number] Self [id number] [facility] [employer] [id number] Self [id number] [facility] [id number] 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 [id number] [facility] Medigap Part B [id number] Family Dependent [id number] [facility] Commercial [id number] Self [id number] [facility] [id number] SP [id number] [employer] BC//BS Medigap Part B [id number] Family Dependent [id number] [facility] [employer] [id number] Self [id number] MEDICARE - [place] [id number] S [id number] [employer] BC//BS Medigap Part B [id number] Family Dependent [id number] [employer] [id number] Self [id number] [employer] [id number] S [id number] [employer] PPO O [id number] S [id number] UMR [id number] S [id number] [facility]BS Medigap Part B [id number] Family Dependent [id number] [facility] [employer] [id number] Self [id number] [facility] [id number] S [id number] [facility] BC[facility]BS Medigap Part B [id number] Family Dependent [employer] Commercial [id number] Self [employer] O [id number] S [id number] [facility] Commercial [id number] Self BC/BS [facility] [place] Medigap Part B [id number] Family Dep endent [employer] Medigap Part B [id number] Self [facility] [id number] 18 [id number] [facility] -O/P [id number] 18 [id number] [facility] -CL[facility] [id number] 18 [id number] [facility] COMM CONTR [id number] S [id number] [employer] [id number] SP [id number] UMR O [id number] O [id number] [employer] O [id number] S [id number] MEDICARE - [place] [id number] S [id number] Problems, Conditions, and Diagnoses Code Display Name Description Problem Type Effective Dates Data Source(s) M51.36 Other intervertebral disc degeneration, lumbar region OTHER INTERVERTEBRAL DISC DEGENERATION, LUMBAR REGION Diagnosis 2020 01:00:00 PM [facility] Z79.899 Other care home (current) drug therapy O THER HALFWAY (CURRENT) DRUG THERAPY Diagnosis 11/22/2020 09:21:00 AM [facility] l E78.00 PURE HYPERCHOLESTEROLEMIA, UNSPECIFIED P URE HYPERCHOLESTEROLEMIA, UNSPECIFIED Diagnosis 11/22/2020 09:21:00 AM [facility] M50.120 Mid-cervical disc disorder, unspecified MID-CERVICAL DISC DISORDER, UNSPECIFIED LEVEL Diagnosis 11/22/2020 09:21:00 AM [facility] H81.12 Benign paroxysmal vertigo, left ear BENIGN PAROX YSMAL VERTIGO, LEFT EAR Diagnosis 11/22/2020 09:21:00 AM [facility] R42 Dizziness and giddiness DIZZINESS AND GIDDINESS Diagno sis 11/22/2020 09:21:00 AM [facility] Z92.3 Personal history of irradiation Personal history of ir radiation Diagnosis 05/23/2020 02:42:39 PM [facility] N94.10 Unspecified dyspareunia UNSPECIFIED DYSPAREUNIA Diagno sis 02/21/2020 11:22:00 AM [facility] N32.81 Overactive bladder OVERACTIVE BLADDER Diagnosis 11:22:00 AM [facility] Z12.39 Encounter for other screening for malign ant neoplasm of breast ENCOUNTER FOR OTH SCREENING FOR MALIGNANT NEOPLASM OF BREAST Diagnosis 11:22:00 AM [facility] Z01.419 Encounter for gynecological examination (general) (routine) without abnormal findings 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 02/07/2021 12:00:00 AM EDT [facility] ([facility]) Multiple Injections-Admin. 01/17/2021 12:00:00 AM EDT [facility] ([facility]) Multiple Injections-Admin. 01/17/2021 12:00:00 AM EDT [facility] ([facility]) MRI SPINAL CANAL CERVICAL W/O CONTRAST MATRL 12:00:00 AM EDT [facility] ([facility], ) MRI SPINAL CANAL CERVICAL W/O CONTRAST MATRL 12:00:00 AM EDT [facility] ([facility], ) OFFICE OUTPATIENT VISIT 25 MINUTES 12/25/2020 12:00:00 AM EDT [facility] ([facility], ) Multiple Injections-Admin. 12/20/2020 12:00:00 AM EDT [facility] ([facility]) Multiple Injections-Admin. 11/29/2020 12:00:00 AM EDT [facility] ([facility]) Multiple Injections-Admin. 11/29/2020 12:00:00 AM EDT [facility] ([facility]) Multiple Injections-Admin. 11/08/2020 12:00:00 AM EDT [facility] ([facility]) OFFICE OUTPATIENT VISIT 25 MINUTES 11/01/2020 12:00:00 AM EDT [facility] ([facility]) Shave Biopsy Of Skin, Single Lesion 10/29/2020 12:00:0 0 AM EDT [facility] ([facility]) OFFICE OUTPATIENT VISIT 25 MINUTES 10/29/2020 12:00:00 AM EDT [facility] ([facility]) Multiple Injections-Admin. 09/27/2020 12:00:00 AM EDT [facility] ([facility]) Multiple Injections-Admin. 09/06/2020 12:00:00 AM EDT [facility] ([facility]) OFFICE OUTPATIENT VISIT 25 MINUTES 09/06/2020 12:00:00 AM EDT [facility] ([facility]) OFFICE OUTPATIENT VISIT 15 MINUTES 08/24/2020 12:00:00 AM EDT [facility] ([facility], ) Shave Biopsy Of Skin, Single Lesion 08/15/2020 12:00:0 0 AM EDT [facility] ([facility]) Multiple Injections-Admin. 08/09/2020 12:00:00 AM EDT [facility] ([facility]) Multiple Injections-Admin. 08/09/2020 12:00:00 AM EDT [facility] ([facility]) Multiple Injections-Admin. 07/19/2020 12:00:00 AM EDT [facility] ([facility]) INCISION & DRAINAGE ABSCESS SIMPLE/SINGLE 07/16/2020 1 2:00:00 AM EDT [facility] ([facility]) OFFICE OUTPATIENT VISIT 25 MINUTES 07/16/2020 12:00:00 AM EDT [facility] ([facility]) Allergy Mixed Antigens 06/27/2020 12:00:00 AM EDT [facility] ([facility]) Multiple Injections-Admin. 06/21/2020 12:00:00 AM EDT [facility] ([facility]) OFFICE OUTPATIENT VISIT 15 MINUTES 06/21/2020 12:00:00 AM EDT [facility] ([facility], ) Multiple Injections-Admin. 05/30/2020 12:00:00 AM EST [facility] ([facility]) OFFICE OUTPATIENT NEW 45 MINUTES 05/18/2020 12:00:00 A M EST [facility] ([facility], ) Multiple Injections-Admin. 05/09/2020 12:00:00 AM EST [facility] ([facility]) OFFICE OUTPATIENT VISIT 25 MINUTES 05/03/2020 12:00:00 AM EST [facility] ([facility]) Intradermals 05/03/2020 12:00:00 AM EST M [facility] [...] VISIT EST AGE 40-64 02/21/2020 12:00:00 AM EST [facility] Results ID Date Data Source [id number] 12/03/2020 04:03:00 PM EDT [facility] Patient: JULIET SHER Observation [facility] - [facility]VisitID: [id number] [place] [address] [phone], FRegistration Date/Time: 11/22/2020 08:44 Weight:73 kg (S). Height/Length:61 inches (S). BMI:30.4 PAST HISTORYProblems:Acid reflux.Depression.Gastroesophageal Reflux Disease.Autoimmune disease.Allergies.Rectal Bleed.Sacroiliitis.Diarrhea.Elevated Cholesterol.Diverticulitis [RuleOut].Diarrhea [RuleOut]. Additional Surgeries:Hernia Repair.Hysterectomy. (Partial)Previous Abdominal Surgery.Throat.Tubal Ligation. Medications:Oxybutynin Chloride Oral (Tablet 5 mg) 1 tablet, daily, last dose 11/21/2020.Topamax Oral (Tablet 50 mg) 1 tablet, daily every PM, last dose 11/21/2020.Cod Liver Oil Oral unknown dose, daily, last dose 11/21/2020.Multivitamins Oral 1 pill, daily, last dose 11/21/2020.Qnasl Nasal (Aerosol Solution 80 mcg/act) 80 mcg, daily, last dose 11/21/2020.Restasis Ophthalmic 0.4ml each , bid as needed, dry eyes, last dose 11/21/2020.Singulair Oral (Tablet 10 mg) 1 tablet, daily, last dose 11/21/2020.Systane Ophthalmic unknown, daily as needed, last dose 11/21/2020.Vitamin D3 Oral (Tablet 50 MCG (2000 UT)) 1 tablet, daily, last dose 11/21/2020.Pantoprazole Sodium Oral 20 mg, daily, last dose 11/21/2020.Crestor Oral (Tablet 10 mg) 1 tablet, daily, last dose 11/21/2020.Wellbutrin Oral 150 mg, daily, last dose 11/21/2020. Allergies:Augmentin.(nausea, vomiting)Codeine Phosphate.(nausea, vomiting)Oxymetazoline.(hives). FAMILY HISTORYNo significant family medical history. (Electronically signed by Ebenezer Sánchez P.A. 11/22/2020 19:08) Addenda for JULIET SHER VisitID: [id number] Date: 11/22/2020 12/03/2020 15:49BPV error on PT prescription(Electronically signed by Ebenezer Sánchez - 12/03/2020 15:49) Name Value Range Interpretation Code Description Data Meghan rce(s) Supporting Document(s) ID Date Data Source [id number] 11/26/2020 03:06:00 PM EDT [facility] Patient: JULIET SHER [facility]ation [id number] [place] [address] [phone], FRegistration Date/Time: 11/22/2020 08:44 Weight:73 kg (S). Height/Length:61 inches (S). BMI:30.4 PAST HISTORYProblems:Acid reflux.Depression.Gastroesophageal Reflux Disease.Autoimmune disease.Allergies.Rectal Bleed.Sacroiliitis.Diarrhea.Elevated Cholesterol.Diverticulitis [RuleOut].Diarrhea [RuleOut]. Additional Surgeries:Hernia Repair.Hysterectomy. (Partial)Previous Abdominal Surgery.Throat.Tubal Ligation. Medications:Oxybutynin Chloride Oral (Tablet 5 mg) 1 tablet, daily, last dose 11/21/2020.Topamax Oral (Tablet 50 mg) 1 tablet, daily every PM, last dose 11/21/2020.Cod Liver Oil Oral unknown dose, daily, last dose 11/21/2020.Multivitamins Oral 1 pill, daily, last dose 11/21/2020.Qnasl Nasal (Aerosol Solution 80 mcg/act) 80 mcg, daily, last dose 11/21/2020.Restasis Ophthalmic 0.4ml each , bid as needed, dry eyes, last dose 11/21/2020.Singulair Oral (Tablet 10 mg) 1 tablet, daily, last dose 11/21/2020.Systane Ophthalmic unknown, daily as needed, last dose 11/21/2020.Vitamin D3 Oral (Tablet 50 MCG (2000 UT)) 1 tablet, daily, last dose 11/21/2020.Pantoprazole Sodium Oral 20 mg, daily, last dose 11/21/2020.Crestor Oral (Tablet 10 mg) 1 tablet, daily, last dose 11/21/2020.Wellbutrin Oral 150 mg, daily, last dose 11/21/2020. Allergies:Augmentin.(nausea, vomiting)Codeine Phosphate.(nausea, vomiting)Oxymetazoline.(hives). FAMILY HISTORYNo significant family medical history. (Electronically signed by Ebenezer Sánchez, P.ARayne 11/22/2020 19:08) Name Value Range Interpretation Code Description Data Meghan rce(s) Supporting Document(s) ID Date Data Source [id number] 10/29/2020 11:55:00 AM EDT [facility] ([facility]) Name Value Range Interpretation Code Description Data Meghan rce(s) Supporting Document(s) Laboratory test finding (navigational concept) Laboratory test result [facility] ([facility]) No further treatment Laboratory test finding (navigational concept) Laboratory test result [facility] ([facility]) No further treatment ID Date Data Source [id number] 09/06/2020 11:22:34 AM EDT [facility] Name Value Range Interpretation Code Description Data Meghan rce(s) Supporting Document(s) Progress Note [facility] JRZAEl8kGgTXYyFr95/FFJgeXPPkj4SkQCjsAKn3FWddEQKoO8RoAVT3mH7eZNN2TUhMHhKjUgXwRnWg [facility] [file] [id number]== ID Date Data Source [id number] 08/15/2020 01:58:00 PM EDT [facility] ([facility]) Name Value Range Interpretation Code Description Data Meghan rce(s) Supporting Document(s) Laboratory test finding (navigational concept) [facility] ICD9 Code: L73.8 Protocol: bob Clinical Text: BCC VS CYST Final Diagnosis: GRANULOMATOUS FOLLICULITIS. Gross Text: The specimen grossly was irregular in shape and measured 5 x 5 mm. on the surface and 1 mm. deep. It was divided into 2 sections on the long axis. All of the tissue was submitted for processing. Microscopic Description: Section of skin shows perifollicular collection of lymphohistiocytic infiltrate associated with perifollicular fibrosis. 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 [file] ICAgICAgICAgICAgICAgICAgICAgICAgICAgICAgICAgICAgICAgICAgICAgICAgICAgICAgICAgICAg ICAgICAgICAgICAgICAgICAgICAgICAgICAgICAgICAgDQogICAgICAgICAgICAgICAgICAgICAgICAg ICAgICAgICAgICAgICAgICAgICAgICAgICAgICAgIC AgICAgICAgICAgICAgICAgICAgICAgICAgICAgICAgICAgICAgICAgICAgDQogICAgICAgICAgICAgIC AgICAgICAgICAgICAgICAgICAgICAgICAgICAgICAgICAgICAgICAgICAgICAgICAgICAgICAgICAgIC AgICAgICAgICAgICAgICAgICAgICAgICAgDQogICAg ICAgICAgICAgICAgICAgICAgICAgICAgICAgICAgICAgICAgICAgICAgICAgICAgICAgICAgICAgICAg ICAgICAgICAgICAgICAgICAgICAgICAgICAgICAgICAgICAgDQogICAgICAgICAgICAgICAgICAgICAg ICAgICAgICAgICAgICAgICAgICAgICAgICAgICAgIC AgICAgICAgICAgICAgICAgICAgICAgICAgICAgICAgICAgICAgICAgICAgICAgDQogICAgICAgICAgIC AgICAgICAgICAgICAgICAgICAgICAgICAgICAgICAgICAgICAgICAgICAgICAgICAgICAgICAgICAgIC AgICAgICAgICAgICAgICAgICAgICAgICAgICAgDQog ICAgICAgICAgICAgICAgICAgICAgICAgICAgICAgICAgICAgICAgICAgICAgICAgICAgICAgICAgICAg ICAgICAgICAgICAgICAgICAgICAgICAgICAgICAgICAgICAgICAgDQogICAgICAgICAgICAgICAgICAg ICAgICAgICAgICAgICAgICAgICAgICAgICAgICAgIC AgICAgICAgICAgICAgICAgICAgICAgICAgICAgICAgICAgICAgICAgICAgICAgICAgDQogICAgICAgIC AgICAgICAgICAgICAgICAgICAgICAgICAgICAgICAgICAgICAgICAgICAgICAgICAgICAgICAgICAgIC AgICAgICAgICAgICAgICAgICAgICAgICAgICAgICAg DQogICAgICAgICAgICAgICAgICAgICAgICAgICAgICAgICAgICAgICAgICAgICAgICAgICAgICAgICAg KMXzCTJhQMSbKEVjVQRmFHSvRSWqRKNuLSZhIAStCKDyRXWbAKWeXEQjFQq9A2qfYARnLYHjNJ8tNQb2 Jz8+FWzZSxNkZMI9yjZssY5EIN9ok3GcYLdbLGImf3 AsLXq4FD6LVJZxMXhuZB8FLZnstz9LPQNaPTHwjIRMp8yaLdGnZJU2KYAjBxfrXQ5GRVGzS6lzwiWfMW HkFVNJDRurSORLWFkmSQQPHK5JQqCjC6IbiO22CLCJEp9+GVrpjaQuMwwRRrT3MEWyn7SkKVx5RF0JWK XqRfefk6AoAxklXHHIOXgeGG5JRLN6VYW3JYCkVa8Z VDFwL850ruDsVM0HTc2UMgLdZR9cmf5UEzcaVQRbWyxFPcz0MAyoLB0DlLPgCUbVtx1wepJfdqEXx4Dy qcUjaHLVNKBvA3KrQGXoTNWiXYTkPMwuAzNlZUVdJa8kLa7iYZBeOGBmWvL3CUJIYE7YBHPzLXXsfKWh OCTtOJSUBZ4IIBjcZON6KMDekzCipBElTAzcWD1IPZ JlbnQgMjYgMCBSDQo+Ke3KYW5kl0YxGJwjLNCpDU9dvg0OVOoWCuWfA4S7eQNpU2P2LEtrKc7RIAScMF WqPfYbBAMKBPogWO1SWD9fwxF6QK2BzZXfNVYnAOQwhKDtBDd5E31lzYFqFPjiED2YCUA+Sonny+Pg0KIC PcVRNoUAXsVoBsMDVMWfQhT3OkK0ZXk1GlB6WjPI97 zRsyiyHvBZjgNH8IQX1pJJHkDPYLIV6TfMLboT0xffQgBhYdUTXUDySwA24klAJwHSGnNZC4OFAmLf1H MUQcN7VeqgMgmYphwpFaQXTdKDYXYH1AGVvgwnQpnMCetClsVF55sPvfBO2BBv5ILcBnGY1jxq6ExYMf Hb8PRNEvPT5CREQwLXRcLQLjXNF3FTWxYfYqGDwxVF GgVTJcKWO6WAGkVDHjWJ7KErLjVQQeTyA8XJGjTQArHMErut9FYSNkQSPhWaTeQePcWARgZFEcZWsvHQ XeWDFzULQ9ETKhJAIkEB6MUgMwVMNyZTKaOEUxCULfXLQndd1CDOVrWTTaDMTeYqOqNVYvTCRxLSgwUZ WfPEO1NATqXYFhMTLwIU8KCtNcPFIvIPkvOKafNUBp XIZvxq4ASVYkJDGyLEKdDFKlFCMtLSJsLYckPZUwDTT9RrB8JOYuBYOaXC6YPvNuIADxHEInAnKnMWHi PEYiyc2FCQNdWQAqOJL4LBTfFWDpXSOePDzaAYMzKFYkJcG4AJJrBTLnIS2PMhTvCXBlZMV1AVEsYHYr WAWzbi3IDIOuQOYcYTlfRJWeAXNuUJVfGPlbKELmLQ WtSUXbPUBbUGJyNP8TZwBrOAXqXqO3UcGpSHBmSDTapl0VCCWaWREpPtf0WBAuRWVkFTHdCXwgQRQfAO EnKDM6FEIgLPEiAI5SUvLnGFSaAlXwKBynLNHpGFClgd8NTCJqAOGzALD6LxFiDJWfWJIkYVdcQYEcWX O6QbY6MBWrNKWpEE5KCeNbVDGnIrO1JUamOBBtBDOu lc4JCRYjLWMrJFM7OOFaXSLzCSQrFVucCBThHPH8FKl9OONrVRPqID7XYiZyZVCsNvm0QeIjVWJiIJBl oh4ADTMvLKVsYfZ7RqEtSGIoXAFoVKrsGUOwMLE5JdA7OFMhGBBvTV7QCgUiWAneFAUCZep1DKyhE6l0 MMReRB0BV7Vqj1XmMzldUOHCMKcnPJ7iuaGuWKEwNv 5YF9jDWrhpDIZ2M1W1WmRcVCEsIoApO6H8JMQrORIeUvIwXXRmOm7lAHDyYjJ5YjYmHGErNQQ6FbHeDk j8FKMbUKJkU8M6IOQlDrMcFK1MCn1MYaM2IIV2zTHqYv5FJrt3OFFHVrYeMH9MBFt= ID Date Data Source [id number] 04/30/2020 12:00:00 AM EST [facility] ([facility]) Name Value Range Interpretation Code Description Data Meghan rce(s) Supporting Document(s) SARS-CoV-2 (COVID-19) RNA [Presence] in Respiratory specimen by MILLY with probe detection negative negative Sars-cov-2 [facility] ([facility]) ID Date Data Source [id number] 04/30/2020 12:00:00 AM EST [facility] ([facility]) Name Value Range Interpretation Code Description Data Meghan rce(s) Supporting Document(s) ID Date Data Source [id number] 04/30/2020 12:00:00 AM EST [facility] ([facility]) Name Value Range Interpretation Code Description Data Meghan rce(s) Supporting Document(s) SARS-CoV-2 (COVID-19) RNA [Presence] in Respiratory specimen by MILLY with probe detection negative negative Sars-cov-2 [facility] ([facility]) ID Date Data Source [id number] 04/30/2020 12:00:00 AM EST [facility] ([facility]) Name Value Range Interpretation Code Description Data Meghan rce(s) Supporting Document(s) ID Date Data Source [id number] 04/30/2020 12:00:00 AM EST [facility] ([facility]) Name Value Range Interpretation Code Description Data Meghan rce(s) Supporting Document(s) SARS-CoV-2 (COVID-19) RNA [Presence] in Respiratory specimen by MILLY with probe detection negative negative Sars-cov-2 [facility] ([facility]) ID Date Data Source [id number] 04/30/2020 12:00:00 AM EST [facility] ([facility]) Name Value Range Interpretation Code Description Data Meghan rce(s) Supporting Document(s) ID Date Data Source [id number] 04/30/2020 12:00:00 AM EST [facility] ([facility]) Name Value Range Interpretation Code Description Data Meghan rce(s) Supporting Document(s) SARS-CoV-2 (COVID-19) RNA [Presence] in Respiratory specimen by MILLY with probe detection negative negative Sars-cov-2 [facility] ([facility]) ID Date Data Source [id number] 04/30/2020 12:00:00 AM EST [facility] ([facility]) Name Value Range Interpretation Code Description Data Meghan rce(s) Supporting Document(s) ID Date Data Source [id number] 04/30/2020 12:00:00 AM EST [facility] Name Value Range Interpretation Code Description Data Meghan rce(s) Supporting Document(s) SARS-CoV-2 NEGATIVE [facility] This lab was ordered by [facility] and reported by [facility] [employer]. ID Date Data Source [id number] 2020 12:00:00 AM EST [facility] ([facility]) Name Value Range Interpretation Code Description Data Meghan rce(s) Supporting Document(s) SARS-CoV-2 (COVID-19) RNA [Presence] in Respiratory specimen by MILLY with probe detection negative negative Sars-cov-2 [facility] ([facility]) ID Date Data Source [id number] 2020 12:00:00 AM EST [facility] ([facility]) Name Value Range Interpretation Code Description Data Meghan rce(s) Supporting Document(s) ID Date Data Source [id number] 2020 12:00:00 AM EST [facility] ([facility]) Name Value Range Interpretation Code Description Data Meghan rce(s) Supporting Document(s) SARS-CoV-2 (COVID-19) RNA [Presence] in Respiratory specimen by MILLY with probe detection negative negative Sars-cov-2 [facility] ([facility]) ID Date Data Source [id number] 2020 12:00:00 AM EST [facility] ([facility]) Name Value Range Interpretation Code Description Data Meghan rce(s) Supporting Document(s) ID Date Data Source [id number] 2020 12:00:00 AM EST [facility] ([facility]) Name Value Range Interpretation Code Description Data Meghan rce(s) Supporting Document(s) SARS-CoV-2 (COVID-19) RNA [Presence] in Respiratory specimen by MILLY with probe detection negative negative Sars-cov-2 [facility] ([facility]) ID Date Data Source [id number] 2020 12:00:00 AM EST [facility] ([facility]) Name Value Range Interpretation Code Description Data Meghan rce(s) Supporting Document(s) ID Date Data Source [id number] 2020 12:00:00 AM EST [facility] ([facility]) Name Value Range Interpretation Code Description Data Meghan rce(s) Supporting Document(s) SARS-CoV-2 (COVID-19) RNA [Presence] in Respiratory specimen by MILLY with probe detection negative negative Sars-cov-2 [facility] ([facility]) ID Date Data Source [id number] 2020 12:00:00 AM EST [facility] ([facility]) Name Value Range Interpretation Code Description Data Meghan rce(s) Supporting Document(s) ID Date Data Source [id number] 2020 12:00:00 AM EST [facility] ([facility]) Name Value Range Interpretation Code Description Data Meghan rce(s) Supporting Document(s) SARS-CoV-2 (COVID-19) RNA [Presence] in Respiratory specimen by MILLY with probe detection negative negative Sars-cov-2 [facility] ([facility]) ID Date Data Source [id number] 2020 12:00:00 AM EST [facility] ([facility]) Name Value Range Interpretation Code Description Data Meghan rce(s) Supporting Document(s) ID Date Data Source [id number] 2020 12:00:00 AM EST [facility] Name Value Range Interpretation Code Description Data Meghan rce(s) Supporting Document(s) SARS-CoV-2 NEGATIVE [facility] This lab was ordered by [facility] and reported by [employer]. ID Date Data Source [id number] 2020 12:00:00 AM EST [facility] ([facility]) Name Value Range Interpretation Code Description Data Meghan rce(s) Supporting Document(s) SARS-CoV-2 (COVID-19) RNA [Presence] in Respiratory specimen by MILLY with probe detection negative negative Sars-cov-2 [facility] ([facility]) ID Date Data Source [id number] 2020 12:00:00 AM EST [facility] ([facility]) Name Value Range Interpretation Code Description Data Meghan rce(s) Supporting Document(s) ID Date Data Source [id number] 03/17/2020 12:00:00 PM EST [facility] Imaging Services Department Imaging Report [address] [place] [address] Name: JULIET SHER : 1955 Age/Sex: 64F Ordering Provider: BYRON Amezcua Med Rec #: [id number] Date of Service: 03/15/20 Report Number: [id number] cc: Jarrod Milan MD; BYRON Amezcua Send Report To: [id number] MAMMOSCR/Screening Digtl Serg w Brant CAD Reason for Exam: SCREENING [...] digitally and interpreted with the aid of ICAD, an FDA- approved, computer-aided detection system. OVERALL FINAL ASSESSMENT OF BREAST COMPOSITION: BIRADS CLASSIFICATION: B DESCRIPTION: There are scattered areas of fibroglandular density. OVERALL FINAL ASSESSMENT OF FINDINGS: BIRADS CLASSIFICATION: 2 DESCRIPTION: BENIGN. REPORT SIGNATURE ON FILE 03/20/20 1026 Reported By: Archana Leach MD <Electronically signed by Archana Leach MD>03/20/20 1026 Dictation Date/Time: 03/16/20 1804 Transcribed Date/Time: 03/17/20 1200 [employer]: KATARZYNA Name Value Range Interpretation Code Description Data Meghan rce(s) Supporting Document(s) ID Date Data Source [id number] 03/12/2020 12:00:00 AM BENY BEYER ([facility]) Name Value Range Interpretation Code Description Data Meghan rce(s) Supporting Document(s) SARS-CoV-2 (COVID-19) RNA [Presence] in Respiratory specimen by MILLY with probe detection negative negative Sars-cov-2 [facility] ([facility]) ID Date Data Source [id number] 03/12/2020 12:00:00 AM EST [facility] ([facility]) Name Value Range Interpretation Code Description Data Meghan rce(s) Supporting Document(s) ID Date Data Source [id number] 03/12/2020 12:00:00 AM EST [facility] ([facility]) Name Value Range Interpretation Code Description Data Meghan rce(s) Supporting Document(s) SARS-CoV-2 (COVID-19) RNA [Presence] in Respiratory specimen by MILLY with probe detection negative negative Sars-cov-2 [facility] ([facility]) ID Date Data Source [id number] 03/12/2020 12:00:00 AM EST [facility] ([facility]) Name Value Range Interpretation Code Description Data Meghan rce(s) Supporting Document(s) ID Date Data Source [id number] 03/12/2020 12:00:00 AM EST [facility] ([facility]) Name Value Range Interpretation Code Description Data Meghan rce(s) Supporting Document(s) SARS-CoV-2 (COVID-19) RNA [Presence] in Respiratory specimen by MILLY with probe detection negative negative Sars-cov-2 [facility] ([facility]) ID Date Data Source [id number] 03/12/2020 12:00:00 AM EST [facility] ([facility]) Name Value Range Interpretation Code Description Data Meghan rce(s) Supporting Document(s) ID Date Data Source [id number] 03/12/2020 12:00:00 AM EST [facility] ([facility]) Name Value Range Interpretation Code Description Data Meghan rce(s) Supporting Document(s) SARS-CoV-2 (COVID-19) RNA [Presence] in Respiratory specimen by MILLY with probe detection negative negative Sars-cov-2 [facility] ([facility]) ID Date Data Source [id number] 03/12/2020 12:00:00 AM EST [facility] ([facility]) Name Value Range Interpretation Code Description Data Meghan rce(s) Supporting Document(s) ID Date Data Source [id number] 03/12/2020 12:00:00 AM EST [facility] ([facility]) Name Value Range Interpretation Code Description Data Meghan rce(s) Supporting Document(s) SARS-CoV-2 (COVID-19) RNA [Presence] in Respiratory specimen by MILLY with probe detection negative negative Sars-cov-2 [facility] ([facility]) ID Date Data Source [id number] 03/12/2020 12:00:00 AM EST [facility] ([facility]) Name Value Range Interpretation Code Description Data Meghan rce(s) Supporting Document(s) ID Date Data Source [id number] 03/12/2020 12:00:00 AM EST [facility] ([facility]) Name Value Range Interpretation Code Description Data Meghan rce(s) Supporting Document(s) SARS-CoV-2 (COVID-19) RNA [Presence] in Respiratory specimen by MILLY with probe detection negative negative Sars-cov-2 [facility] ([facility]) ID Date Data Source [id number] 03/12/2020 12:00:00 AM EST [facility] ([facility]) Name Value Range Interpretation Code Description Data Meghan rce(s) Supporting Document(s) ID Date Data Source [id number] 03/12/2020 12:00:00 AM EST K[facility]LEEN ([facility]) Name Value Range Interpretation Code Description Data Meghan rce(s) Supporting Document(s) SARS-CoV-2 (COVID-19) RNA [Presence] in Respiratory specimen by MILLY with probe detection negative negative Sars-cov-2 [facility] ([facility]) ID Date Data Source [id number] 03/12/2020 12:00:00 AM EST [facility]LEEN ([facility]) Name Value Range Interpretation Code Description Data Meghan rce(s) Supporting Document(s) ID Date Data Source [id number] 03/12/2020 12:00:00 AM EST KAYLEEN ([facility]) Name Value Range Interpretation Code Description Data Meghan rce(s) Supporting Document(s) SARS-CoV-2 (COVID-19) RNA [Presence] in Respiratory specimen by MILLY with probe detection negative negative Sars-cov-2 [facility] ([facility]) ID Date Data Source [id number] 03/12/2020 12:00:00 AM EST [facility]LEEN ([facility]) Name Value Range Interpretation Code Description Data Meghan rce(s) Supporting Document(s) ID Date Data Source [id number] 03/12/2020 12:00:00 AM EST [facility] Name Value Range Interpretation Code Description Data Meghan rce(s) Supporting Document(s) SARS-CoV-2 [facility] This lab was ordered by [facility] and reported by [employer]. ID Date Data Source [id number] 01/12/2020 12:30:00 PM EDT [facility] Name Value Range Interpretation Code Description Data Meghan rce(s) Supporting Document(s) SARS coronavirus 2 RNA [facility] This lab was ordered by [facility] and reported by [facility]. Procedure Social History Code Duration Value Status Description Data Source(s ) Smoking 02/08/2021 12:00:00 AM EDT Non Smoker completed Non Smoke r [facility] ([facility], ) Smoking 11/01/2020 12:00:00 AM EDT Patient has never smoked co mpleted Patient has never smoked [facility] ([facility]) Vital Signs ID Date Data Source [id number] Name Value Range Interpretation Code Description Data Source(s) Systolic blood pressure 104 mm[Hg] 104 mm[Hg] M EDENT ([facility]) Diastolic blood pressure 70 mm[Hg] 70 mm[Hg] [facility] ([facility]) Heart rate 65 /min 65 /min [facility] ([facility]) Oxygen saturation in Arterial blood by Pulse oximetry 97 % 97 % [facility] ([facility]) Respiratory rate 18 /min 18 /min [facility] ( [facility]) Body height 61 [in_i] 61 [in_i] [facility] ([facility]) 5'1" Body weight 169.00 [lb_av] 169.00 [lb_av] MEDEN T ([facility]) Body mass index (BMI) [Ratio] 31.9 kg/m2 31.9 k g/m2 [facility] [place] body weight 105 [lb_av] 105 [lb_av] MEDEN T ([facility]) Body weight 76.658 kg 76.658 kg [facility] Body surface area Derived from formula 1.76 m2 1.76 m2 [facility] ([facility]) Oxygen saturation in Arterial blood by Pulse oximetry 98 % 98 % [facility] ([facility]) Systolic blood pressure 134 mm[Hg] 134 mm[Hg] M EDENT ([facility]) left arm Diastolic blood pressure 80 mm[Hg] 80 mm[Hg] [facility] ([facility]) left arm Body weight 167.00 [lb_av] 167.00 [lb_av] MEDEN T ([facility]) Body mass index (BMI) [Ratio] 31.6 kg/m2 31.6 k g/m2 [facility] ([facility]) Respiratory rate 15 /min 15 /min [facility] ( [facility]) Heart rate 69 /min 69 /min [facility] Body height 61 [in_i] 61 [in_i] [facility] 5'1" Body temperature 97.8 [degF] 97.8 [degF] [facility] Systolic blood pressure 122 mm[Hg] 122 mm[Hg] M EDENT ([facility]) Body weight 163.00 [lb_av] 163.00 [lb_av] MEDEN T ([facility]) Diastolic blood pressure 80 mm[Hg] 80 mm[Hg] [facility] ([facility]) Respiratory rate 18 /min 18 /min [facility] ( [facility]) Body weight 167.00 [lb_av] 167.00 [lb_av] MEDEN T ([facility]) Systolic blood pressure 122 mm[Hg] 122 mm[Hg] [facility] Diastolic blood pressure 74 mm[Hg] 74 mm[Hg] [facility] ([facility]) Body height 61 [in_i] 61 [in_i] [facility] ([facility]) 5'1" Body mass index (BMI) [Ratio] 31.6 kg/m2 31.6 k g/m2 [facility] ([facility]) [place] body weight 105 [lb_av] 105 [lb_av] [facility] Body weight 75.751 kg 75.751 kg [facility] ([facility]) Body surface area Derived from formula 1.75 m2 1.75 m2 [facility] ([facility]) Systolic blood pressure 124 mm[Hg] 124 mm[Hg] [facility] Diastolic blood pressure 71 mm[Hg] 71 mm[Hg] [facility] ([facility]) Body weight 167.00 [lb_av] 167.00 [lb_av] MEDEN T ([facility]) Oxygen saturation in Arterial blood by Pulse oximetry 97 % 97 % [facility] ([facility]) Body height 61 [in_i] 61 [in_i] [facility] ([facility]) 5'1" Body weight 167.25 [lb_av] 167.25 [lb_av] MEDEN T ([facility]) Body mass index (BMI) [Ratio] 31.6 kg/m2 31.6 k g/m2 [facility] ([facility]) [place] body weight 105 [lb_av] 105 [lb_av] MEDEN T ([facility]) Body weight 75.865 kg 75.865 kg [facility] ([facility]) Body surface area Derived from formula 1.75 m2 1.75 m2 [facility] ([facility]) Oxygen saturation in Arterial blood by Pulse oximetry 97 % 97 % [facility] ([facility]) Systolic blood pressure 167 mm[Hg] 167 mm[Hg] [facility] [employer] Recheck: 116/72 Diastolic blood pressure 67 mm[Hg] 67 mm[Hg] [facility] ([facility]) [employer] Recheck: 116/72 Heart rate 73 /min 73 /min [facility] ([facility]) Body height 61 [in_i] 61 [in_i] [facility] ([facility]) 5'1" Body weight 167.25 [lb_av] 167.25 [lb_av] MEDEN T ([facility]) Body weight 75.865 kg 75.865 kg [facility] ([facility]) Body surface area Derived from formula 1.75 m2 1.75 m2 [facility] ([facility]) Body mass index (BMI) [Ratio] 31.6 kg/m2 31.6 k g/m2 [facility] ([facility]) [place] body weight 105 [lb_av] 105 [lb_av] MEDEN T ([facility]) Diastolic blood pressure 79 mm[Hg] 79 mm[Hg] [facility] ([facility] [facility]) Body height 61 [in_i] 61 [in_i] KAYLEEN ([facility]) Systolic blood pressure 117 mm[Hg] 117 mm[Hg] A THENA ([facility]) Systolic blood pressure 118 mm[Hg] 118 mm[Hg] [facility] Diastolic blood pressure 80 mm[Hg] 80 mm[Hg] [facility] ([facility]) Heart rate 58 /min 58 /min [facility] ([facility]) Oxygen saturation in Arterial blood by Pulse oximetry 97 % 97 % [facility] ([facility]) Body temperature 96.3 [degF] 96.3 [degF] [facility] ([facility]) Body height 61 [in_i] 61 [in_i] [facility] ([facility]) 5'1" Body weight 169.00 [lb_av] 169.00 [lb_av] MEDEN T ([facility]) Body mass index (BMI) [Ratio] 31.9 kg/m2 31.9 k g/m2 [facility] ([facility]) [place] body weight 105 [lb_av] 105 [lb_av] [facility] Body weight 76.658 kg 76.658 kg [facility] ([facility]) Body surface area Derived from formula 1.76 m2 1.76 m2 [facility] ([facility]) Diastolic blood pressure 84 mm[Hg] 84 mm[Hg] KAYLEEN ([facility]) Body height 61 [in_i] 61 [in_i] KAYLEEN ([facility]) Systolic blood pressure 132 mm[Hg] 132 mm[Hg] A THENA ([facility]) Diastolic blood pressure 84 mm[Hg] 84 mm[Hg] KAYLEEN ([facility]) Body height 61 [in_i] 61 [in_i] KAYLEEN ([facility]) Systolic blood pressure 132 mm[Hg] 132 mm[Hg] A THENA ([facility]) Diastolic blood pressure 84 mm[Hg] 84 mm[Hg] KAYLEEN ([facility]) Body height 61 [in_i] 61 [in_i] KAYLEEN ([facility]) Systolic blood pressure 132 mm[Hg] 132 mm[Hg] A THENA ([facility]) Heart rate 68 /min 68 /min [facility] Body weight 168.00 [lb_av] 168.00 [lb_av] MEDEN T ([facility]) Body temperature 96.7 [degF] 96.7 [degF] MEDENT ([facility]) Oxygen saturation in Arterial blood by Pulse oximetry 97 % 97 % [facility] ([facility]) Respiratory rate 15 /min 15 /min [facility] ( [facility]) Systolic blood pressure 122 mm[Hg] 122 mm[Hg] M EDENT ([facility]) left arm Diastolic blood pressure 84 mm[Hg] 84 mm[Hg] MEDENT ([facility]) left arm Body height 61 [in_i] 61 [in_i] [facility] ([facility] 5'1" Body mass index (BMI) [Ratio] 31.7 kg/m2 31.7 k g/m2 [facility] ([facility]) Diastolic blood pressure 86 mm[Hg] 86 mm[Hg] KAYLEEN ([facility]) Body height 61 [in_i] 61 [in_i] KAYLEEN ([facility]) Systolic blood pressure 128 mm[Hg] 128 mm[Hg] A THENA ([facility]) Diastolic blood pressure 86 mm[Hg] 86 mm[Hg] KAYLEEN ([facility]) Body height 61 [in_i] 61 [in_i] KAYLEEN ([facility]) Systolic blood pressure 128 mm[Hg] 128 mm[Hg] A THENA ([facility]) Diastolic blood pressure 86 mm[Hg] 86 mm[Hg] KAYLEEN ([facility]) Body height 61 [in_i] 61 [in_i] KAYLEEN ([facility]) Systolic blood pressure 128 mm[Hg] 128 mm[Hg] A THENA ([facility]) Diastolic blood pressure 86 mm[Hg] 86 mm[Hg] KAYLEEN ([facility]) Body height 61 [in_i] 61 [in_i] KAYLEEN ([facility]) Systolic blood pressure 128 mm[Hg] 128 mm[Hg] A THENA ([facility]) Diastolic blood pressure 86 mm[Hg] 86 mm[Hg] KAYLEEN ([facility]) Body height 61 [in_i] 61 [in_i] KAYLEEN ([facility]) Systolic blood pressure 128 mm[Hg] 128 mm[Hg] A THENA ([facility]) Diastolic blood pressure 86 mm[Hg] 86 mm[Hg] KAYLEEN ([facility]) Body height 61 [in_i] 61 [in_i] KAYLEEN ([facility]) Systolic blood pressure 128 mm[Hg] 128 mm[Hg] A THENA ([facility]) Diastolic blood pressure 86 mm[Hg] 86 mm[Hg] KAYLEEN ([facility]) Body height 61 [in_i] 61 [in_i] KAYLEEN ([facility]) Systolic blood pressure 128 mm[Hg] 128 mm[Hg] A THENA ([facility]) Diastolic blood pressure 86 mm[Hg] 86 mm[Hg] KAYLEEN ([facility]) Body height 61 [in_i] 61 [in_i] KAYLEEN ([facility]) Systolic blood pressure 128 mm[Hg] 128 mm[Hg] A THENA ([facility]) Diastolic blood pressure 86 mm[Hg] 86 mm[Hg] KAYLEEN ([facility]) Body height 61 [in_i] 61 [in_i] KAYLEEN ([facility]) Systolic blood pressure 128 mm[Hg] 128 mm[Hg] A THENA ([facility]) Diastolic blood pressure 86 mm[Hg] 86 mm[Hg] KAYLEEN ([facility]) Body height 61 [in_i] 61 [in_i] KAYLEEN ([facility]) Systolic blood pressure 128 mm[Hg] 128 mm[Hg] A THENA ([facility]) Systolic blood pressure 112 mm[Hg] 112 mm[Hg] M EDENT ([facility]) Heart rate 70 /min 70 /min [facility] ([facility]) Diastolic blood pressure 78 mm[Hg] 78 mm[Hg] [facility] ([facility]) Oxygen saturation in Arterial blood by Pulse oximetry 98 % 98 % [facility] ([facility]) Body mass index (BMI) [Ratio] 31.6 kg/m2 31.6 k g/m2 [facility] ([facility]) Respiratory rate 16 /min 16 /min [facility] ( [facility]) Body weight 167.00 [lb_av] 167.00 [lb_av] MEDEN T ([facility]) Body height 61 [in_i] 61 [in_i] [facility] ([facility] 5'1" ID Date Data Source [id number] 09/06/2020 11:22:34 AM [facility] Name Value Range Interpretation Code Description Data Source(s) WEIGHT RECORDED 167 lb 167 lb [facility] Patient Treatment Plan of Care Planned Activity Planned Date Details Description Data Source (s) tizanidine 4 MG Oral Tablet 05/30/2020 12:00:00 AM [facility] Oxybutynin chloride 5 MG Oral Tablet 03/20/2020 12:00:00 AM [facility] Estradiol 0.1 MG/ML Vaginal Cream 02/24/2020 12:00:00 AM [facility] pregabalin 75 MG Oral Capsule [Lyrica] 01/22/2016 12:00:00 AM [facility] pregabalin 50 MG Oral Capsule KAYLEEN ([facility]) Prednisone 20 MG Oral Tablet KAYLEEN ([facility]) Naproxen 500 MG Oral Tablet KAYLEEN ([facility]) pregabalin 25 MG Oral Capsule [Lyrica] KAYLEEN ([facility]) Fluoxetine 20 MG Oral Capsule KAYLEEN ([facility]) Fluoxetine 10 MG Oral Capsule KAYLEEN ([facility]) doxycycline hyclate 100 MG Oral Capsule KAYLEEN ([facility]) Naproxen 500 MG Oral Tablet KAYLEEN ([facility]) pregabalin 25 MG Oral Capsule [Lyrica] KAYLEEN ([facility]) Fluoxetine 20 MG Oral Capsule KAYLEEN ([facility]) Fluoxetine 10 MG Oral Capsule KAYLEEN ([facility]) doxycycline hyclate 100 MG Oral Capsule KAYLEEN ([facility]) pregabalin 50 MG Oral Capsule KAYLEEN ([facility]) Naproxen 500 MG Oral Tablet KAYLEEN ([facility]) pregabalin 25 MG Oral Capsule [Lyrica] KAYLEEN ([facility]) Fluoxetine 20 MG Oral Capsule KAYLEEN ([facility]) Fluoxetine 10 MG Oral Capsule KAYLEEN ([facility]) pregabalin 50 MG Oral Capsule KAYLEEN ([facility]) Naproxen 500 MG Oral Tablet KAYLEEN ([facility]) pregabalin 25 MG Oral Capsule [Lyrica] KAYLEEN ([facility]) Fluoxetine 20 MG Oral Capsule KAYLEEN ([facility]) Fluoxetine 10 MG Oral Capsule KAYLEEN ([facility]) pregabalin 50 MG Oral Capsule KAYLEEN ([facility]) Naproxen 500 MG Oral Tablet KAYLEEN ([facility]) pregabalin 25 MG Oral Capsule [Lyrica] KAYLEEN ([facility]) Fluoxetine 20 MG Oral Capsule KAYLEEN ([facility]) Fluoxetine 10 MG Oral Capsule KAYLEEN ([facility]) pregabalin 50 MG Oral Capsule KAYLEEN ([facility]) Naproxen 500 MG Oral Tablet KAYLEEN ([facility]) pregabalin 25 MG Oral Capsule [Lyrica] KAYLEEN ([facility]) Fluoxetine 20 MG Oral Capsule KAYLEEN ([facility] Fluoxetine 10 MG Oral Capsule KAYLEEN ([facility]) pregabalin 50 MG Oral Capsule KAYLEEN ([facility]) Naproxen 500 MG Oral Tablet KAYLEEN ([facility]) pregabalin 25 MG Oral Capsule [Lyrica] KAYLEEN ([facility]) Fluoxetine 20 MG Oral Capsule KAYLEEN ([facility] Fluoxetine 10 MG Oral Capsule KAYLEEN ([facility]) pregabalin 50 MG Oral Capsule KAYLEEN ([facility]) Naproxen 500 MG Oral Tablet KAYLEEN ([facility]) pregabalin 25 MG Oral Capsule [Lyrica] KAYLEEN ([facility]) Fluoxetine 20 MG Oral Capsule KAYLEEN ([facility]) Fluoxetine 10 MG Oral Capsule KAYLEEN ([facility]) pregabalin 50 MG Oral Capsule KAYLEEN ([facility]) Naproxen 500 MG Oral Tablet KAYLEEN ([facility]) pregabalin 25 MG Oral Capsule [Lyrica] KAYLEEN ([facility]) Fluoxetine 20 MG Oral Capsule KAYLEEN ([facility]) Fluoxetine 10 MG Oral Capsule KAYLEEN ([facility]) pregabalin 50 MG Oral Capsule KAYLEEN ([facility]) Prednisone 20 MG Oral Tablet KAYLEEN ([facility]) pregabalin 50 MG Oral Capsule KAYLEEN ([facility]) Naproxen 500 MG Oral Tablet KAYLEEN ([facility]) pregabalin 25 MG Oral Capsule [Lyrica] KAYLEEN ([facility]) Fluoxetine 20 MG Oral Capsule KAYLEEN ([facility]) Fluoxetine 10 MG Oral Capsule KAYLEEN ([facility])
[2021-02-15] MEDS ORDERED: LIDOCAINE 2% 100MG/5ML SDV (FOR ANES.) As Ordered ONE (08:18)
[2021-02-15] MEDS ORDERED: propofoL 200 MG/20 ML VIAL As Ordered ONE (08:18)
--- NOTE | 2021-02-15 08:33 | ROOR ---
Patient Name: Anjana Sher Procedure Date: 02/15/2021 8:04 AM Date of : 1955 Age: 65 Room: [id number] Gender: Female Note Status: Finalized Procedure: Colonoscopy Indications: Family history of colon cancer in a first-degree relative before age 60 years, Family history of colon cancer in multiple first-degree relatives Providers: Harvey Wilder MD Referring MD: Jarrod Milan MD Requesting Provider: Medicines: Monitored Anesthesia Care Complications: No immediate complications. Procedure: Pre-Anesthesia Assessment: - The heart rate, respiratory rate, oxygen saturations, blood pressure, adequacy of pulmonary ventilation, and response to care were monitored throughout the procedure. The Colonoscope was introduced through the anus and advanced to the terminal ileum, with identification of the appendiceal orifice and IC valve. The colonoscopy was performed without difficulty. The patient tolerated the procedure well. The quality of the bowel preparation was Suboptimal/Fair. Findings: The perianal and digital rectal examinations were normal. Four sessile polyps were found in the sigmoid colon. The polyps were diminutive in size. These polyps were removed with a cold snare. Resection and retrieval were complete. The exam was otherwise without abnormality. Impression: - Suboptimal/fair prep. - Four diminutive polyps in the sigmoid colon, removed with a cold snare. Resected and retrieved. - The examination was otherwise normal. Recommendation: - Repeat colonoscopy in 3 years for surveillance. - Repeat colonoscopy in 3 years because the bowel preparation was suboptimal. Procedure Code(s): --- Professional --- 39958, Colonoscopy, flexible; with removal of tumor(s), polyp(s), or other lesion(s) by snare technique Diagnosis Code(s): --- Professional --- Z80.0, Family history of malignant neoplasm of digestive organs K63.5, Polyp of colon CPT copyright 2019 [employer]. All rights reserved. The codes documented in this report are preliminary and upon mixer and scaler review may be revised to meet current compliance requirements. Harvey Wilder MD Harvey Wilder MD 02/15/2021 8:32:59 AM Electronically signed by Harvey Wilder MD Number of Addenda: 0 Note Initiated On: 02/15/2021 8:04 AM Estimated Blood Loss: Estimated blood loss: none.
[2021-02-15 08:45] VITALS: BP 137/64
== END 2021-02-15 08:56 | disposition home or self-care (01) ==
LOC: M OPP 07:32
PROVIDERS: ATTEND Internal Medicine Gastroenterology
DX: D12.5 Benign neoplasm of sigmoid colon (principal); Z12.11 Encounter for screening for malignant neoplasm of colon; Z80.0 Family history of malignant neoplasm of digestive organs; Z88.1 Allergy status to other antibiotic agents; Z88.6 Allergy status to analgesic agent; Z88.8 Allergy status to other drugs, medicaments and biological substances

== ENCOUNTER → 2021-04-25 | Outpatient (CLI) | payer MEDICARE, OTHER ==
[~2021-04-25] MED LIST changes: -NS 1,000 ML IV ONE; +TIZA10TA PO; -TIZA4TAB4 PO
[2021-04-25 12:02] LABS: BLOOD UREA NITROGEN 14 MG/DL (7-18); CREATININE FOR GFR 0.85 MG/DL (0.55-1.30); GLOMERULAR FILTRATION RATE > 60.0 (>45)
== END ==
LOC: M LAB 10:16
PROVIDERS: ATTEND Neurological Surgery
DX: Z13.89 Encounter for screening for other disorder (principal)

== ENCOUNTER → 2021-05-01 | Outpatient (CLI) | payer MEDICARE, OTHER ==
[~2021-05-01] MED LIST changes: +PROHANCE 279.3MG/ML 15ML VIAL As Ordered ONE
== END ==
LOC: M RAD 12:32
PROVIDERS: ATTEND Neurological Surgery
DX: D32.9 Benign neoplasm of meninges, unspecified (principal); D49.7 Neoplasm of unspecified behavior of endocrine glands and other parts of nervous system; Z92.3 Personal history of irradiation
CPT/HCPCS: 70553; A9576

== ENCOUNTER → 2021-07-08 | Outpatient (CLI) | payer MEDICARE, OTHER ==
[~2021-07-08] MED LIST changes: -PROHANCE 279.3MG/ML 15ML VIAL As Ordered ONE
[2021-07-08 14:12] LABS: BASO % 0.5 % (0.0-1.0); EOS # 0.1 10^3/uL (0.0-0.5); EOS % 2.2 % (0.0-3.0); HEMATOCRIT 43.8 % (36.0-47.0); HEMOGLOBIN 14.4 g/dl (12.0-15.5); LYMPH # 2.8 10^3/uL (1.5-5.0); LYMPH % 45.2 % (24.0-44.0); MEAN CORPUSCULAR HEMOGLOBIN 30.3 pg (27.0-33.0); MEAN CORPUSCULAR HGB CONC 32.9 g/dl (32.0-36.5); MEAN CORPUSCULAR VOLUME 92.2 fl (80.0-96.0); MONO # 0.5 10^3/uL (0.0-0.8); MONO % 7.8 % (2.0-8.0); NEUTROPHILS # 2.8 10^3/uL (1.5-8.5); PLATELET COUNT, AUTOMATED 302 10^3/uL (150-450); RED BLOOD COUNT 4.75 10^6/uL (4.00-5.40); WHITE BLOOD COUNT 6.3 10^3/uL (4.0-10.0)
[2021-07-08 14:38] LABS: ALBUMIN 3.7 GM/DL (3.2-5.2); ALT/SGPT 39 U/L (12-78); BILIRUBIN,TOTAL 0.5 MG/DL (0.2-1.0); BLOOD UREA NITROGEN 12 MG/DL (7-18); CALCIUM LEVEL 9.1 MG/DL (8.8-10.2); CARBON DIOXIDE LEVEL 28 MEQ/L (21-32); CHLORIDE LEVEL 115 MEQ/L (98-107); CREATININE FOR GFR 0.82 MG/DL (0.55-1.30); GLOMERULAR FILTRATION RATE > 60.0 (>45); GLUCOSE, FASTING 81 MG/DL (70-100); POTASSIUM SERUM 3.8 MEQ/L (3.5-5.1); SODIUM LEVEL 145 MEQ/L (136-145); TOTAL PROTEIN 6.7 GM/DL (6.4-8.2)
[2021-07-08 14:46] LABS: VITAMIN B12 LEVEL 1303 PG/ML
[2021-07-08 14:47] LABS: FOLATE 6.7 NG/ML
[2021-07-08 15:10] LABS: HEMOGLOBIN A1c 5.4 %
[2021-07-10 11:40] LABS: ALBUMIN 4.45 GM/DL (3.29-5.55); ALBUMIN % 66.4 % (55.8-66.1); ALPHA-1-GLOBULIN % 2.5 % (2.9-4.9); ALPHA-1-GLOBULINS 0.17 GM/DL (0.17-0.41); ALPHA-2-GLOBULINS 0.58 GM/DL (0.42-0.99); ALPHA-2-GLOBULINS % 8.7 % (7.1-11.8); BETA-1-GLOBULINS 0.38 GM/DL (0.28-0.60); BETA-1-GLOBULINS % 5.7 % (4.7-7.2); BETA-2-GLOBULINS 0.35 GM/DL (0.19-0.55); BETA-2-GLOBULINS % 5.2 % (3.2-6.5); GAMMA GLOBULIN % 11.5 % (11.1-18.8); GAMMA GLOBULINS 0.77 GM/DL (0.65-1.58)
[2021-07-19 03:09] LABS: CERULOPLASMIN 24.6 mg/dL (19.0-39.0); VITAMIN B1 LEVEL WHOLE BLOOD 112.3 nmol/L (66.5-200.0); VITAMIN B6,PYRIDOXAL PHOSPHATE 6.1 ug/L (3.4-65.2); VITAMIN E(ALPHA TOCOPHEROL) 12.4 mg/L (9.0-29.0); VITAMIN E(GAMMA TOCOPHEROL) 1.3 mg/L (0.5-4.9)
== END ==
LOC: M LAB 13:09
PROVIDERS: ATTEND Psychiatry & Neurology Neurology
DX: E11.40 Type 2 diabetes mellitus with diabetic neuropathy, unspecified (principal); E53.8 Deficiency of other specified B group vitamins; E61.0 Copper deficiency; E51.9 Thiamine deficiency, unspecified

== ENCOUNTER → 2022-02-11 | Outpatient (CLI) | payer MEDICARE, OTHER ==
[2022-02-11 17:54] LABS: BASO % 0.4 % (0.0-1.0); EOS # 0.2 10^3/uL (0.0-0.5); EOS % 1.6 % (0.0-3.0); HEMOGLOBIN 12.3 g/dl (12.0-15.5); LYMPH # 3.3 10^3/uL (1.5-5.0); LYMPH % 31.6 % (24.0-44.0); MEAN CORPUSCULAR HEMOGLOBIN 29.8 pg (27.0-33.0); MEAN CORPUSCULAR HGB CONC 31.5 g/dl (32.0-36.5); MEAN CORPUSCULAR VOLUME 94.4 fl (80.0-96.0); MONO % 9.9 % (2.0-8.0); NEUTROPHILS # 5.8 10^3/uL (1.5-8.5); NEUTROPHILS % 56.1 % (36.0-66.0); PLATELET COUNT, AUTOMATED 385 10^3/uL (150-450); RED BLOOD COUNT 4.13 10^6/uL (4.00-5.40); WHITE BLOOD COUNT 10.3 10^3/uL (4.0-10.0)
[2022-02-11 18:38] LABS: ALBUMIN 2.8 GM/DL (3.2-5.2); ALT/SGPT 24 U/L (12-78); BILIRUBIN,TOTAL 0.3 MG/DL (0.2-1.0); BLOOD UREA NITROGEN 22 MG/DL (7-18); CALCIUM LEVEL 8.9 MG/DL (8.8-10.2); CARBON DIOXIDE LEVEL 25 MEQ/L (21-32); CHLORIDE LEVEL 109 MEQ/L (98-107); GLOMERULAR FILTRATION RATE 58.7 (>45); GLUCOSE, FASTING 80 MG/DL (70-100); RHEUMATOID FACTOR QUANT < 10.0 IU/ML (<15.0); SODIUM LEVEL 141 MEQ/L (136-145); TOTAL PROTEIN 6.3 GM/DL (6.4-8.2); URIC ACID 4.4 MG/DL (2.6-6.0)
[2022-02-11 19:20] LABS: ERYTHROCYTE SEDIMENTATION RATE 52 mm/hr (0-30)
== END ==
LOC: M LAB 16:23
PROVIDERS: ATTEND Family Medicine
DX: M25.50 Pain in unspecified joint (principal)

== ENCOUNTER → 2022-03-14 | Outpatient (CLI) | payer MEDICARE, OTHER | LOC: M SOG 08:17 | PROVIDERS: ATTEND Orthopaedic Surgery | DX: M19.011 Primary osteoarthritis, right shoulder (principal); M19.012 Primary osteoarthritis, left shoulder ==

== ENCOUNTER → 2022-05-26 | Outpatient (CLI) | payer MEDICARE, OTHER ==
[2022-05-26 16:31] LABS: BLOOD UREA NITROGEN 17 MG/DL (9-23); CALCIUM LEVEL 9.3 MG/DL (8.3-10.6); CARBON DIOXIDE LEVEL 27 MMOL/L (20-31); CHLORIDE LEVEL 108 MMOL/L (98-107); CREATININE FOR GFR 0.87 MG/DL (0.55-1.30); GLOMERULAR FILTRATION RATE > 60.0 (>45); GLUCOSE, FASTING 103 MG/DL (74-106); POTASSIUM SERUM 4.2 MMOL/L (3.5-5.1); SODIUM LEVEL 140 MMOL/L (136-145)
== END ==
LOC: M LAB 14:26
PROVIDERS: ATTEND Family Medicine
DX: E78.5 Hyperlipidemia, unspecified (principal)

== ENCOUNTER → 2022-05-30 | Outpatient (CLI) | payer MEDICARE, OTHER ==
[~2022-05-30] MED LIST changes: +PROHANCE 279.3MG/ML 5ML VIAL As Ordered ONE
== END ==
LOC: M RAD 10:45
PROVIDERS: ATTEND Neurological Surgery
DX: D32.9 Benign neoplasm of meninges, unspecified (principal); D49.7 Neoplasm of unspecified behavior of endocrine glands and other parts of nervous system
CPT/HCPCS: 70553; A9576

== ENCOUNTER → 2022-07-30 | Outpatient (REF) | payer MEDICARE, OTHER ==
[~2022-07-30] MED LIST changes: +MONT-5 PO; -PROHANCE 279.3MG/ML 5ML VIAL As Ordered ONE; -SING10TA32 PO; +TOPI-254 PO; -TOPI50TA9 PO
== END ==
LOC: M LABDRAWC 16:50
PROVIDERS: ATTEND Family Medicine
DX: M35.3 Polymyalgia rheumatica (principal)

== ENCOUNTER → 2022-09-12 | Outpatient (CLI) | payer MEDICARE, OTHER | LOC: M SOG 09:10 | PROVIDERS: ATTEND Orthopaedic Surgery | DX: M25.532 Pain in left wrist (principal); M25.531 Pain in right wrist ==

== ENCOUNTER → 2022-11-10 | Outpatient (CLI) | payer MEDICARE, OTHER ==
[~2022-11-10] MED LIST changes: -ROPI0.5T3 PO; +ROPI0.5T33 PO
== END ==
LOC: M RAD 08:14
PROVIDERS: ATTEND Orthopaedic Surgery
DX: M25.512 Pain in left shoulder (principal); M67.814 Other specified disorders of tendon, left shoulder

== ENCOUNTER → 2022-12-25 | Outpatient (CLI) | payer MEDICARE, OTHER | LOC: M RAD 13:24 | PROVIDERS: ATTEND Internal Medicine Gastroenterology | DX: R19.4 Change in bowel habit (principal); R14.0 Abdominal distension (gaseous); R10.30 Lower abdominal pain, unspecified ==

== ENCOUNTER → 2022-12-26 | Outpatient (REF) | payer MEDICARE, OTHER | LOC: M LAB REF 17:08 | PROVIDERS: ATTEND Physician Assistant Medical | DX: R19.4 Change in bowel habit (principal) ==

== ENCOUNTER 2023-02-10 10:06 | Day surgery (SDC) | payer MEDICARE, OTHER ==
[~2023-02-10] VITALS: Ht 154.9 cm; Wt 67.3 kg
[~2023-02-10 10:06] MED LIST changes: +CETI-24 PO; +EQL50TAB2 PO; +NS 1,000 ML IV ONE; -OXYB5TAB10 PO; +OXYB5TAB11 PO; +VITA100093 PO; +VITA100C8
[2023-02-10] MEDS ORDERED: ACET325C5 PO (10:35)
[2023-02-10] MEDS ORDERED: propofoL 200 MG/20 ML VIAL As Ordered ONE ×2 (11:45→11:57)
[2023-02-10 12:11] VITALS: TEMP 97.6
[2023-02-10 12:43] VITALS: BP 160/92; O2SAT 98
== END 2023-02-10 13:05 | disposition home or self-care (01) ==
LOC: M OPP 10:06
PROVIDERS: ATTEND Internal Medicine Gastroenterology
DX: D12.0 Benign neoplasm of cecum (principal); K63.5 Polyp of colon; K57.30 Diverticulosis of large intestine without perforation or abscess without bleeding; K64.8 Other hemorrhoids; G47.33 Obstructive sleep apnea (adult) (pediatric); Z99.89 Dependence on other enabling machines and devices; Z79.1 Long term (current) use of non-steroidal anti-inflammatories (NSAID); Z79.52 Long term (current) use of systemic steroids; Z79.83 Long term (current) use of bisphosphonates; Z79.899 Other long term (current) drug therapy

== ENCOUNTER → 2023-03-23 | Outpatient (REF) | payer MEDICARE, OTHER ==
[~2023-03-23] MED LIST changes: +ACET325C5 PO; -NS 1,000 ML IV ONE; +TOPI-21 PO; -TOPI-254 PO
[2023-03-23 12:49] LABS: BLOOD UREA NITROGEN 22 MG/DL (9-23); CREATININE FOR GFR 0.75 MG/DL (0.55-1.30); GLOMERULAR FILTRATION RATE > 60.0 (>45)
== END ==
LOC: M LABDRAWC 11:00
PROVIDERS: ATTEND Physician Assistant Medical
DX: R19.7 Diarrhea, unspecified (principal); K86.81 Exocrine pancreatic insufficiency

== ENCOUNTER → 2023-03-24 | Outpatient (CLI) | payer MEDICARE, OTHER ==
[~2023-03-24] MED LIST changes: +GASTROGRAFIN SOLUTION 30ML As Ordered ONE; +ISOVUE-370 76% 100ML VIAL As Ordered ONE
== END ==
LOC: M RAD 08:38
PROVIDERS: ATTEND Physician Assistant Medical
DX: K86.81 Exocrine pancreatic insufficiency (principal); R19.7 Diarrhea, unspecified; K76.0 Fatty (change of) liver, not elsewhere classified; K76.89 Other specified diseases of liver
CPT/HCPCS: 74177; Q9963; Q9967

== ENCOUNTER → 2023-05-21 | Outpatient (CLI) | payer MEDICARE, OTHER ==
[~2023-05-21] MED LIST changes: -ISOVUE-370 76% 100ML VIAL As Ordered ONE; -OXYB5TAB11 PO; +OXYB5TAB14 PO; +PROHANCE 279.3MG/ML 15ML VIAL As Ordered ONE
== END ==
LOC: M RAD 10:49
PROVIDERS: ATTEND Physician Assistant
DX: D32.9 Benign neoplasm of meninges, unspecified (principal); D49.7 Neoplasm of unspecified behavior of endocrine glands and other parts of nervous system; R90.82 White matter disease, unspecified
CPT/HCPCS: 70553; A9576